=== PATIENT | female | born 1955 | race Caucasian/White ===

== ENCOUNTER → 2016-02-18 | Day surgery (SDC) | payer OTHER ==
[2016-02-11 08:29] VITALS: BMI 54.0
[~2016-02-18] VITALS: Ht 160 cm; Wt 140.0 kg
[~2016-02-18] MED LIST: AMIT10TA6 PO; BSP15 PO; CHOL100010 PO; CHOL1TAB53 PO; CLON1TAB PO; CLON1TAB3 PO; CPR/500 PO; CPR250 PO; DICY20TA35 PO; EFFSR150 PO; EFFSR75 PO; GABA1CAP4 PO; KLN1 PO; KLN5X PO; METF-384 PO; MIRT15TA3 PO; OMEGCAP2 PO; PRED20TA2 PO; PRT/20 PO; QUET1TAB34 PO; SENN-65 PO; SODIUM CHLORIDE 0.9% 500ML 500 ML IV ONE; VENL100T2 PO; VENL150C56 PO; ZTHM250 PO; [UNRECOGNIZED DRUG - CODE] PO
[2016-02-18 12:57] VITALS: Ht 160 cm; Wt 140.0 kg
--- NOTE | 2016-02-18 13:51 | Endo History and Physical ---
History & Physical Date of Service: Feb 18, 2016. Chief Complaint: family hx of colon cancer, mother Referring Physician: Dr. Banda History of Present Illness H/o CRC in family Past Medical History Anxiety, Depression Past Surgical History Hx Cardiac Surgery: No Hx Internal Defibrillator: No Hx Pacemaker: No Hx Abdominal Surgery: Yes (APPY, NIDIA, GRANT, TUBAL LIGATION) Hx of Implantable Prosthesis: No Hx Post-Op Nausea and Vomiting: No Hx Cancer Surgery: No Hx Thoracic Surgery: No Hx Orthopedic: No Hx Urinary Tract Surgery: No Family History Colon CA Social History Smoking Status: Former Smoker Hx Substance Use: No Hx Alcohol Use: No Allergies Coded Allergies: Cyclobenzaprine (Verified Allergy, Unknown, RASH, 02/18/16) INFO GMG Diphenhydramine (Verified Allergy, Unknown, nervousness, 02/18/16) "It makes me bounce of cohen." Naproxen (Verified Allergy, Unknown, WELTS/HIVE BUT CAN TAKE IBUPROFEN & ASPIRIN W/O PROBLEM, 02/18/16) Penicillins (Verified Allergy, Unknown, DOES NOT REMEMBER RXN WAS A CHILD , 02/18/16) Trazodone (Verified Adverse Reaction, Unknown, PALPITATIONS, 02/11/16) Current Medications Reported Home Medications Medications Dose Route/Sig Max Daily Dose Days Date Category Dose Instructions Seroquel (Quetiapine Fumarate) 100 Mg Tab 100 Mg PO HS 02/11/16 Reported Effexor (Venlafaxine Hcl) 100 Mg Tab 100 Mg PO TID 11/06/15 Reported Glucophage (Metformin Hcl) 1,000 Mg Tab 1,000 Mg PO BID 11/06/15 Reported Klonopin (Clonazepam) 1 Mg Tab 2 Mg PO HS 10/19/13 Reported Klonopin (Clonazepam) 1 Mg Tab 1 Mg PO BID 10/06/13 Reported 1 tab in AM and 1 tab with LUNCH Vitamin D (Cholecalciferol) 1,000 Inter.unit Tab 2,000 Inter.unit PO QAM 09/03/13 Reported Vital Signs Weight (Kilograms): 140.00 Height (Feet): 5 Height (Inches): 3 Date Time Temp Pulse Resp B/P Pulse Ox O2 Delivery O2 Flow Rate FiO2 02/18/16 13:12 36.8 82 20 144/91 96 Room Air Physical Exam General Appearance: no apparent distress Respiratory/Chest: Respiratory effort: no dyspnea Auscultation: breath sounds normal Cardiovascular: Heart Auscultation: RRR Assessment and Plan H/o CRC in mother - cscopy
--- NOTE | 2016-02-18 15:14 | Discharge Instructions ---
Endoscopy Patient Instructions Date / Procedure(s) Performed Feb 18, 2016. Colonoscopy Allergy Information Coded Allergies: Cyclobenzaprine (Verified Allergy, Unknown, RASH, 02/18/16) INFO GMG Diphenhydramine (Verified Allergy, Unknown, nervousness, 02/18/16) "It makes me bounce of cohen." Naproxen (Verified Allergy, Unknown, WELTS/HIVE BUT CAN TAKE IBUPROFEN & ASPIRIN W/O PROBLEM, 02/18/16) Penicillins (Verified Allergy, Unknown, DOES NOT REMEMBER RXN WAS A CHILD , 02/18/16) Trazodone (Verified Adverse Reaction, Unknown, PALPITATIONS, 02/11/16) Discharge Date / Findings Feb 18, 2016. Four polyps, diverticulosis, poor prep Provider Instructions Activity Restrictions - No exercising or heavy lifting for 24 hours. - Do not drink alcohol the day of the procedure. - Do not drive a car or operate machinery until the day after the procedure. - Do not make any important decisions or sign important papers in 24 hours after the procedure. Following Day: - Return to full activity which may include returning to work/school. Diet Start your diet with liquids and light foods (jello, soup, juice, toast). Then eat your usual diet if not nauseated. Treatment For Common After Affects For mild abdominal pain, bloating, or excessive gas: - Rest - Eat lightly - Lie on right side Follow-Up Information Follow-up with Dr. Banda as scheduled Anesthesia Information What You Should Know You have had a procedure that required some medicine to reduce anxiety and discomfort. This treatment is called moderate sedation. After receiving the treatment, you may be sleepy, but you will be able to breathe on your own. The effects of the treatment may last for several hours. Follow these instructions along with Activity/Diet recommendations noted above: * Do NOT do anything where dizziness or clumsiness would be dangerous. * Rest quietly at home today, then you can be up and about tomorrow. * Have a responsible person stay with you the rest of today. * You may have had an I.V. today. If so, you may take the dressing off later today. Recommendations Call your doctor if: * Trouble breathing * Continuous vomiting for more than 24 hours * Temperature above 101 degrees * Severe abdominal pain or bloating * Pain not relieved by pain medicine ordered * There is increased drainage or redness from any incision * A large amount of rectal bleeding greater than 2-3 tablespoons. (If you had a polyp/s removed or have hemorrhoids, a small amount of blood - from the rectum is to be expected.) * You have any unanswered questions or concerns. IN THE EVENT OF A SERIOUS EMERGENCY, GO TO THE NEAREST EMERGENCY ROOM Your discharge instructions were prepared by provider Berkeet Boothe. Patient Instructions Signature Page Patient (or Guardian) Signature/Date: I have read and understand the instructions given to me by my caregivers. Caregiver/RN/Doctor Signature/Date: The above-named patient and/or guardian has received patient instructions on this date. + Original Patient Signature Page (only) stays with chart. Please make copy for patient.
[2016-02-18 15:16] VITALS: BP 119/82; PULSE 65; O2SAT 95
--- NOTE | 2016-02-18 15:19 | GI REPORT ---
Procedure Date: 02/18/2016 1:51 PM Procedure: Colonoscopy Indications: Screening in patient at increased risk: Family history of 1st-degree relative with colorectal cancer; personal h/o polyps. Medicines: See the Anesthesia note for documentation of the administered medications Complications: No immediate complications. Estimated Blood Loss: Estimated blood loss: none. Procedure: Pre-Anesthesia Assessment: - ASA Grade Assessment: III - A patient with severe systemic disease. After I obtained informed consent, the scope was passed under direct vision. Throughout the procedure, the patient's blood pressure, pulse, and oxygen saturations were monitored continuously. The Scope was introduced through the anus and advanced to the terminal ileum. The patient tolerated the procedure well. The quality of the bowel preparation was fair. The colonoscopy was somewhat difficult due to significant looping. Findings: The perianal and digital rectal examinations were normal. Multiple small-mouthed diverticula were found in the sigmoid colon. Four sessile polyps were found in the transverse colon and in the ascending colon. The polyps were 2 to 4 mm in size. These polyps were removed with a cold biopsy forceps. Resection and retrieval were complete. The exam was otherwise without abnormality, but limited by prep wuality. Impression: - Preparation of the colon was fair. - Diverticulosis in the sigmoid colon. - Four 2 to 4 mm polyps in the transverse colon and in the ascending colon, removed with a cold biopsy forceps. Resected and retrieved. - The examination was otherwise normal. Recommendation: - Discharge patient to home. Repeat exam in 1 year with 2 day prep, due to prep quality, polyps, family history. Bereket Avila M.D. Bereket Avila MD 02/18/2016 3:18:05 PM This report has been signed electronically. Note Initiated On: 02/18/2016 1:51 PM
--- NOTE | 2016-02-18 15:21 | Anesthesiology Progress Note ---
Anesthesia Post Op Note Date & Time Feb 18, 2016 at 15:20 Vital Signs Pain Intensity: 0 Vital Signs Past 12 Hours Date Time Temp Pulse Resp B/P Pulse Ox O2 Delivery O2 Flow Rate FiO2 02/18/16 15:16 65 20 119/82 95 Room Air 02/18/16 15:01 72 20 114/77 97 Room Air 02/18/16 14:46 76 20 109/62 96 Room Air 02/18/16 13:12 36.8 82 20 144/91 96 Room Air Notes Mental Status: alert / awake / arousable, participated in evaluation Pt Amnestic to Procedure: Yes Nausea / Vomiting: adequately controlled Pain: adequately controlled Airway Patency, RR, SpO2: stable & adequate BP & HR: stable & adequate Hydration State: stable & adequate Anesthetic Complications: no major complications apparent
== END | disposition home or self-care (01) ==
LOC: C.GI 12:36
PROVIDERS: ATTEND Internal Medicine Gastroenterology
DX: Z12.11 Encounter for screening for malignant neoplasm of colon (principal); Z80.0 Family history of malignant neoplasm of digestive organs; D12.3 Benign neoplasm of transverse colon; K57.30 Diverticulosis of large intestine without perforation or abscess without bleeding; F41.9 Anxiety disorder, unspecified; F32.9 Major depressive disorder, single episode, unspecified; Z90.49 Acquired absence of other specified parts of digestive tract; Z98.890 Other specified postprocedural states; Z98.51 Tubal ligation status; Z87.891 Personal history of nicotine dependence; Z88.0 Allergy status to penicillin

== ENCOUNTER 2016-03-01 15:54 | Emergency (ER) | payer OTHER ==
[~2016-03-01] VITALS: Ht 160 cm; Wt 130.0 kg
[~2016-03-01 15:54] MED LIST changes: -AMIT10TA6 PO; -BSP15 PO; -CHOL1TAB53 PO; -CPR/500 PO; -CPR250 PO; -DICY20TA35 PO; -EFFSR150 PO; -EFFSR75 PO; -GABA1CAP4 PO; -KLN1 PO; -KLN5X PO; -MIRT15TA3 PO; -PRED20TA2 PO; -PRT/20 PO; -SENN-65 PO; -SODIUM CHLORIDE 0.9% 500ML 500 ML IV ONE; -VENL150C56 PO; -ZTHM250 PO; -[UNRECOGNIZED DRUG - CODE] PO
[2016-03-01] MEDS ORDERED: HYDROmorphone INJ 0.5 MG/0.5 ML SYR IV STA ×2 (16:09→21:21)
[2016-03-01] MEDS ORDERED: SODIUM CHLORIDE 0.9% 1000ML 1,000 ML IV STA (16:09)
[2016-03-01] MEDS ORDERED: ONDANSETRON INJ 2 MG/ML 2 ML VIAL IV STA (16:09)
[2016-03-01] MEDS ORDERED: OPTIRAY 320 IV PRN (16:15)
[2016-03-01] MEDS ORDERED: CLON1TAB3 PO (16:22)
[2016-03-01] MEDS ORDERED: CHOL1TAB53 PO (16:22)
[2016-03-01 16:41] VITALS: O2SAT 96; Ht 160 cm; Wt 130.0 kg
--- NOTE | 2016-03-01 16:46 | DIAGNOSTIC IMAGING REPORT ---
SINGLE VIEW CHEST CLINICAL HISTORY: Generalized weakness. FINDINGS: An AP, portable, upright chest radiograph is compared to study dated 12/03/2013. Correlation is made with chest CT dated 06/12/2009. The examination is degraded by portable technique and patient rotation. The heart is mildly enlarged and there is atherosclerotic calcification of the thoracic aorta. The pulmonary vasculature is noncongested. The lungs and pleural spaces are clear. No pneumothorax is seen. The skeletal structures appear osteopenic. The bony thorax is grossly intact. Degenerative change is noted throughout the thoracic spine. IMPRESSION: Cardiomegaly with no acute cardiopulmonary abnormality. Electronically signed by: Syd Bustillos M.D. 03/01/2016 4:44 PM Dictated Date/Time: 03/01/2016 4:43 PM
[2016-03-01 17:01] LABS: BASO % 0.4 %; BASO ABS # 0.03 K/uL (0-0.2); COMPLETE YES; EOS % 1.1 %; HEMATOCRIT 40.9 % (37-47); IG% 0.2 %; LYMPH ABS # 3.32 K/uL (1.2-3.4); MEAN CELL VOLUME 89.7 fL (80-100); MEAN CORPUSCULAR HEMOGLOBIN 31.6 pg (25-34); MEAN CORPUSCULAR HGB CONC 35.2 g/dl (32-36); MEAN PLATELET VOLUME 9.5 fL (7.4-10.4); MONO % 6.1 %; NEUT % 51.2 %; PLATELET COUNT 238 K/uL (130-400); RED BLOOD COUNT 4.56 M/uL (4.2-5.4); WHITE BLOOD COUNT 8.09 K/uL (4.8-10.8)
[2016-03-01 17:26] LABS: ALT/SGPT 46 U/L (12-78); BLOOD UREA NITROGEN 13 mg/dl (7-18); BUN/CREATININE RATIO 13.7 (10-20); CALCIUM 9.1 mg/dl (8.5-10.1); CARBON DIOXIDE 20 mmol/L (21-32); CHLORIDE 109 mmol/L (98-107); CREATININE 0.94 mg/dl (0.60-1.20); GLUCOSE 109 mg/dl (70-99); MAGNESIUM 2.3 mg/dl (1.8-2.4); POTASSIUM 3.9 mmol/L (3.5-5.1); SODIUM 142 mmol/L (136-145)
[2016-03-01] MEDS ORDERED: ALBUT/IPRATROP 3MG/0.5MG NEB 3 ML VIAL INH STA (17:34)
[2016-03-01 17:43] LABS: ALKALINE PHOSPHATASE 119 U/L (45-117); AST/SGOT 32 U/L (15-37)
--- NOTE | 2016-03-01 19:31 | DIAGNOSTIC IMAGING REPORT ---
ABDOMEN AND PELVIS CT WITH IV AND ORAL CONTRAST CT DOSE: 1912.06 mGy.cm HISTORY: Diffuse upper abdominal pain. TECHNIQUE: Multiaxial CT images of the abdomen and pelvis were performed following the use of intravenous and oral contrast. COMPARISON STUDY: Abdomen and pelvis CT 11/06/2015. FINDINGS: Stable nodularity within the left breast. The lung bases are clear. Large, bowel-containing ventral hernia remains unchanged. This contains multiple loops of small bowel. There is also a smaller ventral fat-containing hernia which is also unchanged. Cholecystectomy. Hepatic steatosis. Stable left adrenal gland nodule. The right adrenal gland, pancreas, and kidneys are unremarkable. No retroperitoneal lymphadenopathy. No hydronephrosis. The bladder is unremarkable. Hysterectomy. No bowel wall thickening or obstruction. Colonic diverticulosis. The large, bowel containing ventral hernia also contains a short segment of the transverse colon. The appendix appears surgically absent. IMPRESSION: 1. No significant change in the large bowel-containing ventral hernia and smaller fat-containing ventral hernia. 2. No bowel wall thickening or obstruction. 3. Hepatic steatosis. 4. Colonic diverticulosis. 5. Postoperative changes as described above. Electronically signed by: Markell Ramos M.D. 03/01/2016 7:29 PM Dictated Date/Time: 03/01/2016 7:20 PM
[2016-03-01] MEDS ORDERED: ALBUTEROL HFA 8 GM INHALER INH ONE (21:30)
[2016-03-01] MEDS ORDERED: BENTYL HOME PACK 10 MG VIAL PO ONE (21:30)
[2016-03-01 21:38] VITALS: BP 110/80; PULSE 66; O2SAT 96
[2016-03-01] MEDS ORDERED: DICY20TA35 PO (21:49)
--- NOTE | 2016-03-02 00:55 | EMERGENCY ROOM VISIT NOTE ---
History Report prepared by Lorne: Gene Puga Under the Supervision of: Dr. Abbe Preston M.D. First contact with patient: 16:01 Chief Complaint: RESPIRATORY DISTRESS Stated Complaint: TROUBLE BREATHING, ABDOMINAL PAIN Nursing Triage Summary: patient c/o "Trouble breathing and pain in my stomach. I've had the pain, the trouble breathing started Sunday" Pt denies n/v/d. Mid upper to lower bilateral abd pain. History of Present Illness The patient is a 60 year old female who presents to the Emergency Room with complaints of upper abdominal pain starting about a year ago and worsening a few weeks ago. She had a colonoscopy about 2 weeks ago with negative results. The patient was in the Emergency Room for upper abdominal pain in October 2015. She received a CT scan with negative results and normal blood work. The patient currently rates a pain intensity of 9/10. She has not eaten anything today. She reports her current pain feels different than her prior abdominal pain due to the breathing issues. The patient started having shortness of breath 3 days ago. She also reports some chest pain which has been constant as well. The patient does note a history of smoking but is no longer a smoker. She denies any history of similar symptoms or prior lung problems. She has a family history of cancer. She has a history of blood clot in the left leg but has not had any problems with her legs recently. She denies any calf pain or leg swelling. She denies any recent travels. Pt denies LOC, headache, fevers, chills, cold-like symptoms, diaphoresis, visual changes, neck pain, nausea, vomiting, back pain, melena, hematochezia, urinary symptoms, numbness, weakness , lymphadenopathy, rash, or other complaints. Source of History: patient Onset: about a year ago Position: abdomen (upper) Symptom Intensity: 9/10 Timing: worsening Associated Symptoms: + SOB, + chest pain Review of Systems See HPI for pertinent positives and negatives. A total of ten systems were reviewed and were otherwise negative. Past Medical & Surgical Medical Problems: (1) DEPRESSIVE DISORDER NEC (2) GENERALIZED ANXIETY DIS (3) HYPERLIPIDEMIA NEC/NOS (4) IRRITABLE BOWEL SYNDROME (5) OBSTRUCTIVE SLEEP APNEA (ADULT) (PEDIATRIC) Surgical Problems: (1) Appendectomy (2) Cholecystectomy (3) H/O: hysterectomy (4) Tubal ligation status Family History Cancer Diabetes mellitus Heart disease Hypertension Social History Smoking Status: Former Smoker Alcohol Use: none Drug Use: none Marital Status: Housing Status: lives with family Occupation Status: employed Current/Historical Medications Scheduled Cholecalciferol (D 1000), 2,000 UNITS PO DAILY Clonazepam (Klonopin), 1 MG PO BID Clonazepam (Klonopin), 2 MG PO HS Metformin Hcl (Glucophage), 1,000 MG PO BID Holland-3 Fatty Acids (Fish Oil), 2 CAP PO QAM Quetiapine Fumarate (Seroquel), 100 MG PO HS Venlafaxine Hcl (Effexor), 100 MG PO TID Scheduled PRN Dicyclomine Hcl (Bentyl), 20 MG PO Q6 PRN for Pain Allergies Coded Allergies: Cyclobenzaprine (Verified Allergy, Unknown, RASH, 03/01/16) INFO [facility]G Diphenhydramine (Verified Allergy, Unknown, nervousness, 03/01/16) "It makes me bounce of cohen." Naproxen (Verified Allergy, Unknown, WELTS/HIVE BUT CAN TAKE IBUPROFEN & ASPIRIN W/O PROBLEM, 03/01/16) Penicillins (Verified Allergy, Unknown, DOES NOT REMEMBER RXN WAS A CHILD , 03/01/16) Trazodone (Verified Adverse Reaction, Unknown, PALPITATIONS, 03/01/16) Physical Exam Vital Signs Date Time Temp Pulse Resp B/P Pulse Ox O2 Delivery O2 Flow Rate FiO2 03/01/16 21:38 66 20 110/80 96 Room Air 03/01/16 21:02 75 20 115/65 98 Room Air 03/01/16 20:35 67 03/01/16 19:10 78 22 119/62 95 Room Air 03/01/16 17:50 79 20 104/92 99 Room Air 03/01/16 17:14 68 20 98 Room Air 03/01/16 16:41 96 Room Air 03/01/16 16:35 67 03/01/16 15:56 76 22 195/141 98 03/01/16 15:56 94 Room Air Physical Exam GENERAL: Awake, alert, well-appearing, in no distress HENT: Normocephalic, atraumatic. Oropharynx unremarkable. EYES: Normal conjunctiva. Sclera non-icteric. NECK: Supple. No nuchal rigidity. FROM. No JVD. RESPIRATORY: Slightest wheeze on the right side. CARDIAC: Regular rate, normal rhythm. Extremities warm and well perfused. Pulses equal. ABDOMEN: Soft, non-distended. Mild upper abdominal tenderness. No rebound or guarding. No masses. RECTAL: Deferred. MUSCULOSKELETAL: Chest examination reveals no tenderness. The back is symmetrical on inspection without obvious abnormality. There is no CVA tenderness to palpation. No joint edema. LOWER EXTREMITIES: Calves are equal size bilaterally and non-tender. No edema. No discoloration. NEURO: Normal sensorium. No sensory or motor deficits noted. SKIN: No rash or jaundice noted. Medical Decision & Procedures ER Provider Diagnostic Interpretation: X ray results as stated below per my interpretation and radiologist interpretation. CT results as stated below per my review and radiologist interpretation SINGLE VIEW CHEST CLINICAL HISTORY: Generalized weakness. FINDINGS: An AP, portable, upright chest radiograph is compared to study dated 12/03/2013. Correlation is made with chest CT dated 06/12/2009. The examination is degraded by portable technique and patient rotation. The heart is mildly enlarged and there is atherosclerotic calcification of the thoracic aorta. The pulmonary vasculature is noncongested. The lungs and pleural spaces are clear. No pneumothorax is seen. The skeletal structures appear osteopenic. The bony thorax is grossly intact. Degenerative change is noted throughout the thoracic spine. IMPRESSION: Cardiomegaly with no acute cardiopulmonary abnormality. Electronically signed by: Syd Bustillos M.D. 03/01/2016 4:44 PM Dictated Date/Time: 03/01/2016 4:43 PM ABDOMEN AND PELVIS CT WITH IV AND ORAL CONTRAST CT DOSE: 1912.06 mGy.cm HISTORY: Diffuse upper abdominal pain. TECHNIQUE: Multiaxial CT images of the abdomen and pelvis were performed following the use of intravenous and oral contrast. COMPARISON STUDY: Abdomen and pelvis CT 11/06/2015. FINDINGS: Stable nodularity within the left breast. The lung bases are clear. Large, bowel-containing ventral hernia remains unchanged. This contains multiple loops of small bowel. There is also a smaller ventral fat-containing hernia which is also unchanged. Cholecystectomy. Hepatic steatosis. Stable left adrenal gland nodule. The right adrenal gland, pancreas, and kidneys are unremarkable. No retroperitoneal lymphadenopathy. No hydronephrosis. The bladder is unremarkable. Hysterectomy. No bowel wall thickening or obstruction. Colonic diverticulosis. The large, bowel containing ventral hernia also contains a short segment of the transverse colon. The appendix appears surgically absent. IMPRESSION: 1. No significant change in the large bowel-containing ventral hernia and smaller fat-containing ventral hernia. 2. No bowel wall thickening or obstruction. 3. Hepatic steatosis. 4. Colonic diverticulosis. 5. Postoperative changes as described above. Electronically signed by: Markell Ramos M.D. 03/01/2016 7:29 PM Dictated Date/Time: 03/01/2016 7:20 PM Laboratory Results 03/01/16 16:40 Red Blood Count 4.56, Mean Corpuscular Volume 89.7, Mean Corpuscular Hemoglobin 31.6, Mean Corpuscular Hemoglobin Concent 35.2, Mean Platelet Volume 9.5, Neutrophils (%) (Auto) 51.2, Lymphocytes (%) (Auto) 41.0, Monocytes (%) (Auto) 6.1, Eosinophils (%) (Auto) 1.1, Basophils (%) (Auto) 0.4, Neutrophils # (Auto) 4.14, Lymphocytes # (Auto) 3.32, Monocytes # (Auto) 0.49, Eosinophils # (Auto) 0.09, Basophils # (Auto) 0.03 03/01/16 16:40 Test 03/01/16 16:09 03/01/16 16:40 Creatine Kinase MB Ratio (0-3.0) White Blood Count 8.09 K/uL (4.8-10.8) Red Blood Count 4.56 M/uL (4.2-5.4) Hemoglobin 14.4 g/dL (12.0-16.0) Hematocrit 40.9 % (37-47) Mean Corpuscular Volume 89.7 fL (80-100) Mean Corpuscular Hemoglobin 31.6 pg (25-34) Mean Corpuscular Hemoglobin Concent 35.2 g/dl (32-36) Platelet Count 238 K/uL (130-400) Mean Platelet Volume 9.5 fL (7.4-10.4) Neutrophils (%) (Auto) 51.2 % Lymphocytes (%) (Auto) 41.0 % Monocytes (%) (Auto) 6.1 % Eosinophils (%) (Auto) 1.1 % Basophils (%) (Auto) 0.4 % Neutrophils # (Auto) 4.14 K/uL (1.4-6.5) Lymphocytes # (Auto) 3.32 K/uL (1.2-3.4) Monocytes # (Auto) 0.49 K/uL (0.11-0.59) Eosinophils # (Auto) 0.09 K/uL (0-0.5) Basophils # (Auto) 0.03 K/uL (0-0.2) RDW Standard Deviation 46.3 fL (36.4-46.3) RDW Coefficient of Variation 14.1 % (11.5-14.5) Immature Granulocyte % (Auto) 0.2 % Immature Granulocyte # (Auto) 0.02 K/uL (0.00-0.02) Anion Gap 13.0 mmol/L (3-11) Est Creatinine Clear Calc Drug Dose 83.8 ml/min Estimated GFR () 76.4 Estimated GFR (Non- 65.9 BUN/Creatinine Ratio 13.7 (10-20) Calcium Level 9.1 mg/dl (8.5-10.1) Magnesium Level 2.3 mg/dl (1.8-2.4) Total Bilirubin 0.3 mg/dl (0.2-1) Direct Bilirubin 0.1 mg/dl (0-0.2) Aspartate Amino Transf (AST/SGOT) 32 U/L (15-37) Alanine Aminotransferase (ALT/SGPT) 46 U/L (12-78) Alkaline Phosphatase 119 U/L (45-117) Total Creatine Kinase 103 U/L (26-192) Creatine Kinase MB < 0.5 ng/ml (0.5-3.6) Troponin I < 0.015 ng/ml (0-0.045) Pro-B-Type Natriuretic Peptide 39 pg/ml (0-900) Total Protein 7.3 gm/dl (6.4-8.2) Albumin 3.7 gm/dl (3.4-5.0) Lipase 126 U/L (73-393) Thyroid Stimulating Hormone (TSH) 1.370 uIu/ml (0.300-4.500) Chemistry Specimen Hemolysis Laboratory results reviewed by me Medications Administered Medications (Trade) Dose Ordered Sig/Gary Route Start Time Stop Time Status Last Admin Dose Admin Sodium Chloride (Nss 1000ml) 1,000 ml @ 125 mls/hr Q8H STAT IV 03/01/16 16:09 03/02/16 00:08 DC 03/01/16 16:59 125 MLS/HR Ondansetron HCl (Zofran Inj) 4 mg NOW STAT IV 03/01/16 16:09 03/01/16 16:11 DC 03/01/16 16:57 4 MG Hydromorphone HCl (Dilaudid Inj) 0.5 mg NOW STAT IV 03/01/16 16:09 03/01/16 16:11 DC 03/01/16 16:57 0.5 MG Albuterol/ Ipratropium (Duoneb) 3 ml NOW STAT INH 03/01/16 17:34 03/01/16 17:36 DC 03/01/16 17:48 3 ML Dicyclomine HCl (Dicyclomine HCl 10MG Home Pack) 1 ea UD ONCE PO 03/01/16 21:30 03/01/16 21:31 DC 03/01/16 21:35 1 EA Hydromorphone HCl (Dilaudid Inj) 0.5 mg NOW STAT IV 03/01/16 21:21 03/01/16 21:23 DC 03/01/16 21:35 0.5 MG Albuterol (Ventolin Hfa Inhaler) 2 puffs NOW ONCE INH 03/01/16 21:30 03/01/16 21:31 DC 03/01/16 21:36 2 PUFFS ECG Indication: abdominal pain Rate (beats per minute): 71 Rhythm: normal sinus Findings: nonspecific-ST abn, Q waves (Inferior) Comparison ECG Date: November 06, 2015 Change: Nonspecific ST abnormalities are new when compared to November 06, 2015. ED Course 1601: The patient was evaluated in room C11B. A complete history and physical exam was performed. 160: Dilaudid Inj 0.5 mg IV, Zofran Inj 4 mg IV, Sodium Chloride 1000 ml @ 125 mls/hr IV 173: DuoNeb 3 ml INH 173: The patient is doing well. She is waiting to go to CT scan. 2120: Dilaudid Inj 0.5 mg IV 2129: Albuterol 2 puffs INH, Dicyclomine HCl 1 ea PO. The patient states that she has some of her pain coming back but she is requesting to be discharged home. She wants something for pain at home but does not want any narcotics. Discussed results and discharge instructions: She verbalized understanding and agreement. The patient is ready for discharge. Medical Decision Triage Nursing notes reviewed. The patient's presentation and history were concerning for abdominal pain and breathing difficulties. Etiologies such as viral syndrome, reactive airway disease, pneumonia, cardiac sources, appendicitis, diverticulitis, obstruction, inflammatory bowel disease , renal colic, PUD, biliary pathology, pancreatitis, mesenteric ischemia, aortic pathology, infections, genitourinary, UTI, perforated viscus, as well as others were entertained. Patient was evaluated. She has a long-standing abdominal pain. She was hydrated. She was given Zofran and Dilaudid. She was feeling better with this. The patient was also given a DuoNeb. No active disease was found on chest x-ray. No acute ischemic change and ECG. The patient had an unremarkable CBC, chemistry panel, magnesium, lipase, chest x-ray, BNP and troponin. Patient underwent CT imaging of her abdomen and pelvis. She has a ventral hernia but no acute process. The patient was given a second dose of IV Dilaudid 0.5 mg for her pain. I discussed conservative management with her. She will need close outpatient follow-up. She was also given a Ventolin inhaler. Her chest x-ray shows no evidence of pneumonia. She wanted something for pain but not narcotic. She was given Bentyl. If she worsens in any way she will back to the Emergency Room for reevaluation. By the evaluation outlined above other emergent etiologies such as those listed in the differential, as well as others, were deemed relatively unlikely. The patient was informed about the findings as listed above. All questions were answered and she was pleased with the treatment. Return instructions were outlined and the patient was discharged in stable condition. The patient was referred to her PCP for follow-up this week for a recheck of the current condition. The chart was completed utilizing [employer] Speech voice recognition software. Grammatical errors, random word insertions, pronoun errors, and incomplete sentences are an occasional consequence of this system due to software limitations, ambient noise, and hardware issues. Any formal questions or concerns about the content, text, or information contained within the body of this dictation should be directly addressed to the physician for clarification. Impression Primary Impression: Upper abdominal pain Additional Impressions: Ventral hernia Wheezing Scribe Attestation The scribe's documentation has been prepared under my direction and personally reviewed by me in its entirety. I confirm that the note above accurately reflects all work, treatment, procedures, and medical decision making performed by me. Departure Information Dispostion Home / Self-Care Prescriptions Dicyclomine Hcl (BENTYL) 20 Mg Tab 20 MG PO Q6 Y for Pain, #20 TAB Prov: Abbe Preston MD 03/01/16 Referrals Abbe Banda III, M.D. (PCP) Forms HOME CARE DOCUMENTATION FORM, IMPORTANT VISIT INFORMATION Patient Instructions Asthma - [facility], COPD - [facility], Croup - [facility], My [facility] Additional Instructions DO NOT drive, drink alcohol, operate machinery, or perform dangerous activities today. You were given medications in the ER that can affect your ability to safely function or operate a vehicle. Bentyl(dicyclomine) 20 mg: Take one tablet 4 times daily as needed for abdominal pain. If 20 mg does not seem to be enough you may increase to 40 mg 4 times daily after one week. If you do not have any results with this medication do not continue past 2 weeks from the start date. Discontinue this medication if you develop any rash, itching, increased abdominal pain, heartburn , increased nausea, constipation, or as needed. Albuterol inhaler: Two puffs 4 times daily for seven days to improve breathing , then 2 puffs every 4-6 hours as needed. Acetaminophen(Tylenol) may be used for fever or pain. Use 1000mg every six hours as needed. Avoid using more than 4000mg in a 24 hour period. Rest and drink plenty of fluids as tolerated. Slow sips of water or sports drinks are recommended instead of large amounts all at once. Continue current medications. Once your stomach is settled start with a clear liquid diet (jello, soup broth, etc.) and then advance as tolerated. You should avoid full, heavy meals for about 24 hrs from the time your symptoms resolved. Return to the ER immediately for worsening or persistent abdominal pain, vomiting, fevers, chest pains, difficulty breathing, black or bloody stools, worsening of your condition, or as needed. Follow up with your primary physician in 2-3 days for a recheck of your current condition. Problem Qualifiers
[2016-03-21] MEDS ORDERED: SENN-65 PO (08:12)
[2016-03-21] MEDS ORDERED: PRT/20 PO (08:12)
[2016-05-30] MEDS ORDERED: CPR250 PO (09:11)
[2016-06-06] MEDS ORDERED: KLN5X PO (10:32)
[2016-06-06] MEDS ORDERED: EFFSR75 PO ×2 (10:32→10:33)
[2016-06-06] MEDS ORDERED: CPR/500 PO (10:32)
== END 2016-03-01 22:02 | disposition home or self-care (01) ==
LOC: C.EDB 15:55 → C.EDC 22:02
DX: R10.10 Upper abdominal pain, unspecified (principal); K43.9 Ventral hernia without obstruction or gangrene; R06.2 Wheezing; K58.9 Irritable bowel syndrome, unspecified; G47.33 Obstructive sleep apnea (adult) (pediatric); F32.9 Major depressive disorder, single episode, unspecified; E78.5 Hyperlipidemia, unspecified; Z87.891 Personal history of nicotine dependence

== ENCOUNTER 2016-03-08 17:41 | Emergency (ER) | payer OTHER ==
[~2016-03-08] VITALS: Ht 160 cm; Wt 130.0 kg
[~2016-03-08 17:41] MED LIST changes: -CHOL100010 PO; +CHOL1TAB53 PO; +DICY20TA35 PO
[2016-03-08 17:46] VITALS: TEMP 36.4; Ht 160 cm; Wt 130.0 kg
[2016-03-08] MEDS ORDERED: ONDANSETRON INJ 2 MG/ML 2 ML VIAL IV STA (18:57)
[2016-03-08] MEDS ORDERED: SODIUM CHLORIDE 0.9% 1000ML 500 ML IV STA (18:57)
[2016-03-08] MEDS ORDERED: HYDROmorphone INJ 2 MG/ML SYR/VIAL IV PRN (19:00)
--- NOTE | 2016-03-08 19:13 | EMERGENCY ROOM VISIT NOTE ---
History Report prepared by Lorne: Roc Lara Under the Supervision of: Dr. Syd Lyle M.D. First contact with patient: 18:50 Chief Complaint: ABDOMINAL PAIN Stated Complaint: SEVERE ABD PAIN,TROUBLE BREATHING History of Present Illness The patient is a 60 year old female who presents to the Emergency Room with complaints of worsening abdominal pain beginning one year prior to arrival. She currently rates her discomfort as a 10/10 in severity. The patient notes she was seen in the ED one week ago for similar symptoms. She states she had relief for two days after being seen in the ED, and then the discomfort returned. The patient denies anything making her pain better or worse. She states she has tried taking Zantac for a month without relief. The patient notes she has seen her PCP, who has not been able to identify the cause of her discomfort. The patient notes she had a colonoscopy three weeks ago but has never had an endoscopy. She states she does not use anything for pain because nothing works. The patient notes she does not have her gallbladder or appendix. She denies diarrhea, cough, and urinary symptoms. The patient denies a history of COPD, asthma, and smoking. It is noted the patient was here in the ED on March 01, and the laboratories were unrevealing. The CT of the abdomen and pelvis showed chronic findings but nothing acute. She was discharged on Bentyl and a Ventolin inhaler. 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 A total of 10 systems reviewed and were otherwise negative. Past Medical & Surgical Medical Problems: (1) DEPRESSIVE DISORDER NEC (2) GENERALIZED ANXIETY DIS (3) HYPERLIPIDEMIA NEC/NOS (4) IRRITABLE BOWEL SYNDROME (5) OBSTRUCTIVE SLEEP APNEA (ADULT) (PEDIATRIC) Surgical Problems: (1) Appendectomy (2) Cholecystectomy (3) H/O: hysterectomy (4) Tubal ligation status Family History Cancer Diabetes mellitus Heart disease Hypertension Social History Smoking Status: Former Smoker Alcohol Use: none Drug Use: none Marital Status: Housing Status: lives with family Occupation Status: employed Current/Historical Medications Scheduled Cholecalciferol (D 1000), 2,000 UNITS PO DAILY Clonazepam (Klonopin), 1 MG PO BID Clonazepam (Klonopin), 2 MG PO HS Metformin Hcl (Glucophage), 1,000 MG PO BID [place]-3 Fatty Acids (Fish Oil), 2 CAP PO QAM Pantoprazole (Protonix), 20 MG PO DAILY Quetiapine Fumarate (Seroquel), 100 MG PO HS Sennosides-Docusate Sodium (Senokot S), 1 TAB PO BID Venlafaxine Hcl (Effexor), 100 MG PO TID Scheduled PRN Dicyclomine Hcl (Bentyl), 20 MG PO Q6 PRN for Pain Allergies Coded Allergies: Cyclobenzaprine (Verified Allergy, Unknown, RASH, 03/01/16) INFO GMG Diphenhydramine (Verified Allergy, Unknown, nervousness, 03/01/16) "It makes me bounce of cohen." Naproxen (Verified Allergy, Unknown, WELTS/HIVE BUT CAN TAKE IBUPROFEN & ASPIRIN W/O PROBLEM, 03/01/16) Penicillins (Verified Allergy, Unknown, DOES NOT REMEMBER RXN WAS A CHILD , 03/01/16) Trazodone (Verified Adverse Reaction, Unknown, PALPITATIONS, 03/01/16) Physical Exam Vital Signs Date Time Temp Pulse Resp B/P Pulse Ox O2 Delivery O2 Flow Rate FiO2 03/08/16 21:56 86 17 122/70 96 03/08/16 20:29 73 18 125/62 97 Room Air 03/08/16 17:46 36.4 81 24 157/55 95 Room Air Physical Exam GENERAL: Patient is in no acute distress. HEENT: No acute trauma, normocephalic atraumatic, mucous membranes moist, no nasal congestion, no scleral icterus. NECK: No stridor, no adenopathy, no meningismus, trachea is midline. LUNGS: Bilateral wheezing. Breath sounds are equal. No rhonchi. Breath sounds are full. HEART: Without murmurs gallops or rubs, regular rate and rhythm. ABDOMEN: Tender in the epigastrium. Soft, bowel sounds positive, no hernias, no peritonitis. EXTREMITIES: No cyanosis or edema, full range of motion of all the joints without pain or difficulty, no signs for acute trauma. NEUROLOGIC: Oriented x 3, no acute motor or sensory deficits, no focal weakness. SKIN: No rash, no jaundice, no diaphoresis. Medical Decision & Procedures ER Provider Diagnostic Interpretation: X-ray results as stated below per interpretation by me and the radiologist: PA CHEST WITH ABDOMINAL SERIES CLINICAL HISTORY: Generalized abdominal pain. FINDINGS: A PA chest radiograph is compared to study dated 03/01/2016. The examination is degraded by apical positioning and large body habitus. The cardiomediastinal silhouette is unremarkable. Atherosclerotic calcification is noted in the thoracic aorta. The lungs and pleural spaces are clear. No pneumothorax is seen. The skeletal structures are osteopenic. The bony thorax is grossly intact. Supine and erect abdominal radiograph are correlated with abdominal CT dated 03/01/2016. The examination is degraded by large body habitus. There is a nonobstructed abdominal bowel gas pattern. No evidence of intraperitoneal free air is seen. There is moderate colonic fecal retention. Retained enteric contrast is noted within colonic diverticula. Cholecystectomy clips are noted. There are no abnormal abdominal calcifications. Phleboliths are seen in the pelvis. There is mild lumbar sacral spondylosis. The lumbar spine and bony pelvis appear intact. IMPRESSION: 1. No active disease in the chest. 2. Nonobstructed abdominal bowel gas pattern noting moderate colonic fecal retention. 3. No change from studies dated 03/01/2016. Electronically signed by: Syd Bustillos M.D. 03/08/2016 9:06 PM Laboratory Results 03/08/16 19:51 Red Blood Count 4.59, Mean Corpuscular Volume 90.0, Mean Corpuscular Hemoglobin 30.5, Mean Corpuscular Hemoglobin Concent 33.9, Mean Platelet Volume 10.0, Neutrophils (%) (Auto) 57.7, Lymphocytes (%) (Auto) 34.5, Monocytes (%) (Auto) 6.2, Eosinophils (%) (Auto) 1.0, Basophils (%) (Auto) 0.4, Neutrophils # (Auto) 5.19, Lymphocytes # (Auto) 3.11, Monocytes # (Auto) 0.56, Eosinophils # (Auto) 0.09, Basophils # (Auto) 0.04 03/08/16 19:25 Test 03/08/16 19:10 03/08/16 19:25 03/08/16 19:51 Urine Color DK YELLOW Urine Appearance CLOUDY (CLEAR) Urine pH 6.5 (4.5-7.5) Urine Specific [place] 1.029 (1.000-1.030) Urine Protein TRACE (NEG) Urine Glucose (UA) NEG (NEG) Urine Ketones 1+ (NEG) Urine Occult Blood NEG (NEG) Urine Nitrite NEG (NEG) Urine Bilirubin NEG (NEG) Urine Urobilinogen NEG (NEG) Urine Leukocyte Esterase MODERATE (NEG) Urine WBC (Auto) >30 /hpf (0-5) Urine RBC (Auto) 5-10 /hpf (0-4) Urine Hyaline Casts (Auto) /lpf (0-5) Urine Epithelial Cells (Auto) >30 /lpf (0-5) Urine Bacteria (Auto) 1+ (NEG) Urine Pathogenic Casts /lpf (0) Urine Mucus PRESENT (NONE PRSENT) Anion Gap 15.0 mmol/L (3-11) Est Creatinine Clear Calc Drug Dose 87.5 ml/min Estimated GFR () 80.5 Estimated GFR (Non- 69.5 BUN/Creatinine Ratio 13.0 (10-20) Calcium Level 8.8 mg/dl (8.5-10.1) Total Bilirubin 0.7 mg/dl (0.2-1) Aspartate Amino Transf (AST/SGOT) 19 U/L (15-37) Alanine Aminotransferase (ALT/SGPT) 28 U/L (12-78) Alkaline Phosphatase 116 U/L (45-117) Troponin I < 0.015 ng/ml (0-0.045) Total Protein 7.1 gm/dl (6.4-8.2) Albumin 3.6 gm/dl (3.4-5.0) Globulin 3.5 gm/dl (2.5-4.0) Albumin/Globulin Ratio 1.0 (0.9-2) Lipase 114 U/L (73-393) White Blood Count 9.01 K/uL (4.8-10.8) Red Blood Count 4.59 M/uL (4.2-5.4) Hemoglobin 14.0 g/dL (12.0-16.0) Hematocrit 41.3 % (37-47) Mean Corpuscular Volume 90.0 fL (80-100) Mean Corpuscular Hemoglobin 30.5 pg (25-34) Mean Corpuscular Hemoglobin Concent 33.9 g/dl (32-36) Platelet Count 240 K/uL (130-400) Mean Platelet Volume 10.0 fL (7.4-10.4) Neutrophils (%) (Auto) 57.7 % Lymphocytes (%) (Auto) 34.5 % Monocytes (%) (Auto) 6.2 % Eosinophils (%) (Auto) 1.0 % Basophils (%) (Auto) 0.4 % Neutrophils # (Auto) 5.19 K/uL (1.4-6.5) Lymphocytes # (Auto) 3.11 K/uL (1.2-3.4) Monocytes # (Auto) 0.56 K/uL (0.11-0.59) Eosinophils # (Auto) 0.09 K/uL (0-0.5) Basophils # (Auto) 0.04 K/uL (0-0.2) RDW Standard Deviation 45.5 fL (36.4-46.3) RDW Coefficient of Variation 13.9 % (11.5-14.5) Immature Granulocyte % (Auto) 0.2 % Immature Granulocyte # (Auto) 0.02 K/uL (0.00-0.02) Lactic Acid Level 1.3 mmol/L (0.4-2.0) Laboratory results reviewed by me. Medications Administered Medications (Trade) Dose Ordered Sig/[place] Route Start Time Stop Time Status Last Admin Dose Admin Sodium Chloride (Nss 1000ml) 500 ml @ 999 mls/hr Q31M STAT IV 03/08/16 18:57 03/08/16 19:27 DC 03/08/16 20:28 999 MLS/HR Ondansetron HCl (Zofran Inj) 4 mg NOW STAT IV 03/08/16 18:57 03/08/16 18:59 DC 03/08/16 20:28 4 MG Hydromorphone HCl (Dilaudid Inj) 0.5 mg STK-MED ONCE .ROUTE 03/08/16 20:23 03/08/16 20:25 DC 03/08/16 20:28 0.5 MG Pantoprazole Sodium (Protonix Tab) 40 mg NOW STAT PO 03/08/16 21:17 03/08/16 21:19 DC 03/08/16 21:55 40 MG Senna/Docusate Sodium (Senokot S Tab) 2 tab NOW ONCE PO 03/08/16 21:30 03/08/16 21:31 DC 03/08/16 21:55 2 TAB ECG Indication: abdominal pain Rate (beats per minute): 69 Rhythm: normal sinus Findings: nonspecific-ST abn (diffuse), no acute ischemic change, other ( possible old inferior infarct) ED Course 1851: The patient was evaluated in room C7. A complete history and physical exam was performed. 1856: Ordered Zofran Inj 4 mg IV, Sodium Chloride 500 ml @ 999 mls/hr IV. 1899: Ordered Dilaudid Inj 0.5 mg IV. 2113: Reevaluated the patient at this time, and he is feeling better. Discussed results and discharge instructions: He verbalized understanding and agreement. The patient is ready for discharge. 2116: Ordered Protonix Tab 40 mg PO. 2129: Ordered Senokot S Tab 2 tab PO, Oxycodone HCl 1 homepack PO. Medical Decision The differential diagnoses include but are not limited to: pancreatitis, constipation, diverticulitis, ulcer or gastritis, cardiac ischemia, musculoskeletal pain, hernia. There is no leukocytosis or worrisome anemia. No significant electrolyte abnormality, kidney failure or hepatitis. There is no pancreatitis. Lactic acid level is not elevated making bowel ischemia less likely. Obstruction series shows no pneumonia, free air or bowel obstruction. Urinalysis shows contamination, no obvious infection. EKG shows a sinus rhythm, no acute ischemia. Cardiac enzyme testing 1 is not consistent with acute cardiac injury. The patient received IV saline, IV Zofran and IV Dilaudid. She eventually received oral Protonix and oral senna. The cause for the pain is unclear. The pain has been ongoing for over a year. I'm going to start the patient on Senokot to help with potential constipation, she will be on Protonix to help with acid production. I advised that she speak with her doctor about seeing GI, she may require an endoscopy. I do think she is stable for discharge, if worsening, she can return. Impression Primary Impression: Epigastric abdominal pain Scribe Attestation The scribe's documentation has been prepared under my direction and personally reviewed by me in its entirety. I confirm that the note above accurately reflects all work, treatment, procedures, and medical decision making performed by me. Departure Information Dispostion Home / Self-Care Prescriptions Sennosides-Docusate Sodium (SENOKOT S) 1 Tab Tab 1 TAB PO BID for 30 Days, #60 TAB Prov: Syd Lyle M.D. 03/08/16 Pantoprazole (Protonix) 20 Mg Tab 20 MG PO DAILY, #30 TAB Prov: Syd Lyle M.D. 03/08/16 Referrals Abbe Banda III, M.D. (PCP) Forms Call Back Authorization, HOME CARE DOCUMENTATION FORM, IMPORTANT VISIT INFORMATION Patient Instructions My [facility] [place] [facility] Additional Instructions senokot S tab--1 tab 2x per day to help with bowel movements start protonix to see if this helps the symptoms--1 tab daily may use oxy ir 1 tab for severe pain talk with GI for an appt and possible endoscopy return for fever or vomiting or uncontrolled pain follow with the kaykay md this week lab testing and xray today were ok
[2016-03-08 19:30] LABS: URINE APPEARANCE CLOUDY (CLEAR); URINE COLOR DK YELLOW; URINE EPITHELIAL CELL AUTO >30 /lpf (0-5); URINE NITRITE NEG (NEG); URINE PH 6.5 (4.5-7.5); URINE SPECIFIC GRAVITY 1.029 (1.000-1.030); UROBILINOGEN NEG (NEG); ZZUR CULT IF INDIC CLEAN CATCH YES
[2016-03-08 19:49] LABS: MANUAL MICROSCOPIC REQUIRED? NO; REVIEW REQ? YES
[2016-03-08 19:50] LABS: URINE BILIRUBIN NEG (NEG)
[2016-03-08 19:52] LABS: URINE MUCUS PRESENT (NONE PRSENT)
[2016-03-08 20:02] LABS: BASO % 0.4 %; BASO ABS # 0.04 K/uL (0-0.2); COMPLETE YES; HEMATOCRIT 41.3 % (37-47); IG% 0.2 %; LYMPH % 34.5 %; LYMPH ABS # 3.11 K/uL (1.2-3.4); MEAN CORPUSCULAR HEMOGLOBIN 30.5 pg (25-34); MEAN CORPUSCULAR HGB CONC 33.9 g/dl (32-36); MONO % 6.2 %; NEUT % 57.7 %; PLATELET COUNT 240 K/uL (130-400); RED BLOOD COUNT 4.59 M/uL (4.2-5.4); WHITE BLOOD COUNT 9.01 K/uL (4.8-10.8)
[2016-03-08 20:04] LABS: ALT/SGPT 28 U/L (12-78); BLOOD UREA NITROGEN 12 mg/dl (7-18); CALCIUM 8.8 mg/dl (8.5-10.1); CARBON DIOXIDE 17 mmol/L (21-32); CHLORIDE 109 mmol/L (98-107); GLUCOSE 93 mg/dl (70-99); POTASSIUM 3.3 mmol/L (3.5-5.1); SODIUM 141 mmol/L (136-145)
[2016-03-08 20:08] LABS: ALKALINE PHOSPHATASE 116 U/L (45-117); AST/SGOT 19 U/L (15-37)
[2016-03-08] MEDS ORDERED: HYDROmorphone INJ 0.5 MG/0.5 ML SYR ONE (20:23)
--- NOTE | 2016-03-08 21:08 | DIAGNOSTIC IMAGING REPORT ---
PA CHEST WITH ABDOMINAL SERIES CLINICAL HISTORY: Generalized abdominal pain. FINDINGS: A PA chest radiograph is compared to study dated 03/01/2016. The examination is degraded by apical positioning and large body habitus. The cardiomediastinal silhouette is unremarkable. Atherosclerotic calcification is noted in the thoracic aorta. The lungs and pleural spaces are clear. No pneumothorax is seen. The skeletal structures are osteopenic. The bony thorax is grossly intact. Supine and erect abdominal radiograph are correlated with abdominal CT dated 03/01/2016. The examination is degraded by large body habitus. There is a nonobstructed abdominal bowel gas pattern. No evidence of intraperitoneal free air is seen. There is moderate colonic fecal retention. Retained enteric contrast is noted within colonic diverticula. Cholecystectomy clips are noted. There are no abnormal abdominal calcifications. Phleboliths are seen in the pelvis. There is mild lumbar sacral spondylosis. The lumbar spine and bony pelvis appear intact. IMPRESSION: 1. No active disease in the chest. 2. Nonobstructed abdominal bowel gas pattern noting moderate colonic fecal retention. 3. No change from studies dated 03/01/2016. Electronically signed by: Syd Bustillos M.D. 03/08/2016 9:06 PM Dictated Date/Time: 03/08/2016 9:04 PM
[2016-03-08] MEDS ORDERED: PANTOprazole SOD 40 MG TAB PO STA (21:17)
[2016-03-08] MEDS ORDERED: PRT/20 PO (21:21)
[2016-03-08] MEDS ORDERED: SENN-65 PO (21:21)
[2016-03-08] MEDS ORDERED: OXYCODONE IR HOME PACK PO ONE (21:30)
[2016-03-08] MEDS ORDERED: DOCUSATE SODIUM/SENNA 50/8.6MG TAB PO ONE (21:30)
[2016-03-08 21:56] VITALS: BP 122/70; PULSE 86; O2SAT 96
[2016-03-21] MEDS ORDERED: SENN-65 PO (08:12)
[2016-03-21] MEDS ORDERED: PRT/20 PO (08:12)
[2016-05-30] MEDS ORDERED: CPR250 PO (09:11)
[2016-06-06] MEDS ORDERED: CPR/500 PO (10:32)
[2016-06-06] MEDS ORDERED: KLN5X PO (10:32)
[2016-06-06] MEDS ORDERED: EFFSR75 PO ×2 (10:32→10:33)
== END 2016-03-08 22:11 | disposition home or self-care (01) ==
LOC: C.EDB 17:42 → C.EDC 22:11
DX: R10.13 Epigastric pain (principal); F32.9 Major depressive disorder, single episode, unspecified; F41.1 Generalized anxiety disorder; E78.5 Hyperlipidemia, unspecified; K58.9 Irritable bowel syndrome, unspecified; G47.33 Obstructive sleep apnea (adult) (pediatric); Z98.51 Tubal ligation status; Z87.891 Personal history of nicotine dependence

== ENCOUNTER → 2016-03-22 | Day surgery (SDC) | payer OTHER ==
[2016-03-21 08:14] VITALS: BMI 44.0
[~2016-03-22] VITALS: Ht 160 cm; Wt 113.2 kg
[~2016-03-22] MED LIST changes: +CPR/500 PO; +CPR250 PO; -DICY20TA35 PO; +EFFSR150 PO; +EFFSR75 PO; +KLN1 PO; +KLN5X PO; +LIDOCAINE HCL 2% 2 ML VIAL (20MG/ML) ONE; +MIRT15TA3 PO; +PROPOFOL IV EMULSION 10 MG/ML 20 ML VIAL IV ONE; +PRT/20 PO; +SENN-65 PO; +SODIUM CHLORIDE 0.9% 500ML 500 ML IV ONE; +VENL150C56 PO
[2016-03-22 13:54] VITALS: Ht 160 cm; Wt 113.2 kg
--- NOTE | 2016-03-22 14:15 | Endo History and Physical ---
History & Physical Date of Service: Mar 22, 2016. Chief Complaint: EPIGASTRIC PAIN Referring Physician: DR. RANDALL History of Present Illness abdominal pain Past Medical History Anxiety, Depression Past Surgical History Hx Cardiac Surgery: No Hx Internal Defibrillator: No Hx Pacemaker: No Hx Abdominal Surgery: Yes (APPY, NIDIA, GRANT, TUBAL LIGATION) Hx of Implantable Prosthesis: No Hx Post-Op Nausea and Vomiting: No Hx Cancer Surgery: No Hx Thoracic Surgery: No Hx Orthopedic: No Hx Urinary Tract Surgery: No Family History Colon CA Social History Smoking Status: Former Smoker Hx Substance Use: No Hx Alcohol Use: No Allergies Coded Allergies: Cyclobenzaprine (Verified Allergy, Unknown, RASH, 03/22/16) INFO GMG Diphenhydramine (Verified Allergy, Unknown, nervousness, 03/22/16) "It makes me bounce of cohen." Naproxen (Verified Allergy, Unknown, WELTS/HIVE BUT CAN TAKE IBUPROFEN & ASPIRIN W/O PROBLEM, 03/22/16) Penicillins (Verified Allergy, Unknown, DOES NOT REMEMBER RXN WAS A CHILD , 03/22/16) Trazodone (Verified Adverse Reaction, Unknown, PALPITATIONS, 03/21/16) Uncoded Allergies: TRAZADONE (Allergy, Unknown, RASH, 03/22/16) Current Medications Reported Home Medications Medications Dose Route/Sig Max Daily Dose Days Date Category Dose Instructions Senokot S (Sennosides-Docusate Sodium) 1 Tab Tab 1 Tab PO BID 03/21/16 Reported Protonix (Pantoprazole Sodium) 20 Mg Tab 20 Mg PO HS 03/21/16 Reported D 1000 (Cholecalciferol) 1,000 Unit Tab 2,000 Units PO DAILY 03/01/16 Reported Klonopin (Clonazepam) 1 Mg Tab 2 Mg PO HS 03/01/16 Reported Seroquel (Quetiapine Fumarate) 100 Mg Tab 100 Mg PO HS 02/11/16 Reported Effexor (Venlafaxine Hcl) 100 Mg Tab 100 Mg PO TID 11/06/15 Reported Glucophage (Metformin Hcl) 1,000 Mg Tab 1,000 Mg PO BID 11/06/15 Reported Fish Oil ([place]-3 Fatty Acids) 1 Cap Cap 2 Cap PO QAM 10/08/13 Reported Klonopin (Clonazepam) 1 Mg Tab 1 Mg PO BID 10/06/13 Reported 1 tab in AM and 1 tab with LUNCH Vital Signs Weight (Kilograms): 113.18 Height (Feet): 5 Height (Inches): 3 Date Time Temp Pulse Resp B/P Pulse Ox O2 Delivery O2 Flow Rate FiO2 03/22/16 14:06 36.3 72 24 142/82 99 Room Air Physical Exam General Appearance: + mild distress Respiratory/Chest: Respiratory effort: no dyspnea Cardiovascular: Apical Impulse: not displaced Abdomen: Inspection & Palpation: soft Assessment and Plan Abdominal pain - EGD
--- NOTE | 2016-03-22 14:52 | GI REPORT ---
Procedure Date: 03/22/2016 2:19 PM Procedure: Upper GI endoscopy Indications: Abdominal pain Medicines: See the Anesthesia note for documentation of the administered medications Complications: No immediate complications. Estimated Blood Loss: Estimated blood loss: none. Procedure: Pre-Anesthesia Assessment: - ASA Grade Assessment: III - A patient with severe systemic disease. After obtaining informed consent, the endoscope was passed under direct vision. Throughout the procedure, the patient's blood pressure, pulse, and oxygen saturations were monitored continuously. The Scope was introduced through the mouth, and advanced to the second part of duodenum. The upper GI endoscopy was accomplished without difficulty. The patient tolerated the procedure well. Findings: The examined esophagus was normal. The entire examined stomach was normal. Biopsies were taken with a cold forceps for histology. Shallow non-bleeding duodenal ulcer with pigmented material was found in the duodenal bulb. The remainder of the duodenum was normal. Biopsies taken from duodenum. Impression: Duodenal ulcer. I am not sure if ulcer is cause of pt's pain - her pain seems chronic, and out of proportion to endoscopic findings. Recommendation: - Discharge patient to home. NSAID avoidance. Begin BID PPI. Because pt has chronic abdominal pain, will repeat EGD in 2 mos to verify ulcer healing. Bereket Avila M.D. Bereket Avila MD 03/22/2016 2:53:04 PM This report has been signed electronically. Note Initiated On: 03/22/2016 2:19 PM I attest to the content of the Intraoperative Record and orders documented therein, exceptions below
--- NOTE | 2016-03-22 14:53 | Discharge Instructions ---
Endoscopy Patient Instructions Date / Procedure(s) Performed Mar 22, 2016. EGD Allergy Information Coded Allergies: Cyclobenzaprine (Verified Allergy, Unknown, RASH, 03/22/16) INFO GMG Diphenhydramine (Verified Allergy, Unknown, nervousness, 03/22/16) "It makes me bounce of cohen." Naproxen (Verified Allergy, Unknown, WELTS/HIVE BUT CAN TAKE IBUPROFEN & ASPIRIN W/O PROBLEM, 03/22/16) Penicillins (Verified Allergy, Unknown, DOES NOT REMEMBER RXN WAS A CHILD , 03/22/16) Trazodone (Verified Adverse Reaction, Unknown, PALPITATIONS, 03/21/16) Uncoded Allergies: TRAZADONE (Allergy, Unknown, RASH, 03/22/16) Discharge Date / Findings Mar 22, 2016. Duodenal ulcer with flat pigmented spot Medication Instructions Stopped Medication(s): INSTRUCTED TO STOP EVERYTHING PRIOR TO PROCEDURE DAY EXCEPT FOR KLONOPIN. Provider Instructions Activity Restrictions - No exercising or heavy lifting for 24 hours. - Do not drink alcohol the day of the procedure. - Do not drive a car or operate machinery until the day after the procedure. - Do not make any important decisions or sign important papers in 24 hours after the procedure. Following Day: - Return to full activity which may include returning to work/school. Diet Start your diet with liquids and light foods (jello, soup, juice, toast). Then eat your usual diet if not nauseated. Treatment For Common After Affects For mild abdominal pain, bloating, or excessive gas: - Rest - Eat lightly - Lie on right side Begin Prilosec twice daily. Follow-Up Information Follow-up with DR. RANDALL as scheduled Anesthesia Information What You Should Know You have had a procedure that required some medicine to reduce anxiety and discomfort. This treatment is called moderate sedation. After receiving the treatment, you may be sleepy, but you will be able to breathe on your own. The effects of the treatment may last for several hours. Follow these instructions along with Activity/Diet recommendations noted above: * Do NOT do anything where dizziness or clumsiness would be dangerous. * Rest quietly at home today, then you can be up and about tomorrow. * Have a responsible person stay with you the rest of today. * You may have had an I.V. today. If so, you may take the dressing off later today. Recommendations Call your doctor if: * Trouble breathing * Continuous vomiting for more than 24 hours * Temperature above 101 degrees * Severe abdominal pain or bloating * Pain not relieved by pain medicine ordered * There is increased drainage or redness from any incision * A large amount of rectal bleeding greater than 2-3 tablespoons. (If you had a polyp/s removed or have hemorrhoids, a small amount of blood - from the rectum is to be expected.) * You have any unanswered questions or concerns. IN THE EVENT OF A SERIOUS EMERGENCY, GO TO THE NEAREST EMERGENCY ROOM Your discharge instructions were prepared by provider Bereket Boothe. Patient Instructions Signature Page Patient (or Guardian) Signature/Date: I have read and understand the instructions given to me by my caregivers. Caregiver/RN/Doctor Signature/Date: The above-named patient and/or guardian has received patient instructions on this date. + Original Patient Signature Page (only) stays with chart. Please make copy for patient.
[2016-03-22 15:20] VITALS: BP 124/62; PULSE 71; O2SAT 98
--- NOTE | 2016-03-22 15:30 | Anesthesiology Progress Note ---
Anesthesia Post Op Note Date & Time Mar 22, 2016 at 15:29 Vital Signs Pain Intensity: 10 Vital Signs Past 12 Hours Date Time Temp Pulse Resp B/P Pulse Ox O2 Delivery O2 Flow Rate FiO2 03/22/16 15:20 71 18 124/62 98 Room Air 03/22/16 15:07 74 18 120/72 96 Room Air 03/22/16 14:46 81 18 114/74 94 Room Air 03/22/16 14:06 36.3 72 24 142/82 99 Room Air Notes Mental Status: alert / awake / arousable, participated in evaluation Pt Amnestic to Procedure: Yes Nausea / Vomiting: adequately controlled Pain: adequately controlled, improving with treatment Airway Patency, RR, SpO2: stable & adequate BP & HR: stable & adequate Hydration State: stable & adequate Anesthetic Complications: no major complications apparent Patient presented with significant abdominal pain that was poorly controlled. She continued to have this pain post-procedure. Pain is one reason why procedure was performed today and this pain can be categorized as chronic.
== END | disposition home or self-care (01) ==
LOC: C.GI 12:54
PROVIDERS: ATTEND Internal Medicine Gastroenterology
DX: R10.13 Epigastric pain (principal); K26.9 Duodenal ulcer, unspecified as acute or chronic, without hemorrhage or perforation; K29.50 Unspecified chronic gastritis without bleeding; F32.9 Major depressive disorder, single episode, unspecified; Z90.49 Acquired absence of other specified parts of digestive tract; Z90.710 Acquired absence of both cervix and uterus; Z87.891 Personal history of nicotine dependence; Z88.0 Allergy status to penicillin

== ENCOUNTER 2016-05-26 18:43 | Inpatient (IN) | payer OTHER ==
[~2016-05-26] VITALS: Ht 160 cm; Wt 115.6 kg
[~2016-05-26 18:43] MED LIST changes: -CPR/500 PO; -CPR250 PO; -EFFSR150 PO; -EFFSR75 PO; -KLN1 PO; -KLN5X PO; -LIDOCAINE HCL 2% 2 ML VIAL (20MG/ML) ONE; -MIRT15TA3 PO; -PROPOFOL IV EMULSION 10 MG/ML 20 ML VIAL IV ONE; -SODIUM CHLORIDE 0.9% 500ML 500 ML IV ONE; -VENL150C56 PO
--- NOTE | 2016-05-26 19:05 | EMERGENCY ROOM VISIT NOTE ---
History Report prepared by Lorne: Fatemeh Rachel Under the Supervision of: Dr. Milton Hernandes D.O. First contact with patient: 18:49 Chief Complaint: OTHER COMPLAINT Stated Complaint: SHORTNESS OF BREATH,SLURRING OF SPEECH History of Present Illness The patient is a 60 year old female who presents to the Emergency Room with complaints of worsening shortness of breath that started 2 days ago. Additional symptoms include hypotension, slurred speech, and chest pain. Per nursing staff , the patient may have taken too many of her psych medications. The patient denies swelling of the legs, rectal bleeding, melena, hematochezia, or abdominal pain. She also denies past medical history of diabetes, heart disease , or COPD. HPI limited d/t dyspnea Source of History: patient, nursing staff History Limited By: dyspnea Onset: 2 days ago Position: other (Respiratory System ) Timing: worsening Modifying Factors (Worsening): other (None) Associated Symptoms: + chest pain Note: Additional associated symptoms include hypotensions and slurred speech. Review of Systems See HPI for pertinent positives & negatives. A total of 10 systems reviewed and were otherwise negative. Past Medical & Surgical Medical Problems: (1) Anxiety (2) DVT (deep venous thrombosis) (3) Dyslipidemia (4) IBS (irritable bowel syndrome) (5) Umbilical hernia Surgical Problems: (1) History of appendectomy (2) History of hysterectomy Family History Cancer Diabetes mellitus Heart disease Hypertension Social History Smoking Status: Former Smoker Alcohol Use: none Drug Use: none Marital Status: Housing Status: lives with family Occupation Status: employed Current/Historical Medications Scheduled Clonazepam (Klonopin), 1 MG PO BID Clonazepam (Klonopin), 2 MG PO HS Quetiapine Fumarate (Seroquel), 100 MG PO HS Venlafaxine Hcl (Effexor), 100 MG PO TID Allergies Coded Allergies: Cyclobenzaprine (Verified Allergy, Unknown, RASH, 05/26/16) INFO GMG Diphenhydramine (Verified Allergy, Unknown, nervousness, 05/26/16) "It makes me bounce of cohen." Naproxen (Verified Allergy, Unknown, WELTS/HIVE BUT CAN TAKE IBUPROFEN & ASPIRIN W/O PROBLEM, 05/26/16) Penicillins (Verified Allergy, Unknown, DOES NOT REMEMBER RXN WAS A CHILD , 05/26/16) Trazodone (Verified Adverse Reaction, Unknown, PALPITATIONS, 05/26/16) Physical Exam Vital Signs Date Time Temp Pulse Resp B/P Pulse Ox O2 Delivery O2 Flow Rate FiO2 05/26/16 23:17 86 24 119/75 100 05/26/16 22:30 85 23 130/81 100 Nasal Cannula 2.0 05/26/16 22:16 91 20 114/91 100 Nasal Cannula 2.0 05/26/16 21:37 36.8 95 25 113/87 100 Nasal Cannula 2.0 05/26/16 21:04 85 26 118/68 100 Nasal Cannula 2.0 05/26/16 20:36 87 25 130/92 100 Nasal Cannula 2.0 05/26/16 20:01 87 28 138/83 100 Nasal Cannula 2.0 05/26/16 19:58 96 05/26/16 19:54 92 29 140/79 99 Nasal Cannula 2.0 05/26/16 19:25 102 26 105/87 99 Nasal Cannula 2.0 05/26/16 19:13 105 36 99 Nasal Cannula 2.0 05/26/16 19:00 100 Nasal Cannula 2.0 05/26/16 18:53 108 19 113/91 99 Room Air 05/26/16 18:53 99 Room Air 05/26/16 18:45 124 24 74/43 99 Room Air Physical Exam GENERAL: Patient is awake and alert but very anxious appearing. Appears to be having significant difficulty breathing. EYES: The conjunctivae are clear. The pupils are round and reactive. EARS, NOSE, MOUTH AND THROAT: The nose is without any evidence of any deformity. Mucous membranes are dry, tongue is midline NECK: The neck is nontender and supple. RESPIRATORY: Significant tachypnea and conversational dyspnea. Diminished breath sounds in all lung puri. CARDIOVASCULAR: Tachycardic and irregular, no definite murmurs noted to auscultation. GASTROINTESTINAL: The abdomen is soft. Bowel sounds are present in all quadrants. Abdomen is nontender MUSCULOSKELETAL/EXTREMITIES: There is no evidence of gross deformity full range of motion is noted in the hips and shoulders SKIN: Trace pedal edema bilaterally. Significant erythema and signs of yeast infection under both breasts. NEUROLOGIC: Patient is awake alert and oriented x3, moves all extremities symmetrically. Medical Decision & Procedures ER Provider Diagnostic Interpretation: Radiology results as stated below per my review and radiologist interpretation: SINGLE VIEW CHEST CLINICAL HISTORY: Sepsis. FINDINGS: An AP, portable, upright chest radiograph is compared to study dated 03/08/2016. Correlation is made with chest CT dated 06/12/2009. The examination is mildly degraded by portable technique and patient rotation. The heart is mildly enlarged and there is atherosclerotic calcification of the thoracic aorta. The pulmonary vasculature is noncongested. The lungs and pleural spaces are clear. No pneumothorax is seen. The skeletal structures appear osteopenic. The bony thorax is grossly intact. Degenerative change is noted throughout the thoracic spine. IMPRESSION: Mild cardiac enlargement with no acute cardiopulmonary abnormality. Electronically signed by: Syd Bustillos M.D. 05/26/2016 8:30 PM Dictated Date/Time: 05/26/2016 8:[address] ANGIOGRAM OF THE CHEST CLINICAL HISTORY: Dyspnea. COMPARISON STUDY: Chest x-ray dated 05/26/2016. Chest CT dated 06/12/2009. TECHNIQUE: Following the IV administration of 119 cc of Optiray 320, CT angiogram of the chest was performed from the upper abdomen to the thoracic inlet utilizing the pulmonary embolus protocol. Images are reviewed in the axial, sagittal, and coronal planes. 3-D MIPS images are created and assessed. IV contrast was administered without complication. The examination is degraded by large body habitus, and by streak artifact from the body wall abutting the CT gantry. The examination is also degraded by motion artifact. CT DOSE: 1988.40 mGy.cm FINDINGS: Thyroid: Imaged portions of the thyroid gland are normal in size and attenuation. Thoracic aorta: There is atherosclerotic calcification of the thoracic aorta, which is normal in caliber and demonstrates standard 3-vessel arch anatomy. No dissection is seen. Pulmonary vasculature: The pulmonary trunk is normal in caliber. There are no filling defects identified in main, lobar, or proximal segmental pulmonary branches to suggest pulmonary embolus. Evaluation of the peripheral vessels is degraded by motion artifact and suboptimal contrast opacification. Heart: The heart is top normal in size and without pericardial effusion. The coronary arteries are densely calcified. There is lipomatous hypertrophy of the interatrial septum. Lungs and pleural spaces: Evaluation of the lung parenchyma is moderately degraded by inspiratory motion artifact. No airspace consolidation or pleural effusion is seen. The trachea and central airways are clear. Mediastinum: There is no mediastinal lymphadenopathy. Cristal: Clear. Axillae: There is a mildly enlarged right axillary lymph node which measures 1.4 x 1.2 cm. Mildly enlarged left axillary lymph nodes measure up to 1.6 cm. Upper abdomen: A small hiatal hernia is identified. There is evidence of hepatic steatosis. Skeletal structures: The skeletal structures are osteopenic. Degenerative change is seen throughout the thoracic spine. No lytic or blastic bony lesions are seen. IMPRESSION: 1. Motion degraded examination. 2. There is no evidence of pulmonary embolus in the main, lobar, or proximal segmental pulmonary arteries. 3. The lungs are clear. 4. There are mildly enlarged bilateral axillary lymph nodes. These are of indeterminant significance. If not recently performed follow-up with mammography is recommended. Electronically signed by: Syd Bustillos M.D. 05/26/2016 9:11 PM Dictated Date/Time: 05/26/2016 9:[address] SCAN OF THE ABDOMEN AND PELVIS WITH IV CONTRAST CLINICAL HISTORY: Hypotension. COMPARISON STUDY: Prior abdominal CT scans, most recently dated 03/01/2016. TECHNIQUE: Following the IV administration of 119 cc of Optiray 320, CT scan of the abdomen and pelvis is performed from the lung bases to the proximal femora. Images are reviewed in the axial, sagittal, and coronal planes. IV contrast was administered without complication. Automated dose control exposure was utilized. The examination is degraded by large body habitus, and by streak artifact from the patient's body wall abutting the CT gantry. The examination is also degraded by motion artifact. FINDINGS: Lung bases: The heart is top normal in size and without pericardial effusion. There are coronary artery calcifications. The lung bases are clear. Liver: The contrast-enhanced liver is enlarged, measuring 25 cm in length. The liver demonstrates diffusely diminished attenuation consistent with severe hepatic steatosis. There is no intrahepatic biliary ductal dilatation. The hepatic veins and portal veins are patent. Gallbladder: Surgically absent noting clips in the gallbladder fossa. Spleen: Normal in size and attenuation. Pancreas: Unremarkable. Adrenal glands: A 1.6 cm left adrenal adenoma is unchanged dating back to 2013. The right adrenal gland is normal in appearance. Kidneys: The contrast enhanced kidneys demonstrate mild cortical atrophy and are without hydronephrosis. There is a 2.2 cm focus of hypoperfusion identified in the upper pole of the left kidney, best seen on axial image #144. This represents a change from recent prior studies. Abdominal vasculature: The abdominal aorta is normal in course and caliber noting moderate atherosclerotic calcification. A right femoral central venous catheter is in place. Bowel: There is no bowel obstruction. There is a large complex ventral hernia to the right of midline with diastases of the rectus abdominis musculature. This contains nonobstructed loops of small bowel as well as a portion of the transverse colon. There is moderate diverticulosis of the left colon without CT evidence of acute diverticulitis. The appendix is not identified. Peritoneum: There is no intraperitoneal free air or abdominal ascites. There is a fat-containing supraumbilical hernia seen on image #198. Lymphadenopathy: None. Pelvic viscera: The bladder is decompressed around a David catheter. Foci of intraluminal gas are likely related to instrumentation. The uterus is surgically absent. No adnexal lesion is seen. Skeletal structures: The skeletal structures are osteopenic. No lytic or blastic lesions are seen. There is moderate lumbosacral spondylosis. Arthritic changes are also seen in the hips. A large hemangioma is seen in T12. IMPRESSION: 1. There is a 2 cm focus of hypoperfusion seen in the upper pole of the left kidney, which represents a change from recent prior studies. This is nonspecific but could be seen in the setting of pyelonephritis. Correlation with clinical findings and urinalysis will be required. Mass is considered extremely unlikely as this was not seen 2.5 months previously. 2. There is a unchanged appearance of a large complex ventral hernia with diastases of the rectus abdominis musculature. This contains nonobstructed loops of small bowel and a portion of the transverse colon. 3. Hepatomegaly and severe hepatic steatosis. 4. The bladder is decompressed around a David catheter. Foci of internal gas are likely related to instrumentation. 5. Diverticulosis of the left colon without CT evidence of acute diverticulitis. 6. Additional findings as above. Electronically signed by: Syd Bustillos M.D. 05/26/2016 9:21 PM Dictated Date/Time: 05/26/2016 9:12 PM Laboratory Results 05/26/16 19:34 Red Blood Count 4.38, Mean Corpuscular Volume 84.9, Mean Corpuscular Hemoglobin 29.7, Mean Corpuscular Hemoglobin Concent 34.9, Mean Platelet Volume 9.1, Neutrophils (%) (Auto) 74.1, Lymphocytes (%) (Auto) 17.7, Monocytes (%) (Auto) 7.4, Eosinophils (%) (Auto) 0.2, Basophils (%) (Auto) 0.2, Neutrophils # (Auto) 8.18, Lymphocytes # (Auto) 1.95, Monocytes # (Auto) 0.81, Eosinophils # (Auto) 0.02, Basophils # (Auto) 0.02 05/26/16 19:34 05/26/16 23:00 Test 05/26/16 19:34 05/26/16 19:39 05/26/16 19:40 05/26/16 19:43 White Blood Count 11.02 K/uL (4.8-10.8) Red Blood Count 4.38 M/uL (4.2-5.4) Hemoglobin 13.0 g/dL (12.0-16.0) Hematocrit 37.2 % (37-47) Mean Corpuscular Volume 84.9 fL (80-100) Mean Corpuscular Hemoglobin 29.7 pg (25-34) Mean Corpuscular Hemoglobin Concent 34.9 g/dl (32-36) Platelet Count 298 K/uL (130-400) Mean Platelet Volume 9.1 fL (7.4-10.4) Neutrophils (%) (Auto) 74.1 % Lymphocytes (%) (Auto) 17.7 % Monocytes (%) (Auto) 7.4 % Eosinophils (%) (Auto) 0.2 % Basophils (%) (Auto) 0.2 % Neutrophils # (Auto) 8.18 K/uL (1.4-6.5) Lymphocytes # (Auto) 1.95 K/uL (1.2-3.4) Monocytes # (Auto) 0.81 K/uL (0.11-0.59) Eosinophils # (Auto) 0.02 K/uL (0-0.5) Basophils # (Auto) 0.02 K/uL (0-0.2) RDW Standard Deviation 41.2 fL (36.4-46.3) RDW Coefficient of Variation 13.2 % (11.5-14.5) Immature Granulocyte % (Auto) 0.4 % Immature Granulocyte # (Auto) 0.04 K/uL (0.00-0.02) Erythrocyte Sedimentation Rate 39 mm/hr (0-21) Prothrombin Time 16.1 SECONDS (9.0-12.0) Prothromb Time International Ratio 1.5 (0.9-1.1) Activated Partial Thromboplast Time 20.5 SECONDS (21.0-31.0) Partial Thromboplastin Ratio 0.8 Venous Blood pH 7.51 (7.36-7.41) Venous Blood Partial Pressure CO2 28 mmHg (38.0-50.0) Venous Blood Partial Pressure O2 44 mmHg Venous Blood HCO3 22 mmol/L Venous Blood Oxygen Saturation 82.0 % Venous Blood Base Excess 0.1 mmol/L Est Creatinine Clear Calc Drug Dose 65.5 ml/min Estimated GFR () 63.2 Estimated GFR (Non- 54.5 BUN/Creatinine Ratio 11.2 (10-20) Calcium Level 8.6 mg/dl (8.5-10.1) Phosphorus Level 1.8 mg/dl (2.5-4.9) Magnesium Level 2.1 mg/dl (1.8-2.4) Total Bilirubin 0.9 mg/dl (0.2-1) Aspartate Amino Transf (AST/SGOT) 19 U/L (15-37) Alanine Aminotransferase (ALT/SGPT) 25 U/L (12-78) Alkaline Phosphatase 107 U/L (45-117) Total Creatine Kinase 93 U/L (26-192) Creatine Kinase MB 1.7 ng/ml (0.5-3.6) Creatine Kinase MB Ratio 1.8 (0-3.0) Troponin I < 0.015 ng/ml (0-0.045) C-Reactive Protein 7.79 mg/dl (0-0.29) Pro-B-Type Natriuretic Peptide 423 pg/ml (0-900) Total Protein 7.1 gm/dl (6.4-8.2) Albumin 2.9 gm/dl (3.4-5.0) Globulin 4.2 gm/dl (2.5-4.0) Albumin/Globulin Ratio 0.7 (0.9-2) Lipase 604 U/L (73-393) Bedside Lactic Acid Venous 4.01 mmol/L (0.90-1.70) Urine Color DK YELLOW Urine Appearance CLOUDY (CLEAR) Urine pH 6.5 (4.5-7.5) Urine Specific [place] 1.023 (1.000-1.030) Urine Protein 2+ (NEG) Urine Glucose (UA) TRACE (NEG) Urine Ketones 2+ (NEG) Urine Occult Blood NEG (NEG) Urine Nitrite POS (NEG) Urine Bilirubin NEG (NEG) Urine Urobilinogen POS (NEG) Urine Leukocyte Esterase SMALL (NEG) Urine WBC (Auto) 5-10 /hpf (0-5) Urine RBC (Auto) 0-4 /hpf (0-4) Urine Hyaline Casts (Auto) >30 /lpf (0-5) Urine Epithelial Cells (Auto) >30 /lpf (0-5) Urine Bacteria (Auto) NEG (NEG) Urine Renal Epithelial Cells 0-5 /lpf (0-5) Urine Crystals SULFA (NONE PRSENT) Urine Pathogenic Casts 0-3 WBC CASTS /lpf (0) Urine Mucus PRESENT (NONE PRSENT) Urine Yeast (Auto) PRESENT (NONE PRSENT) Bedside Hemoglobin 12.2 g/dl (12.0-16.0) Bedside Hematocrit 36 % (37-47) Bedside Sodium 140 mEq/L (135-144) Bedside Potassium 2.1 mEq/L (3.3-5.0) Bedside Chloride 96 mEq/L (101-112) Bedside Total CO2 20 mEq/l (24-31) Anion Gap 27.0 mmol/L (16-25) Bedside Blood Urea Nitrogen 11 mg/dl (7-18) Bedside Creatinine 0.9 mg/dl (0.6-1.3) Bedside Glucose (other) 127 mg/dl (70-99) Bedside Ionized Calcium (Jacob) 1.02 mmol/l (1.12-1.32) Test 05/26/16 23:00 Lactic Acid Level 2.3 mmol/L (0.4-2.0) Laboratory results per my review. Medications Administered Medications (Trade) Dose Ordered Sig/Gary Route Start Time Stop Time Status Last Admin Dose Admin Sodium Chloride 1,000 ml @ 999 mls/hr Q1H1M STAT IV 05/26/16 19:44 05/26/16 20:44 DC 05/26/16 20:17 999 MLS/HR Potassium Chloride/Prmx (Kcl 20 Meq / Wtr/Premixed Water) 100 ml @ 50 mls/hr NOW STAT IV 05/26/16 20:25 05/26/16 22:24 DC 05/26/16 20:42 50 MLS/HR Levofloxacin (Levaquin / D5W) 750 mg NOW STAT IV 05/26/16 21:13 05/26/16 21:14 DC 05/26/16 21:30 750 MG Ondansetron HCl 4 mg 4 mg NOW STAT IV 05/26/16 21:23 05/26/16 21:24 DC 05/26/16 21:30 4 MG Sodium Chloride 1,000 ml @ 125 mls/hr Q8H IV 05/26/16 22:34 06/25/16 22:33 05/26/16 23:25 125 MLS/HR Potassium Phosphate/Sodium Chloride (Potassium Phosphate Inj/Nss 500ml) 508 ml @ 127 mls/hr ONE STAT IV 05/26/16 22:58 05/27/16 02:57 05/26/16 23:25 127 MLS/HR Procedure Central Venous Catheter Indication: Sepsis Catheter type: Triple Lumen Location: Right femoral vein Verbal consent was obtained after the risks and benefits were explained, including but not limited to pneumothorax, hemothorax, vessel injury, bleeding, scarring, infection, pain, and bone/joint/nerve damage. At this time, the risks of the procedure are less than the risks of NOT performing the procedure. A time out was taken and the correct patient and site identified. The patient was placed in the supine position and the skin was prepped in the standard fashion with chlorhexidine and full sterile drapes applied. The proper landmarks were identified, anesthetized with 1% lidocaine without epinephrine, and the needle was inserted through the skin in the standard fashion. The needle was carefully advanced into blood vessel lumen using landmarks. The guidewire was placed uneventfully. The vessel is dilated and the catheter was placed. It was sutured into position. There was good blood return from all ports. The patient tolerated the procedure well and there were no complications. ECG Indication: SOB/dyspnea Rate (beats per minute): 107 Rhythm: sinus tachycardia Findings: no ectopy, other (Diffuse ST and T wave abnormalities ) Comparison ECG Date: 03/08/2016 Change: Increased rate, otherwise no change. ED Course 1849: The patient was evaluated in room B1. A complete history and physical examination were performed. 1937: I placed a Central Venous Catheter. See above procedure note. 1943: Ordered Sodium Chloride 1,000 ml @ 999 mls/hr IV. 2024: Ordered Potassium Chloride 20 meq/Prmx 100 ml @ 50 mls/hr IV. 2112: Ordered Levofloxacin 750 mg IV. 2122: Ordered Zofran Injection 4 mg IV. 2127: I discussed the patient's case with Dr. Kenyon ([facility]). He will evaluate the patient for further management and care. 2143: I updated the patient of the treatment plan. She is agreeable. Medical Decision Differential diagnosis: Etiologies such as infections, reactive airway disease, pneumonia, pneumothorax , COPD, CHF, cardiac ischemia, pulmonary embolism, musculoskeletal, gastrointestinal, as well as others were entertained. Nursing notes reviewed. Additional history is obtained from the patient's family member. The patient is a 60-year-old female who presented to emergency department with hypotension and shortness of breath. The patient was found have signs of possible sepsis. The patient was treated with IV fluid and IV antibiotics in the emergency department. She was also given IV potassium replacement. I discussed the patient's laboratory and radiographic studies with her and her daughter. It does appear that her condition is consistent with sepsis. On CAT scan she was found have an abnormality in the kidney which could be consistent with pyelonephritis. I discussed her case with the on-call [facility] hospitalist group. They've agreed to evaluate the patient in the emergency department for further management and disposition. It was very difficult to get IV access on the patient. For this reason a central line was placed in her right femoral vein. She tolerated this procedure well. Consults Time Called: 2123 Consulting Physician: Dr. Kenyon ([facility]) Returned Call: 2127 I discussed the patient's case with Dr. Kenyon ([facility]). He will evaluate the patient for further management and care. Impression Primary Impression: Sepsis Additional Impressions: Pyelonephritis Hyperventilation Hypokalemia Acute kidney injury Critical Care I have personally spent greater than 60 minutes of critical care time in the direct management of this patient. This includes bedside care, interpretation of diagnostic studies, and testing, discussion with consultants, patient, and family members, and other required patient management activities. This 60 minutes is in excess of all separately billable procedures. Scribe Attestation The scribe's documentation has been prepared under my direction and personally reviewed by me in its entirety. I confirm that the note above accurately reflects all work, treatment, procedures, and medical decision making performed by me. Departure Information Dispostion Being Evaluated By Hospitalist Referrals Abbe Banda III, M.D. (PCP) Patient Instructions My [facility] Problem Qualifiers
[2016-05-26] MEDS ORDERED: SODIUM CHLORIDE 0.9% 1000ML 1,000 ML IV STA (19:44)
[2016-05-26 19:48] LABS: VEN BLOOD GAS BASE EXCESS 0.1 mmol/L
[2016-05-26 19:56] LABS: BASO % 0.2 %; BASO ABS # 0.02 K/uL (0-0.2); COMPLETE YES; EOS % 0.2 %; HEMATOCRIT 37.2 % (37-47); IG% 0.4 %; LYMPH % 17.7 %; LYMPH ABS # 1.95 K/uL (1.2-3.4); MEAN CELL VOLUME 84.9 fL (80-100); MEAN CORPUSCULAR HEMOGLOBIN 29.7 pg (25-34); MEAN CORPUSCULAR HGB CONC 34.9 g/dl (32-36); MEAN PLATELET VOLUME 9.1 fL (7.4-10.4); MONO % 7.4 %; NEUT % 74.1 %; PLATELET COUNT 298 K/uL (130-400); RED BLOOD COUNT 4.38 M/uL (4.2-5.4); WHITE BLOOD COUNT 11.02 K/uL (4.8-10.8)
[2016-05-26 19:56] LABS: ISTAT CREATININE 0.9 mg/dl (0.6-1.3); ISTAT HEMOGLOBIN 12.2 g/dl (12.0-16.0); ISTAT IONIZED CALCIUM 1.02 mmol/l (1.12-1.32)
[2016-05-26 20:03] LABS: URINE APPEARANCE CLOUDY (CLEAR); URINE COLOR DK YELLOW; URINE EPITHELIAL CELL AUTO >30 /lpf (0-5); URINE NITRITE POS (NEG); URINE PH 6.5 (4.5-7.5); URINE SPECIFIC GRAVITY 1.023 (1.000-1.030); UROBILINOGEN POS (NEG); ZZURINE CULT IF INDIC CATH YES
[2016-05-26 20:05] LABS: INR 1.5 (0.9-1.1); PARTIAL THROMBOPLASTIN RATIO 0.8; PROTHROMBIN TIME (PATIENT) 16.1 SECONDS (9.0-12.0)
[2016-05-26 20:12] LABS: MANUAL MICROSCOPIC REQUIRED? NO; REVIEW REQ? YES; URINE BILIRUBIN NEG (NEG)
[2016-05-26 20:22] LABS: ALB/GLOB RATIO 0.7 (0.9-2); ALKALINE PHOSPHATASE 107 U/L (45-117); ALT/SGPT 25 U/L (12-78); AST/SGOT 19 U/L (15-37); BLOOD UREA NITROGEN 12 mg/dl (7-18); BUN/CREATININE RATIO 11.2 (10-20); C-REACTIVE PROTEIN 7.79 mg/dl (0-0.29); CALCIUM 8.6 mg/dl (8.5-10.1); CARBON DIOXIDE 23 mmol/L (21-32); CHLORIDE 100 mmol/L (98-107); CKMB/CK RATIO 1.8 (0-3.0); GLUCOSE 123 mg/dl (70-99); MAGNESIUM 2.1 mg/dl (1.8-2.4); PHOSPHORUS 1.8 mg/dl (2.5-4.9); POTASSIUM 2.2 mmol/L (3.5-5.1); SODIUM 140 mmol/L (136-145)
[2016-05-26] MEDS ORDERED: POTASSIUM CHLR 20 MEQ / WTR 20 MEQ in PREMIXED WATER 100 ML IV STA (20:25)
--- NOTE | 2016-05-26 20:32 | DIAGNOSTIC IMAGING REPORT ---
SINGLE VIEW CHEST CLINICAL HISTORY: Sepsis. FINDINGS: An AP, portable, upright chest radiograph is compared to study dated 03/08/2016. Correlation is made with chest CT dated 06/12/2009. The examination is mildly degraded by portable technique and patient rotation. The heart is mildly enlarged and there is atherosclerotic calcification of the thoracic aorta. The pulmonary vasculature is noncongested. The lungs and pleural spaces are clear. No pneumothorax is seen. The skeletal structures appear osteopenic. The bony thorax is grossly intact. Degenerative change is noted throughout the thoracic spine. IMPRESSION: Mild cardiac enlargement with no acute cardiopulmonary abnormality. Electronically signed by: Syd Bustillos M.D. 05/26/2016 8:30 PM Dictated Date/Time: 05/26/2016 8:29 PM
[2016-05-26 20:34] LABS: URINE MUCUS PRESENT (NONE PRSENT); URINE PATH CASTS 0-3 WBC CASTS /lpf (0)
[2016-05-26] MEDS ORDERED: OPTIRAY 320 IV PRN (20:45)
[2016-05-26] MEDS ORDERED: LEVAQUIN 750MG / 150ML D5W IV STA (21:13)
--- NOTE | 2016-05-26 21:14 | DIAGNOSTIC IMAGING REPORT ---
CT ANGIOGRAM OF THE CHEST CLINICAL HISTORY: Dyspnea. COMPARISON STUDY: Chest x-ray dated 05/26/2016. Chest CT dated 06/12/2009. TECHNIQUE: Following the IV administration of 119 cc of Optiray 320, CT angiogram of the chest was performed from the upper abdomen to the thoracic inlet utilizing the pulmonary embolus protocol. Images are reviewed in the axial, sagittal, and coronal planes. 3-D MIPS images are created and assessed. IV contrast was administered without complication. The examination is degraded by large body habitus, and by streak artifact from the body wall abutting the CT gantry. The examination is also degraded by motion artifact. CT DOSE: 1988.40 mGy.cm FINDINGS: Thyroid: Imaged portions of the thyroid gland are normal in size and attenuation. Thoracic aorta: There is atherosclerotic calcification of the thoracic aorta, which is normal in caliber and demonstrates standard 3-vessel arch anatomy. No dissection is seen. Pulmonary vasculature: The pulmonary trunk is normal in caliber. There are no filling defects identified in main, lobar, or proximal segmental pulmonary branches to suggest pulmonary embolus. Evaluation of the peripheral vessels is degraded by motion artifact and suboptimal contrast opacification. Heart: The heart is top normal in size and without pericardial effusion. The coronary arteries are densely calcified. There is lipomatous hypertrophy of the interatrial septum. Lungs and pleural spaces: Evaluation of the lung parenchyma is moderately degraded by inspiratory motion artifact. No airspace consolidation or pleural effusion is seen. The trachea and central airways are clear. Mediastinum: There is no mediastinal lymphadenopathy. Cristal: Clear. Axillae: There is a mildly enlarged right axillary lymph node which measures 1.4 x 1.2 cm. Mildly enlarged left axillary lymph nodes measure up to 1.6 cm. Upper abdomen: A small hiatal hernia is identified. There is evidence of hepatic steatosis. Skeletal structures: The skeletal structures are osteopenic. Degenerative change is seen throughout the thoracic spine. No lytic or blastic bony lesions are seen. IMPRESSION: 1. Motion degraded examination. 2. There is no evidence of pulmonary embolus in the main, lobar, or proximal segmental pulmonary arteries. 3. The lungs are clear. 4. There are mildly enlarged bilateral axillary lymph nodes. These are of indeterminant significance. If not recently performed follow-up with mammography is recommended. Electronically signed by: Syd Bustillos M.D. 05/26/2016 9:11 PM Dictated Date/Time: 05/26/2016 9:04 PM
[2016-05-26] MEDS ORDERED: ONDANSETRON INJ 2 MG/ML 2 ML VIAL IV STA (21:23)
--- NOTE | 2016-05-26 21:23 | DIAGNOSTIC IMAGING REPORT ---
CT SCAN OF THE ABDOMEN AND PELVIS WITH IV CONTRAST CLINICAL HISTORY: Hypotension. COMPARISON STUDY: Prior abdominal CT scans, most recently dated 03/01/2016. TECHNIQUE: Following the IV administration of 119 cc of Optiray 320, CT scan of the abdomen and pelvis is performed from the lung bases to the proximal femora. Images are reviewed in the axial, sagittal, and coronal planes. IV contrast was administered without complication. Automated dose control exposure was utilized. The examination is degraded by large body habitus, and by streak artifact from the patient's body wall abutting the CT gantry. The examination is also degraded by motion artifact. FINDINGS: Lung bases: The heart is top normal in size and without pericardial effusion. There are coronary artery calcifications. The lung bases are clear. Liver: The contrast-enhanced liver is enlarged, measuring 25 cm in length. The liver demonstrates diffusely diminished attenuation consistent with severe hepatic steatosis. There is no intrahepatic biliary ductal dilatation. The hepatic veins and portal veins are patent. Gallbladder: Surgically absent noting clips in the gallbladder fossa. Spleen: Normal in size and attenuation. Pancreas: Unremarkable. Adrenal glands: A 1.6 cm left adrenal adenoma is unchanged dating back to 2013. The right adrenal gland is normal in appearance. Kidneys: The contrast enhanced kidneys demonstrate mild cortical atrophy and are without hydronephrosis. There is a 2.2 cm focus of hypoperfusion identified in the upper pole of the left kidney, best seen on axial image #144. This represents a change from recent prior studies. Abdominal vasculature: The abdominal aorta is normal in course and caliber noting moderate atherosclerotic calcification. A right femoral central venous catheter is in place. Bowel: There is no bowel obstruction. There is a large complex ventral hernia to the right of midline with diastases of the rectus abdominis musculature. This contains nonobstructed loops of small bowel as well as a portion of the transverse colon. There is moderate diverticulosis of the left colon without CT evidence of acute diverticulitis. The appendix is not identified. Peritoneum: There is no intraperitoneal free air or abdominal ascites. There is a fat-containing supraumbilical hernia seen on image #198. Lymphadenopathy: None. Pelvic viscera: The bladder is decompressed around a David catheter. Foci of intraluminal gas are likely related to instrumentation. The uterus is surgically absent. No adnexal lesion is seen. Skeletal structures: The skeletal structures are osteopenic. No lytic or blastic lesions are seen. There is moderate lumbosacral spondylosis. Arthritic changes are also seen in the hips. A large hemangioma is seen in T12. IMPRESSION: 1. There is a 2 cm focus of hypoperfusion seen in the upper pole of the left kidney, which represents a change from recent prior studies. This is nonspecific but could be seen in the setting of pyelonephritis. Correlation with clinical findings and urinalysis will be required. Mass is considered extremely unlikely as this was not seen 2.5 months previously. 2. There is a unchanged appearance of a large complex ventral hernia with diastases of the rectus abdominis musculature. This contains nonobstructed loops of small bowel and a portion of the transverse colon. 3. Hepatomegaly and severe hepatic steatosis. 4. The bladder is decompressed around a David catheter. Foci of internal gas are likely related to instrumentation. 5. Diverticulosis of the left colon without CT evidence of acute diverticulitis. 6. Additional findings as above. Electronically signed by: Syd Bustillos M.D. 05/26/2016 9:21 PM Dictated Date/Time: 05/26/2016 9:12 PM
[2016-05-26] MEDS ORDERED: POTASSIUM PHOS 3 MMOL/1 ML INFUSION IV STA (22:40)
[2016-05-26] MEDS ORDERED: CONSULT PHARMACY STA (22:40)
[2016-05-26] MEDS ORDERED: ONDANSETRON INJ 2 MG/ML 2 ML VIAL IV PRN (22:45)
[2016-05-26] MEDS ORDERED: POTASSIUM CHLORIDE 10 MEQ TABCR PO STA (22:57)
[2016-05-26] MEDS ORDERED: POTASSIUM PHOSPHATE INJ 24 MMOL in SODIUM CHLORIDE 0.9% 500ML 500 ML IV STA (22:58)
[2016-05-26] MEDS: SODIUM CHLORIDE 0.9% 1000ML 1,000 ML IV SCH (23:25)
[2016-05-27] VITALS (12 sets, daily range): BP systolic 105–127; BP diastolic 45–82; PULSE 65–85; TEMP 36.4–36.9; O2SAT 93–99; Ht 160 cm; Wt 115.6 kg
--- NOTE | 2016-05-27 00:01 | History and Physical ---
History & Physical Date & Time of Service: May 26, 2016 at 23:37 Chief Complaint: Shortness of Breath Primary Care Physician: Abbe Banda III, M.D. History of Present Illness 60 year old female who presents to the ER at the request of her daughter for evaluation of shortness of breath. Daughter is at the bedside who reports she has not seen her mom in about 2 months however whenever she saw her mother today she was visibly short of breath and disheveled. Patient denies all complaints. During exam, patient is noted to have tardive dyskinesia. Patient is unsure when it started. She reports she follows with psychiatrist at [facility] and has been taking all of her medicines as prescribed. She denies any new medications. Daughter reports that her mother has taken too much of her medicine before in the past. Patient denies chest pain and shortness of breath. No lightheadedness, dizziness, diaphoresis, or syncopal events. She reports mild nausea but denies abdominal pain, vomiting, and diarrhea. No urinary symptoms or flank pain. Upon arrival to the ER, patient was found to be hypotensive and tachycardic. Central femoral line was placed. U/A suggests UTI. CT abd/pelvis shows possible pyelonephritis. POC lactic acid is 4.0. She also has severe hypokalemia (2.2) and hypophosphatemia (1.8). Patient was given IVF, Levaquin, and potassium replacement. Past Medical/Surgical History Medical Problems: (1) Anxiety Status: Chronic (2) Bipolar disorder Status: Chronic (3) Depression Status: Chronic (4) DVT (deep venous thrombosis) Permanent Comment: declined anticoagulation Status: Chronic (5) Dyslipidemia Status: Chronic (6) IBS (irritable bowel syndrome) Status: Chronic (7) Personality disorder Status: Chronic (8) Suicidal ideation Status: Chronic (9) Umbilical hernia Status: Chronic Surgical Problems: (1) H/O umbilical hernia repair Status: Chronic (2) History of appendectomy Status: Chronic (3) History of hysterectomy Status: Chronic Family History Cardiac disorder FATHER Social History Smoking Status: Former Smoker Alcohol Use: none Marital Status: Immunizations History of Influenza Vaccine: Yes Influenza Vaccine Date: Feb 21, 2016 History of Tetanus Vaccine?: Yes (3 YRS AGO) Tetanus Immunization Date: Jun 08, 2009 Multi-Drug Resistant Organisms History of MDRO: No Allergies Coded Allergies: Cyclobenzaprine (Verified Allergy, Unknown, RASH, 05/26/16) INFO GMG Diphenhydramine (Verified Allergy, Unknown, nervousness, 05/26/16) "It makes me bounce of cohen." Naproxen (Verified Allergy, Unknown, WELTS/HIVE BUT CAN TAKE IBUPROFEN & ASPIRIN W/O PROBLEM, 05/26/16) Penicillins (Verified Allergy, Unknown, DOES NOT REMEMBER RXN WAS A CHILD , 05/26/16) Trazodone (Verified Adverse Reaction, Unknown, PALPITATIONS, 05/26/16) Home Medications Scheduled Clonazepam (Klonopin), 1 MG PO BID Clonazepam (Klonopin), 2 MG PO HS Quetiapine Fumarate (Seroquel), 100 MG PO HS Venlafaxine Hcl (Effexor), 100 MG PO TID Review of Systems 10 point review of systems was completed with the pertinent positives and negatives noted per the HPI Physical Exam Vital Signs Date Time Temp Pulse Resp B/P Pulse Ox O2 Delivery O2 Flow Rate FiO2 05/26/16 23:17 86 24 119/75 100 05/26/16 22:30 85 23 130/81 100 Nasal Cannula 2.0 05/26/16 22:16 91 20 114/91 100 Nasal Cannula 2.0 05/26/16 21:37 36.8 95 25 113/87 100 Nasal Cannula 2.0 05/26/16 21:04 85 26 118/68 100 Nasal Cannula 2.0 05/26/16 20:36 87 25 130/92 100 Nasal Cannula 2.0 05/26/16 20:01 87 28 138/83 100 Nasal Cannula 2.0 05/26/16 19:58 96 05/26/16 19:54 92 29 140/79 99 Nasal Cannula 2.0 05/26/16 19:25 102 26 105/87 99 Nasal Cannula 2.0 05/26/16 19:13 105 36 99 Nasal Cannula 2.0 05/26/16 19:00 100 Nasal Cannula 2.0 05/26/16 18:53 108 19 113/91 99 Room Air 05/26/16 18:53 99 Room Air 05/26/16 18:45 124 24 74/43 99 Room Air General Appearance: + pertinent finding (appears older than stated age, disheveled, uncontrolled movements of the mouth) Head: normocephalic Eyes: normal inspection ENT: hearing grossly normal Neck: supple, no JVD Respiratory/Chest: lungs clear, normal breath sounds, no respiratory distress Cardiovascular: regular rate, rhythm, normal peripheral pulses, + pertinent finding (trace edema BLLE) Abdomen/GI: normal bowel sounds, non tender, soft, + pertinent finding (large hernia) Genitourinary - Female: + pertinent finding (parekh in place draining dark urine ) Extremities/Musculoskelatal: normal inspection, no calf tenderness Neurologic/Psych: no motor/sensory deficits, alert, normal mood/affect, oriented x 3, + pertinent finding (tardive dyskinesia) Skin: normal color, warm/dry Diagnostics Laboratory Results Results Past 24 Hours Test 05/26/16 19:34 05/26/16 19:39 05/26/16 19:40 05/26/16 19:43 Range/Units White Blood Count 11.02 4.8-10.8 K/uL Red Blood Count 4.38 4.2-5.4 M/uL Hemoglobin 13.0 12.0-16.0 g/dL Hematocrit 37.2 37-47 % Mean Corpuscular Volume 84.9 80-100 fL Mean Corpuscular Hemoglobin 29.7 25-34 pg Mean Corpuscular Hemoglobin Concent 34.9 32-36 g/dl Platelet Count 298 130-400 K/uL Mean Platelet Volume 9.1 7.4-10.4 fL Neutrophils (%) (Auto) 74.1 % Lymphocytes (%) (Auto) 17.7 % Monocytes (%) (Auto) 7.4 % Eosinophils (%) (Auto) 0.2 % Basophils (%) (Auto) 0.2 % Neutrophils # (Auto) 8.18 1.4-6.5 K/uL Lymphocytes # (Auto) 1.95 1.2-3.4 K/uL Monocytes # (Auto) 0.81 0.11-0.59 K/uL Eosinophils # (Auto) 0.02 0-0.5 K/uL Basophils # (Auto) 0.02 0-0.2 K/uL RDW Standard Deviation 41.2 36.4-46.3 fL RDW Coefficient of Variation 13.2 11.5-14.5 % Immature Granulocyte % (Auto) 0.4 % Immature Granulocyte # (Auto) 0.04 0.00-0.02 K/uL Erythrocyte Sedimentation Rate 39 0-21 mm/hr Prothrombin Time 16.1 9.0-12.0 SECONDS Prothromb Time International Ratio 1.5 0.9-1.1 Activated Partial Thromboplast Time 20.5 21.0-31.0 SECONDS Partial Thromboplastin Ratio 0.8 Venous Blood pH 7.51 7.36-7.41 Venous Blood Partial Pressure CO2 28 38.0-50.0 mmHg Venous Blood Partial Pressure O2 44 mmHg Venous Blood HCO3 22 mmol/L Venous Blood Oxygen Saturation 82.0 % Venous Blood Base Excess 0.1 mmol/L Sodium Level 140 136-145 mmol/L Potassium Level 2.2 3.5-5.1 mmol/L Chloride Level 100 98-107 mmol/L Carbon Dioxide Level 23 21-32 mmol/L Anion Gap 17.0 27.0 16-25 mmol/L Blood Urea Nitrogen 12 7-18 mg/dl Creatinine 1.10 0.60-1.20 mg/dl Est Creatinine Clear Calc Drug Dose 65.5 ml/min Estimated GFR () 63.2 Estimated GFR (Non- 54.5 BUN/Creatinine Ratio 11.2 10-20 Random Glucose 123 70-99 mg/dl Calcium Level 8.6 8.5-10.1 mg/dl Phosphorus Level 1.8 2.5-4.9 mg/dl Magnesium Level 2.1 1.8-2.4 mg/dl Total Bilirubin 0.9 0.2-1 mg/dl Aspartate Amino Transf (AST/SGOT) 19 15-37 U/L Alanine Aminotransferase (ALT/SGPT) 25 12-78 U/L Alkaline Phosphatase 107 45-117 U/L Total Creatine Kinase 93 26-192 U/L Creatine Kinase MB 1.7 0.5-3.6 ng/ml Creatine Kinase MB Ratio 1.8 0-3.0 Troponin I < 0.015 0-0.045 ng/ml C-Reactive Protein 7.79 0-0.29 mg/dl Pro-B-Type Natriuretic Peptide 423 0-900 pg/ml Total Protein 7.1 6.4-8.2 gm/dl Albumin 2.9 3.4-5.0 gm/dl Globulin 4.2 2.5-4.0 gm/dl Albumin/Globulin Ratio 0.7 0.9-2 Lipase 604 73-393 U/L Bedside Lactic Acid Venous 4.01 0.90-1.70 mmol/L Urine Color DK YELLOW Urine Appearance CLOUDY CLEAR Urine pH 6.5 4.5-7.5 Urine Specific [place] 1.023 1.000-1.030 Urine Protein 2+ NEG Urine Glucose (UA) TRACE NEG Urine Ketones 2+ NEG Urine Occult Blood NEG NEG Urine Nitrite POS NEG Urine Bilirubin NEG NEG Urine Urobilinogen POS NEG Urine Leukocyte Esterase SMALL NEG Urine WBC (Auto) 5-10 0-5 /hpf Urine RBC (Auto) 0-4 0-4 /hpf Urine Hyaline Casts (Auto) >30 0-5 /lpf Urine Epithelial Cells (Auto) >30 0-5 /lpf Urine Bacteria (Auto) NEG NEG Urine Renal Epithelial Cells 0-5 0-5 /lpf Urine Crystals SULFA NONE PRSENT Urine Pathogenic Casts 0-3 WBC CASTS 0 /lpf Urine Mucus PRESENT NONE PRSENT Urine Yeast (Auto) PRESENT NONE PRSENT Bedside Hemoglobin 12.2 12.0-16.0 g/dl Bedside Hematocrit 36 37-47 % Bedside Sodium 140 135-144 mEq/L Bedside Potassium 2.1 3.3-5.0 mEq/L Bedside Chloride 96 101-112 mEq/L Bedside Total CO2 20 24-31 mEq/l Bedside Blood Urea Nitrogen 11 7-18 mg/dl Bedside Creatinine 0.9 0.6-1.3 mg/dl Bedside Glucose (other) 127 70-99 mg/dl Bedside Ionized Calcium (Jacob) 1.02 1.12-1.32 mmol/l Test 05/26/16 23:00 Range/Units Potassium Level 2.3 3.5-5.1 mmol/L Lactic Acid Level 2.3 0.4-2.0 mmol/L Microbiology Results 05/26/16 Blood Culture, Received Pending 05/26/16 Blood Culture, Received Pending 05/26/16 Urine Culture, Received Pending Diagnostic Radiology CXR IMPRESSION: Mild cardiac enlargement with no acute cardiopulmonary abnormality. CTA CHEST IMPRESSION: 1. Motion degraded examination. 2. There is no evidence of pulmonary embolus in the main, lobar, or proximal segmental pulmonary arteries. 3. The lungs are clear. 4. There are mildly enlarged bilateral axillary lymph nodes. These are of indeterminant significance. If not recently performed follow-up with mammography is recommended. CT ABD/PELVIS IMPRESSION: 1. There is a 2 cm focus of hypoperfusion seen in the upper pole of the left kidney, which represents a change from recent prior studies. This is nonspecific but could be seen in the setting of pyelonephritis. Correlation with clinical findings and urinalysis will be required. Mass is considered extremely unlikely as this was not seen 2.5 months previously. 2. There is a unchanged appearance of a large complex ventral hernia with diastases of the rectus abdominis musculature. This contains nonobstructed loops of small bowel and a portion of the transverse colon. 3. Hepatomegaly and severe hepatic steatosis. 4. The bladder is decompressed around a Parekh catheter. Foci of internal gas are likely related to instrumentation. 5. Diverticulosis of the left colon without CT evidence of acute diverticulitis. 6. Additional findings as above. Impression Assessment and Plan SEPSIS DUE TO UTI / PYELONEPHRITIS - admit to tele - patient poor historian; however daughter found her today to be visibly short of breath and disheveled; found to have abnormal U/A and CT/abd pelvis showing possible pyelonephritis; CTA chest demonstrates clear lungs, no hypoxia noted - on presentation had hypotension, tachycardia, and lactic acidosis - all improving with IVF - s/p Levaquin in the ED, will broaden coverage to Azactam due to PCN allergy; check MRSA swab and if positive, add Vanco - POC lactic acid 4.0 -> 2.3 on recheck, will continue IVF and recheck again later tonight - blood and urine cultures SEVERE HYPOKALEMIA, HYPOPHOSPHATEMIA - replace, follow labs - EKG shows prolonged QTC, likely due to hypokalemia - monitor EKG daily PSYCH DISORDERS, TARDIVE DYSKINESIA - patient with history of bipolar, anxiety, depression, and personality disorder - has had psych admissions in the past with documentation of Seroquel abuse - patient denies taking additional Seroquel however now has tardive dyskinesia - patient reports she does not know what it started - will hold Seroquel, continue clonazepam and Effexor - mental health consult ENLARGED AXILLARY LYMPH NODES - noted on CTA chest - will need outpatient mammogram - was ordered by PCP 03/2016, however patient did not complete yet DVT PROPHYLAXIS - SQ Lovenox CODE STATUS - Patient is a DNR as per my discussion with her and her daughter who is at the bedside. DISPO - In my clinical judgment this beneficiary meets acute admission criteria, established by [facility], that includes being hospitalized through two midnights. Pt was seen and examined. Agreed with Alisson SWANSON assessment and plan. 60 year old female with PMH of bipolar disorder, depression, anxiety presents to the ER for SOB. Daughter said that she has not seen her mom in about 2 months, but today when she sees her mother, she was having SOB. Pt denies any complaint. Daughter said that pt is on psych med and in the past her mother took too much of her medicine. Denies any chest pain, palpitation, dizziness, dysuria. General-disheveled, involuntary and repetitive movement involve the orofacial area Head- atraumatic Eyes- PERRL, EOMI ENT- oropharynx clear Neck- supple, no JVD Lungs- clear to auscultation, no wheezing Heart- regular rhythm; no murmur Abdomen- normal bowel sounds, soft Extremities- no calf tenderness A/p SEPSIS On admission was hypotension, tachycardia, mild leukocytosis and elevated lactic acid Mostly due to UTI/pyelonephritis UA positive for UTI CT abd/pelvis showed a 2 cm focus of hypoperfusion seen in the upper pole of the left kidney received Levaquin in the ER will start on Azactam and IVF Follow blood and urine cultures will monitor in telemetry INVOLUNTARY AND REPETITIVE MOVEMENT OF THE ORAL FACIAL AREA Mostly related to tardive dyskinesia that might be due to Seroquel will hold Seroquel for now until seeing psych in am continue clonazepam Psych consult HYPOKALEMIA K replaced monitor BMP Lab, EKG, and imaging reviewed Please refer to Alisson SWANSON documentation for other problems Janes Kenyon MD VTE Prophylaxis VTE Risk Assessment Done? Y/N: Yes Risk Level: Moderate
[2016-05-27] MEDS: AZTREONAM IV 2,000 MG in DEXTROSE 5% 100ML 100 ML IV SCH ×4 (00:59→23:30)
[2016-05-27] MEDS: CLONAZEPAM 1 MG TAB PO SCH ×4 (00:59→20:53)
[2016-05-27] MEDS: SODIUM CHLORIDE 0.9% 1000ML 1,000 ML IV SCH ×2 (04:53→14:08)
[2016-05-27 05:14] LABS: BUN/CREATININE RATIO 14.6 (10-20); CALCIUM 7.4 mg/dl (8.5-10.1); CREATININE 0.73 mg/dl (0.60-1.20); MAGNESIUM 2.1 mg/dl (1.8-2.4); PHOSPHORUS 4.2 mg/dl (2.5-4.9); POTASSIUM 2.8 mmol/L (3.5-5.1)
[2016-05-27] MEDS: POTASSIUM CHLR 10 MEQ / WTR 10 MEQ in PREMIXED WATER 100 ML IV SCH ×4 (06:09→09:17)
[2016-05-27 06:26] LABS: ESTIMATED AVERAGE GLUCOSE 108 mg/dl; HA1C FLAG Normal (Normal)
[2016-05-27] MEDS ORDERED: POTASSIUM CHLORIDE 20 MEQ TABCR PO ONE (07:00)
[2016-05-27 07:30] LABS: HEMATOCRIT 32.7 % (37-47); MEAN CELL VOLUME 84.7 fL (80-100); MEAN CORPUSCULAR HEMOGLOBIN 29.8 pg (25-34); MEAN CORPUSCULAR HGB CONC 35.2 g/dl (32-36); MEAN PLATELET VOLUME 8.4 fL (7.4-10.4); PLATELET COUNT 217 K/uL (130-400); RED BLOOD COUNT 3.86 M/uL (4.2-5.4); WHITE BLOOD COUNT 7.33 K/uL (4.8-10.8)
[2016-05-27] MEDS ORDERED: NURSING DECISION MEDICATION ORDER SCH (07:45)
[2016-05-27] MEDS ORDERED: PNEUMOCOCCAL ADMINISTRATION CHARGE ONE (08:00)
[2016-05-27] MEDS ORDERED: PNEUMOCOCCAL POLYSACCHARIDES 25 MCG/0.5 ML VIAL/SYR IM. ONE (08:00)
[2016-05-27] MEDS: VENLAFAXINE HCL 50 MG TAB PO SCH ×3 (08:12→20:53)
[2016-05-27] MEDS: ENOXAPARIN 40 MG/0.4 ML SYR SC SCH (08:13)
--- NOTE | 2016-05-27 12:00 | Hospitalist Progress Note ---
Hospitalist Progress Note Date of Service May 27, 2016. (Alisson Jane .KIKI) Subjective Patient seen and examined. Reports feeling a littler better today. No pain. Denies chest pain and shortness of breath. No abdominal pain or nausea. (Alisson Jane ., KIKI) Objective Vital Signs Date Time Temp Pulse Resp B/P Pulse Ox O2 Delivery O2 Flow Rate FiO2 05/27/16 11:43 36.4 76 20 105/45 98 05/27/16 07:50 97 Room Air 05/27/16 07:30 36.4 80 118/78 97 05/27/16 05:40 36.8 76 20 127/80 99 Room Air 05/27/16 04:00 Room Air 2.0 05/27/16 00:00 36.8 85 20 108/82 05/26/16 23:17 86 24 119/75 100 05/26/16 22:30 85 23 130/81 100 Nasal Cannula 2.0 05/26/16 22:16 91 20 114/91 100 Nasal Cannula 2.0 05/26/16 21:37 36.8 95 25 113/87 100 Nasal Cannula 2.0 05/26/16 21:04 85 26 118/68 100 Nasal Cannula 2.0 05/26/16 20:36 87 25 130/92 100 Nasal Cannula 2.0 05/26/16 20:01 87 28 138/83 100 Nasal Cannula 2.0 05/26/16 19:58 96 05/26/16 19:54 92 29 140/79 99 Nasal Cannula 2.0 05/26/16 19:25 102 26 105/87 99 Nasal Cannula 2.0 05/26/16 19:13 105 36 99 Nasal Cannula 2.0 05/26/16 19:00 100 Nasal Cannula 2.0 05/26/16 18:53 108 19 113/91 99 Room Air 05/26/16 18:53 99 Room Air 05/26/16 18:45 124 24 74/43 99 Room Air (Alisson Jane .KIKI) Physical Exam General Appearance: no apparent distress Eyes: normal inspection ENT: hearing grossly normal Neck: supple, no JVD Respiratory/Chest: lungs clear, normal breath sounds, no respiratory distress Cardiovascular: regular rate, rhythm, + pertinent finding (trace edema BLLE) Abdomen: normal bowel sounds, non tender, soft Neurologic/Psychiatric: no motor/sensory deficits, alert, oriented x 3, + pertinent finding (uncontrolled movements of the mouth - improved from yesterday ) Skin: normal color, warm/dry, + pertinent finding (excoriated breast and abdominal folds) (Alisson Jane ., KIKI) Laboratory Results Last 24 Hours Test 05/26/16 19:19 05/26/16 19:34 05/26/16 19:39 05/26/16 19:40 Bedside Glucose 132 mg/dl White Blood Count 11.02 K/uL Red Blood Count 4.38 M/uL Hemoglobin 13.0 g/dL Hematocrit 37.2 % Mean Corpuscular Volume 84.9 fL Mean Corpuscular Hemoglobin 29.7 pg Mean Corpuscular Hemoglobin Concent 34.9 g/dl Platelet Count 298 K/uL Mean Platelet Volume 9.1 fL Neutrophils (%) (Auto) 74.1 % Lymphocytes (%) (Auto) 17.7 % Monocytes (%) (Auto) 7.4 % Eosinophils (%) (Auto) 0.2 % Basophils (%) (Auto) 0.2 % Neutrophils # (Auto) 8.18 K/uL Lymphocytes # (Auto) 1.95 K/uL Monocytes # (Auto) 0.81 K/uL Eosinophils # (Auto) 0.02 K/uL Basophils # (Auto) 0.02 K/uL RDW Standard Deviation 41.2 fL RDW Coefficient of Variation 13.2 % Immature Granulocyte % (Auto) 0.4 % Immature Granulocyte # (Auto) 0.04 K/uL Erythrocyte Sedimentation Rate 39 mm/hr Prothrombin Time 16.1 SECONDS Prothromb Time International Ratio 1.5 Activated Partial Thromboplast Time 20.5 SECONDS Partial Thromboplastin Ratio 0.8 Venous Blood pH 7.51 Venous Blood Partial Pressure CO2 28 mmHg Venous Blood Partial Pressure O2 44 mmHg Venous Blood HCO3 22 mmol/L Venous Blood Oxygen Saturation 82.0 % Venous Blood Base Excess 0.1 mmol/L Sodium Level 140 mmol/L Potassium Level 2.2 mmol/L Chloride Level 100 mmol/L Carbon Dioxide Level 23 mmol/L Anion Gap 17.0 mmol/L Blood Urea Nitrogen 12 mg/dl Creatinine 1.10 mg/dl Est Creatinine Clear Calc Drug Dose 65.5 ml/min Estimated GFR () 63.2 Estimated GFR (Non- 54.5 BUN/Creatinine Ratio 11.2 Random Glucose 123 mg/dl Estimated Average Glucose 108 mg/dl Hemoglobin A1c 5.4 % Calcium Level 8.6 mg/dl Phosphorus Level 1.8 mg/dl Magnesium Level 2.1 mg/dl Total Bilirubin 0.9 mg/dl Aspartate Amino Transf (AST/SGOT) 19 U/L Alanine Aminotransferase (ALT/SGPT) 25 U/L Alkaline Phosphatase 107 U/L Total Creatine Kinase 93 U/L Creatine Kinase MB 1.7 ng/ml Creatine Kinase MB Ratio 1.8 Troponin I < 0.015 ng/ml C-Reactive Protein 7.79 mg/dl Pro-B-Type Natriuretic Peptide 423 pg/ml Total Protein 7.1 gm/dl Albumin 2.9 gm/dl Globulin 4.2 gm/dl Albumin/Globulin Ratio 0.7 Lipase 604 U/L Bedside Lactic Acid Venous 4.01 mmol/L Urine Color DK YELLOW Urine Appearance CLOUDY Urine pH 6.5 Urine Specific Crawford 1.023 Urine Protein 2+ Urine Glucose (UA) TRACE Urine Ketones 2+ Urine Occult Blood NEG Urine Nitrite POS Urine Bilirubin NEG Urine Urobilinogen POS Urine Leukocyte Esterase SMALL Urine WBC (Auto) 5-10 /hpf Urine RBC (Auto) 0-4 /hpf Urine Hyaline Casts (Auto) >30 /lpf Urine Epithelial Cells (Auto) >30 /lpf Urine Bacteria (Auto) NEG Urine Renal Epithelial Cells 0-5 /lpf Urine Crystals SULFA Urine Pathogenic Casts 0-3 WBC CASTS /lpf Urine Mucus PRESENT Urine Yeast (Auto) PRESENT Test 05/26/16 19:43 05/26/16 23:00 05/27/16 04:42 05/27/16 07:23 Bedside Hemoglobin 12.2 g/dl Bedside Hematocrit 36 % Bedside Sodium 140 mEq/L Bedside Potassium 2.1 mEq/L Bedside Chloride 96 mEq/L Bedside Total CO2 20 mEq/l Anion Gap 27.0 mmol/L 13.0 mmol/L Bedside Blood Urea Nitrogen 11 mg/dl Bedside Creatinine 0.9 mg/dl Bedside Glucose (other) 127 mg/dl Bedside Ionized Calcium (Jacob) 1.02 mmol/l Potassium Level 2.3 mmol/L 2.8 mmol/L Lactic Acid Level 2.3 mmol/L 1.4 mmol/L Sodium Level 142 mmol/L Chloride Level 104 mmol/L Carbon Dioxide Level 25 mmol/L Blood Urea Nitrogen 11 mg/dl Creatinine 0.73 mg/dl Est Creatinine Clear Calc Drug Dose 98.7 ml/min Estimated GFR () 103.8 Estimated GFR (Non- 89.5 BUN/Creatinine Ratio 14.6 Random Glucose 107 mg/dl Calcium Level 7.4 mg/dl Phosphorus Level 4.2 mg/dl Magnesium Level 2.1 mg/dl White Blood Count 7.33 K/uL Red Blood Count 3.86 M/uL Hemoglobin 11.5 g/dL Hematocrit 32.7 % Mean Corpuscular Volume 84.7 fL Mean Corpuscular Hemoglobin 29.8 pg Mean Corpuscular Hemoglobin Concent 35.2 g/dl RDW Standard Deviation 41.5 fL RDW Coefficient of Variation 13.5 % Platelet Count 217 K/uL Mean Platelet Volume 8.4 fL Test 05/27/16 07:32 05/27/16 11:17 05/27/16 11:31 05/27/16 11:43 Bedside Glucose 114 mg/dl 106 mg/dl (Alisson Jane ., CLINICAL SCIENCE LIAISON) Assessment and Plan SEPSIS DUE TO UTI / PYELONEPHRITIS, resolved - admitted to tele - patient poor historian; however daughter found her to be visibly short of breath and disheveled; found to have abnormal U/A and CT/abd pelvis showing possible pyelonephritis; CTA chest demonstrates clear lungs, no hypoxia noted - on presentation had hypotension, tachycardia, and lactic acidosis - all resolved - s/p Levaquin in the ED, coverage broadened to Azactam (day 2) due to PCN allergy; MRSA swab negative, no need to add Vanco - will deescalate antibiotics once cultures result - POC lactic acid 4.0 -> serum 2.3 -> 1.4 - blood and urine cultures pending SEVERE HYPOKALEMIA, HYPOPHOSPHATEMIA - improving - presented with K+ 2.2; up to 2.8 today, s/p replacement this AM, will recheck - phos normalized PROLONGED QTC - likely due to hypokalemia and / or Seroquel - replacing K+, Seroquel on hold - monitor EKG daily PSYCH DISORDERS, TARDIVE DYSKINESIA - patient with history of bipolar, anxiety, depression, and personality disorder - has had psych admissions in the past with documentation of Seroquel abuse - patient denies taking additional Seroquel however now has tardive dyskinesia - patient reports she does not know what it started - will hold Seroquel, continue clonazepam and Effexor - mental health consult ENLARGED AXILLARY LYMPH NODES - noted on CTA chest - will need outpatient mammogram - was ordered by PCP 03/2016, however patient did not complete yet DVT PROPHYLAXIS - SQ Lovenox CODE STATUS - Patient is a DNR as per my discussion with her and her daughter on admission. DISPO - pending - on presentation, patient very unkempt and disheveled - PT/OT, case management (Alisson Jane ., KIKI) ATTENDING NOTE : pt seen and examined , care co ordinated with Alisson Jane see her documentation and physical exam for detail 60 yo F hx of bipolar mood disorder, depression , brought to ED by Daughter for confusion , involuntary movement of tongue and face ( Terdive dyskinesia ) found to be in sepsis due to UTI : SEPSIS DUE TO UTI resolved - admitted to tele - pt will be continued with Azactam till blood and urine culture available - Leukocytosis has resolved -given IV fluids - POC lactic acid 4.0 -> serum 2.3 -> 1.4 SEVERE HYPOKALEMIA, HYPOPHOSPHATEMIA - corrected follow lytes - PROLONGED QTC - likely due to hypokalemia and / or Seroquel - replacing K+, Seroquel on hold - monitor EKG daily PSYCH DISORDERS, TARDIVE DYSKINESIA - patient with history of bipolar, anxiety, depression, and personality disorder - has had psych admissions in the past with documentation of Seroquel abuse - patient denies taking additional Seroquel however now has tardive dyskinesia - patient reports she does not know what it started - will hold Seroquel, continue clonazepam and Effexor - psychiatry consulted ENLARGED AXILLARY LYMPH NODES - noted on CTA chest - will need outpatient mammogram - was ordered by PCP 03/2016, however patient did not complete yet DVT PROPHYLAXIS - SQ Lovenox CODE STATUS - DNR DISPOSITION : - lives at home presented with confusion , disheveled appearance with sepsis /dehydration PT/OT eval requested may need SNF social service consulted for discharge planning (Yashira Cage M.D.)
[2016-05-27 12:39] LABS: INR 1.4 (0.9-1.1); PROTHROMBIN TIME (PATIENT) 15.7 SECONDS (9.0-12.0)
[2016-05-27] MEDS: POTASSIUM CHLORIDE 20 MEQ TABCR PO SCH ×2 (13:57→20:53)
--- NOTE | 2016-05-27 18:11 | PSYCHIATRIC CONSULTATION ---
DATE OF CONSULTATION: 05/27/2016 IDENTIFYING INFORMATION: This is a 60-year-old female well known to the psychiatry service, who is an outpatient of Dr. Ki Maddox locally. She has a history of recurrent severe depression, generalized anxiety, personality disorder with cluster B traits, history of bipolar disorder and prescription drug abuse. She was admitted through the [facility] ER with complaints of shortness of breath, brought in by daughter who had not seen patient in about 2 months but was concerned about patient's status, when she visited on day of presentation. The patient denied all complaints on presentation, has been found to have sepsis secondary to pyelonephritis with cultures pending, severe hypokalemia, long QTC interval, and enlarged axillary lymph nodes on CTA chest. She has also been noted to be demonstrating tardive dyskinesia movements of the mouth. The patient does have a significant psychiatric history. She was last psychiatrically admitted to this hospital in 2013, which was a multi week stay. She has been refractory to pharmacologic intervention in the past and has abused her Seroquel in the past. Attempts have also been made in the past to reduce the amount of clonazepam that she takes; however, she has not tolerated this and it has been re-escalated in the outpatient setting. On interview this morning, patient is adamant that she has not been overusing her prescribed psychotropics. To confirm this, the local [facility] where she has her Seroquel filled, was queried and they report last 3 Seroquel fills for 30 tablets 100 mg were 12/16/2015, 02/21/2016, and 03/17/2016. The prescription drug monitoring program was also queried and she last filled clonazepam 360 tablets on 02/11/2016 and had appropriately previously felt that on 10/28/2015. The patient interestingly appears rather euthymic and minimizes complaints today. She denies that she has been feeling more depressed or anxious. She does report that she has been feeling sort of physically unwell, weak, and very low appetite. She has lost which she believes is 100 pounds over several months. I reviewed her last outpatient psychiatric clinic note from my colleague, Dr. Maddox, dated 03/22/2016, at which time she reported that her mood was "okay." Tardive movements were noted at that time and it was noted that these were felt to be abrupt in onset. He recalled that her exposure to typical antipsychotics had been brief in the past. She had requested to increase Seroquel at that visit which he declined. It was observed that she had lost 32 pounds since previous visit at that time. She was started on vitamin E supplementation for tardive dyskinesia. Medications in the EMR at that time noted to be Seroquel 100, Cogentin 1 mg b.i.d., Effexor 100 t.i.d., Klonopin 1 mg b.i.d. and 2 mg at bedtime, doxepin 25 mg at bedtime, metformin. She reports she has not been taking the doxepin. The patient denies overt confusion; however, she does report that she has been feeling a little foggy. She is fully oriented this morning. She denies hallucinations. She denies psychosis or unusual thinking. She denies intent or plan to harm herself or anyone else. She seems to appreciate her medical circumstance and is amenable to treatment. PAST PSYCHIATRIC HISTORY: Current outpatient of Dr. Ki Maddox. Previous diagnoses of severe recurrent depression without psychosis; generalized anxiety disorder; borderline traits versus personality disorder; history of bipolar disorder, not otherwise specified. She has a history of numerous psychiatric hospitalizations in the past at [facility], [facility] in [place]. She does have a history of overdose attempts in the past and 1 suicide attempt by carbon monoxide poisoning. Previous medications include but not limited to Abilify; Seroquel, which she abused; Zoloft; Xanax; Paxil; Effexor; Cymbalta; Elavil; Sinequan; lithium; gabapentin; Lamictal; trazodone, which caused rash; Luvox; Lyrica; Risperdal; Celexa; imipramine; Tegretol; Depakote, which caused hyperammonemia; Lexapro; Prozac; BuSpar. She has previously reported that many antidepressants have worsened her anxiety and has previously indicated that the only medicines that she felt helpful for her were Percocet, Klonopin and Seroquel. PAST MEDICAL HISTORY: DVT, dyslipidemia, IBS, umbilical herniation, appendectomy, hysterectomy, obstructive sleep apnea. ALLERGIES: DIPHENHYDRAMINE, NAPROXEN, PENICILLIN, TRAZODONE, CYCLOBENZAPRINE. HOME MEDICATIONS: Klonopin 1 mg b.i.d. and 2 mg at bedtime, Seroquel 100 mg at bedtime, Effexor 100 mg t.i.d. Unclear if she was taking the Cogentin 1 mg b.i.d. She was not taking the doxepin. SUBSTANCE ABUSE HISTORY: The patient denies alcohol or illicit drug use in the last year or historical problems with such. She does have a history of prescription drug abuse, primarily Seroquel. SOCIAL HISTORY: As previously reported she grew up in [place], [place], raised by both parents, now . Graduated high school associate's degree from [employer]. 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 to current for 40 years, 2 adult daughters, and multiple grandchildren. Previously has denied history of physical, emotional or sexual abuse. REVIEW OF SYSTEMS: The patient describes malaise, muscle weakness, cognitive fogginess, low appetite and weight loss. She denies suicidal or homicidal ideation, hallucinations, delusions, keisha confusion, worsening depression, or exacerbated anxiety. VITAL SIGNS: Temperature 36.4, pulse 76, respirations 20, blood pressure 105/45. LABORATORIES AND STUDIES: WBC this morning 7.33 down from 11.02 yesterday. Hemoglobin and hematocrit 11.5 and 32.7 respectively, platelets 217. Chem panel this morning showed a sodium of 142, potassium 2.8, which is up trending with supplementation, chloride 104, bicarbonate 25, BUN 11, creatinine 0.73, EGFR 89.5, glucose 107, calcium low at 7.4, phosphorus 4.2, magnesium 2.1. Coags showed PT 15.7, INR 1.4. Urinalysis positive nitrite, small leukocyte esterase, 5-10 WBCs. Urine culture showed no growth initially. Blood culture pending. QTC was 509 on EKG this morning. MENTAL STATUS EXAMINATION: The patient is an obese female in no acute distress, makes good eye contact, and easily engaged in interview. She describes her mood as "not too bad" and her affect is actually relatively euthymic and demonstrates minimal evidence of distress. Speech clear, normal rate, volume, and tone. Use of language within normal limits. Motor activity is negative for tremor. She does have a significant oral motor dyskinesia of the face and mouth which she seems to be rather unaware of. Thought process logical in response to questions. Thought content negative for suicidal or homicidal ideation or obvious delusions. She is fully oriented. Memory is grossly intact conversationally. Insight, judgment and impulse control presently appear at baseline. ASSESSMENT: This is a 60-year-old woman with a long psychiatric history, who appears to be medically decompensated with significant weight loss being treated for possible urosepsis and significant hypokalemia. Her appetite has been very poor in recent months and she denies overuse or misuse of her prescribed medications. History obtained from outside sources would support that she has not been over taking the clonazepam or Seroquel. She has been demonstrating orofacial dyskinesia for several months now, which does not seem to be correlated to a new medication exposure or withdrawal dyskinesia. She is denying acute psychiatric symptomatology and no indication for psychiatric hospitalization presently apparent. DIAGNOSES: Major depressive disorder, recurrent, in partial remission; generalized anxiety disorder, borderline personality disorder; history of sensitive hypnotic/prescription medication abuse. PLAN: 1. Mood disorder: No acute safety concerns appreciated. She does not appear to be attempting to harm herself or expressed desire to do so. She does not appear to be psychotic. No psychiatric hospitalization presently indicated. I would continue her on her home dose of Effexor to avoid increased risk for mood decompensation. 2. Anxiety: Again, longstanding. Has previously failed multiple attempts to wean her from the benzodiazepine. We would continue her on home dose clonazepam for now, particularly in the setting of holding the Seroquel. 3. Tardive dyskinesia: Possibly associated with Seroquel, however, this is typically low risk in that regard. She has a long history of neuroleptic exposure and perhaps this is cumulative over time. We did review compelling reasons to hold the Seroquel in an effort to reduce risk for tardive dyskinesia becoming permanent and she was agreeable to that. I fully agree with holding the Seroquel at that time for a time and we will continue to monitor. She was prescribed vitamin E by her outpatient psychiatrist, but reports she was not taking that for supplementation at home. It appears she may have not been taking the Cogentin either and as this can sometimes actually worsen tardive dyskinesia, we will not restart her on that presently. 4. We will continue to follow. Thank you for allowing us to participate in this patient's care.
[2016-05-27] MEDS: MICONAZOLE NITRATE POWDER 43 GM EXT PRN (22:43)
[2016-05-28] VITALS (11 sets, daily range): BP systolic 106–129; BP diastolic 69–89; PULSE 59–74; TEMP 36.4–36.9; O2SAT 91–99
[2016-05-28] MEDS: SODIUM CHLORIDE 0.9% 1000ML 1,000 ML IV SCH ×2 (01:49→14:14)
[2016-05-28 06:24] LABS: HEMATOCRIT 30.9 % (37-47); MEAN CELL VOLUME 86.1 fL (80-100); MEAN CORPUSCULAR HEMOGLOBIN 29.2 pg (25-34); MEAN PLATELET VOLUME 8.6 fL (7.4-10.4); PLATELET COUNT 193 K/uL (130-400); RED BLOOD COUNT 3.59 M/uL (4.2-5.4)
[2016-05-28 06:51] LABS: BUN/CREATININE RATIO 12.7 (10-20); CALCIUM 7.4 mg/dl (8.5-10.1); CREATININE 0.57 mg/dl (0.60-1.20); POTASSIUM 2.8 mmol/L (3.5-5.1)
[2016-05-28 07:01] LABS: PHOSPHORUS 2.9 mg/dl (2.5-4.9)
[2016-05-28] MEDS: AZTREONAM IV 2,000 MG in DEXTROSE 5% 100ML 100 ML IV SCH ×2 (07:32→16:11)
[2016-05-28] MEDS: VENLAFAXINE HCL 50 MG TAB PO SCH ×3 (08:11→20:55)
[2016-05-28] MEDS: CLONAZEPAM 1 MG TAB PO SCH ×3 (08:11→20:54)
[2016-05-28] MEDS: ENOXAPARIN 40 MG/0.4 ML SYR SC SCH (08:13)
[2016-05-28] MEDS ORDERED: POTASSIUM CHLORIDE 10 MEQ TABCR PO STA (08:13)
[2016-05-29] MEDS: AZTREONAM IV 2,000 MG in DEXTROSE 5% 100ML 100 ML IV SCH ×4 (00:01→23:32)
[2016-05-29] MEDS: SODIUM CHLORIDE 0.9% 1000ML 1,000 ML IV SCH ×3 (00:01→19:51)
[2016-05-29] MEDS ORDERED: MoRPHine SULFATE 2 MG/ML CARP IV PRN (02:30)
[2016-05-29 04:25] VITALS: BP 132/86; PULSE 62; TEMP 36.4; O2SAT 97
[2016-05-29 07:24] VITALS: BP 147/87; PULSE 62; TEMP 36.3; O2SAT 96
[2016-05-29] MEDS: ENOXAPARIN 40 MG/0.4 ML SYR SC SCH (08:04)
[2016-05-29] MEDS: CLONAZEPAM 1 MG TAB PO SCH ×3 (08:04→21:00)
[2016-05-29] MEDS: VENLAFAXINE HCL 50 MG TAB PO SCH ×4 (08:04→21:00)
[2016-05-29 10:50] VITALS: BP 150/69; PULSE 65; TEMP 36.3; O2SAT 98
--- NOTE | 2016-05-29 11:16 | Progress Note ---
Internal Med Progress Note Date of Service: May 28, 2016. Provider Documentation: pt was seen on 05/28/16 at approx 4 pm SUBJECTIVE: awake and alert , involuntary movements in mouth and tongue , minimum speech is clear no evidence of confusion pleasant , offers no complain tolerating diet well OBJECTIVE: Vital Signs-as noted below Exam: General-pt appears to be older than her stated age , no sign of distress, conversing Eyes-sclera non icteric Lungs-CTA , no wheeze or rales Heart-regular S1/S2 Abdomen-soft, non tender Extremities-no lower ext edema Neuro-no focal neurological deficit , Lab data as noted below. ASSESSMENT & PLAN: 60 yo F hx of bipolar mood disorder, depression , brought to ED by Daughter for confusion , involuntary movement of tongue and face ( Terdive dyskinesia ) found to be in sepsis due to UTI : SEPSIS DUE TO UTI resolved - pt will be continued with Azactam till blood and urine culture available - Leukocytosis has resolved -lactic acid level normalized with IV fluids remains stable hemodynamically SEVERE HYPOKALEMIA, HYPOPHOSPHATEMIA - corrected follow lytes - PROLONGED QTC - likely due to hypokalemia and / or Seroquel - replacing K+, Seroquel on hold - monitor EKG daily PSYCH DISORDERS, TARDIVE DYSKINESIA - patient with history of bipolar, anxiety, depression, and personality disorder - has had psych admissions in the past with documentation of Seroquel abuse - patient denies taking additional Seroquel however now has tardive dyskinesia - patient reports she does not know what it started - will hold Seroquel, continue clonazepam and Effexor - psychiatry consulted ENLARGED AXILLARY LYMPH NODES - noted on CTA chest - will need outpatient mammogram - was ordered by PCP 03/2016, however patient did not complete yet DVT PROPHYLAXIS - SQ Lovenox CODE STATUS - DNR DISPOSITION : - lives at home presented with confusion , disheveled appearance with sepsis /dehydration PT/OT eval requested may need SNF social service consulted for discharge planning Vital Signs: Date Time Temp Pulse Resp B/P Pulse Ox O2 Delivery O2 Flow Rate FiO2 05/30/16 12:07 Room Air 05/30/16 12:07 36.5 72 18 121/81 98 Room Air 05/30/16 08:00 Room Air 05/30/16 07:44 36.5 75 18 114/74 97 Room Air 05/30/16 04:00 36.6 71 20 127/84 93 Room Air 05/30/16 04:00 Room Air 05/30/16 00:00 Room Air 05/30/16 00:00 36.5 68 18 136/82 98 Room Air 05/29/16 20:00 Room Air 05/29/16 19:35 36.4 72 16 127/85 99 Room Air 05/29/16 16:00 Room Air 05/29/16 14:57 36.4 74 18 133/75 99 Room Air 05/29/16 12:25 Room Air Lab Results: Results Past 24 Hours Test 05/29/16 15:37 05/29/16 20:18 05/30/16 07:30 05/30/16 09:05 Range/Units Bedside Glucose 101 112 94 70-90 mg/dl Sodium Level 145 136-145 mmol/L Potassium Level 2.7 3.5-5.1 mmol/L Chloride Level 112 98-107 mmol/L Carbon Dioxide Level 25 21-32 mmol/L Anion Gap 8.0 3-11 mmol/L Blood Urea Nitrogen 6 7-18 mg/dl Creatinine 0.62 0.60-1.20 mg/dl Est Creatinine Clear Calc Drug Dose 118.3 ml/min Estimated GFR () 113.6 Estimated GFR (Non- 98.0 BUN/Creatinine Ratio 10.1 10-20 Random Glucose 113 70-99 mg/dl Calcium Level 7.7 8.5-10.1 mg/dl Magnesium Level 1.9 1.8-2.4 mg/dl Test 05/30/16 11:26 Range/Units Bedside Glucose 110 70-90 mg/dl
--- NOTE | 2016-05-29 11:42 | Psychiatric Progress Notes ---
Psychiatric Progress Note Date of Service May 29, 2016. Notes ID: Patient reviewed with liaison nurse. Initial evaluation by Dr. Richardson dated 05/27/16 reviewed. Patient admit with urosepsis and MDD, Seroquel and Cogentin being held. CC: TD and ?confusion this am--was picking at the air HPI: Patient is without complaints currently. Oriented. She states the mouth movements don't bother her but upsets her daughter. She denies wearing dentures. She denies tremor or leg movements, movements decrease intention. She denies muscle stiffness or issues with her swallow. ROS: neuro as above, psychiatric "I'm not here because of any suicidal stuff", states slept OK MSE: alert, cooperative, chewing movements of mouth and tongue consistent with dyskinesia, mood "fine", affect calm, thoughts organized, oriented X3 Imp: MDD, outpatient of Dr. Maddox with treatment emergent dyskinesia Plan: patient is on 4 mg of Klonopin total a day which is likely interacting with morphine and cause some transient delirium this am, will decrease hs dose of Klonopin to begin taper will need to be completed outpatient as well as dose of Effexor reassessed as > 225 mg but short acting form agree no indication for inpatient psych admit EUNICE to confirm outpatient appt/update Dr. Maddox.
[2016-05-29 14:57] VITALS: BP 133/75; PULSE 74; TEMP 36.4; O2SAT 99
--- NOTE | 2016-05-29 18:39 | Progress Note ---
Internal Med Progress Note Date of Service: May 29, 2016. Provider Documentation: OBJECTIVE: no evidence of Tardive Dyskinesia , no involuntary facial or tongue movement noted conversing appropriately no confusion noted no fever or chills remains stable hemodynamically Vital Signs-as noted below Exam: General-pt appears to be older than her stated age , no sign of distress, conversing Eyes-sclera non icteric Lungs-CTA , no wheeze or rales Heart-regular S1/S2 Abdomen-soft, non tender Extremities-no lower ext edema Neuro-no focal neurological deficit , Lab data as noted below. ASSESSMENT & PLAN: 60 yo F hx of bipolar mood disorder, depression , brought to ED by Daughter for confusion , involuntary movement of tongue and face ( Terdive dyskinesia ) found to be in sepsis due to UTI : SEPSIS DUE TO UTI admitted with Hypotension /tachycardia , elevated lactic acid , confusion UA suggestive of UTI CT abdomen /Pelvis -focus of hyperperfusion on upper pole of L kidney , non specific finding , seen in setting of pyelonephritis pt recovered form sepsis with broad spectrum Abx and IV fluid resuscitation Leukocytosis has resolved Lactic acid level normalized no fever or chills, remains stable hemodynamically Blood and urine culture -negative growth - Azactam D/howie -will transition to PO Antibiotic due to presentation with sepsis -pt will need 7-10 days of PO Antibiotic tx SEVERE HYPOKALEMIA, HYPOPHOSPHATEMIA - due to above , along with poor PO intake , dehydration failure to thrive -corrected follow Lytes - PROLONGED QTC presented with Qtc > 500 required tele monitoring -Seroquel D/ce electrolyte derangements -hypokalemia -corrected cont daily EKG monitoring PSYCH DISORDERS, TARDIVE DYSKINESIA -no evidence of mood disorder /Psychosis at present -no suicidal ideation - history of bipolar, anxiety, depression, and personality disorder - Seroquel on hold since admission for Tardive Dyskinesia /prolong Qtc - psychiatry consulted-appreciate input -Seroquel D/howie ( was on 100 mg Po HS ) Klonopin dose reduced to 4 mg PO Daily ( 1 mg PO BID /2 mg PO HS ) to 3 mg daily ( 1 mg PO BID /1 mg HS ) recommend gradual taper/wean need to be followed closely by her out pt Psychiatrist Dr Ki Maddox ENLARGED AXILLARY LYMPH NODES - noted on CTA chest - will need outpatient mammogram - was ordered by PCP 03/2016, however patient did not complete yet DVT PROPHYLAXIS - SQ Lovenox CODE STATUS - DNR DISPOSITION : - lives at home presented with confusion , disheveled appearance with sepsis /dehydration PT/OT eval requested will need SNF -referral made to [facility] consulted for discharge planning possible discharge to [facility] tomorrow if accepted Vital Signs: Date Time Temp Pulse Resp B/P Pulse Ox O2 Delivery O2 Flow Rate FiO2 05/30/16 12:07 Room Air 05/30/16 12:07 36.5 72 18 121/81 98 Room Air 05/30/16 08:00 Room Air 05/30/16 07:44 36.5 75 18 114/74 97 Room Air 05/30/16 04:00 36.6 71 20 127/84 93 Room Air 05/30/16 04:00 Room Air 05/30/16 00:00 Room Air 05/30/16 00:00 36.5 68 18 136/82 98 Room Air 05/29/16 20:00 Room Air 05/29/16 19:35 36.4 72 16 127/85 99 Room Air 05/29/16 16:00 Room Air 05/29/16 14:57 36.4 74 18 133/75 99 Room Air Lab Results: Results Past 24 Hours Test 05/29/16 15:37 05/29/16 20:18 05/30/16 07:30 05/30/16 09:05 Range/Units Bedside Glucose 101 112 94 70-90 mg/dl Sodium Level 145 136-145 mmol/L Potassium Level 2.7 3.5-5.1 mmol/L Chloride Level 112 98-107 mmol/L Carbon Dioxide Level 25 21-32 mmol/L Anion Gap 8.0 3-11 mmol/L Blood Urea Nitrogen 6 7-18 mg/dl Creatinine 0.62 0.60-1.20 mg/dl Est Creatinine Clear Calc Drug Dose 118.3 ml/min Estimated GFR () 113.6 Estimated GFR (Non- 98.0 BUN/Creatinine Ratio 10.1 10-20 Random Glucose 113 70-99 mg/dl Calcium Level 7.7 8.5-10.1 mg/dl Magnesium Level 1.9 1.8-2.4 mg/dl Test 05/30/16 11:26 Range/Units Bedside Glucose 110 70-90 mg/dl
[2016-05-29 19:35] VITALS: BP 127/85; PULSE 72; TEMP 36.4; O2SAT 99
[2016-05-30] VITALS: BP 136/82; PULSE 68; TEMP 36.5; O2SAT 98
[2016-05-30 04:00] VITALS: BP 127/84; PULSE 71; TEMP 36.6; O2SAT 93
[2016-05-30] MEDS: SODIUM CHLORIDE 0.9% 1000ML 1,000 ML IV SCH (05:38)
[2016-05-30 07:44] VITALS: BP 114/74; PULSE 75; TEMP 36.5; O2SAT 97
[2016-05-30] MEDS ORDERED: CLON1TAB3 PO (08:06)
[2016-05-30] MEDS ORDERED: CLON1TAB PO (08:06)
--- NOTE | 2016-05-30 08:08 | Discharge Instructions ---
Discharge Instructions Date of Service May 30, 2016. Admission Reason for Admission: Pyelonephritis Discharge Discharge Diagnosis / Problem: SEPSIS /UTI/METABOLIC ENCEPHALOPATHY Discharge Goals Goal(s): Improve function, Increase independence, Improve disease control, Improve nutritional status, Diagnostic testing Activity Recommendations Activity Level: Assistance Required Therapies: Physical Therapy, Occupational Therapy . Additional Information Patient informed of condition: Yes Advance Directives: Yes DNR: Yes Level of Care: Acute Rehab Communicable Disease: No Prognosis: Stable David Catheter: No Instructions / Follow-Up Instructions / Follow-Up FOLLOW UP WITH FAMILY PHYSICIAN AFTER DISCHARGE FORM REHAB MEDICATION CHANGES: SEROQUEL DISCONTINUED KLONOPIN DOSE REDUCED TO 1 MG AT NIGHT ( WAS ON 2 MG AT NIGHT ) EFFEXOR DOSE CHANGED -EFFEXOR XR 225 MG DAILY ( WAS ON EFFEXOR 100 MG THREE TIMES DAILY ) CHECK EKG ON Sunday06/02/16 TO ASSESS QTc ( QTc today 486 ) LAB WORK : BASIC METABOLIC PANEL , MG , PHOS LEVEL IN A WEEK NEEDS PERIODIC EKG TO ASSESS PROLONG QTc PSYCHIATRY FOLLOW UP WITH DR ADMIAN ON June PLEASE CONTACT OFFICE TO CONFIRM APPOINTMENT KLONOPIN DOSE NEEDS TO BE TAPERED DOWN SLOWLY UNDER DIRECTION OF PSYCHIATRY DR DAMIAN ENLARGED AXILLARY LYMPH NODES - noted on CT OF CHEST WITH CONTRAST - will need outpatient mammogram - Current Hospital Diet Patient's current hospital diet: Regular Diet Discharge Diet Recommended Diet: Regular Diet Pending Studies Studies pending at discharge: yes List of pending studies: EKG ON Sunday06/02/17 TO ASSESS QTc LAB WORK : BASIC METABOLIC PANEL , MG , PHOS LEVEL IN A WEEK OUT PATIENT MAMMOGRAM -ENLARGED AXILLARY LYMPH NODE ON RIGHT Laboratory Results Hemoglobin A1c Test 05/26/16 19:34 Range/Units Estimated Average Glucose 108 mg/dl Hemoglobin A1c 5.4 4.5-5.6 % Medical Emergencies . Who to Call and When: Medical Emergencies: If at any time you feel your situation is an emergency, please call 911 immediately. . Non-Emergent Contact Non-Emergency issues call your: Primary Care Provider . . "Provider Documentation" section prepared by Yashira Cage. Core Measure Problem Core Measures: None [place] Drug Monitoring Program Search Results: no issues identified
[2016-05-30] MEDS: CIPROFLOXACIN 250 MG TAB PO SCH ×2 (08:33→20:48)
[2016-05-30] MEDS ORDERED: KLN1 PO (08:33)
[2016-05-30] MEDS: CLONAZEPAM 1 MG TAB PO SCH ×3 (08:33→20:47)
[2016-05-30] MEDS: VENLAFAXINE HCL 50 MG TAB PO SCH (08:33)
[2016-05-30] MEDS: ENOXAPARIN 40 MG/0.4 ML SYR SC SCH (08:34)
[2016-05-30] MEDS ORDERED: SOD PHOSPHATE/SOD BIPHOSPHATE ENEMA 132 ML BTL PR PRN (08:45)
[2016-05-30] MEDS ORDERED: BISACODYL 5 MG TABEC PO ONE (09:00)
--- NOTE | 2016-05-30 09:08 | Psych Management Progress Note ---
Psychiatry Miscellaneous Date of Service: May 30, 2016. case reviewed with Dr. Cage, QTc is improving as is dyskinesia. Will continue to hold Seroquel. She will decrease Effexor to 225 mg total daily dose and keep Klonopin at 1 mg TID as just tapered yesterday and should be tapered slowly under direction of psychiatrist. Reviewed has f/u with Dr. Maddox in June, Dr. Cage anticipates patient will only be at [facility] for a brief stay so appt will stand.
[2016-05-30] MEDS ORDERED: CIPR250T5 PO (09:11)
[2016-05-30] MEDS ORDERED: EFFSR75 PO (09:11)
[2016-05-30 09:50] LABS: BUN/CREATININE RATIO 10.1 (10-20); CALCIUM 7.7 mg/dl (8.5-10.1); CREATININE 0.62 mg/dl (0.60-1.20); POTASSIUM 2.7 mmol/L (3.5-5.1)
[2016-05-30] MEDS: POLYETHYLENE (MIRALAX) 17 GM PACK PO SCH (11:07)
[2016-05-30] MEDS ORDERED: POTASSIUM CHLORIDE 20 MEQ TABCR PO STA (11:11)
[2016-05-30 12:07] VITALS: BP 121/81; PULSE 72; TEMP 36.5; O2SAT 98
[2016-05-30] MEDS: VENLAFAXINE HCL XR 75 MG CAPXR PO SCH (12:27)
[2016-05-30 15:27] VITALS: BP 109/48; PULSE 72; TEMP 37; O2SAT 96
--- NOTE | 2016-05-30 17:33 | Progress Note ---
Internal Med Progress Note Date of Service: May 30, 2016. Provider Documentation: OBJECTIVE: feels much better still has some involuntary movement of face but much improved since admission no confusion no fever or chills remains stable hemodynamically Vital Signs-as noted below Exam: General-pt appears to be older than her stated age , no sign of distress, conversing Eyes-sclera non icteric Lungs-CTA , no wheeze or rales Heart-regular S1/S2 Abdomen-soft, non tender Extremities-no lower ext edema Neuro-no focal neurological deficit , Lab data as noted below. ASSESSMENT & PLAN: 60 yo F hx of bipolar mood disorder, depression , brought to ED by Daughter for confusion , involuntary movement of tongue and face ( Terdive dyskinesia ) found to be in sepsis due to UTI : SEPSIS DUE TO UTI admitted with Hypotension /tachycardia , elevated lactic acid , confusion UA suggestive of UTI CT abdomen /Pelvis -focus of hyperperfusion on upper pole of L kidney , non specific finding , seen in setting of pyelonephritis pt recovered form sepsis with broad spectrum Abx and IV fluid resuscitation Leukocytosis has resolved Lactic acid level normalized no fever or chills, remains stable hemodynamically Blood and urine culture -negative growth - Azactam D/howie -started on Po Ciprofloxacin due to presentation with sepsis -pt will need 7-10 days of PO Antibiotic tx SEVERE HYPOKALEMIA, HYPOPHOSPHATEMIA - due to above , along with poor PO intake , dehydration failure to thrive -corrected follow Lytes - PROLONGED QTC presented with Qtc > 500 required tele monitoring -Seroquel D/ce electrolyte derangements -hypokalemia -corrected EKG today normal Qtc D/C tele will need weekly EKG as out pt PSYCH DISORDERS, TARDIVE DYSKINESIA -no evidence of mood disorder /Psychosis at present -no suicidal ideation - history of bipolar, anxiety, depression, and personality disorder - Seroquel on hold since admission for Tardive Dyskinesia /prolong Qtc - psychiatry consulted-appreciate input -Seroquel D/howie ( was on 100 mg Po HS ) Klonopin dose reduced to 4 mg PO Daily ( 1 mg PO BID /2 mg PO HS ) to 3 mg daily ( 1 mg PO BID /1 mg HS ) recommend gradual taper/wean need to be followed closely by her out pt Psychiatrist Dr Ki Madodx ENLARGED AXILLARY LYMPH NODES - noted on CTA chest - will need outpatient mammogram - was ordered by PCP 03/2016, however patient did not complete yet DVT PROPHYLAXIS - SQ Lovenox CODE STATUS - DNR DISPOSITION : - lives at home presented with confusion , disheveled appearance with sepsis /dehydration PT/OT elinaal requested pt is denied SNF at [facility] by her insurance Called [facility]anda -left message /Cell no for Peer to Peer review D/w Daughter Ebony /work [phone] Does not feel safe for pt to return home with home health if SNF or rehab is denied pt's will be out of town next week Daughter will be out of state as well it will be un safe for the pt to return home by herself -high fall risk will ask CM to make referral for SNF if acute rehab is denied by insurance Daughter and pt willing for referral at [facility] Vital Signs: Date Time Temp Pulse Resp B/P Pulse Ox O2 Delivery O2 Flow Rate FiO2 05/30/16 16:19 Room Air 05/30/16 15:27 37.0 72 18 109/48 96 Room Air 05/30/16 12:07 Room Air 05/30/16 12:07 36.5 72 18 121/81 98 Room Air 05/30/16 08:00 Room Air 05/30/16 07:44 36.5 75 18 114/74 97 Room Air 05/30/16 04:00 36.6 71 20 127/84 93 Room Air 05/30/16 04:00 Room Air 05/30/16 00:00 Room Air 05/30/16 00:00 36.5 68 18 136/82 98 Room Air 05/29/16 20:00 Room Air 05/29/16 19:35 36.4 72 16 127/85 99 Room Air Lab Results: Results Past 24 Hours Test 05/29/16 20:18 05/30/16 07:30 05/30/16 09:05 05/30/16 11:26 Range/Units Bedside Glucose 112 94 110 70-90 mg/dl Sodium Level 145 136-145 mmol/L Potassium Level 2.7 3.5-5.1 mmol/L Chloride Level 112 98-107 mmol/L Carbon Dioxide Level 25 21-32 mmol/L Anion Gap 8.0 3-11 mmol/L Blood Urea Nitrogen 6 7-18 mg/dl Creatinine 0.62 0.60-1.20 mg/dl Est Creatinine Clear Calc Drug Dose 118.3 ml/min Estimated GFR () 113.6 Estimated GFR (Non- 98.0 BUN/Creatinine Ratio 10.1 10-20 Random Glucose 113 70-99 mg/dl Calcium Level 7.7 8.5-10.1 mg/dl Magnesium Level 1.9 1.8-2.4 mg/dl Test 05/30/16 16:25 Range/Units Bedside Glucose 102 70-90 mg/dl
[2016-05-30] MEDS ORDERED: NURSING VERBAL MED ORDER ONE (19:15)
[2016-05-30] MEDS: DOCUSATE SODIUM 100 MG/10 ML UDC PO SCH (20:47)
[2016-05-30] MEDS ORDERED: DOCUSATE SODIUM 100 MG CAP PO SCH (21:00)
[2016-05-30 23:14] VITALS: BP 127/74; PULSE 66; TEMP 36.8; O2SAT 94
[2016-05-30] MEDS: ACETAMINOPHEN 325 MG TAB PO PRN (23:56)
[2016-05-31 07:25] VITALS: BP 134/81; PULSE 64; TEMP 36.4; O2SAT 98
[2016-05-31 07:42] LABS: BUN/CREATININE RATIO 15.6 (10-20); CALCIUM 7.8 mg/dl (8.5-10.1); CREATININE 0.58 mg/dl (0.60-1.20); MAGNESIUM 1.7 mg/dl (1.8-2.4)
[2016-05-31] MEDS: VENLAFAXINE HCL XR 75 MG CAPXR PO SCH (08:26)
[2016-05-31] MEDS: POLYETHYLENE (MIRALAX) 17 GM PACK PO SCH (08:26)
[2016-05-31] MEDS: CIPROFLOXACIN 250 MG TAB PO SCH ×2 (08:26→21:14)
[2016-05-31] MEDS: CLONAZEPAM 1 MG TAB PO SCH ×3 (08:26→21:15)
[2016-05-31] MEDS: ENOXAPARIN 40 MG/0.4 ML SYR SC SCH (08:26)
[2016-05-31] MEDS: DOCUSATE SODIUM 100 MG/10 ML UDC PO SCH ×2 (08:26→21:13)
[2016-05-31 14:17] VITALS: PULSE 82; O2SAT 97
[2016-05-31 15:25] VITALS: BP 111/72; PULSE 72; TEMP 36.5; O2SAT 97
[2016-05-31] MEDS ORDERED: NURSING VERBAL MED ORDER ONE (15:45)
[2016-05-31] MEDS ORDERED: MoRPHine SULFATE 2 MG/ML CARP IV STA (15:58)
[2016-05-31] MEDS ORDERED: POTASSIUM CHLORIDE 10 MEQ TABCR PO ONE (18:00)
--- NOTE | 2016-05-31 19:16 | Progress Note ---
Internal Med Progress Note Date of Service: May 31, 2016. Provider Documentation: OBJECTIVE: offers no complain no fever or chills ambulated 200 ft with PT today still having balance issue continued PT recommended Vital Signs-as noted below Exam: General-pt appears to be older than her stated age , no sign of distress, conversing Eyes-sclera non icteric Lungs-CTA , no wheeze or rales Heart-regular S1/S2 Abdomen-soft, non tender Extremities-no lower ext edema Neuro-no focal neurological deficit , Lab data as noted below. ASSESSMENT & PLAN: 60 yo F hx of bipolar mood disorder, depression , brought to ED by Daughter for confusion , involuntary movement of tongue and face ( Terdive dyskinesia ) found to be in sepsis due to UTI : SEPSIS DUE TO UTI admitted with Hypotension /tachycardia , elevated lactic acid , confusion UA suggestive of UTI urine culture -no growth ( was started on ABx already ) CT abdomen /Pelvis -focus of hyperperfusion on upper pole of L kidney , non specific finding , seen in setting of pyelonephritis pt recovered form sepsis with broad spectrum Abx and IV fluid resuscitation Leukocytosis has resolved Lactic acid level normalized no fever or chills, remains stable hemodynamically Blood and urine culture -negative growth - Azactam D/howie -started on Po Ciprofloxacin due to presentation with sepsis -pt will need 7-10 days of PO Antibiotic tx SEVERE HYPOKALEMIA, HYPOPHOSPHATEMIA - due to above , along with poor PO intake , dehydration failure to thrive -corrected follow Lytes - PROLONGED QTC presented with Qtc > 500 required tele monitoring -Seroquel D/howie electrolyte derangements -hypokalemia -corrected EKG 05/30/16 normal Qtc will need weekly EKG as out pt PSYCH DISORDERS, TARDIVE DYSKINESIA -no evidence of mood disorder /Psychosis at present -no suicidal ideation - history of bipolar, anxiety, depression, and personality disorder - Seroquel on hold since admission for Tardive Dyskinesia /prolong Qtc - psychiatry consulted-appreciate input -Seroquel D/howie ( was on 100 mg Po HS ) Klonopin dose reduced to 4 mg PO Daily ( 1 mg PO BID /2 mg PO HS ) to 3 mg daily ( 1 mg PO BID /1 mg HS ) recommend gradual taper/wean need to be followed closely by her out pt Psychiatrist Dr Ki Maddox appointment scheduled for 07/05/16 @ 11: 20 am ENLARGED AXILLARY LYMPH NODES - noted on CTA chest - will need outpatient mammogram - was ordered by PCP 03/2016, however patient did not complete yet DVT PROPHYLAXIS - SQ Lovenox CODE STATUS - DNR DISPOSITION : to be determined - lives at home presented with confusion , disheveled appearance with sepsis /dehydration PT/OT eval requested will need SNF , daughter willing for referral at [facility] plan of discharge D/w Daughter Ebony /work [phone] Vital Signs: Date Time Temp Pulse Resp B/P Pulse Ox O2 Delivery O2 Flow Rate FiO2 05/31/16 16:00 Room Air 05/31/16 15:25 36.5 72 20 111/72 97 Room Air 05/31/16 14:17 82 97 05/31/16 08:00 Room Air 05/31/16 07:25 36.4 64 20 134/81 98 Room Air 05/31/16 00:00 Room Air 05/30/16 23:14 36.8 66 18 127/74 94 Room Air 05/30/16 20:00 Room Air Lab Results: Results Past 24 Hours Test 05/30/16 21:08 05/31/16 06:46 05/31/16 07:31 05/31/16 11:23 Range/Units Bedside Glucose 103 109 118 70-90 mg/dl Sodium Level 145 136-145 mmol/L Potassium Level 3.0 3.5-5.1 mmol/L Chloride Level 111 98-107 mmol/L Carbon Dioxide Level 25 21-32 mmol/L Anion Gap 9.0 3-11 mmol/L Blood Urea Nitrogen 9 7-18 mg/dl Creatinine 0.58 0.60-1.20 mg/dl Est Creatinine Clear Calc Drug Dose 126.5 ml/min Estimated GFR () 116.1 Estimated GFR (Non- 100.2 BUN/Creatinine Ratio 15.6 10-20 Random Glucose 102 70-99 mg/dl Calcium Level 7.8 8.5-10.1 mg/dl Magnesium Level 1.7 1.8-2.4 mg/dl Test 05/31/16 16:14 Range/Units Bedside Glucose 112 70-90 mg/dl
[2016-05-31] MEDS: KETOROLAC TROMETHAMINE 15 MG/ML VIAL IV PRN (21:11)
[2016-05-31 23:03] VITALS: BP 155/73; PULSE 68; TEMP 36.8; O2SAT 96
[2016-06-01 03:05] VITALS: BP 130/72; PULSE 79; TEMP 36.5; O2SAT 97
[2016-06-01 06:55] LABS: BUN/CREATININE RATIO 16.3 (10-20); CALCIUM 8.1 mg/dl (8.5-10.1); CREATININE 0.54 mg/dl (0.60-1.20); MAGNESIUM 1.8 mg/dl (1.8-2.4)
[2016-06-01 07:14] VITALS: BP 155/86; PULSE 76; TEMP 36.5; O2SAT 98
[2016-06-01 08:00] VITALS: O2SAT 98
[2016-06-01] MEDS ORDERED: POTASSIUM CHLORIDE 10 MEQ TABCR PO ONE (08:00)
[2016-06-01] MEDS: DOCUSATE SODIUM 100 MG/10 ML UDC PO SCH ×2 (08:31→20:44)
[2016-06-01] MEDS: POLYETHYLENE (MIRALAX) 17 GM PACK PO SCH (08:31)
[2016-06-01] MEDS: VENLAFAXINE HCL XR 75 MG CAPXR PO SCH (08:31)
[2016-06-01] MEDS: CIPROFLOXACIN 250 MG TAB PO SCH ×2 (08:31→20:43)
[2016-06-01] MEDS: ENOXAPARIN 40 MG/0.4 ML SYR SC SCH (08:32)
[2016-06-01] MEDS: CLONAZEPAM 1 MG TAB PO SCH ×3 (08:37→20:44)
[2016-06-01] MEDS: ACETAMINOPHEN 325 MG TAB PO PRN (08:37)
[2016-06-01] MEDS: MICONAZOLE NITRATE POWDER 43 GM EXT PRN (11:08)
[2016-06-01 11:24] VITALS: BP 99/76; PULSE 67; TEMP 36.7; O2SAT 96
[2016-06-01] MEDS: KETOROLAC TROMETHAMINE 15 MG/ML VIAL IV PRN ×2 (15:11→21:40)
[2016-06-01 15:19] VITALS: BP 103/73; PULSE 72; TEMP 36.7; O2SAT 99
--- NOTE | 2016-06-01 17:31 | Progress Note ---
Internal Med Progress Note Date of Service: Jun 01, 2016. Provider Documentation: OBJECTIVE: offers no complain , feels fine tolerating diet well complained of having intermittent abdominal pain -chronic gets relief with Toradol no diarrhea no nausea no fever or chills Vital Signs-as noted below Exam: General-pt appears to be older than her stated age , no sign of distress, conversing Eyes-sclera non icteric Lungs-CTA , no wheeze or rales Heart-regular S1/S2 Abdomen-soft, non tender Extremities-no lower ext edema Neuro-no focal neurological deficit , Lab data as noted below. ASSESSMENT & PLAN: 60 yo F hx of bipolar mood disorder, depression , brought to ED by Daughter for confusion , involuntary movement of tongue and face ( Terdive dyskinesia ) found to be in sepsis due to UTI : SEPSIS DUE TO UTI admitted with Hypotension /tachycardia , elevated lactic acid , confusion UA suggestive of UTI urine culture -no growth ( was started on ABx already ) CT abdomen /Pelvis -focus of hyperperfusion on upper pole of L kidney , non specific finding , seen in setting of pyelonephritis pt recovered form sepsis with broad spectrum Abx and IV fluid resuscitation Leukocytosis has resolved Lactic acid level normalized no fever or chills, remains stable hemodynamically Blood and urine culture -negative growth - Azactam D/howie -started on Po Ciprofloxacin due to presentation with sepsis -pt will need 7-10 days of PO Antibiotic tx SEVERE HYPOKALEMIA, HYPOPHOSPHATEMIA - due to above , along with poor PO intake , dehydration failure to thrive -corrected follow Lytes -ordered 30 meq of PO K this AM for K being ~3 normal mg repeat PPP in am ordered for scheduled PO K 20 meq daily - PROLONGED QTC resolved presented with Qtc > 500 required tele monitoring -Seroquel D/howie electrolyte derangements -hypokalemia -corrected EKG 05/30/16 normal Qtc d/c tele will need weekly EKG as out pt PSYCH DISORDERS, TARDIVE DYSKINESIA -no evidence of mood disorder /Psychosis at present -no suicidal ideation - history of bipolar, anxiety, depression, and personality disorder - Seroquel on hold since admission for Tardive Dyskinesia /prolong Qtc - psychiatry consulted-appreciate input -Seroquel D/howie ( was on 100 mg Po HS ) Klonopin dose reduced to 4 mg PO Daily ( 1 mg PO BID /2 mg PO HS ) to 3 mg daily ( 1 mg PO BID /1 mg HS ) recommend gradual taper/wean need to be followed closely by her out pt Psychiatrist Dr Ki Maddox appointment scheduled for 07/05/16 @ 11: 20 am ENLARGED AXILLARY LYMPH NODES - noted on CTA chest - will need outpatient mammogram - was ordered by PCP 03/2016, however patient did not complete yet DVT PROPHYLAXIS - SQ Lovenox CODE STATUS - DNR DISPOSITION : to be determined - lives at home presented with confusion , disheveled appearance with sepsis /dehydration PT/OT eval requested will need SNF , daughter willing for referral at [facility] plan of discharge D/w Daughter Ebony /work [phone] Vital Signs: Date Time Temp Pulse Resp B/P Pulse Ox O2 Delivery O2 Flow Rate FiO2 06/01/16 16:00 Room Air 06/01/16 15:19 36.7 72 20 103/73 99 Room Air 06/01/16 11:24 36.7 67 20 99/76 96 Room Air 06/01/16 08:00 98 Room Air 06/01/16 07:14 36.5 76 20 155/86 98 Room Air 06/01/16 03:05 36.5 79 18 130/72 97 Room Air 06/01/16 00:00 Room Air 05/31/16 23:03 36.8 68 16 155/73 96 Room Air Lab Results: Results Past 24 Hours Test 05/31/16 20:06 06/01/16 05:51 06/01/16 07:21 06/01/16 11:38 Range/Units Bedside Glucose 119 104 114 70-90 mg/dl Sodium Level 144 136-145 mmol/L Potassium Level 3.0 3.5-5.1 mmol/L Chloride Level 109 98-107 mmol/L Carbon Dioxide Level 26 21-32 mmol/L Anion Gap 9.0 3-11 mmol/L Blood Urea Nitrogen 9 7-18 mg/dl Creatinine 0.54 0.60-1.20 mg/dl Est Creatinine Clear Calc Drug Dose 135.8 ml/min Estimated GFR () 118.9 Estimated GFR (Non- 102.6 BUN/Creatinine Ratio 16.3 10-20 Random Glucose 107 70-99 mg/dl Calcium Level 8.1 8.5-10.1 mg/dl Magnesium Level 1.8 1.8-2.4 mg/dl Test 06/01/16 16:23 Range/Units Bedside Glucose 107 70-90 mg/dl
[2016-06-02 00:24] VITALS: BP 114/76; PULSE 78; TEMP 36.7; O2SAT 97
[2016-06-02 07:27] LABS: CALCIUM 8.1 mg/dl (8.5-10.1); CREATININE 0.67 mg/dl (0.60-1.20); MAGNESIUM 2.1 mg/dl (1.8-2.4); POTASSIUM 3.2 mmol/L (3.5-5.1)
[2016-06-02 07:52] VITALS: BP 134/88; PULSE 74; TEMP 37; O2SAT 98
[2016-06-02 08:00] VITALS: O2SAT 98
[2016-06-02] MEDS: CLONAZEPAM 1 MG TAB PO SCH ×3 (08:16→20:58)
[2016-06-02] MEDS: CIPROFLOXACIN 250 MG TAB PO SCH ×2 (08:16→20:57)
[2016-06-02] MEDS: ACETAMINOPHEN 325 MG TAB PO PRN (08:16)
[2016-06-02] MEDS: VENLAFAXINE HCL XR 75 MG CAPXR PO SCH (08:16)
[2016-06-02] MEDS: POTASSIUM CHLORIDE 20 MEQ TABCR PO SCH (08:17)
[2016-06-02] MEDS: DOCUSATE SODIUM 100 MG/10 ML UDC PO SCH ×2 (08:17→20:57)
[2016-06-02] MEDS: POLYETHYLENE (MIRALAX) 17 GM PACK PO SCH (08:17)
[2016-06-02] MEDS: ENOXAPARIN 40 MG/0.4 ML SYR SC SCH (08:18)
--- NOTE | 2016-06-02 12:30 | Psychiatric Progress Notes ---
Psychiatric Progress Note Date of Service Jun 02, 2016. Notes ID: Patient reviewed with liaison nurse. Initial evaluation by Dr. Richardson dated 05/27/16. Patient admit with urosepsis and MDD, Seroquel and Cogentin being held due to dyskinesia and confusion. CC: "I never had problems before my family denied" referring to parents/ brother. Daughter at bedside and pleased with med reductions and reduction in mouth movements. HPI: Patient is without complaints currently. Some rocking of head/neck, jaw shift/chewing movements--agree appears improved. ROS: denies physical complaints across 10 body systems MSE: alert, cooperative, chewing movements of mouth and tongue consistent with dyskinesia, mood "fine", affect calm, thoughts organized, oriented X3 Imp: MDD, outpatient of Dr. Maddox with treatment emergent dyskinesia Plan: patient tolerated taper of Klonopin without increase in anxiety, MSE clearer, continue Klonopin taper to BID (represents 50% reduction) continue Effexor XR current dose.
[2016-06-02 14:39] VITALS: BP 123/87; PULSE 81; O2SAT 100
[2016-06-02] MEDS: KETOROLAC TROMETHAMINE 15 MG/ML VIAL IV PRN ×2 (15:19→22:28)
[2016-06-02 15:25] VITALS: BP 99/60; PULSE 76; TEMP 36.6; O2SAT 98
[2016-06-02] MEDS: POTASSIUM CHLR 10 MEQ / WTR 10 MEQ in PREMIXED WATER 100 ML IV SCH ×2 (18:20→19:25)
--- NOTE | 2016-06-02 18:32 | Progress Note ---
Subjective Date of Service: Jun 02, 2016. Subjective Pt evaluation today including: conversation w/ patient, physical exam, lab review, review of studies, review of inpatient medication list Saw/examined the patient in room 275 Currently seated in a chair eating dinner No problems/issues to note, states she feels good Problem List Medical Problems: (1) Epigastric abdominal pain Status: Acute (2) Upper abdominal pain Status: Acute Review of Systems Constitutional: No chills, No fever Respiratory: No shortness of breath Cardiac: No chest pain Abdomen: No diarrhea, No nausea, No pain, No vomiting Female : No dysuria, No hematuria, No urinary frequency Psychiatric: No anxiety, No depression symptoms, No insomnia Heme: No abnormal bleeding/bruising Medications Current Inpatient Medications Medications (Trade) Dose Ordered Sig/Gary Route Start Time Stop Time Status Last Admin Dose Admin Enoxaparin Sodium (Lovenox Inj) 40 mg Q24H SC 05/27/16 09:00 06/26/16 08:59 06/02/16 08:18 40 MG Acetaminophen (Tylenol Tab) 650 mg Q4H PRN PO 05/26/16 22:45 06/25/16 22:44 06/02/16 08:16 650 MG Miconazole Nitrate (Desenex Powder) 1 appln BID PRN EXT 05/27/16 08:15 06/26/16 08:14 06/01/16 11:08 1 APPLN Heparin Sodium (Porcine) (Heparin 10 Unit/ ml 5 ml Flush) 5 ml PRN PRN FLUSH 05/27/16 12:30 06/26/16 12:29 05/28/16 05:36 10 ML Ciprofloxacin (Ciprofloxacin Tab) 500 mg Q12 PO 05/30/16 09:00 06/09/16 08:59 06/02/16 08:16 500 MG Polyethylene (Miralax Powder Packet) 17 gm DAILY PO 05/30/16 09:00 06/29/16 08:59 06/02/16 08:17 17 GM Sodium Biphosphate/ Sodium Phosphate (Fleet Enema) 132 ml DAILY PRN [place] 05/30/16 08:45 06/29/16 08:44 Venlafaxine HCl (effeXOR EXTENDED REL CAP) 225 mg QAM PO 05/30/16 14:00 06/29/16 13:59 06/02/16 08:16 225 MG Docusate Sodium (coLACE SYRUP) 100 mg BID PO 05/30/16 21:00 06/29/16 20:59 06/01/16 20:44 100 MG Ketorolac Tromethamine (Toradol Inj) 15 mg Q6H PRN IV 05/31/16 17:15 06/05/16 17:14 06/02/16 15:19 15 MG Potassium Chloride (Klor-Con Tab) 20 meq QAM PO 06/02/16 09:00 07/02/16 08:59 06/02/16 08:17 20 MEQ Clonazepam 1 mg 1 mg BID PO 06/02/16 21:00 07/02/16 20:59 Potassium Chloride/Prmx (Kcl 20 Meq / Wtr/Premixed Water) 100 ml @ 50 mls/hr NOW STAT IV 06/02/16 18:02 06/02/16 20:01 UNV Objective Vital Signs Date Time Temp Pulse Resp B/P Pulse Ox O2 Delivery O2 Flow Rate FiO2 06/02/16 16:00 Room Air 06/02/16 15:25 36.6 76 16 99/60 98 06/02/16 14:39 81 100 06/02/16 08:00 98 Room Air 06/02/16 07:52 37.0 74 18 134/88 98 06/02/16 00:24 36.7 78 18 114/76 97 Room Air 06/02/16 00:00 Room Air Physical Exam General Appearance: no apparent distress, + obese ENT: hearing grossly normal Respiratory/Chest: no respiratory distress, no accessory muscle use Cardiovascular: regular rate, rhythm Abdomen: normal bowel sounds, non tender, soft Extremities: normal inspection, no pedal edema Neurologic/Psychiatric: no motor/sensory deficits, alert, normal mood/affect, oriented x 3, + pertinent finding (mild facial grimacing) Skin: normal color Laboratory Results Last 24 Hours Test 06/01/16 20:43 06/02/16 06:06 06/02/16 07:32 06/02/16 11:19 Bedside Glucose 111 mg/dl 115 mg/dl 110 mg/dl Sodium Level 144 mmol/L Potassium Level 3.2 mmol/L Chloride Level 110 mmol/L Carbon Dioxide Level 27 mmol/L Anion Gap 7.0 mmol/L Blood Urea Nitrogen 12 mg/dl Creatinine 0.67 mg/dl Est Creatinine Clear Calc Drug Dose 109.5 ml/min Estimated GFR () 110.7 Estimated GFR (Non- 95.5 BUN/Creatinine Ratio 18.0 Random Glucose 114 mg/dl Calcium Level 8.1 mg/dl Magnesium Level 2.1 mg/dl Test 06/02/16 16:25 Bedside Glucose 119 mg/dl Assessment and Plan This is a 60 year old female with PMH of bipolar disorder, depression presents to the ER due to involuntary movement of her tongue and facial muscles - found to have sepsis and urinary tract infection Sepsis secondary to UTI patient presented with mild confusion, lactic acid > 2, mild tachycardia UA suggestive of Urinary Tract Infection urine culture shows no growth at this time patient had a CT of the abdomen/pelvis - possible pyelonephritis of the L kidney ? initially started on Azactam and IVFs lactic acid and WBC normalized Now on Cipro, and IVFs have been stopped Cipro for a total of 10 days Hypokalemia, Hypophosphatemia likely secondary to UTI as well as poor intake improving her PO intake today continue Cipro replace potassium today on 06/02 recheck in AM scheduled potassium/phosphate Bipolar Disorder with Tardive Dyskinesia appreciate psychiatry input at this point, holding Seroquel + Cogentin being held due to dyskinesia Klonopin is being tapered continue Effexor outpatient follow-up with Dr. Maddox, psychiatry on July 05 @ 11:20AM Prolonged QTc - resolved presented with Qtc > 500 required tele monitoring Seroquel d/c'd electrolytes being corrected QTc improved Enlarged Axillary Lymph Nodes outpatient mammogram due DVT ppx Lovenox DNR plan for d/c to [facility] plan of discharge D/w Daughter Ebony /work [phone]
[2016-06-03 00:22] VITALS: BP 120/71; PULSE 71; TEMP 36.3; O2SAT 99
[2016-06-03 07:00] LABS: BUN/CREATININE RATIO 19.2 (10-20); CALCIUM 8.4 mg/dl (8.5-10.1); CREATININE 0.7 mg/dl (0.60-1.20); MAGNESIUM 2.1 mg/dl (1.8-2.4); POTASSIUM 3.8 mmol/L (3.5-5.1)
[2016-06-03 07:17] VITALS: BP 138/81; PULSE 78; TEMP 36.5; O2SAT 98
[2016-06-03] MEDS: CLONAZEPAM 1 MG TAB PO SCH ×2 (07:59→20:36)
[2016-06-03] MEDS: POLYETHYLENE (MIRALAX) 17 GM PACK PO SCH (07:59)
[2016-06-03] MEDS: POTASSIUM CHLORIDE 20 MEQ TABCR PO SCH (07:59)
[2016-06-03] MEDS: CIPROFLOXACIN 250 MG TAB PO SCH ×2 (07:59→20:37)
[2016-06-03] MEDS: VENLAFAXINE HCL XR 75 MG CAPXR PO SCH (07:59)
[2016-06-03] MEDS: DOCUSATE SODIUM 100 MG/10 ML UDC PO SCH ×2 (08:00→20:37)
[2016-06-03] MEDS: ENOXAPARIN 40 MG/0.4 ML SYR SC SCH (08:00)
--- NOTE | 2016-06-03 10:39 | Progress Note ---
Subjective Date of Service: Jun 03, 2016. Subjective Pt evaluation today including: conversation w/ patient, physical exam, lab review, review of studies, review of inpatient medication list Saw/examined the patient in room 275; she's doing well today had a bath and states that she feels good No problems/issues to note today Problem List Medical Problems: (1) Epigastric abdominal pain Status: Acute (2) Upper abdominal pain Status: Acute Review of Systems Constitutional: No weakness Respiratory: No shortness of breath Cardiac: No chest pain Abdomen: No constipation, No nausea, No pain, No vomiting Female : No dysuria, No hematuria, No urinary frequency Medications Current Inpatient Medications Medications (Trade) Dose Ordered Sig/Gary Route Start Time Stop Time Status Last Admin Dose Admin Enoxaparin Sodium (Lovenox Inj) 40 mg Q24H SC 05/27/16 09:00 06/26/16 08:59 06/03/16 08:00 40 MG Acetaminophen (Tylenol Tab) 650 mg Q4H PRN PO 05/26/16 22:45 06/25/16 22:44 06/02/16 08:16 650 MG Miconazole Nitrate (Desenex Powder) 1 appln BID PRN EXT 05/27/16 08:15 06/26/16 08:14 06/01/16 11:08 1 APPLN Heparin Sodium (Porcine) (Heparin 10 Unit/ ml 5 ml Flush) 5 ml PRN PRN FLUSH 05/27/16 12:30 06/26/16 12:29 05/28/16 05:36 10 ML Ciprofloxacin (Ciprofloxacin Tab) 500 mg Q12 PO 05/30/16 09:00 06/09/16 08:59 06/03/16 07:59 500 MG Polyethylene (Miralax Powder Packet) 17 gm DAILY PO 05/30/16 09:00 06/29/16 08:59 06/03/16 07:59 17 GM Sodium Biphosphate/ Sodium Phosphate (Fleet Enema) 132 ml DAILY PRN [place] 05/30/16 08:45 06/29/16 08:44 Venlafaxine HCl (effeXOR EXTENDED REL CAP) 225 mg QAM PO 05/30/16 14:00 06/29/16 13:59 06/03/16 07:59 225 MG Docusate Sodium (coLACE SYRUP) 100 mg BID PO 05/30/16 21:00 06/29/16 20:59 06/01/16 20:44 100 MG Ketorolac Tromethamine (Toradol Inj) 15 mg Q6H PRN IV 05/31/16 17:15 06/05/16 17:14 06/02/16 22:28 15 MG Potassium Chloride (Klor-Con Tab) 20 meq QAM PO 06/02/16 09:00 07/02/16 08:59 06/03/16 07:59 20 MEQ Clonazepam (Klonopin Tab) 1 mg BID PO 06/02/16 21:00 07/02/16 20:59 06/03/16 07:59 1 MG Objective Vital Signs Date Time Temp Pulse Resp B/P Pulse Ox O2 Delivery O2 Flow Rate FiO2 06/03/16 08:00 Room Air 06/03/16 07:17 36.5 78 18 138/81 98 06/03/16 00:22 36.3 71 20 120/71 99 Room Air 06/03/16 00:00 Room Air 06/02/16 16:00 Room Air 06/02/16 15:25 36.6 76 16 99/60 98 06/02/16 14:39 81 100 Physical Exam General Appearance: no apparent distress Respiratory/Chest: lungs clear, normal breath sounds, no respiratory distress, no accessory muscle use Cardiovascular: regular rate, rhythm, no edema, no murmur Abdomen: non tender, soft, + hernia (nontender) Extremities: normal inspection, no pedal edema Laboratory Results Last 24 Hours Test 06/02/16 11:19 06/02/16 16:25 06/02/16 20:02 06/03/16 05:58 Bedside Glucose 110 mg/dl 119 mg/dl 105 mg/dl Sodium Level 143 mmol/L Potassium Level 3.8 mmol/L Chloride Level 110 mmol/L Carbon Dioxide Level 25 mmol/L Anion Gap 8.0 mmol/L Blood Urea Nitrogen 13 mg/dl Creatinine 0.70 mg/dl Est Creatinine Clear Calc Drug Dose 104.8 ml/min Estimated GFR () 109.1 Estimated GFR (Non- 94.2 BUN/Creatinine Ratio 19.2 Random Glucose 108 mg/dl Calcium Level 8.4 mg/dl Magnesium Level 2.1 mg/dl Assessment and Plan This is a 60 year old female with PMH of bipolar disorder, depression presents to the ER due to involuntary movement of her tongue and facial muscles - found to have sepsis and urinary tract infection Sepsis secondary to UTI 06/03 currently on Cipro doing well, no problems/complaints at this time 06/02 patient presented with mild confusion, lactic acid > 2, mild tachycardia UA suggestive of Urinary Tract Infection urine culture shows no growth at this time patient had a CT of the abdomen/pelvis - possible pyelonephritis of the L kidney ? initially started on Azactam and IVFs lactic acid and WBC normalized Now on Cipro, and IVFs have been stopped Cipro for a total of 10 days Hypokalemia, Hypophosphatemia likely secondary to UTI as well as poor intake improving her PO intake today continue Cipro replace potassium today on 06/02 recheck in AM scheduled potassium/phosphate Bipolar Disorder with Tardive Dyskinesia appreciate psychiatry input at this point, holding Seroquel + Cogentin being held due to dyskinesia Klonopin is being tapered continue Effexor outpatient follow-up with Dr. Maddox, psychiatry on July 05 @ 11:20AM Prolonged QTc - resolved presented with Qtc > 500 required tele monitoring Seroquel d/c'd electrolytes being corrected QTc improved Enlarged Axillary Lymph Nodes outpatient mammogram due DVT ppx Lovenox DNR plan for d/c to [facility] plan of discharge D/w Daughter Ebony /work [phone]
[2016-06-03 15:49] VITALS: BP 157/81; PULSE 66; TEMP 36.3; O2SAT 99
[2016-06-03 23:56] VITALS: BP 131/85; PULSE 85; TEMP 36.6; O2SAT 95
[2016-06-04 07:00] LABS: HEMATOCRIT 31.7 % (37-47); MEAN CELL VOLUME 90.8 fL (80-100); MEAN CORPUSCULAR HEMOGLOBIN 29.5 pg (25-34); MEAN CORPUSCULAR HGB CONC 32.5 g/dl (32-36); MEAN PLATELET VOLUME 8.9 fL (7.4-10.4); PLATELET COUNT 212 K/uL (130-400); RED BLOOD COUNT 3.49 M/uL (4.2-5.4); WHITE BLOOD COUNT 5.25 K/uL (4.8-10.8)
[2016-06-04 07:11] VITALS: BP 143/88; PULSE 77; TEMP 37; O2SAT 97
[2016-06-04 07:18] LABS: BUN/CREATININE RATIO 17.8 (10-20); CREATININE 0.63 mg/dl (0.60-1.20); POTASSIUM 4.2 mmol/L (3.5-5.1)
[2016-06-04] MEDS: DOCUSATE SODIUM 100 MG/10 ML UDC PO SCH ×3 (07:41→20:27)
[2016-06-04] MEDS: CLONAZEPAM 1 MG TAB PO SCH ×2 (07:42→20:25)
[2016-06-04] MEDS: POTASSIUM CHLORIDE 20 MEQ TABCR PO SCH (07:42)
[2016-06-04] MEDS: CIPROFLOXACIN 250 MG TAB PO SCH ×2 (07:42→20:25)
[2016-06-04] MEDS: ENOXAPARIN 40 MG/0.4 ML SYR SC SCH (07:43)
[2016-06-04] MEDS: POLYETHYLENE (MIRALAX) 17 GM PACK PO SCH (07:43)
[2016-06-04] MEDS: VENLAFAXINE HCL XR 75 MG CAPXR PO SCH (07:43)
--- NOTE | 2016-06-04 08:50 | Progress Note ---
Subjective Date of Service: Jun 04, 2016. Subjective Pt evaluation today including: conversation w/ patient, physical exam, lab review, review of studies, review of inpatient medication list Saw/examined the patient in room 275 No problems/issues to note good PO intake No dysuria or urinary symptoms Problem List Medical Problems: (1) Epigastric abdominal pain Status: Acute (2) Upper abdominal pain Status: Acute Review of Systems Constitutional: No weakness Respiratory: No shortness of breath Cardiac: No chest pain Abdomen: No diarrhea, No nausea, No pain, No vomiting Female : No dysuria, No hematuria, No urinary frequency Heme: No abnormal bleeding/bruising Medications Current Inpatient Medications Medications (Trade) Dose Ordered Sig/Gary Route Start Time Stop Time Status Last Admin Dose Admin Enoxaparin Sodium (Lovenox Inj) 40 mg Q24H SC 05/27/16 09:00 06/26/16 08:59 06/04/16 07:43 40 MG Acetaminophen (Tylenol Tab) 650 mg Q4H PRN PO 05/26/16 22:45 06/25/16 22:44 06/02/16 08:16 650 MG Miconazole Nitrate (Desenex Powder) 1 appln BID PRN EXT 05/27/16 08:15 06/26/16 08:14 06/01/16 11:08 1 APPLN Heparin Sodium (Porcine) (Heparin 10 Unit/ ml 5 ml Flush) 5 ml PRN PRN FLUSH 05/27/16 12:30 06/26/16 12:29 05/28/16 05:36 10 ML Ciprofloxacin (Ciprofloxacin Tab) 500 mg Q12 PO 05/30/16 09:00 06/09/16 08:59 06/04/16 07:42 500 MG Polyethylene (Miralax Powder Packet) 17 gm DAILY PO 05/30/16 09:00 06/29/16 08:59 06/04/16 07:43 17 GM Sodium Biphosphate/ Sodium Phosphate (Fleet Enema) 132 ml DAILY PRN [place] 05/30/16 08:45 06/29/16 08:44 Venlafaxine HCl (effeXOR EXTENDED REL CAP) 225 mg QAM PO 05/30/16 14:00 06/29/16 13:59 06/04/16 07:43 225 MG Docusate Sodium (coLACE SYRUP) 100 mg BID PO 05/30/16 21:00 06/29/16 20:59 06/01/16 20:44 100 MG Ketorolac Tromethamine (Toradol Inj) 15 mg Q6H PRN IV 05/31/16 17:15 06/05/16 17:14 06/02/16 22:28 15 MG Potassium Chloride (Klor-Con Tab) 20 meq QAM PO 06/02/16 09:00 07/02/16 08:59 06/04/16 07:42 20 MEQ Clonazepam (Klonopin Tab) 1 mg BID PO 06/02/16 21:00 07/02/16 20:59 06/04/16 07:42 1 MG Objective Vital Signs Date Time Temp Pulse Resp B/P Pulse Ox O2 Delivery O2 Flow Rate FiO2 06/04/16 07:11 37.0 77 16 143/88 97 Room Air 06/04/16 00:00 Room Air 06/03/16 23:56 36.6 85 18 131/85 95 Room Air 06/03/16 20:00 Room Air 06/03/16 16:00 Room Air 06/03/16 15:49 36.3 66 16 157/81 99 Physical Exam General Appearance: no apparent distress Respiratory/Chest: lungs clear, normal breath sounds, no respiratory distress, no accessory muscle use Cardiovascular: regular rate, rhythm, no edema, no murmur Abdomen: non tender, soft, + hernia Extremities: normal inspection, no pedal edema Neurologic/Psychiatric: alert Laboratory Results Last 24 Hours Test 06/04/16 06:35 06/04/16 06:40 White Blood Count 5.25 K/uL Red Blood Count 3.49 M/uL Hemoglobin 10.3 g/dL Hematocrit 31.7 % Mean Corpuscular Volume 90.8 fL Mean Corpuscular Hemoglobin 29.5 pg Mean Corpuscular Hemoglobin Concent 32.5 g/dl RDW Standard Deviation 48.4 fL RDW Coefficient of Variation 15.1 % Platelet Count 212 K/uL Mean Platelet Volume 8.9 fL Sodium Level 145 mmol/L Potassium Level 4.2 mmol/L Chloride Level 114 mmol/L Carbon Dioxide Level 22 mmol/L Anion Gap 9.0 mmol/L Blood Urea Nitrogen 11 mg/dl Creatinine 0.63 mg/dl Est Creatinine Clear Calc Drug Dose 116.4 ml/min Estimated GFR () 113.0 Estimated GFR (Non- 97.5 BUN/Creatinine Ratio 17.8 Random Glucose 118 mg/dl Calcium Level 8.0 mg/dl Assessment and Plan This is a 60 year old female with PMH of bipolar disorder, depression presents to the ER due to involuntary movement of her tongue and facial muscles - found to have sepsis and urinary tract infection Sepsis secondary to UTI 06/04 treating urinary tract infection with Cipro complete 10 day course 06/03 currently on Cipro doing well, no problems/complaints at this time 06/02 patient presented with mild confusion, lactic acid > 2, mild tachycardia UA suggestive of Urinary Tract Infection urine culture shows no growth at this time patient had a CT of the abdomen/pelvis - possible pyelonephritis of the L kidney ? initially started on Azactam and IVFs lactic acid and WBC normalized Now on Cipro, and IVFs have been stopped Cipro for a total of 10 days Hypokalemia, Hypophosphatemia - resolved likely secondary to UTI as well as poor intake improving her PO intake today continue Cipro replace potassium today on 06/02 recheck in AM scheduled potassium/phosphate Bipolar Disorder with Tardive Dyskinesia appreciate psychiatry input at this point, holding Seroquel + Cogentin being held due to dyskinesia Klonopin is being tapered continue Effexor outpatient follow-up with Dr. Maddox, psychiatry on July 05 @ 11:20AM Prolonged QTc - resolved presented with Qtc > 500 required tele monitoring Seroquel d/c'd electrolytes being corrected QTc improved Enlarged Axillary Lymph Nodes outpatient mammogram due DVT ppx Lovenox DNR plan for d/c to [facility] plan of discharge D/w Daughter Ebony /work [phone]
[2016-06-04 15:18] VITALS: BP 128/66; PULSE 67; TEMP 36.8; O2SAT 100
[2016-06-04 23:58] VITALS: BP 115/75; PULSE 75; TEMP 36.6; O2SAT 98
[2016-06-05 06:31] LABS: HEMATOCRIT 33.3 % (37-47); MEAN CELL VOLUME 91.5 fL (80-100); MEAN CORPUSCULAR HEMOGLOBIN 30.2 pg (25-34); PLATELET COUNT 238 K/uL (130-400); RED BLOOD COUNT 3.64 M/uL (4.2-5.4); WHITE BLOOD COUNT 5.41 K/uL (4.8-10.8)
[2016-06-05 07:11] LABS: BUN/CREATININE RATIO 14.5 (10-20); CALCIUM 8.4 mg/dl (8.5-10.1); CREATININE 0.69 mg/dl (0.60-1.20); POTASSIUM 4.3 mmol/L (3.5-5.1)
[2016-06-05] MEDS: ENOXAPARIN 40 MG/0.4 ML SYR SC SCH (07:29)
[2016-06-05] MEDS: CLONAZEPAM 1 MG TAB PO SCH (07:29)
[2016-06-05] MEDS: VENLAFAXINE HCL XR 75 MG CAPXR PO SCH (07:29)
[2016-06-05] MEDS: CIPROFLOXACIN 250 MG TAB PO SCH ×2 (07:30→21:07)
[2016-06-05] MEDS: POTASSIUM CHLORIDE 20 MEQ TABCR PO SCH (07:30)
[2016-06-05] MEDS: DOCUSATE SODIUM 100 MG/10 ML UDC PO SCH ×3 (07:30→21:07)
[2016-06-05] MEDS: POLYETHYLENE (MIRALAX) 17 GM PACK PO SCH (07:30)
[2016-06-05 07:31] VITALS: BP 127/80; PULSE 77; TEMP 36.3; O2SAT 98
--- NOTE | 2016-06-05 10:09 | Psychiatric Progress Notes ---
Psychiatric Progress Note Date of Service Jun 05, 2016. Notes ID: Patient reviewed with liaison nurse. Initial evaluation by Dr. Richardson dated 05/27/16. Patient admit with urosepsis and MDD, Seroquel and Cogentin being held due to dyskinesia and confusion. CC: "I don't think Klonopin works anyway" HPI: Patient is without complaints currently. Remains unaware of mouth movement but continued improvement on exam. Willing to continue medication taper as no worsening of anxiety. ROS: denies physical complaints across 10 body systems MSE: alert, cooperative, chewing movements of mouth and tongue consistent with dyskinesia, mood "fine", affect calm, thoughts organized, oriented X3 Imp: MDD, outpatient of Dr. Maddox with treatment emergent dyskinesia Plan: remains psychiatrically stable for physical rehab will decreased Klonopin to 0.5 mg BID starting tonight. After tomorrow nights dose wrote taper to 0.5 mg for 2 nights with plan to discontinue decrease Effexor XR as less jittery on lower dose and could contribute to some abdominal muscle twitches, 187.5 for 3 days then decrease to 150 mg above represents final med changes prior to discharge to rehab
[2016-06-05] MEDS ORDERED: CLONAZEPAM 0.5 MG TAB PO SCH (14:00)
[2016-06-05 15:17] VITALS: BP 95/61; PULSE 69; TEMP 35.7; O2SAT 100
--- NOTE | 2016-06-05 16:23 | Progress Note ---
Subjective Date of Service: Jun 05, 2016. Subjective Pt evaluation today including: conversation w/ patient, physical exam, lab review, review of studies, review of inpatient medication list Saw/examined the patient in room 275 She's doing well today; feels fine, no problems/issues to note today Problem List Medical Problems: (1) Epigastric abdominal pain Status: Acute (2) Upper abdominal pain Status: Acute Review of Systems Constitutional: No chills, No fever Cardiac: No chest pain Abdomen: No diarrhea, No nausea, No pain, No vomiting Psychiatric: No anxiety, No depression symptoms (controlled with medications), No insomnia Heme: No abnormal bleeding/bruising Medications Current Inpatient Medications Medications (Trade) Dose Ordered Sig/Gary Route Start Time Stop Time Status Last Admin Dose Admin Enoxaparin Sodium (Lovenox Inj) 40 mg Q24H SC 05/27/16 09:00 06/26/16 08:59 06/05/16 07:29 40 MG Acetaminophen (Tylenol Tab) 650 mg Q4H PRN PO 05/26/16 22:45 06/25/16 22:44 06/02/16 08:16 650 MG Miconazole Nitrate (Desenex Powder) 1 appln BID PRN EXT 05/27/16 08:15 06/26/16 08:14 06/01/16 11:08 1 APPLN Heparin Sodium (Porcine) (Heparin 10 Unit/ ml 5 ml Flush) 5 ml PRN PRN FLUSH 05/27/16 12:30 06/26/16 12:29 05/28/16 05:36 10 ML Ciprofloxacin (Ciprofloxacin Tab) 500 mg Q12 PO 05/30/16 09:00 06/09/16 08:59 06/05/16 07:30 500 MG Polyethylene (Miralax Powder Packet) 17 gm DAILY PO 05/30/16 09:00 06/29/16 08:59 06/05/16 07:30 17 GM Sodium Biphosphate/ Sodium Phosphate (Fleet Enema) 132 ml DAILY PRN [place] 05/30/16 08:45 06/29/16 08:44 Docusate Sodium (coLACE SYRUP) 100 mg BID PO 05/30/16 21:00 06/29/16 20:59 06/01/16 20:44 100 MG Ketorolac Tromethamine (Toradol Inj) 15 mg Q6H PRN IV 05/31/16 17:15 06/05/16 17:14 06/02/16 22:28 15 MG Potassium Chloride (Klor-Con Tab) 20 meq QAM PO 06/02/16 09:00 07/02/16 08:59 06/05/16 07:30 20 MEQ Clonazepam (Klonopin Tab) 0.5 mg HS PO 06/07/16 21:00 06/09/16 20:59 Venlafaxine HCl (effeXOR EXTENDED REL CAP) 150 mg QAM PO 06/09/16 09:00 07/09/16 08:59 Clonazepam (Klonopin Tab) 0.5 mg BID PO 06/05/16 21:00 06/06/16 23:00 Venlafaxine HCl/ Venlafaxine HCl (effeXOR EXTENDED REL CAP/ effeXOR EXTENDED REL CAP) 187.5 mg QAM PO 06/06/16 09:00 06/09/16 08:59 Objective Vital Signs Date Time Temp Pulse Resp B/P Pulse Ox O2 Delivery O2 Flow Rate FiO2 06/05/16 15:17 35.7 69 18 95/61 100 06/05/16 08:00 Room Air 06/05/16 07:31 36.3 77 16 127/80 98 Room Air 06/05/16 00:01 Room Air 06/04/16 23:58 36.6 75 16 115/75 98 Room Air 06/04/16 19:20 Room Air Physical Exam General Appearance: no apparent distress, + pertinent finding (dyskinetic movements of the tongue) Respiratory/Chest: chest non-tender, lungs clear, normal breath sounds, no respiratory distress, no accessory muscle use Cardiovascular: regular rate, rhythm, no edema, no murmur Abdomen: non tender, soft, + hernia Extremities: + pertinent finding (trace pitting edema) Neurologic/Psychiatric: alert, normal mood/affect Laboratory Results Last 24 Hours Test 06/05/16 05:52 White Blood Count 5.41 K/uL Red Blood Count 3.64 M/uL Hemoglobin 11.0 g/dL Hematocrit 33.3 % Mean Corpuscular Volume 91.5 fL Mean Corpuscular Hemoglobin 30.2 pg Mean Corpuscular Hemoglobin Concent 33.0 g/dl RDW Standard Deviation 48.6 fL RDW Coefficient of Variation 15.2 % Platelet Count 238 K/uL Mean Platelet Volume 9.0 fL Sodium Level 142 mmol/L Potassium Level 4.3 mmol/L Chloride Level 111 mmol/L Carbon Dioxide Level 23 mmol/L Anion Gap 8.0 mmol/L Blood Urea Nitrogen 10 mg/dl Creatinine 0.69 mg/dl Est Creatinine Clear Calc Drug Dose 106.3 ml/min Estimated GFR () 109.7 Estimated GFR (Non- 94.6 BUN/Creatinine Ratio 14.5 Random Glucose 102 mg/dl Calcium Level 8.4 mg/dl Assessment and Plan This is a 60 year old female with PMH of bipolar disorder, depression presents to the ER due to involuntary movement of her tongue and facial muscles - found to have sepsis and urinary tract infection Sepsis secondary to UTI 06/05 complete 10 day course of Cipro stop date: 06/09 06/04 treating urinary tract infection with Cipro complete 10 day course 06/03 currently on Cipro doing well, no problems/complaints at this time 06/02 patient presented with mild confusion, lactic acid > 2, mild tachycardia UA suggestive of Urinary Tract Infection urine culture shows no growth at this time patient had a CT of the abdomen/pelvis - possible pyelonephritis of the L kidney ? initially started on Azactam and IVFs lactic acid and WBC normalized Now on Cipro, and IVFs have been stopped Cipro for a total of 10 days Hypokalemia, Hypophosphatemia - resolved likely secondary to UTI as well as poor intake improving her PO intake today continue Cipro replace potassium today on 06/02 recheck in AM scheduled potassium/phosphate Bipolar Disorder with Tardive Dyskinesia 06/05 appreciate psychiatry input on this patient Klonopin is being tapered, currently 0.5mg BID, and then 0.5mg HS x 2 nights, and then discontinue Effexor XR is also being decreased to 187.5mg x 3 days and then decrease to 150mg daily 06/02 appreciate psychiatry input at this point, holding Seroquel + Cogentin being held due to dyskinesia Klonopin is being tapered continue Effexor outpatient follow-up with Dr. Maddox, psychiatry on July 05 @ 11:20AM Prolonged QTc - resolved presented with Qtc > 500 required tele monitoring Seroquel d/c'd electrolytes being corrected QTc improved Enlarged Axillary Lymph Nodes outpatient mammogram due DVT ppx Lovenox DNR plan for d/c to [facility] plan of discharge D/w Daughter Ebony /work [phone]
[2016-06-05] MEDS: CLONAZEPAM 0.5 MG TAB PO SCH (21:08)
[2016-06-06] VITALS: O2SAT 100
[2016-06-06 00:32] VITALS: BP 114/66; PULSE 75; TEMP 36.8; O2SAT 96
[2016-06-06 05:54] LABS: HEMATOCRIT 33.7 % (37-47); MEAN CELL VOLUME 91.8 fL (80-100); MEAN CORPUSCULAR HEMOGLOBIN 28.9 pg (25-34); MEAN CORPUSCULAR HGB CONC 31.5 g/dl (32-36); MEAN PLATELET VOLUME 9.1 fL (7.4-10.4); PLATELET COUNT 255 K/uL (130-400); RED BLOOD COUNT 3.67 M/uL (4.2-5.4); WHITE BLOOD COUNT 5.74 K/uL (4.8-10.8)
[2016-06-06 06:36] LABS: BUN/CREATININE RATIO 16.9 (10-20); CALCIUM 8.6 mg/dl (8.5-10.1); CREATININE 0.68 mg/dl (0.60-1.20); MAGNESIUM 2.6 mg/dl (1.8-2.4); PHOSPHORUS 4.6 mg/dl (2.5-4.9); POTASSIUM 4.4 mmol/L (3.5-5.1)
[2016-06-06 07:41] VITALS: BP 100/64; PULSE 87; TEMP 36.7; O2SAT 94
[2016-06-06] MEDS: POLYETHYLENE (MIRALAX) 17 GM PACK PO SCH (07:55)
[2016-06-06] MEDS: POTASSIUM CHLORIDE 20 MEQ TABCR PO SCH (07:57)
[2016-06-06] MEDS: CIPROFLOXACIN 250 MG TAB PO SCH (07:57)
[2016-06-06] MEDS: MICONAZOLE NITRATE POWDER 43 GM EXT PRN (07:58)
[2016-06-06] MEDS: ENOXAPARIN 40 MG/0.4 ML SYR SC SCH (07:58)
[2016-06-06] MEDS: CLONAZEPAM 0.5 MG TAB PO SCH (08:11)
[2016-06-06] MEDS: DOCUSATE SODIUM 100 MG/10 ML UDC PO SCH (08:12)
[2016-06-06] MEDS ORDERED: REL PO SCH ×2 (09:00)
[2016-06-06] MEDS ORDERED: VENLAFAXINE PO SCH ×2 (09:00)
[2016-06-06] MEDS ORDERED: VENLAFAXINE HCL XR 75 MG CAPXR PO SCH (09:00)
--- NOTE | 2016-06-06 10:24 | Progress Note ---
Subjective Date of Service: Jun 06, 2016. Subjective Pt evaluation today including: conversation w/ patient, physical exam, lab review, review of studies, review of inpatient medication list Saw/examined the patient in room 288-1 She is doing well today; no complaints or issues to note Problem List Medical Problems: (1) Epigastric abdominal pain Status: Acute (2) Upper abdominal pain Status: Acute Review of Systems Constitutional: + weakness Respiratory: No cough, No shortness of breath, No sputum Cardiac: No chest pain, No palpitations Abdomen: No diarrhea, No nausea, No pain, No vomiting Medications Current Inpatient Medications Medications (Trade) Dose Ordered Sig/Gary Route Start Time Stop Time Status Last Admin Dose Admin Enoxaparin Sodium (Lovenox Inj) 40 mg Q24H SC 05/27/16 09:00 06/26/16 08:59 06/06/16 07:58 40 MG Acetaminophen (Tylenol Tab) 650 mg Q4H PRN PO 05/26/16 22:45 06/25/16 22:44 06/02/16 08:16 650 MG Miconazole Nitrate (Desenex Powder) 1 appln BID PRN EXT 05/27/16 08:15 06/26/16 08:14 06/06/16 07:58 1 APPLN Heparin Sodium (Porcine) (Heparin 10 Unit/ ml 5 ml Flush) 5 ml PRN PRN FLUSH 05/27/16 12:30 06/26/16 12:29 05/28/16 05:36 10 ML Ciprofloxacin (Ciprofloxacin Tab) 500 mg Q12 PO 05/30/16 09:00 06/09/16 08:59 06/06/16 07:57 500 MG Polyethylene (Miralax Powder Packet) 17 gm DAILY PO 05/30/16 09:00 06/29/16 08:59 06/06/16 07:55 17 GM Sodium Biphosphate/ Sodium Phosphate (Fleet Enema) 132 ml DAILY PRN OK 05/30/16 08:45 06/29/16 08:44 Docusate Sodium (coLACE SYRUP) 100 mg BID PO 05/30/16 21:00 06/29/16 20:59 06/01/16 20:44 100 MG Potassium Chloride (Klor-Con Tab) 20 meq QAM PO 06/02/16 09:00 07/02/16 08:59 06/06/16 07:57 20 MEQ Clonazepam (Klonopin Tab) 0.5 mg HS PO 06/07/16 21:00 06/09/16 20:59 Venlafaxine HCl (effeXOR EXTENDED REL CAP) 150 mg QAM PO 06/09/16 09:00 07/09/16 08:59 Clonazepam (Klonopin Tab) 0.5 mg BID PO 06/05/16 21:00 06/06/16 23:00 06/06/16 08:11 0.5 MG Venlafaxine HCl/ Venlafaxine HCl (effeXOR EXTENDED REL CAP/ effeXOR EXTENDED REL CAP) 187.5 mg QAM PO 06/06/16 09:00 06/09/16 08:59 06/06/16 07:56 187.5 MG Objective Vital Signs Date Time Temp Pulse Resp B/P Pulse Ox O2 Delivery O2 Flow Rate FiO2 06/06/16 08:00 Room Air 06/06/16 07:41 36.7 87 16 100/64 94 Room Air 06/06/16 00:32 36.8 75 16 114/66 96 Room Air 06/06/16 00:00 Room Air 06/05/16 20:00 Room Air 06/05/16 16:27 Room Air 06/05/16 15:17 35.7 69 18 95/61 100 Physical Exam General Appearance: no apparent distress, + pertinent finding (dyskinetic mouth /tongue movements; slowing) Respiratory/Chest: lungs clear, normal breath sounds, no respiratory distress, no accessory muscle use Cardiovascular: regular rate, rhythm, no edema, no murmur Abdomen: non tender, soft, + hernia Neurologic/Psychiatric: no motor/sensory deficits, alert, normal mood/affect Laboratory Results Last 24 Hours Test 06/06/16 05:24 White Blood Count 5.74 K/uL Red Blood Count 3.67 M/uL Hemoglobin 10.6 g/dL Hematocrit 33.7 % Mean Corpuscular Volume 91.8 fL Mean Corpuscular Hemoglobin 28.9 pg Mean Corpuscular Hemoglobin Concent 31.5 g/dl RDW Standard Deviation 50.2 fL RDW Coefficient of Variation 15.6 % Platelet Count 255 K/uL Mean Platelet Volume 9.1 fL Sodium Level 142 mmol/L Potassium Level 4.4 mmol/L Chloride Level 111 mmol/L Carbon Dioxide Level 23 mmol/L Anion Gap 8.0 mmol/L Blood Urea Nitrogen 12 mg/dl Creatinine 0.68 mg/dl Est Creatinine Clear Calc Drug Dose 107.9 ml/min Estimated GFR () 110.2 Estimated GFR (Non- 95.1 BUN/Creatinine Ratio 16.9 Random Glucose 114 mg/dl Calcium Level 8.6 mg/dl Phosphorus Level 4.6 mg/dl Magnesium Level 2.6 mg/dl Chemistry Specimen Hemolysis Assessment and Plan This is a 60 year old female with PMH of bipolar disorder, depression presents to the ER due to involuntary movement of her tongue and facial muscles - found to have sepsis and urinary tract infection Plan: to d/c patient to [facility] today (06/06) with Cipro x 3 days, Klonopin 0.5mg qhs x 3 days, then stop, and tapering dose of Effexor XR Sepsis secondary to UTI 06/05 complete 10 day course of Cipro stop date: 06/09 06/04 treating urinary tract infection with Cipro complete 10 day course 06/03 currently on Cipro doing well, no problems/complaints at this time 06/02 patient presented with mild confusion, lactic acid > 2, mild tachycardia UA suggestive of Urinary Tract Infection urine culture shows no growth at this time patient had a CT of the abdomen/pelvis - possible pyelonephritis of the L kidney ? initially started on Azactam and IVFs lactic acid and WBC normalized Now on Cipro, and IVFs have been stopped Cipro for a total of 10 days Hypokalemia, Hypophosphatemia - resolved likely secondary to UTI as well as poor intake improving her PO intake today continue Cipro replace potassium today on 06/02 recheck in AM scheduled potassium/phosphate Bipolar Disorder with Tardive Dyskinesia 06/05 appreciate psychiatry input on this patient Klonopin is being tapered, currently 0.5mg BID, and then 0.5mg HS x 2 nights, and then discontinue Effexor XR is also being decreased to 187.5mg x 3 days and then decrease to 150mg daily 06/02 appreciate psychiatry input at this point, holding Seroquel + Cogentin being held due to dyskinesia Klonopin is being tapered continue Effexor outpatient follow-up with Dr. Maddox, psychiatry on July 05 @ 11:20AM Prolonged QTc - resolved presented with Qtc > 500 required tele monitoring Seroquel d/c'd electrolytes being corrected QTc improved Enlarged Axillary Lymph Nodes outpatient mammogram due DVT ppx Lovenox DNR plan for d/c to [facility] plan of discharge D/w Daughter Ebony /work [phone]
[2016-06-06] MEDS ORDERED: EFFSR75 PO ×2 (10:32→10:33)
[2016-06-06] MEDS ORDERED: CPR/500 PO (10:32)
[2016-06-06] MEDS ORDERED: KLN5X PO (10:32)
--- NOTE | 2016-06-06 10:40 | Discharge Instructions ---
Discharge Instructions Date of Service Jun 06, 2016. Admission Reason for Admission: Pyelonephritis Discharge Discharge Diagnosis / Problem: Pyelonephritis, sepsis secondary to UTI; tardive dyskinesia Discharge Goals Goal(s): Decrease discomfort, Improve function, Diagnostic testing, Therapeutic intervention Activity Recommendations Activity Limitations: resume your previous activity . Instructions / Follow-Up Instructions / Follow-Up Please follow-up with your primary care doctor after you're discharged from rehab You will be on Cipro (antibiotic) for 3 more days You will be on Klonopin 0.5mg at night for 3 days and then this medication will be discontinued You will now be on Effexor XR - take 187.5mg for two more days, and then change to 150mg daily Repeat EKG in 3 days to assure no QTc prolongation Outpatient follow-up with Dr. Maddox, psychiatry in June 2016 You are recommended to get an outpatient mammogram to evaluate some enlarged lymph nodes Current Hospital Diet Patient's current hospital diet: Regular Diet Discharge Diet Recommended Diet: Regular Diet Pending Studies Studies pending at discharge: no Laboratory Results Hemoglobin A1c Test 05/26/16 19:34 Range/Units Estimated Average Glucose 108 mg/dl Hemoglobin A1c 5.4 4.5-5.6 % Medical Emergencies . Who to Call and When: Medical Emergencies: If at any time you feel your situation is an emergency, please call 911 immediately. . Non-Emergent Contact Non-Emergency issues call your: Primary Care Provider . . "Provider Documentation" section prepared by Sue Munoz. . VTE Core Measure Inpt VTE Proph given/why not?: Enoxaparin (Lovenox)SQ
[2016-06-06 10:45] VITALS: BP 100/64; PULSE 87; TEMP 36.7; O2SAT 94
--- NOTE | 2016-06-06 10:49 | Discharge Summary ---
Discharge Summary Date of Service Jun 06, 2016. Discharge Summary Admission Date: May 26, 2016 at 22:36 Discharge Date: May 30, 2016 Discharge Disposition: care home facility Principal Diagnosis: Pyelonephritis Sepsis secondary to UTI Tardive Dyskinesia Medication Reconciliation New Medications: Venlafaxine Hcl (Effexor Extended Rel) 75 Mg Capcr 187.5 MG PO DAILY for 2 Days, #5 CAP Venlafaxine Hcl (Effexor Extended Rel) 75 Mg Capcr 150 MG PO DAILY for 15 Days, #30 CAP Ciprofloxacin (Ciprofloxacin HCl) 500 Mg Tab 500 MG PO Q12 for 3 Days, #6 TABS Changed Medications: Clonazepam (Clonazepam) 0.5 Mg Tab 0.5 MG PO HS for 3 Days, #3 TABS (Changed from: Clonazepam (Klonopin) 1 Mg Tab 1 Mg PO BID #30 ) Discontinued Medications: Clonazepam (Klonopin) 1 Mg Tab 2 MG PO HS, #30 TAB Quetiapine Fumarate (Seroquel) 100 Mg Tab 100 MG PO HS, TAB Venlafaxine Hcl (Effexor) 100 Mg Tab 100 MG PO TID, TAB Admission Information HPI (per Admitting provider): 60 year old female who presents to the ER at the request of her daughter for evaluation of shortness of breath. Daughter is at the bedside who reports she has not seen her mom in about 2 months however whenever she saw her mother today she was visibly short of breath and disheveled. Patient denies all complaints. During exam, patient is noted to have tardive dyskinesia. Patient is unsure when it started. She reports she follows with psychiatrist at [facility] and has been taking all of her medicines as prescribed. She denies any new medications. Daughter reports that her mother has taken too much of her medicine before in the past. Patient denies chest pain and shortness of breath. No lightheadedness, dizziness, diaphoresis, or syncopal events. She reports mild nausea but denies abdominal pain, vomiting, and diarrhea. No urinary symptoms or flank pain. Upon arrival to the ER, patient was found to be hypotensive and tachycardic. Central femoral line was placed. U/A suggests UTI. CT abd/pelvis shows possible pyelonephritis. POC lactic acid is 4.0. She also has severe hypokalemia (2.2) and hypophosphatemia (1.8). Patient was given IVF, Levaquin, and potassium replacement. Physical Exam (per Admitting): General Appearance: + pertinent finding (appears older than stated age, disheveled, uncontrolled movements of the mouth) Head: normocephalic Eyes: normal inspection ENT: hearing grossly normal Neck: supple, no JVD Respiratory/Chest: lungs clear, normal breath sounds, no respiratory distress Cardiovascular: regular rate, rhythm, normal peripheral pulses, + pertinent finding (trace edema BLLE) Abdomen/GI: normal bowel sounds, non tender, soft, + pertinent finding ( large hernia) Genitourinary - Female: + pertinent finding (parekh in place draining dark urine) Extremities/Musculoskelatal: normal inspection, no calf tenderness Neurologic/Psych: no motor/sensory deficits, alert, normal mood/affect, oriented x 3, + pertinent finding (tardive dyskinesia) Skin: normal color, warm/dry Hospital Course This is a 60 year old female with PMH of bipolar disorder, depression presents to the ER due to involuntary movement of her tongue and facial muscles - found to have sepsis and urinary tract infection Plan: to d/c patient to [place] today (06/06) with Cipro x 3 days, Klonopin 0.5mg qhs x 3 days, then stop, and tapering dose of Effexor XR Sepsis secondary to UTI 06/05 complete 10 day course of Cipro stop date: 06/09 06/04 treating urinary tract infection with Cipro complete 10 day course 06/03 currently on Cipro doing well, no problems/complaints at this time 06/02 patient presented with mild confusion, lactic acid > 2, mild tachycardia UA suggestive of Urinary Tract Infection urine culture shows no growth at this time patient had a CT of the abdomen/pelvis - possible pyelonephritis of the L kidney ? initially started on Azactam and IVFs lactic acid and WBC normalized Now on Cipro, and IVFs have been stopped Cipro for a total of 10 days Hypokalemia, Hypophosphatemia - resolved likely secondary to UTI as well as poor intake improving her PO intake today continue Cipro replace potassium today on 06/02 recheck in AM scheduled potassium/phosphate Bipolar Disorder with Tardive Dyskinesia 06/05 appreciate psychiatry input on this patient Klonopin is being tapered, currently 0.5mg BID, and then 0.5mg HS x 2 nights, and then discontinue Effexor XR is also being decreased to 187.5mg x 3 days and then decrease to 150mg daily 06/02 appreciate psychiatry input at this point, holding Seroquel + Cogentin being held due to dyskinesia Klonopin is being tapered continue Effexor outpatient follow-up with Dr. Maddox, psychiatry on July 05 @ 11:20AM Prolonged QTc - resolved presented with Qtc > 500 required tele monitoring Seroquel d/c'd electrolytes being corrected QTc improved Enlarged Axillary Lymph Nodes outpatient mammogram due DVT ppx Lovenox DNR plan for d/c to [facility] plan of discharge D/w Daughter Ebony /work [phone] Total time spent on discharge = 45 minutes This includes examination of the patient, discharge planning, medication reconciliation, and communication with other providers. Discharge Instructions Please follow-up with your primary care doctor after you're discharged from rehab You will be on Cipro (antibiotic) for 3 more days You will be on Klonopin 0.5mg at night for 3 days and then this medication will be discontinued You will now be on Effexor XR - take 187.5mg for two more days, and then change to 150mg daily Repeat EKG in 3 days to assure no QTc prolongation Outpatient follow-up with Dr. Maddox, psychiatry in June 2016 You are recommended to get an outpatient mammogram to evaluate some enlarged lymph nodes
[2016-06-07] MEDS ORDERED: CLONAZEPAM 0.5 MG TAB PO SCH (21:00)
[2016-06-09] MEDS ORDERED: VENLAFAXINE HCL XR 150 MG CAPXR PO SCH (09:00)
[2016-11-17] MEDS ORDERED: AZIT-57 PO (18:14)
== END 2016-06-06 14:45 | DRG 872 ==
LOC: ENRESERVTM → ENRESERVDT → C.EDB 18:44 → C.MED 22:36
PROVIDERS: ADMIT Internal Medicine; ATTEND Family Medicine
DX: A41.9 Sepsis, unspecified organism (principal); N12 Tubulo-interstitial nephritis, not specified as acute or chronic; N39.0 Urinary tract infection, site not specified; E87.2 Acidosis; G24.01 Drug induced subacute dyskinesia; E87.6 Hypokalemia; F31.9 Bipolar disorder, unspecified; F60.3 Borderline personality disorder; E78.5 Hyperlipidemia, unspecified; Z86.718 Personal history of other venous thrombosis and embolism; E86.0 Dehydration; Z66 Do not resuscitate; Z87.891 Personal history of nicotine dependence; E83.39 Other disorders of phosphorus metabolism; G47.33 Obstructive sleep apnea (adult) (pediatric)

== ENCOUNTER 2016-06-20 14:56 | Emergency (ER) | payer OTHER ==
[~2016-06-20] VITALS: Ht 160 cm; Wt 108.6 kg
[~2016-06-20 14:56] MED LIST changes: -CHOL1TAB53 PO; -CLON1TAB PO; -CLON1TAB3 PO; +CPR/500 PO; +EFFSR75 PO; +KLN5X PO; -METF-384 PO; -OMEGCAP2 PO; -PRT/20 PO; -QUET1TAB34 PO; -SENN-65 PO; -VENL100T2 PO
[2016-06-20 15:07] VITALS: TEMP 36.4; Ht 160 cm; Wt 108.6 kg
[2016-06-20 15:19] VITALS: O2SAT 99
[2016-06-20] MEDS ORDERED: EFFSR150 PO (15:50)
--- NOTE | 2016-06-20 16:07 | DIAGNOSTIC IMAGING REPORT ---
LEFT SHOULDER MIN 2 VIEWS ROUTINE CLINICAL HISTORY: Left shoulder pain status post trauma COMPARISON: None. DISCUSSION: No acute fractures or dislocations are visualized. There are minor degenerative changes present. IMPRESSION: No fractures or dislocations identified. Electronically signed by: Michele Kraus M.D. 06/20/2016 4:06 PM Dictated Date/Time: 06/20/2016 4:05 PM
--- NOTE | 2016-06-20 16:07 | DIAGNOSTIC IMAGING REPORT ---
CHEST 2 VIEWS ROUTINE CLINICAL HISTORY: WEAKNESS TRAUMA COMPARISON STUDY: 05/26/2016 FINDINGS: The cardiac and mediastinal contours are normal. There is no evidence of focal pulmonary consolidation. There is no evidence of failure. No pleural effusions are visualized.[ No pneumothorax is visualized. IMPRESSION: No active disease in the chest. Electronically signed by: Michele Kraus M.D. 06/20/2016 4:05 PM Dictated Date/Time: 06/20/2016 4:05 PM
[2016-06-20 16:26] LABS: BASO % 0.3 %; BASO ABS # 0.03 K/uL (0-0.2); COMPLETE YES; EOS % 0.4 %; IG% 0.3 %; LYMPH % 29.9 %; MEAN CELL VOLUME 94.2 fL (80-100); MEAN CORPUSCULAR HEMOGLOBIN 31.4 pg (25-34); MEAN CORPUSCULAR HGB CONC 33.3 g/dl (32-36); MEAN PLATELET VOLUME 9.5 fL (7.4-10.4); MONO % 8.5 %; NEUT % 60.6 %; PLATELET COUNT 285 K/uL (130-400); RED BLOOD COUNT 4.46 M/uL (4.2-5.4); WHITE BLOOD COUNT 11.36 K/uL (4.8-10.8)
[2016-06-20 16:34] LABS: INR 1.1 (0.9-1.1); PROTHROMBIN TIME (PATIENT) 11.4 SECONDS (9.0-12.0)
[2016-06-20 16:45] LABS: ALT/SGPT 32 U/L (12-78); AST/SGOT 15 U/L (15-37); BLOOD UREA NITROGEN 12 mg/dl (7-18); BUN/CREATININE RATIO 14.6 (10-20); CARBON DIOXIDE 21 mmol/L (21-32); CHLORIDE 110 mmol/L (98-107); CREATININE 0.82 mg/dl (0.60-1.20); GLUCOSE 129 mg/dl (70-99); MAGNESIUM 2.5 mg/dl (1.8-2.4); POTASSIUM 3.2 mmol/L (3.5-5.1); SODIUM 141 mmol/L (136-145)
--- NOTE | 2016-06-20 16:51 | DIAGNOSTIC IMAGING REPORT ---
CT HEAD WITHOUT CONTRAST (CT) CLINICAL HISTORY: Altered mental status. Weakness. COMPARISON STUDY: 11/18/2013 TECHNIQUE: Axial CT of the brain is performed from the vertex to the skull base. IV contrast was not administered for this examination. CT DOSE: 2040.42 mGy.cm FINDINGS: No intra or extra-axial mass lesions are visualized. There is no CT evidence of acute cortical infarction. There is no evidence of midline shift. There is no acute hemorrhage. No calvarial fractures are visualized. There are patchy white matter hypodensities likely on a small vessel basis. There is no evidence of pathologic ventricular dilatation. There is no evidence of acute sinusitis IMPRESSION: No acute intracranial findings Electronically signed by: Michele Kraus M.D. 06/20/2016 4:49 PM Dictated Date/Time: 06/20/2016 4:48 PM
[2016-06-20 16:53] LABS: ALKALINE PHOSPHATASE 113 U/L (45-117); PHOSPHORUS 2.4 mg/dl (2.5-4.9); THYROID STIMULATING HORMONE 0.833 uIu/ml (0.300-4.500)
[2016-06-20] MEDS ORDERED: POTASSIUM CHLORIDE 10 MEQ TABCR PO STA (17:05)
[2016-06-20 17:56] LABS: URINE APPEARANCE CLEAR (CLEAR); URINE BILIRUBIN NEG (NEG); URINE COLOR DK YELLOW; URINE EPITHELIAL CELL AUTO >30 /lpf (0-5); URINE NITRITE NEG (NEG); URINE SPECIFIC GRAVITY 1.019 (1.000-1.030); UROBILINOGEN NEG (NEG)
[2016-06-20 17:58] LABS: MANUAL MICROSCOPIC REQUIRED? NO; REVIEW REQ? YES
--- NOTE | 2016-06-20 18:30 | EMERGENCY ROOM VISIT NOTE ---
History Report prepared by Lorne: Felicity Singleton Under the Supervision of: Dr. Milton Hernandes D.O. First contact with patient: 15:00 Stated Complaint: WEAKNESS History of Present Illness The patient is a 60 year old female who presents to the Emergency Room with complaints of worsening weakness starting 1 week ago. She called EMS because she was worried she would fall and be unable to get up. She was in the hospital for 11 days last months with pyelonephritis. She was discharged 2 weeks ago. She was feeling well for the first week, but has started feeling weak last week. She feels weak throughout the day. She reports she has no control of her head or arms. Her head feels heavy and she has trouble keeping her head up. Her hands feel numb. She falls over when she tries to stand up. She fell in the bathroom last night. She reports left shoulder pain, nausea and headache. She denies any chest pain, SOB, leg swelling, vomiting, neck pain, hip pain, or back pain. She has been eating and drinking well. She is on Effexor ER. Source of History: patient Onset: 1 week ago Position: other (global) Quality: other (weakness) Timing: worsening Associated Symptoms: + headache, + nausea, No SOB, No back pain, No chest pain, No neck pain, No vomiting Note: Pt reports head feeling heavy, arm weakness, falls, left shoulder pain. Pt denies leg swelling, hip pain. Review of Systems See HPI for pertinent positives & negatives. A total of 10 systems reviewed and were otherwise negative. Past Medical & Surgical Medical Problems: (1) Anxiety (2) Bipolar disorder (3) Depression (4) DVT (deep venous thrombosis) (5) Dyslipidemia (6) IBS (irritable bowel syndrome) (7) Personality disorder (8) Suicidal ideation (9) Umbilical hernia Surgical Problems: (1) H/O umbilical hernia repair (2) History of appendectomy (3) History of hysterectomy Family History Cardiac disorder FATHER Social History Smoking Status: Former Smoker Alcohol Use: none Marital Status: Housing Status: lives with family Current/Historical Medications Scheduled Venlafaxine Hcl (Effexor Extended Rel), 150 MG PO DAILY Allergies Coded Allergies: Cyclobenzaprine (Verified Allergy, Unknown, RASH, 05/26/16) INFO GMG Diphenhydramine (Verified Allergy, Unknown, nervousness, 05/26/16) "It makes me bounce of cohen." Naproxen (Verified Allergy, Unknown, WELTS/HIVE BUT CAN TAKE IBUPROFEN & ASPIRIN W/O PROBLEM, 05/26/16) Penicillins (Verified Allergy, Unknown, DOES NOT REMEMBER RXN WAS A CHILD , 05/26/16) Trazodone (Verified Adverse Reaction, Unknown, PALPITATIONS, 05/26/16) Physical Exam Vital Signs Date Time Temp Pulse Resp B/P Pulse Ox O2 Delivery O2 Flow Rate FiO2 06/20/16 18:59 93 18 141/99 97 Room Air 06/20/16 18:32 106 20 130/106 98 Room Air 06/20/16 16:56 86 16 148/92 98 Room Air 103 127/114 117 124/81 06/20/16 15:19 99 Room Air 06/20/16 15:19 99 Room Air 06/20/16 15:15 105 06/20/16 15:07 36.4 100 18 145/101 99 Room Air Physical Exam GENERAL: Patient is awake, alert, and in no acute distress. Patient is resting comfortably and showing no signs of anxiety EYES: The conjunctivae are clear. The pupils are round and reactive. EARS, NOSE, MOUTH AND THROAT: The nose is without any evidence of any deformity. Mucous membranes are moist tongue is midline NECK: The neck is nontender and supple. RESPIRATORY: Normal respiratory effort is noted there is no evidence of wheezing rhonchi or rales CARDIOVASCULAR: Tachycardic rate, but regular rhythm noted there are no definite murmurs noted to auscultation. GASTROINTESTINAL: The abdomen is soft. Bowel sounds are present in all quadrants. Abdomen is nontender MUSCULOSKELETAL/EXTREMITIES: Tenderness with ROM of the left shoulder, but no deformity or crepitus appreciated. SKIN: There is no obvious evidence of any rash. There are no petechiae, pallor or cyanosis noted. NEUROLOGIC: Patient is awake alert and oriented x3, strength is symmetric, but diminished, patellar tendon reflexes 1+ bilaterally. Medical Decision & Procedures ER Provider Diagnostic Interpretation: X-ray results as stated below per interpretation by me and the radiologist. Radiology results as stated below per my review and radiologist interpretation: CHEST 2 VIEWS ROUTINE CLINICAL HISTORY: WEAKNESS TRAUMA COMPARISON STUDY: 05/26/2016 FINDINGS: The cardiac and mediastinal contours are normal. There is no evidence of focal pulmonary consolidation. There is no evidence of failure. No pleural effusions are visualized.[ No pneumothorax is visualized. IMPRESSION: No active disease in the chest. Electronically signed by: Michele Kraus M.D. 06/20/2016 4:05 PM Dictated Date/Time: 06/20/2016 4:05 PM LEFT SHOULDER MIN 2 VIEWS ROUTINE CLINICAL HISTORY: Left shoulder pain status post trauma COMPARISON: None. DISCUSSION: No acute fractures or dislocations are visualized. There are minor degenerative changes present. IMPRESSION: No fractures or dislocations identified. Electronically signed by: Michele Kraus M.D. 06/20/2016 4:06 PM Dictated Date/Time: 06/20/2016 4:[address] HEAD WITHOUT CONTRAST (CT) CLINICAL HISTORY: Altered mental status. Weakness. COMPARISON STUDY: 11/18/2013 TECHNIQUE: Axial CT of the brain is performed from the vertex to the skull base. IV contrast was not administered for this examination. CT DOSE: 2040.42 mGy.cm FINDINGS: No intra or extra-axial mass lesions are visualized. There is no CT evidence of acute cortical infarction. There is no evidence of midline shift. There is no acute hemorrhage. No calvarial fractures are visualized. There are patchy white matter hypodensities likely on a small vessel basis. There is no evidence of pathologic ventricular dilatation. There is no evidence of acute sinusitis IMPRESSION: No acute intracranial findings Electronically signed by: Michele Kraus M.D. 06/20/2016 4:49 PM Dictated Date/Time: 06/20/2016 4:48 PM Laboratory Results 06/20/16 16:19 Red Blood Count 4.46, Mean Corpuscular Volume 94.2, Mean Corpuscular Hemoglobin 31.4, Mean Corpuscular Hemoglobin Concent 33.3, Mean Platelet Volume 9.5, Neutrophils (%) (Auto) 60.6, Lymphocytes (%) (Auto) 29.9, Monocytes (%) (Auto) 8.5, Eosinophils (%) (Auto) 0.4, Basophils (%) (Auto) 0.3, Neutrophils # (Auto) 6.89, Lymphocytes # (Auto) 3.40, Monocytes # (Auto) 0.97, Eosinophils # (Auto) 0.04, Basophils # (Auto) 0.03 06/20/16 16:19 Test 06/20/16 16:19 5/9/17 17:31 White Blood Count 11.36 K/uL (4.8-10.8) Red Blood Count 4.46 M/uL (4.2-5.4) Hemoglobin 14.0 g/dL (12.0-16.0) Hematocrit 42.0 % (37-47) Mean Corpuscular Volume 94.2 fL (80-100) Mean Corpuscular Hemoglobin 31.4 pg (25-34) Mean Corpuscular Hemoglobin Concent 33.3 g/dl (32-36) Platelet Count 285 K/uL (130-400) Mean Platelet Volume 9.5 fL (7.4-10.4) Neutrophils (%) (Auto) 60.6 % Lymphocytes (%) (Auto) 29.9 % Monocytes (%) (Auto) 8.5 % Eosinophils (%) (Auto) 0.4 % Basophils (%) (Auto) 0.3 % Neutrophils # (Auto) 6.89 K/uL (1.4-6.5) Lymphocytes # (Auto) 3.40 K/uL (1.2-3.4) Monocytes # (Auto) 0.97 K/uL (0.11-0.59) Eosinophils # (Auto) 0.04 K/uL (0-0.5) Basophils # (Auto) 0.03 K/uL (0-0.2) RDW Standard Deviation 57.8 fL (36.4-46.3) RDW Coefficient of Variation 17.0 % (11.5-14.5) Immature Granulocyte % (Auto) 0.3 % Immature Granulocyte # (Auto) 0.03 K/uL (0.00-0.02) Prothrombin Time 11.4 SECONDS (9.0-12.0) Prothromb Time International Ratio 1.1 (0.9-1.1) Activated Partial Thromboplast Time 25.7 SECONDS (21.0-31.0) Partial Thromboplastin Ratio 1.0 Anion Gap 10.0 mmol/L (3-11) Est Creatinine Clear Calc Drug Dose 86.2 ml/min Estimated GFR () 90.1 Estimated GFR (Non- 77.8 BUN/Creatinine Ratio 14.6 (10-20) Calcium Level 9.0 mg/dl (8.5-10.1) Phosphorus Level 2.4 mg/dl (2.5-4.9) Magnesium Level 2.5 mg/dl (1.8-2.4) Total Bilirubin 0.7 mg/dl (0.2-1) Direct Bilirubin 0.2 mg/dl (0-0.2) Aspartate Amino Transf (AST/SGOT) 15 U/L (15-37) Alanine Aminotransferase (ALT/SGPT) 32 U/L (12-78) Alkaline Phosphatase 113 U/L (45-117) Total Creatine Kinase 45 U/L (26-192) Creatine Kinase MB < 0.5 ng/ml (0.5-3.6) Creatine Kinase MB Ratio (0-3.0) Troponin I < 0.015 ng/ml (0-0.045) Total Protein 7.3 gm/dl (6.4-8.2) Albumin 3.7 gm/dl (3.4-5.0) Thyroid Stimulating Hormone (TSH) 0.833 uIu/ml (0.300-4.500) Urine Color DK YELLOW Urine Appearance CLEAR (CLEAR) Urine pH 6.0 (4.5-7.5) Urine Specific Sandy 1.019 (1.000-1.030) Urine Protein NEG (NEG) Urine Glucose (UA) NEG (NEG) Urine Ketones TRACE (NEG) Urine Occult Blood NEG (NEG) Urine Nitrite NEG (NEG) Urine Bilirubin NEG (NEG) Urine Urobilinogen NEG (NEG) Urine Leukocyte Esterase SMALL (NEG) Urine WBC (Auto) 5-10 /hpf (0-5) Urine RBC (Auto) 0-4 /hpf (0-4) Urine Hyaline Casts (Auto) 1-5 /lpf (0-5) Urine Epithelial Cells (Auto) >30 /lpf (0-5) Urine Bacteria (Auto) NEG (NEG) Urine Pathogenic Casts /lpf (0) Laboratory results per my review. Medications Administered Medications (Trade) Dose Ordered Sig/Gary Route Start Time Stop Time Status Last Admin Dose Admin Potassium Chloride (Klor-Con M10) 10 meq NOW STAT PO 06/20/16 17:05 06/20/16 17:06 DC 06/20/16 17:16 10 MEQ ECG Indication: weakness Rate (beats per minute): 89 Rhythm: normal sinus Findings: Q waves (Inferior), no ectopy Comparison ECG Date: 31-May-2016 Change: no significant change ED Course 1502: The patient was evaluated in room C12B. A complete history and physical examination were performed. 1705: Potassium Chloride 10 meq PO. 1834: Upon reevaluation, the patient is resting comfortably. I discussed the results and treatment plan with her. She verbalized agreement of the treatment plan. She was discharged home. Medical Decision Prior records/ancillary studies reviewed and summarized above. Nursing notes reviewed. The patient's history was concerning for weakness. Differential diagnosis: Etiologies such as metabolic, infection, hypo/hyperglycemia, electrolyte abnormalities, cardiac sources, intracerebral event, toxicologic, neurologic, as well as others were entertained. The patient is a 60-year-old female who lives at home and presented to the emergency department by ambulance for generalized weakness. The patient did not have any focal neurologic deficits. She states that she was recently in our facility for similar complaints. I did review the patient's previous electronic medical records. I discussed the patient's laboratory and radiographic studies with her. She was treated with potassium replacement in the emergency department. She was reevaluated multiple times. I discussed her case with the emergency Department telehealth case manager. They did review her findings. At this time she does not meet admission criteria. She was encouraged to rest and avoid any strenuous activity. She was also encouraged to call her primary care physician and schedule follow-up appointment for tomorrow. She was also encouraged to return to the emergency department immediately if symptoms change worsen or the need arises. Impression Primary Impression: Weakness Additional Impression: Hypokalemia Scribe Attestation The scribe's documentation has been prepared under my direction and personally reviewed by me in its entirety. I confirm that the note above accurately reflects all work, treatment, procedures, and medical decision making performed by me. Departure Information Dispostion Home / Self-Care Referrals Abbe Banda III, M.D. (PCP) Forms HOME CARE DOCUMENTATION FORM, IMPORTANT VISIT INFORMATION, WORK / SCHOOL INSTRUCTIONS Patient Instructions ED Weakness Hailey THORNE [facility] Additional Instructions Call your family doctor in the morning to schedule a follow-up appointment. Rest and avoid any strenuous activity. Continue all medications as prescribed. Problem Qualifiers
[2016-06-20 18:59] VITALS: BP 141/99; PULSE 93; O2SAT 97
[2016-11-17] MEDS ORDERED: AZIT-57 PO (18:14)
== END 2016-06-20 19:22 | disposition home or self-care (01) ==
LOC: EDBD 14:56 → C.EDC 14:57
DX: R53.1 Weakness (principal); E87.6 Hypokalemia; M25.512 Pain in left shoulder; R11.0 Nausea; R51 Headache; F41.9 Anxiety disorder, unspecified; F31.9 Bipolar disorder, unspecified; F32.9 Major depressive disorder, single episode, unspecified; E78.5 Hyperlipidemia, unspecified; F60.9 Personality disorder, unspecified; Z86.718 Personal history of other venous thrombosis and embolism; Z87.891 Personal history of nicotine dependence; Z90.710 Acquired absence of both cervix and uterus

== ENCOUNTER 2016-06-22 02:06 | Emergency (ER) | payer OTHER ==
[~2016-06-22] VITALS: Ht 160 cm; Wt 112.3 kg
[~2016-06-22 02:06] MED LIST changes: -CPR/500 PO; +EFFSR150 PO; -EFFSR75 PO; -KLN5X PO
[2016-06-22 02:13] VITALS: TEMP 36.5; Ht 160 cm; Wt 112.3 kg
[2016-06-22] MEDS ORDERED: SODIUM CHLORIDE 0.9% 1000ML 1,000 ML IV STA (02:19)
[2016-06-22] MEDS ORDERED: SODIUM CHLORIDE 0.9% 250ML 250 ML IV STA (02:19)
[2016-06-22] MEDS ORDERED: ONDANSETRON INJ 2 MG/ML 2 ML VIAL IV STA (02:19)
[2016-06-22] MEDS ORDERED: ALBUT/IPRATROP 3MG/0.5MG NEB 3 ML VIAL INH STA (02:19)
[2016-06-22] MEDS ORDERED: OPTIRAY 320 IV PRN (02:30)
--- NOTE | 2016-06-22 02:33 | EMERGENCY ROOM VISIT NOTE ---
History Report prepared by Lorne: Raleigh Malone Under the Supervision of: Dr. Jeannette Norris M.D. First contact with patient: 02:18 Chief Complaint: ANXIETY Stated Complaint: ANXIETY History of Present Illness The patient is a 60 year old female who presents to the Emergency Room with complaints of constant anxiety starting prior to arrival. The patient states that she feels nervous, nauseous, short of breath, and numb on both sides. The patient states that she was on the couch prior to arrival. She states that she fell two nights ago while in the bathroom. She denies any vomiting. Source of History: patient Onset: prior to arrival Position: other (global) Quality: other (anxiety) Timing: constant Associated Symptoms: + SOB, + nausea, + numbness, No vomiting Review of Systems See HPI for pertinent positives & negatives. A total of 10 systems reviewed and were otherwise negative. Past Medical & Surgical Medical Problems: (1) Anxiety (2) Bipolar disorder (3) Depression (4) DVT (deep venous thrombosis) (5) Dyslipidemia (6) IBS (irritable bowel syndrome) (7) Personality disorder (8) Suicidal ideation (9) Umbilical hernia Surgical Problems: (1) H/O umbilical hernia repair (2) History of appendectomy (3) History of hysterectomy Family History Cardiac disorder FATHER Social History Smoking Status: Never Smoker Alcohol Use: none Marital Status: Housing Status: lives with family Current/Historical Medications Scheduled Venlafaxine Hcl (Effexor Extended Rel), 150 MG PO DAILY Allergies Coded Allergies: Cyclobenzaprine (Verified Allergy, Unknown, RASH, 06/22/16) INFO GMG Diphenhydramine (Verified Allergy, Unknown, nervousness, 06/22/16) "It makes me bounce of cohen." Naproxen (Verified Allergy, Unknown, WELTS/HIVE BUT CAN TAKE IBUPROFEN & ASPIRIN W/O PROBLEM, 06/22/16) Penicillins (Verified Allergy, Unknown, DOES NOT REMEMBER RXN WAS A CHILD , 06/22/16) Trazodone (Verified Adverse Reaction, Unknown, PALPITATIONS, 05/26/16) Physical Exam Vital Signs Date Time Temp Pulse Resp B/P Pulse Ox O2 Delivery O2 Flow Rate FiO2 06/22/16 06:20 98 18 138/98 98 06/22/16 06:05 93 06/22/16 04:42 93 18 169/107 97 Room Air 06/22/16 02:33 84 06/22/16 02:13 36.5 81 18 176/96 99 Room Air Physical Exam Vital signs reviewed. General: Obese, chronically ill-appearing. Anxious. No distress. HEENT: No scleral icterus, PERRLA, neck supple. Atraumatic. Cardiovascular: Regular rate and rhythm, no extra sounds. Pulmonary: Clear to auscultation bilaterally, normal work of breathing. Abdomen: Soft, nontender, nondistended, positive bowel sounds. Musculoskeletal: Atraumatic, no peripheral edema. Neurologic: Patient awake alert and oriented x 3, full strength in all 4 extremities. Cranial nerves 2 through 12 grossly intact. Skin: Warm, dry, no rash Medical Decision & Procedures ER Provider Diagnostic Interpretation: X-ray results as stated below per interpretation by me: No focal lung consolidation. No failure. No pneumothorax. Radiology results as stated below per my review and radiologist interpretation: CT ABDOMEN & PELVIS: Comparison: May 26, 2016. Cholecystectomy clips. No pancreatitis. Hepatomegaly. Previously noted hypodensity in the medial left kidney has resolved on the current exam. No CT evidence of pyelonephritis. No hydronephrosis. Stable nodular appearance of the left adrenal gland, indeterminate. Appendectomy clips. Diverticulosis without evidence of acute diverticulitis. No free air or fluid collections. Again noted is large complex ventral hernia with diastases of the rectus abdominis musculature containing small bowel loops and fat without evidence of associated bowel obstruction. Absent uterus. Degenerative changes in lumbar spine. T12 vertebral body hemangioma. Laboratory Results 06/22/16 02:55 Red Blood Count 4.24, Mean Corpuscular Volume 93.2, Mean Corpuscular Hemoglobin 31.4, Mean Corpuscular Hemoglobin Concent 33.7, Mean Platelet Volume 9.3, Neutrophils (%) (Auto) 59.1, Lymphocytes (%) (Auto) 31.5, Monocytes (%) (Auto) 8.2, Eosinophils (%) (Auto) 0.6, Basophils (%) (Auto) 0.5, Neutrophils # (Auto) 5.77, Lymphocytes # (Auto) 3.07, Monocytes # (Auto) 0.80, Eosinophils # (Auto) 0.06, Basophils # (Auto) 0.05 06/22/16 02:55 Test 06/22/16 02:30 06/22/16 02:55 06/22/16 03:07 Urine Color YELLOW Urine Appearance CLEAR (CLEAR) Urine pH 6.0 (4.5-7.5) Urine Specific Nelson 1.010 (1.000-1.030) Urine Protein NEG (NEG) Urine Glucose (UA) NEG (NEG) Urine Ketones NEG (NEG) Urine Occult Blood NEG (NEG) Urine Nitrite NEG (NEG) Urine Bilirubin NEG (NEG) Urine Urobilinogen NEG (NEG) Urine Leukocyte Esterase LARGE (NEG) Urine WBC (Auto) >30 /hpf (0-5) Urine RBC (Auto) 0-4 /hpf (0-4) Urine Hyaline Casts (Auto) 1-5 /lpf (0-5) Urine Epithelial Cells (Auto) >30 /lpf (0-5) Urine Bacteria (Auto) NEG (NEG) White Blood Count 9.76 K/uL (4.8-10.8) Red Blood Count 4.24 M/uL (4.2-5.4) Hemoglobin 13.3 g/dL (12.0-16.0) Hematocrit 39.5 % (37-47) Mean Corpuscular Volume 93.2 fL (80-100) Mean Corpuscular Hemoglobin 31.4 pg (25-34) Mean Corpuscular Hemoglobin Concent 33.7 g/dl (32-36) Platelet Count 257 K/uL (130-400) Mean Platelet Volume 9.3 fL (7.4-10.4) Neutrophils (%) (Auto) 59.1 % Lymphocytes (%) (Auto) 31.5 % Monocytes (%) (Auto) 8.2 % Eosinophils (%) (Auto) 0.6 % Basophils (%) (Auto) 0.5 % Neutrophils # (Auto) 5.77 K/uL (1.4-6.5) Lymphocytes # (Auto) 3.07 K/uL (1.2-3.4) Monocytes # (Auto) 0.80 K/uL (0.11-0.59) Eosinophils # (Auto) 0.06 K/uL (0-0.5) Basophils # (Auto) 0.05 K/uL (0-0.2) RDW Standard Deviation 57.1 fL (36.4-46.3) RDW Coefficient of Variation 16.7 % (11.5-14.5) Immature Granulocyte % (Auto) 0.1 % Immature Granulocyte # (Auto) 0.01 K/uL (0.00-0.02) Prothrombin Time 10.5 SECONDS (9.0-12.0) Prothromb Time International Ratio 1.0 (0.9-1.1) Activated Partial Thromboplast Time 24.1 SECONDS (21.0-31.0) Partial Thromboplastin Ratio 0.9 Anion Gap 11.0 mmol/L (3-11) Est Creatinine Clear Calc Drug Dose 87.9 ml/min Estimated GFR () 90.1 Estimated GFR (Non- 77.8 BUN/Creatinine Ratio 20.9 (10-20) Calcium Level 9.0 mg/dl (8.5-10.1) Magnesium Level 2.2 mg/dl (1.8-2.4) Total Bilirubin 0.5 mg/dl (0.2-1) Direct Bilirubin 0.1 mg/dl (0-0.2) Aspartate Amino Transf (AST/SGOT) 16 U/L (15-37) Alanine Aminotransferase (ALT/SGPT) 28 U/L (12-78) Alkaline Phosphatase 117 U/L (45-117) Total Creatine Kinase 40 U/L (26-192) Creatine Kinase MB < 0.5 ng/ml (0.5-3.6) Creatine Kinase MB Ratio (0-3.0) Total Protein 7.0 gm/dl (6.4-8.2) Albumin 3.5 gm/dl (3.4-5.0) Bedside Troponin I 0.000 ng/ml (0-0.045) Laboratory results per my review. Medications Administered Medications (Trade) Dose Ordered Sig/Gary Route Start Time Stop Time Status Last Admin Dose Admin Albuterol/ Ipratropium (Duoneb) 3 ml NOW STAT INH 06/22/16 02:19 06/22/16 02:23 DC 06/22/16 03:16 3 ML Ondansetron HCl 4 mg 4 mg NOW STAT IV 06/22/16 02:19 06/22/16 02:23 DC 06/22/16 03:16 4 MG Sodium Chloride 250 ml @ 999 mls/hr Q16M STAT IV 06/22/16 02:19 06/22/16 02:34 DC 06/22/16 03:19 999 MLS/HR Sodium Chloride (Nss 1000ml) 1,000 ml @ 125 mls/hr Q8H STAT IV 06/22/16 02:19 06/22/16 10:18 06/22/16 03:19 125 MLS/HR ECG Indication: other (anxiety) Rate (beats per minute): 80 Rhythm: normal sinus Findings: T-wave inversion (Inferior), no ectopy, other (Diffuse T-wave flattening) ED Course 0218: Past medical records reviewed. The patient was evaluated in room B11. A complete history and physical examination was performed. 0219: Sodium Chloride 1000 ml @ 125 mls/hr IV, Sodium Chloride 250 ml @ 999 mls/ hr IV, Zofran Inj 4mg IV, DuoNeb 3ml INH 0612: Upon reevaluation, the patient appeared to have improvement of her symptoms. I discussed findings with her. She verbalized agreement of the treatment plan. She was discharged home. Medical Decision Differential diagnosis: Etiologies such as metabolic, infection, hypo/hyperglycemia, electrolyte abnormalities, cardiac sources, intracerebral event, toxicologic, neurologic, as well as others were entertained. This patient was evaluated and appeared to be in no significant distress. IV access was obtained and laboratory work was drawn. Patient's physical examination is fairly unrevealing. Laboratory work was obtained and reveals no specific etiology for the patient's complaints. Urinalysis is equivocal for infection however is more likely to be contaminated. This will be sent for culture. The patient believes this may be all related to anxiety. She was recently taken off of her Klonopin and Seroquel. She believes that her Effexor has made her symptoms worse. The patient was referred to her primary care physician. She states she has been having difficulty with transportation and arranging an appointment. Case management has gotten involved. The patient will be discharged and contacted later today with arrangements for follow-up. She will return to the ER for worsening of symptoms or any medical concerns. Impression Primary Impression: Anxiety Additional Impression: Paresthesia Scribe Attestation The scribe's documentation has been prepared under my direction and personally reviewed by me in its entirety. I confirm that the note above accurately reflects all work, treatment, procedures, and medical decision making performed by me. Departure Information Dispostion Home / Self-Care Referrals Abbe Banda III, M.D. (PCP) Forms HOME CARE DOCUMENTATION FORM, IMPORTANT VISIT INFORMATION Patient Instructions My [facility] Additional Instructions Diagnosis: Anxiety, abdominal paresthesias Continue your medications as prescribed. He will be contacted by case management later today to help arrange follow-up with your PCP and transportation. Return to the emergency department for worsening of symptoms or any medical concerns. Problem Qualifiers
[2016-06-22 02:45] LABS: URINE APPEARANCE CLEAR (CLEAR); URINE BILIRUBIN NEG (NEG); URINE COLOR YELLOW; URINE EPITHELIAL CELL AUTO >30 /lpf (0-5); URINE NITRITE NEG (NEG); UROBILINOGEN NEG (NEG); ZZUR CULT IF INDIC CLEAN CATCH YES
[2016-06-22 02:53] LABS: MANUAL MICROSCOPIC REQUIRED? NO; REVIEW REQ? NO
[2016-06-22 03:06] LABS: BASO % 0.5 %; BASO ABS # 0.05 K/uL (0-0.2); COMPLETE YES; EOS % 0.6 %; HEMATOCRIT 39.5 % (37-47); IG% 0.1 %; LYMPH % 31.5 %; LYMPH ABS # 3.07 K/uL (1.2-3.4); MEAN CELL VOLUME 93.2 fL (80-100); MEAN CORPUSCULAR HEMOGLOBIN 31.4 pg (25-34); MEAN CORPUSCULAR HGB CONC 33.7 g/dl (32-36); MEAN PLATELET VOLUME 9.3 fL (7.4-10.4); MONO % 8.2 %; NEUT % 59.1 %; PLATELET COUNT 257 K/uL (130-400); RED BLOOD COUNT 4.24 M/uL (4.2-5.4); WHITE BLOOD COUNT 9.76 K/uL (4.8-10.8)
[2016-06-22 03:16] LABS: PARTIAL THROMBOPLASTIN RATIO 0.9; PROTHROMBIN TIME (PATIENT) 10.5 SECONDS (9.0-12.0)
[2016-06-22 03:45] LABS: ALKALINE PHOSPHATASE 117 U/L (45-117); ALT/SGPT 28 U/L (12-78); AST/SGOT 16 U/L (15-37); BLOOD UREA NITROGEN 17 mg/dl (7-18); BUN/CREATININE RATIO 20.9 (10-20); CARBON DIOXIDE 19 mmol/L (21-32); CHLORIDE 112 mmol/L (98-107); CREATININE 0.82 mg/dl (0.60-1.20); GLUCOSE 118 mg/dl (70-99); MAGNESIUM 2.2 mg/dl (1.8-2.4); POTASSIUM 3.4 mmol/L (3.5-5.1); SODIUM 142 mmol/L (136-145)
[2016-06-22 06:20] VITALS: BP 138/98; PULSE 98; O2SAT 98
--- NOTE | 2016-06-22 06:50 | DIAGNOSTIC IMAGING REPORT ---
CT ABD/PELVIS IV CONTRAST ONLY CLINICAL HISTORY: Left-sided abdominal pain COMPARISON STUDY: 05/26/2016 TECHNIQUE: Following the IV administration of 93 mL of Optiray-320, CT scan of the abdomen and pelvis was performed from the lung bases to the proximal femurs. Images are reviewed in the axial, sagittal, and coronal planes. IV contrast was administered without complication. CT DOSE: 1559.44 mGy.cm FINDINGS: Lower chest: The heart is normal in size and configuration, without pericardial effusion. The lung bases and pleural spaces are clear. Liver: There is minor hepatic steatosis. There is mild hepatomegaly. No focal masses are visualized. Gallbladder: Surgically absent Spleen: Normal in size and attenuation. Pancreas: Unremarkable. Adrenal glands: There is a 19 mm left adrenal adenoma. Kidneys: There is symmetric renal cortical enhancement. The kidneys are normal in size without hydronephrosis. The previously identified focus of diminished attenuation within the left kidney is no longer evident. Bowel: There are no transition zones indicate bowel obstruction. By history the appendix is surgically absent. There is diverticulosis. There are no acute peridiverticular inflammatory changes. Again evident is a complex midline hernia containing multiple loops of small bowel. There is no current evidence of obstruction. Peritoneum: There is no intraperitoneal free air or abdominal ascites. Vasculature: The abdominal aorta is normal in course and caliber. Adenopathy: None. Pelvic viscera: The uterus appears surgically absent Skeletal structures: There is a T12 vertebral body hemangioma. IMPRESSION: 1. No acute intra-abdominal or pelvic findings 2. No evidence of bowel obstruction. No evidence of free air 3. Diverticulosis. No evidence of acute diverticulitis 4. Large complex bowel and fat containing ventral hernia. No current evidence of obstruction 5. Stable left adrenal adenoma Electronically signed by: Michele Kraus M.D. 06/22/2016 6:49 AM Dictated Date/Time: 06/22/2016 6:44 AM
--- NOTE | 2016-06-22 07:29 | DIAGNOSTIC IMAGING REPORT ---
CHEST ONE VIEW PORTABLE HISTORY: Atypical chest pain, anxiety COMPARISON: Chest 06/20/2016. FINDINGS: The lungs are clear. Cardiac silhouette is normal in size. No pleural effusions. No pneumothorax. IMPRESSION: No acute process. Electronically signed by: Markell Ramos M.D. 06/22/2016 7:28 AM Dictated Date/Time: 06/22/2016 7:27 AM
[2016-06-23] MEDS ORDERED: MIRT15TA3 PO (03:09)
[2016-06-23] MEDS ORDERED: VENL150C56 PO (03:09)
[2016-11-17] MEDS ORDERED: AZIT-57 PO (18:14)
== END 2016-06-22 06:21 | disposition home or self-care (01) ==
LOC: EDBD 02:06 → C.EDB 02:07
DX: F41.9 Anxiety disorder, unspecified (principal); R20.2 Paresthesia of skin; F31.9 Bipolar disorder, unspecified; F32.9 Major depressive disorder, single episode, unspecified; Z86.718 Personal history of other venous thrombosis and embolism; E78.5 Hyperlipidemia, unspecified; K58.9 Irritable bowel syndrome, unspecified; Z91.5 Personal history of self-harm; Z82.49 Family history of ischemic heart disease and other diseases of the circulatory system; Z79.899 Other long term (current) drug therapy

== ENCOUNTER 2016-06-22 22:55 | Emergency (ER) | payer OTHER ==
[~2016-06-22] VITALS: Ht 160 cm; Wt 115.1 kg
[2016-06-22 23:00] VITALS: TEMP 36.4; Ht 160 cm; Wt 115.1 kg
[2016-06-22] MEDS: hydrOXYzine HCL 25 MG TAB PO STA ×2 (23:26→23:36)
[2016-06-22] MEDS ORDERED: ONDANSETRON 4MG OD TAB PO STA (23:28)
[2016-06-22 23:44] LABS: URINE APPEARANCE CLEAR (CLEAR); URINE BILIRUBIN NEG (NEG); URINE COLOR YELLOW; URINE EPITHELIAL CELL AUTO >30 /lpf (0-5); URINE NITRITE NEG (NEG); URINE PH 6.5 (4.5-7.5); URINE SPECIFIC GRAVITY 1.013 (1.000-1.030); UROBILINOGEN NEG (NEG); ZZUR CULT IF INDIC CLEAN CATCH NO
--- NOTE | 2016-06-22 23:45 | EMERGENCY ROOM VISIT NOTE ---
History Report prepared by Lorne: Melissa Acosta Under the Supervision of: Dr. Jeannette Norris M.D. First contact with patient: 23:09 Chief Complaint: ANXIETY Stated Complaint: ANXIETY, AB PAIN History of Present Illness The patient is a 60 year old female who presents to the Emergency Room with complaints of worsening anxiety for the past few days. She reports weakness upon standing as well as feeling numb and shaky. She also notes diffuse abdominal pain and nausea. Her last normal bowel movement was yesterday. She has not slept in 4 days. She states, "I think this is all related to my anxiety. " The patient recently stopped taking Effexor and Seroquel. She was evaluated in the ED for similar symptoms last night and the night before. She was discharged with instructions to follow-up with her PCP. She has an appointment with her PCP in two days. She rates her pain as a 6/10 in severity. The patient denies SI, HI, and vomiting. Source of History: patient Onset: a few days ago Position: other (global) Symptom Intensity: 6/10 Quality: other (anxiety) Timing: worsening Modifying Factors (Worsening): other (recent medication changes) Associated Symptoms: + abdominal pain, + nausea, + numbness, + weakness, No vomiting Note: Pt denies SI and HI. Review of Systems See HPI for pertinent positives & negatives. A total of 10 systems reviewed and were otherwise negative. Past Medical & Surgical Medical Problems: (1) Anxiety (2) Bipolar disorder (3) Depression (4) DVT (deep venous thrombosis) (5) Dyslipidemia (6) IBS (irritable bowel syndrome) (7) Personality disorder (8) Suicidal ideation (9) Umbilical hernia Surgical Problems: (1) H/O umbilical hernia repair (2) History of appendectomy (3) History of hysterectomy Family History Cardiac disorder FATHER Social History Smoking Status: Never Smoker Alcohol Use: none Marital Status: Housing Status: lives with family Current/Historical Medications Scheduled Mirtazapine (Remeron), 1 TAB PO HS Venlafaxine Hcl (Effexor Extended Rel), 150 MG PO DAILY Venlafaxine Hcl (Effexor Extended Rel), 150 MG PO DAILY Allergies Coded Allergies: Hydroxyzine (Verified Allergy, Mild, increased anxiety, 06/22/16) Cyclobenzaprine (Verified Allergy, Unknown, RASH, 06/22/16) INFO GMG Diphenhydramine (Verified Allergy, Unknown, nervousness, 06/22/16) "It makes me bounce of cohen." Naproxen (Verified Allergy, Unknown, WELTS/HIVE BUT CAN TAKE IBUPROFEN & ASPIRIN W/O PROBLEM, 06/22/16) Penicillins (Verified Allergy, Unknown, DOES NOT REMEMBER RXN WAS A CHILD , 06/22/16) Trazodone (Verified Adverse Reaction, Unknown, PALPITATIONS, 05/26/16) Physical Exam Vital Signs Date Time Temp Pulse Resp B/P Pulse Ox O2 Delivery O2 Flow Rate FiO2 06/23/16 05:15 103 22 170/106 94 Room Air 06/23/16 04:19 101 22 175/101 95 Room Air 06/23/16 02:29 85 28 146/102 98 Room Air 06/23/16 00:35 88 22 149/89 99 Room Air 06/22/16 23:43 93 06/22/16 23:00 36.4 84 22 168/106 96 Room Air Physical Exam Vital signs reviewed. General: Well-appearing 60 year old obese female, in no significant distress. HEENT: No scleral icterus, PERRLA, neck supple. Atraumatic. Some jaw thrusting and repetitive tongue movements. Cardiovascular: Regular rate and rhythm, no extra sounds. Pulmonary: Clear to auscultation bilaterally, normal work of breathing. Abdomen: Soft, nontender, nondistended, positive bowel sounds. Musculoskeletal: Atraumatic, no peripheral edema. Neurologic: Patient awake alert and oriented x 3, full strength in all 4 extremities. Cranial nerves 2 through 12 grossly intact. Skin: Warm, dry, no rash Psych: No SI or HI. Medical Decision & Procedures Laboratory Results 06/22/16 23:45 Red Blood Count 4.04, Mean Corpuscular Volume 94.1, Mean Corpuscular Hemoglobin 31.2, Mean Corpuscular Hemoglobin Concent 33.2, Mean Platelet Volume 9.6, Neutrophils (%) (Auto) 61.7, Lymphocytes (%) (Auto) 27.6, Monocytes (%) (Auto) 9.5, Eosinophils (%) (Auto) 0.7, Basophils (%) (Auto) 0.4, Neutrophils # (Auto) 5.52, Lymphocytes # (Auto) 2.47, Monocytes # (Auto) 0.85, Eosinophils # (Auto) 0.06, Basophils # (Auto) 0.04 06/22/16 23:45 Test 06/22/16 23:00 06/22/16 23:45 Urine Color YELLOW Urine Appearance CLEAR (CLEAR) Urine pH 6.5 (4.5-7.5) Urine Specific [place] 1.013 (1.000-1.030) Urine Protein NEG (NEG) Urine Glucose (UA) NEG (NEG) Urine Ketones NEG (NEG) Urine Occult Blood NEG (NEG) Urine Nitrite NEG (NEG) Urine Bilirubin NEG (NEG) Urine Urobilinogen NEG (NEG) Urine Leukocyte Esterase MODERATE (NEG) Urine WBC (Auto) 5-10 /hpf (0-5) Urine RBC (Auto) 0-4 /hpf (0-4) Urine Hyaline Casts (Auto) 1-5 /lpf (0-5) Urine Epithelial Cells (Auto) >30 /lpf (0-5) Urine Bacteria (Auto) NEG (NEG) Urine Opiates Screen NEG (NEG) Urine Methadone, Qualitative NEG (NEG) Urine Barbiturates NEG (NEG) Urine Phencyclidine (PCP) Level NEG (NEG) Ur Amphetamine/Methamphetamine NEG (NEG) MDMA (Ecstasy) Screen NEG (NEG) Urine Benzodiazepines Screen NEG (NEG) Urine Cocaine Metabolite NEG (NEG) Urine Marijuana (THC) NEG (NEG) White Blood Count 8.95 K/uL (4.8-10.8) Red Blood Count 4.04 M/uL (4.2-5.4) Hemoglobin 12.6 g/dL (12.0-16.0) Hematocrit 38.0 % (37-47) Mean Corpuscular Volume 94.1 fL (80-100) Mean Corpuscular Hemoglobin 31.2 pg (25-34) Mean Corpuscular Hemoglobin Concent 33.2 g/dl (32-36) Platelet Count 247 K/uL (130-400) Mean Platelet Volume 9.6 fL (7.4-10.4) Neutrophils (%) (Auto) 61.7 % Lymphocytes (%) (Auto) 27.6 % Monocytes (%) (Auto) 9.5 % Eosinophils (%) (Auto) 0.7 % Basophils (%) (Auto) 0.4 % Neutrophils # (Auto) 5.52 K/uL (1.4-6.5) Lymphocytes # (Auto) 2.47 K/uL (1.2-3.4) Monocytes # (Auto) 0.85 K/uL (0.11-0.59) Eosinophils # (Auto) 0.06 K/uL (0-0.5) Basophils # (Auto) 0.04 K/uL (0-0.2) RDW Standard Deviation 57.1 fL (36.4-46.3) RDW Coefficient of Variation 16.4 % (11.5-14.5) Immature Granulocyte % (Auto) 0.1 % Immature Granulocyte # (Auto) 0.01 K/uL (0.00-0.02) Anion Gap 12.0 mmol/L (3-11) Est Creatinine Clear Calc Drug Dose 89.2 ml/min Estimated GFR () 90.1 Estimated GFR (Non- 77.8 BUN/Creatinine Ratio 15.6 (10-20) Calcium Level 9.1 mg/dl (8.5-10.1) Total Bilirubin 0.5 mg/dl (0.2-1) Direct Bilirubin 0.1 mg/dl (0-0.2) Aspartate Amino Transf (AST/SGOT) 22 U/L (15-37) Alanine Aminotransferase (ALT/SGPT) 30 U/L (12-78) Alkaline Phosphatase 105 U/L (45-117) Total Protein 6.5 gm/dl (6.4-8.2) Albumin 3.3 gm/dl (3.4-5.0) Salicylates Level < 1.7 mg/dl (2.8-20) Acetaminophen Level < 2 ug/ml (10-30) Ethyl Alcohol mg/dL < 3.0 mg/dl (0-3) Laboratory results per my review. Medications Administered Medications (Trade) Dose Ordered Sig/[place] Route Start Time Stop Time Status Last Admin Dose Admin Ondansetron HCl (Zofran Odt) 4 mg NOW STAT PO 06/22/16 23:28 06/22/16 23:29 DC 06/22/16 23:36 4 MG Mirtazapine (Remeron Tab) 15 mg NOW STAT PO 06/23/16 02:58 06/23/16 03:00 DC 06/23/16 03:10 15 MG Venlafaxine HCl (effeXOR EXTENDED REL CAP) 150 mg NOW STAT PO 06/23/16 03:03 06/23/16 03:04 DC 06/23/16 03:09 150 MG ECG Indication: weakness Rate (beats per minute): 87 Rhythm: normal sinus Findings: no ectopy, other (previous inferior infarct; diffuse T-wave flattening) Comparison ECG Date: 06/21/16 Change: no significant change ED Course 2315: Past medical records reviewed. The patient was evaluated in room A12B. A complete history and physical examination was performed. 2326: Vistaril tab 50 mg PO - pt refused 2328: Zofran 4 mg PO 0226: The psychiatrist on-call was consulted and he does not feel that the patient needs to be inpatient at this time. He recommended that she restart her Effexor and follow-up with her psychiatrist. 0257: I reassessed the patient at this time. She is feeling better and resting comfortably. I discussed the results and treatment plan with the patient. I answered all pertaining questions that she had. She expressed understanding and verbalized agreement. The patient will be discharged home when her transportation arrives. 0258: Remeron tab 15 mg PO 0303: Venlafaxine HCl 150 mg PO Medical Decision Differential diagnosis: Etiologies such as mood disorder, infection, hypoglycemia, electrolyte abnormalities, cardiac sources, intracerebral event, toxicologic, neurologic, as well as others were entertained. This patient was evaluated and appeared to be in no distress. Laboratory work was obtained. The patient was medically cleared. She had a CT scan of the abdomen and pelvis was performed yesterday. Patient was evaluated by mental health. Will not meet criteria for inpatient admission. She had stopped her Effexor suddenly several days ago. The case was reviewed with Dr. Richardson who has recommended 15 mg of Remeron at night and also recommended that the patient restart her Effexor 150 mg XL. The patient was not happy with this plan , states she wants to be admitted. The patient does not meet inpatient criteria for psychiatry or medicine. Case management and psychiatry have formulated a plan. They will help arrange follow-up in the short-term with her psychiatrist, Dr. Maddox. Prescriptions for Effexor 150 mg XL are and Remeron 15 mg have been provided for 7 days. Patient's daughter was contacted who has agreed to pick the patient up and 7 AM. The patient was held overnight and slept well. She was asked to return to the ER for worsening of symptoms or any medical concerns. Impression Primary Impression: Anxiety Scribe Attestation The scribe's documentation has been prepared under my direction and personally reviewed by me in its entirety. I confirm that the note above accurately reflects all work, treatment, procedures, and medical decision making performed by me. Departure Information Dispostion Home / Self-Care Prescriptions Venlafaxine Hcl (EFFEXOR EXTENDED REL) 150 Mg Cap 150 MG PO DAILY, #7 CAP Prov: Jeannette Norris M.D. 06/23/16 Mirtazapine (REMERON) 15 Mg Tab 1 TAB PO HS for 7 Days, #7 TAB 0 Refills Prov: Jeannette Norris M.D. 06/23/16 Referrals Abbe Banda III, M.D. (PCP) Forms HOME CARE DOCUMENTATION FORM, IMPORTANT VISIT INFORMATION Patient Instructions My [facility] Additional Instructions Diagnosis: Anxiety Effexor 150 mg daily. Remeron 15 mg each night before bed. Case management/psychiatry will contact you regarding follow-up with Dr. Maddox this week. Return to the emergency department for worsening of symptoms or any medical concerns.
[2016-06-22 23:50] LABS: MANUAL MICROSCOPIC REQUIRED? NO; REVIEW REQ? NO
[2016-06-23] LABS: BASO % 0.4 %; BASO ABS # 0.04 K/uL (0-0.2); COMPLETE YES; EOS % 0.7 %; IG% 0.1 %; LYMPH % 27.6 %; LYMPH ABS # 2.47 K/uL (1.2-3.4); MEAN CELL VOLUME 94.1 fL (80-100); MEAN CORPUSCULAR HEMOGLOBIN 31.2 pg (25-34); MEAN CORPUSCULAR HGB CONC 33.2 g/dl (32-36); MEAN PLATELET VOLUME 9.6 fL (7.4-10.4); MONO % 9.5 %; NEUT % 61.7 %; PLATELET COUNT 247 K/uL (130-400); RED BLOOD COUNT 4.04 M/uL (4.2-5.4); WHITE BLOOD COUNT 8.95 K/uL (4.8-10.8)
[2016-06-23 00:01] LABS: BENZODIAZEPINE, URINE NEG (NEG); COCAINE,URINE NEG (NEG); PHENCYCLIDINE, URINE NEG (NEG)
[2016-06-23 00:20] LABS: BUN/CREATININE RATIO 15.6 (10-20); CALCIUM 9.1 mg/dl (8.5-10.1); CREATININE 0.82 mg/dl (0.60-1.20); POTASSIUM 3.4 mmol/L (3.5-5.1)
[2016-06-23 00:30] LABS: ACETAMINOPHEN < 2 ug/ml (10-30)
[2016-06-23] MEDS ORDERED: VENLAFAXINE HCL 50 MG TAB PO STA (02:58)
[2016-06-23] MEDS ORDERED: MIRTAZAPINE TAB 15 MG TAB PO STA (02:58)
[2016-06-23] MEDS ORDERED: VENLAFAXINE HCL XR 150 MG CAPXR PO STA (03:03)
[2016-06-23] MEDS ORDERED: MIRT15TA3 PO (03:09)
[2016-06-23] MEDS ORDERED: VENL150C56 PO (03:09)
[2016-06-23 07:07] VITALS: BP 166/99; PULSE 100; O2SAT 97
[2016-11-17] MEDS ORDERED: AZIT-57 PO (18:14)
== END 2016-06-23 07:10 | disposition home or self-care (01) ==
LOC: EDBD 22:55 → C.EDA 22:58
DX: F41.9 Anxiety disorder, unspecified (principal); F31.9 Bipolar disorder, unspecified; F32.9 Major depressive disorder, single episode, unspecified; Z86.718 Personal history of other venous thrombosis and embolism; E78.5 Hyperlipidemia, unspecified; K58.9 Irritable bowel syndrome, unspecified; Z91.5 Personal history of self-harm; Z82.49 Family history of ischemic heart disease and other diseases of the circulatory system; Z79.899 Other long term (current) drug therapy

== ENCOUNTER 2016-11-17 09:56 | Emergency (ER) | payer OTHER ==
[~2016-11-17] VITALS: Ht 160 cm; Wt 141.9 kg
[~2016-11-17 09:56] MED LIST changes: +MIRT15TA3 PO
[2016-11-17 10:06] VITALS: TEMP 36.6; Ht 160 cm; Wt 141.9 kg
--- NOTE | 2016-11-17 10:14 | EMERGENCY ROOM VISIT NOTE ---
History Report prepared by Lorne: Eben Arthur Under the Supervision of: Dr. Oli Navas M.D. First contact with patient: 10:13 Chief Complaint: SHORTNESS OF BREATH Stated Complaint: SOB, DIZZY, NUMBNESS, TINGLING HANDS AND FEET Nursing Triage Summary: "I am short of breath, ongoing for two days, today it is worse. I feel dizzy and like I can't breath." Denies respiratory or cardiac history. Denies CP. Legs and fingers numb, ongoing for a couple months, has not seen PCP. History of Present Illness The patient is a 61 year old female who presents to the Emergency Room with complaints of worsening shortness of breath that began 2 days ago. When she woke up today, she noticed that her shortness of breath was significantly worse than it was yesterday. She notes that she has been short of breath for a long time, but it has worsened recently. She is also experiencing tingling in her hands that has been going on for 1 month. Along with this, she is having chills , hot flashes, dizziness, and nausea. She denies any fevers, cough, congestion, chest pain, vomiting, diarrhea, or abnormal urinary symptoms.She denies any history of COPD or asthma. She used to be on Coumadin for her history of DVT, but stopped taking it on her own. Source of History: patient Onset: 2 days ago Position: other (Respiratory System) Symptom Intensity: moderate Quality: other (SOB) Timing: worsening Associated Symptoms: + chills, + nausea, No fevers, No cough, No chest pain , No vomiting, No diarrhea, No urinary symptoms Note: She is lightheaded as well. Review of Systems See HPI for pertinent positives and negatives. A total of ten systems were reviewed and were otherwise negative. Past Medical & Surgical Medical Problems: (1) Anxiety (2) Bipolar disorder (3) Depression (4) DVT (deep venous thrombosis) (5) Dyslipidemia (6) IBS (irritable bowel syndrome) (7) Personality disorder (8) Suicidal ideation (9) Umbilical hernia Surgical Problems: (1) H/O umbilical hernia repair (2) History of appendectomy (3) History of hysterectomy Family History Cardiac disorder FATHER Social History Smoking Status: Former Smoker Alcohol Use: none Marital Status: Housing Status: lives with family Current/Historical Medications Scheduled Azithromycin (Azithromycin), 1 TAB PO DAILY Gabapentin (Gabapentin), 1 CAP PO TID Prednisone (Prednisone Tab), 3 TAB PO DAILY Allergies Coded Allergies: Hydroxyzine (Verified Allergy, Mild, increased anxiety, 11/17/16) Cyclobenzaprine (Verified Allergy, Unknown, RASH, 11/17/16) INFO [facility] Diphenhydramine (Verified Allergy, Unknown, nervousness, 11/17/16) "It makes me bounce of cohen." Naproxen (Verified Allergy, Unknown, WELTS/HIVE BUT CAN TAKE IBUPROFEN & ASPIRIN W/O PROBLEM, 11/17/16) Penicillins (Verified Allergy, Unknown, DOES NOT REMEMBER RXN WAS A CHILD , 11/17/16) Amitriptyline (Unverified Adverse Reaction, Severe, "MADE PT MORE ANXIOUS ", 11/17/16) [place] [facility]CF (Unverified Adverse Reaction, Severe, "COULD NOT SLEEP ", 11/17/16) Buspirone (Unverified Adverse Reaction, Severe, MADE PT MORE ANXIOUS, 11/17) Doxepin (Unverified Adverse Reaction, Severe, "COULD NOT SLEEP", 11/17/16) Trazodone (Verified Adverse Reaction, Unknown, PALPITATIONS, 11/17/16) Physical Exam Vital Signs Date Time Temp Pulse Resp B/P (MAP) Pulse Ox O2 Delivery O2 Flow Rate FiO2 11/17/16 19:30 89 18 163/97 96 11/17/16 17:24 95 18 158/88 97 Room Air 11/17/16 16:34 95 11/17/16 16:05 96 18 143/80 96 Room Air 11/17/16 13:26 97 16 141/81 98 11/17/16 11:50 105 16 131/93 97 Room Air 11/17/16 10:26 110 11/17/16 10:06 98 Room Air 11/17/16 10:06 36.6 111 24 173/104 98 Room Air Physical Exam GENERAL: Awake, alert, anxious but in no distress HENT: Normocephalic, atraumatic. Dry mucous membranes. EYES: Normal conjunctiva. Sclera non-icteric. NECK: Supple. No nuchal rigidity. FROM. No JVD. RESPIRATORY: Diminished bibasilar breath sounds. Scant scattered wheezes. CARDIAC: ST. Extremities warm and well perfused. Pulses equal. ABDOMEN: Soft, obese. No tenderness to palpation. No rebound or guarding. No masses. RECTAL: Deferred. MUSCULOSKELETAL: Chest examination reveals no tenderness. The back is symmetrical on inspection without obvious abnormality. There is no CVA tenderness to palpation. No joint edema. LOWER EXTREMITIES: Calves are equal size bilaterally with a 1+ edema but non- tender. No discoloration. NEURO: Normal sensorium. No sensory or motor deficits noted. SKIN: No rash or jaundice noted. Medical Decision & Procedures ER Provider Diagnostic Interpretation: Radiology results as stated below per my review and radiologist interpretation: (CHEST FOR PE) ANGIO WITH CT DOSE: 723.96 mGy.cm HISTORY: 61 years-old Female presents with acute shortness of breath. Initial exam. TECHNIQUE: Multiple CTA images of the chest were obtained after the intravenous administration of 92 ml Optiray 320. Coronal and sagittal MIPS were obtained from the axial data set and were submitted for review. A dose lowering technique was utilized adhering to the principles of ALARA. COMPARISON: CTA 05/26/2016. FINDINGS: CTA: Coronary arterial calcifications are seen. Heart is normal in size without pericardial effusion. Mild to moderate plaquing of the thoracic aorta the imaged great vessels patent. No aortic dissection or aneurysm identified. The imaged pulmonary arterial tree is well-opacified to the level of the distal segmental branches and demonstrates no focal filling defect to suggest an embolus. Dilation of the subsegmental branches is mildly limited secondary to contrast bolus timing and respiratory motion. CT CHEST: Thyroid is homogeneous. There is no pathologic adenopathy of the chest is identified. No pneumothorax or pleural effusion. Patchy groundglass opacities are present within the bilateral lung bases. There is mild bronchial wall thickening with areas of mosaic attenuation. No focal suspicious appearing pulmonary nodules or masses identified. No lobar airspace consolidation. Liver appears enlarged with probable fatty infiltration. No acute amount of the upper abdomen. Prior cholecystectomy. Bones are mildly demineralized. Multilevel anterior bridging osteophytosis IMPRESSION: 1. No acute aortic pathology or evidence of pulmonary thromboembolic disease. 2. Bilateral bronchial wall thickening with bibasilar predominant groundglass opacities and mild mosaic attenuation suggests bronchitis with some air trapping. No lobar airspace consolidation to suggest pneumonia. 3. Hepatomegaly with hepatic steatosis. 4. Prior cholecystectomy. The above report was generated using voice recognition software. It may contain grammatical, syntax or spelling errors. Electronically signed by: Bernardo Quach M.D. 11/17/2016 3:15 PM Dictated Date/Time: 11/17/2016 3:06 PM CHEST ONE VIEW PORTABLE CLINICAL HISTORY: Chest pain. COMPARISON STUDY: Chest radiograph June 22, 2016. FINDINGS: Lung volumes are normal. No pneumothorax or pleural effusion is present. No consolidation is identified. Cardiomediastinal silhouette is stable. There is no evidence of pulmonary edema. IMPRESSION: No acute cardiopulmonary findings. Electronically signed by: Philipp Vasques M.D. 11/17/2016 11:19 AM Dictated Date/Time: 11/17/2016 11:18 AM Laboratory Results 11/17/16 10:42 Red Blood Count 4.40, Mean Corpuscular Volume 87.7, Mean Corpuscular Hemoglobin 29.5, Mean Corpuscular Hemoglobin Concent 33.7, Mean Platelet Volume 9.4, Neutrophils (%) (Auto) 66.4, Lymphocytes (%) (Auto) 25.6, Monocytes (%) (Auto) 6.7, Eosinophils (%) (Auto) 0.7, Basophils (%) (Auto) 0.3, Neutrophils # (Auto) 6.33, Lymphocytes # (Auto) 2.44, Monocytes # (Auto) 0.64, Eosinophils # (Auto) 0.07, Basophils # (Auto) 0.03 11/17/16 10:42 Test 11/17/16 10:42 White Blood Count 9.54 K/uL (4.8-10.8) Red Blood Count 4.40 M/uL (4.2-5.4) Hemoglobin 13.0 g/dL (12.0-16.0) Hematocrit 38.6 % (37-47) Mean Corpuscular Volume 87.7 fL (80-100) Mean Corpuscular Hemoglobin 29.5 pg (25-34) Mean Corpuscular Hemoglobin Concent 33.7 g/dl (32-36) Platelet Count 236 K/uL (130-400) Mean Platelet Volume 9.4 fL (7.4-10.4) Neutrophils (%) (Auto) 66.4 % Lymphocytes (%) (Auto) 25.6 % Monocytes (%) (Auto) 6.7 % Eosinophils (%) (Auto) 0.7 % Basophils (%) (Auto) 0.3 % Neutrophils # (Auto) 6.33 K/uL (1.4-6.5) Lymphocytes # (Auto) 2.44 K/uL (1.2-3.4) Monocytes # (Auto) 0.64 K/uL (0.11-0.59) Eosinophils # (Auto) 0.07 K/uL (0-0.5) Basophils # (Auto) 0.03 K/uL (0-0.2) RDW Standard Deviation 45.5 fL (36.4-46.3) RDW Coefficient of Variation 14.2 % (11.5-14.5) Immature Granulocyte % (Auto) 0.3 % Immature Granulocyte # (Auto) 0.03 K/uL (0.00-0.02) Anion Gap 10.0 mmol/L (3-11) Est Creatinine Clear Calc Drug Dose 112.7 ml/min Estimated GFR () 103.0 Estimated GFR (Non- 88.9 BUN/Creatinine Ratio 16.6 (10-20) Calcium Level 9.4 mg/dl (8.5-10.1) Total Bilirubin 0.2 mg/dl (0.2-1) Direct Bilirubin < 0.1 mg/dl (0-0.2) Aspartate Amino Transf (AST/SGOT) 19 U/L (15-37) Alanine Aminotransferase (ALT/SGPT) 28 U/L (12-78) Alkaline Phosphatase 147 U/L (45-117) Troponin I < 0.015 ng/ml (0-0.045) Pro-B-Type Natriuretic Peptide 56 pg/ml (0-900) Total Protein 7.4 gm/dl (6.4-8.2) Albumin 3.5 gm/dl (3.4-5.0) Lipase 158 U/L (73-393) Laboratory results reviewed by me Medications Administered Medications (Trade) Dose Ordered Sig/[place] Route Start Time Stop Time Status Last Admin Dose Admin Albuterol/ Ipratropium (Duoneb) 3 ml NOW STAT INH 11/17/16 10:22 11/17/16 10:29 DC 11/17/16 10:46 3 ML Sodium Chloride 500 ml @ 999 mls/hr Q31M STAT IV 11/17/16 10:22 10/6/17 10:52 DC 11/17/16 10:48 999 MLS/HR Sodium Chloride 1,000 ml @ 999 mls/hr Q1H1M STAT IV 11/17/16 11:49 11/17/16 12:49 DC 11/17/16 11:58 999 MLS/HR Sodium Chloride 1,000 ml @ 999 mls/hr Q1H1M STAT IV 11/17/16 15:34 11/17/16 16:34 DC 11/17/16 15:58 999 MLS/HR Prednisone (PredniSONE TAB) 60 mg NOW STAT PO 11/17/16 15:34 11/17/16 15:37 DC 11/17/16 15:58 60 MG Albuterol (Ventolin Hfa Inhaler) 2 puffs NOW ONCE INH 11/17/16 15:45 11/17/16 15:46 DC 11/17/16 15:59 2 PUFFS Azithromycin (Zithromax Tab) 500 mg NOW ONCE PO 11/17/16 15:45 11/17/16 15:46 DC 11/17/16 15:58 500 MG Lorazepam (Ativan Tab) 0.5 mg NOW STAT SL 11/17/16 18:07 11/17/16 18:13 DC 11/17/16 18:26 0.5 MG ECG Indication: SOB/dyspnea Rate (beats per minute): 112 Rhythm: sinus tachycardia Findings: no acute ischemic change, other (Normal axis) ED Course 1013: The patient was evaluated in room C2. A complete history and physical exam was performed. 1022: Ordered Sodium Chloride 500 ml @ 999 mls/hr IV, DuoNeb 3 ml INH 1149: Ordered Sodium Chloride 1000 ml @ 999 mls/hr IV 1534: Ordered Prednisone 60 mg PO, Sodium Chloride 1000 ml @ 999 mls/hr IV 1545: Ordered Zithromax Tab 500 mg PO, Albuterol 2 puffs INH 1640: After the patient's CT scan, it looks like she has bronchitis per CT. I will reassess her after the Prednisone, Zithromax, and Albuterol. 1745: She is feeling better at this time. She requested anxiety medication. I agreed to give her a homepack, but she needs to follow up with her PCP for further medications. Medical Decision I reviewed the patient's past medical history, medications, and the nursing notes as described above. The patient has a history of IBS and DVT, but declined anticoagulation. She also has a history of bipolar personality disorder. Differential diagnoses include pneumonia, bronchitis, ACS, CHF, PE, gastritis, and anxiety. The patient is a 61-year-old woman with a past medical history of DVT several years ago previously on Coumadin however per the patient she simply stopped Coumadin on her own without any physician guidance, she reports that this DVT was not in the setting of any known provoking factors, now presents emergency Department with worsening shortness of breath and dyspnea on exertion from her baseline per history of present illness. Arrival the patient appears anxious and dyspneic but in no acute distress, afebrile, tachycardia to the 110s and otherwise hemodynamically stable. The patients tachycardia and dyspnea in the setting of a history of a presumed unprovoked DVT not on anticoagulation will rule out for PE. EKG with ST but otherwise, unremarkable. Labs otherwise unremarkable including wbc wnl. CXR negative. CT-PE negative for PE or PNA but with bronchial wall thickening with bibasilar predominant groundglass opacities and mild mosaic attenuation c/w bronchitis. Patient given steroids, ROSSANA lyn with additional improvement. HR improved with IVF hydration. Findings and plan for follow-up d/w patient. Patient agreeable and d/c'd per discharge instructions. Medication Reconcilliation Current Medication List: was personally reviewed by me Blood Pressure Screening Patient's blood pressure: Elevated blood pressure Blood pressure disposition: Elevated BP felt to be situational Impression Primary Impression: Acute bronchitis Scribe Attestation The scribe's documentation has been prepared under my direction and personally reviewed by me in its entirety. I confirm that the note above accurately reflects all work, treatment, procedures, and medical decision making performed by me. Departure Information Dispostion Home / Self-Care Prescriptions Prednisone (Prednisone Tab) 20 Mg Tab 3 TAB PO DAILY for 4 Days, #12 TAB FOR 4 DAYS Prov: Oli Navas M.D. 11/17/16 Azithromycin (Azithromycin) 250 Mg Tab 1 TAB PO DAILY for 4 Days, #4 TABS Prov: Oli Navas M.D. 11/17/16 Referrals Loan Rudd PA-C (PCP) Patient Instructions Bronchitis Acute Dc, My [facility] Additional Instructions Please follow up with your primary care physician in the next 1-3 days for re- evaluation. You have a bronchitis Otherwise, your exam, EKG, CT scan, and lab results did not show signs of an emergent condition at this time. Azithromycin and Prednisone as directed. Use your Albuterol inhaler every 4 hours from the next 48 hours and then as needed every 4 hours thereafter. You were given a single tablet of Ativan for your anxiety to take at home however further medication for your anxiety should be managed through your doctor. Return to the emergency department for worsening symptoms as described in the accompanying instructions.
[2016-11-17] MEDS ORDERED: SODIUM CHLORIDE 0.9% 500ML 500 ML IV STA (10:22)
[2016-11-17] MEDS ORDERED: ALBUT/IPRATROP 3MG/0.5MG NEB 3 ML VIAL INH STA (10:22)
[2016-11-17] MEDS ORDERED: OPTIRAY 320 IV PRN (10:45)
[2016-11-17 10:59] LABS: BASO % 0.3 %; BASO ABS # 0.03 K/uL (0-0.2); COMPLETE YES; EOS % 0.7 %; HEMATOCRIT 38.6 % (37-47); IG% 0.3 %; LYMPH % 25.6 %; LYMPH ABS # 2.44 K/uL (1.2-3.4); MEAN CELL VOLUME 87.7 fL (80-100); MEAN CORPUSCULAR HEMOGLOBIN 29.5 pg (25-34); MEAN CORPUSCULAR HGB CONC 33.7 g/dl (32-36); MEAN PLATELET VOLUME 9.4 fL (7.4-10.4); MONO % 6.7 %; NEUT % 66.4 %; PLATELET COUNT 236 K/uL (130-400); WHITE BLOOD COUNT 9.54 K/uL (4.8-10.8)
[2016-11-17] MEDS ORDERED: AMIT10TA6 PO (11:12)
[2016-11-17] MEDS ORDERED: BSP15 PO (11:12)
[2016-11-17] MEDS ORDERED: GABA1CAP4 PO (11:12)
[2016-11-17] MEDS ORDERED: [UNRECOGNIZED DRUG - CODE] PO (11:12)
[2016-11-17 11:18] LABS: ALT/SGPT 28 U/L (12-78); AST/SGOT 19 U/L (15-37); BLOOD UREA NITROGEN 12 mg/dl (7-18); BUN/CREATININE RATIO 16.6 (10-20); CALCIUM 9.4 mg/dl (8.5-10.1); CARBON DIOXIDE 23 mmol/L (21-32); CHLORIDE 108 mmol/L (98-107); CREATININE 0.73 mg/dl (0.60-1.20); GLUCOSE 111 mg/dl (70-99); SODIUM 141 mmol/L (136-145)
--- NOTE | 2016-11-17 11:20 | DIAGNOSTIC IMAGING REPORT ---
CHEST ONE VIEW PORTABLE CLINICAL HISTORY: Chest pain. COMPARISON STUDY: Chest radiograph June 22, 2016. FINDINGS: Lung volumes are normal. No pneumothorax or pleural effusion is present. No consolidation is identified. Cardiomediastinal silhouette is stable. There is no evidence of pulmonary edema. IMPRESSION: No acute cardiopulmonary findings. Electronically signed by: Philipp Vasques M.D. 11/17/2016 11:19 AM Dictated Date/Time: 11/17/2016 11:18 AM
[2016-11-17 11:23] LABS: ALKALINE PHOSPHATASE 147 U/L (45-117)
[2016-11-17] MEDS ORDERED: SODIUM CHLORIDE 0.9% 1000ML 1,000 ML IV STA ×2 (11:49→15:34)
--- NOTE | 2016-11-17 15:16 | DIAGNOSTIC IMAGING REPORT ---
(CHEST FOR PE) ANGIO WITH CT DOSE: 723.96 mGy.cm HISTORY: 61 years-old Female presents with acute shortness of breath. Initial exam. TECHNIQUE: Multiple CTA images of the chest were obtained after the intravenous administration of 92 ml Optiray 320. Coronal and sagittal MIPS were obtained from the axial data set and were submitted for review. A dose lowering technique was utilized adhering to the principles of ALARA. COMPARISON: CTA 05/26/2016. FINDINGS: CTA: Coronary arterial calcifications are seen. Heart is normal in size without pericardial effusion. Mild to moderate plaquing of the thoracic aorta the imaged great vessels patent. No aortic dissection or aneurysm identified. The imaged pulmonary arterial tree is well-opacified to the level of the distal segmental branches and demonstrates no focal filling defect to suggest an embolus. Dilation of the subsegmental branches is mildly limited secondary to contrast bolus timing and respiratory motion. CT CHEST: Thyroid is homogeneous. There is no pathologic adenopathy of the chest is identified. No pneumothorax or pleural effusion. Patchy groundglass opacities are present within the bilateral lung bases. There is mild bronchial wall thickening with areas of mosaic attenuation. No focal suspicious appearing pulmonary nodules or masses identified. No lobar airspace consolidation. Liver appears enlarged with probable fatty infiltration. No acute amount of the upper abdomen. Prior cholecystectomy. Bones are mildly demineralized. Multilevel anterior bridging osteophytosis IMPRESSION: 1. No acute aortic pathology or evidence of pulmonary thromboembolic disease. 2. Bilateral bronchial wall thickening with bibasilar predominant groundglass opacities and mild mosaic attenuation suggests bronchitis with some air trapping. No lobar airspace consolidation to suggest pneumonia. 3. Hepatomegaly with hepatic steatosis. 4. Prior cholecystectomy. The above report was generated using voice recognition software. It may contain grammatical, syntax or spelling errors. Electronically signed by: Bernardo Quach M.D. 11/17/2016 3:15 PM Dictated Date/Time: 11/17/2016 3:06 PM
[2016-11-17] MEDS ORDERED: AZITHROMYCIN 250 MG TAB PO ONE (15:45)
[2016-11-17] MEDS ORDERED: ALBUTEROL HFA 8 GM INHALER INH ONE (15:45)
[2016-11-17] MEDS ORDERED: LORAZEPAM 0.5 MG TAB SL STA (18:07)
[2016-11-17] MEDS ORDERED: PRED20TA2 PO (18:14)
[2016-11-17] MEDS ORDERED: ZTHM250 PO (18:14)
[2016-11-17 19:30] VITALS: BP 163/97; PULSE 89; O2SAT 96
== END 2016-11-17 19:32 | disposition home or self-care (01) ==
LOC: C.EDB 09:57 → C.EDC 19:32
DX: J20.9 Acute bronchitis, unspecified (principal); F41.9 Anxiety disorder, unspecified; F31.9 Bipolar disorder, unspecified; F32.9 Major depressive disorder, single episode, unspecified; E78.5 Hyperlipidemia, unspecified; K58.9 Irritable bowel syndrome, unspecified; Z87.891 Personal history of nicotine dependence

== ENCOUNTER 2016-11-24 18:24 | Inpatient (IN) | payer OTHER ==
[~2016-11-24] VITALS: Ht 160 cm; Wt 136.8 kg
[~2016-11-24 18:24] MED LIST changes: -EFFSR150 PO; +GABA1CAP4 PO; -MIRT15TA3 PO; +ZTHM250 PO
[2016-11-24] MEDS ORDERED: DPKSR/500 PO (18:53)
[2016-11-24] MEDS ORDERED: MIRT15TA3 PO (18:53)
[2016-11-24 19:33] LABS: BASO % 0.3 %; BASO ABS # 0.03 K/uL (0-0.2); COMPLETE YES; EOS % 0.7 %; HEMATOCRIT 41.4 % (37-47); IG% 0.3 %; LYMPH % 25.8 %; LYMPH ABS # 2.97 K/uL (1.2-3.4); MEAN CELL VOLUME 86.3 fL (80-100); MEAN CORPUSCULAR HEMOGLOBIN 28.8 pg (25-34); MEAN CORPUSCULAR HGB CONC 33.3 g/dl (32-36); MEAN PLATELET VOLUME 9.1 fL (7.4-10.4); MONO % 7.5 %; NEUT % 65.4 %; PLATELET COUNT 269 K/uL (130-400); WHITE BLOOD COUNT 11.52 K/uL (4.8-10.8)
[2016-11-24 19:41] LABS: BENZODIAZEPINE, URINE NEG (NEG); COCAINE,URINE NEG (NEG); PHENCYCLIDINE, URINE NEG (NEG)
--- NOTE | 2016-11-24 19:49 | DIAGNOSTIC IMAGING REPORT ---
SINGLE VIEW CHEST CLINICAL HISTORY: Atypical chest pain. FINDINGS: An AP, portable, upright chest radiograph is compared to chest x-ray and chest CT dated 11/17/2016. The examination is mildly degraded by portable technique and patient rotation. The heart is mildly enlarged and there is atherosclerotic calcification of the thoracic aorta. The pulmonary vasculature is noncongested. The lungs and pleural spaces are clear. No pneumothorax is seen. The skeletal structures appear osteopenic. The bony thorax is grossly intact. Degenerative change is noted throughout the thoracic spine. IMPRESSION: Mild cardiac enlargement with no acute cardiopulmonary abnormality. Electronically signed by: Syd Bustillos M.D. 11/24/2016 7:47 PM Dictated Date/Time: 11/24/2016 7:47 PM
[2016-11-24 19:53] LABS: BUN/CREATININE RATIO 14.5 (10-20); CALCIUM 9.3 mg/dl (8.5-10.1); CREATININE 0.89 mg/dl (0.60-1.20); POTASSIUM 3.7 mmol/L (3.5-5.1)
[2016-11-24 20:05] LABS: ACETAMINOPHEN < 2 ug/ml (10-30)
[2016-11-24] MEDS ORDERED: NURSING VERBAL MED ORDER ONE ×2 (21:15→21:45)
[2016-11-24 21:18] VITALS: O2SAT 97
[2016-11-24] MEDS ORDERED: BISMUTH SUBSALICYLATE PER ML OMNICELL CHARGE PO PRN (21:45)
[2016-11-24] MEDS ORDERED: ACETAMINOPHEN 325 MG TAB PO PRN (21:45)
[2016-11-24] MEDS ORDERED: hydrOXYzine HCL 25 MG TAB PO PRN ×2 (21:45)
[2016-11-24] MEDS ORDERED: MAGNESIUM HYDROXIDE SUSP 30 ML UDC PO PRN (21:45)
[2016-11-24] MEDS ORDERED: ALUMINUM/MAGNESIUM SUSP 30 ML UDC PO PRN (21:45)
[2016-11-24] MEDS ORDERED: SODIUM CHLORIDE 0.65% NA SOLN 45 ML (OCEAN) PRN (21:45)
[2016-11-24] MEDS ORDERED: DIVALPROEX 500 MG EXTENDED RELEASE TAB PO ONE (22:00)
[2016-11-24 22:25] VITALS: BP 135/85; PULSE 96; TEMP 36.7; BMI 53.4
--- NOTE | 2016-11-24 23:12 | EMERGENCY ROOM VISIT NOTE ---
History Report prepared by Lorne: Ivory Easton Under the Supervision of: Dr. Ari Cherry M.D. First contact with patient: 18:40 Chief Complaint: MENTAL HEALTH EVALUATION Stated Complaint: SELF HARM History of Present Illness The patient is a 61 year old female who presents to the Emergency Room with complaints of constant anxiety beginning 2 days ago. The patient states that she has a history of anxiety and for the past 2 days it has significantly worsened. She reports that she has no reason to be anxious and cannot deal with feeling this way. She notes that she has been having thoughts of hurting herself and notes that she has had multiple suicide attempts in the past but nothing recently. The patient states that she saw her doctor yesterday and was prescribed Depakote that she did not start because she did not want any added symptoms of unsteadiness and blurred vision. She reports that she has had nausea , vomiting, and shortness of breath that is normal for being worked up. The patient denies any fever, chest pain, cough. She states that she was seen here 1 week ago and got a CT for PE that was negative and was started on antibiotics for bronchitis. Source of History: patient Onset: 2 days ago Position: other (mental health) Quality: other (anxiety) Timing: constant Associated Symptoms: + SOB, + nausea, + vomiting, No fevers, No cough, No chest pain Review of Systems See HPI for pertinent positives & negatives. A total of 10 systems reviewed and were otherwise negative. Past Medical & Surgical Medical Problems: (1) Anxiety (2) Bipolar disorder (3) Depression (4) DVT (deep venous thrombosis) (5) Dyslipidemia (6) IBS (irritable bowel syndrome) (7) Personality disorder (8) Suicidal ideation (9) Umbilical hernia Surgical Problems: (1) H/O umbilical hernia repair (2) History of appendectomy (3) History of hysterectomy Old medical records were reviewed. Nurse's notes were reviewed and I agree with. Family History Cardiac disorder FATHER Social History Smoking Status: Never Smoker Alcohol Use: none Marital Status: Housing Status: lives with family Current/Historical Medications Scheduled Divalproex Sodium (Depakote Etended-Release), 500 MG PO HS Allergies Coded Allergies: Hydroxyzine (Verified Allergy, Mild, increased anxiety, 11/24/16) Cyclobenzaprine (Verified Allergy, Unknown, RASH, 11/24/16) INFO [facility] Diphenhydramine (Verified Allergy, Unknown, nervousness, 11/24/16) "It makes me bounce of cohen." Naproxen (Verified Allergy, Unknown, WELTS/HIVE BUT CAN TAKE IBUPROFEN & ASPIRIN W/O PROBLEM, 11/24/16) Penicillins (Verified Allergy, Unknown, DOES NOT REMEMBER RXN WAS A CHILD , 11/24/16) Amitriptyline (Unverified Adverse Reaction, Severe, "MADE PT MORE ANXIOUS ", 11/24/16) [place] Blue [facility]CF (Unverified Adverse Reaction, Severe, "COULD NOT SLEEP ", 11/24/16) Buspirone (Unverified Adverse Reaction, Severe, MADE PT MORE ANXIOUS, ) Doxepin (Unverified Adverse Reaction, Severe, "COULD NOT SLEEP", 11/24/16) Trazodone (Verified Adverse Reaction, Unknown, PALPITATIONS, 11/24/16) Physical Exam Vital Signs Date Time Temp Pulse Resp B/P (MAP) Pulse Ox O2 Delivery O2 Flow Rate FiO2 11/24/16 18:34 37.1 104 18 164/93 94 Room Air Physical Exam General: Non-ill appearing mildly anxious middle aged female in no acute distress. HEENT: Normal cephalic atraumatic. Pupils are equal round and reactive to light. Extraocular movements are intact. Oropharynx is pink with moist mucous membranes. No swelling of the mouth lips or tongue. Neck: Supple with a midline trachea. No meningeal signs or stiffness, no JVD or bruits. No Stridor. Chest: Clear to auscultation bilaterally. No wheezes or rhonchi. No increased work of breathing. Heart: regular rate and rhythm. Abdomen: Soft nontender, nondistended without rebound guarding or rigidity. Extremities: No cyanosis clubbing or edema. No calf tenderness or assymetry Spine/Back. Non tender to palpation. No CVA tenderness Skin: Good turgor without rashes. Neurologic exam: Cranial nerves two through 12 are intact. Motor and sensation are intact and symmetrical throughout. No tremor. Psych: Complaints of suicidal ideation but no plan. Medical Decision & Procedures ER Provider Diagnostic Interpretation: X-ray results as stated below per interpretation by me and the radiologist: SINGLE VIEW CHEST FINDINGS: An AP, portable, upright chest radiograph is compared to chest x-ray and chest CT dated 11/17/2016. The examination is mildly degraded by portable technique and patient rotation. The heart is mildly enlarged and there is atherosclerotic calcification of the thoracic aorta. The pulmonary vasculature is noncongested. The lungs and pleural spaces are clear. No pneumothorax is seen. The skeletal structures appear osteopenic. The bony thorax is grossly intact. Degenerative change is noted throughout the thoracic spine. IMPRESSION: Mild cardiac enlargement with no acute cardiopulmonary abnormality. Electronically signed by: Syd Bustillos M.D. 11/24/2016 7:47 PM Dictated Date/Time: 11/24/2016 7:47 PM Laboratory Results 11/24/16 19:14 Red Blood Count 4.80, Mean Corpuscular Volume 86.3, Mean Corpuscular Hemoglobin 28.8, Mean Corpuscular Hemoglobin Concent 33.3, Mean Platelet Volume 9.1, Neutrophils (%) (Auto) 65.4, Lymphocytes (%) (Auto) 25.8, Monocytes (%) (Auto) 7.5, Eosinophils (%) (Auto) 0.7, Basophils (%) (Auto) 0.3, Neutrophils # (Auto) 7.55, Lymphocytes # (Auto) 2.97, Monocytes # (Auto) 0.86, Eosinophils # (Auto) 0.08, Basophils # (Auto) 0.03 11/24/16 19:14 Test 11/24/16 00:00 11/24/16 19:14 11/24/16 19:25 Urine Opiates Screen NEG (NEG) Urine Methadone, Qualitative NEG (NEG) Urine Barbiturates NEG (NEG) Urine Phencyclidine (PCP) Level NEG (NEG) Ur Amphetamine/Methamphetamine NEG (NEG) MDMA (Ecstasy) Screen NEG (NEG) Urine Benzodiazepines Screen NEG (NEG) Urine Cocaine Metabolite NEG (NEG) Urine Marijuana (THC) NEG (NEG) White Blood Count 11.52 K/uL (4.8-10.8) Red Blood Count 4.80 M/uL (4.2-5.4) Hemoglobin 13.8 g/dL (12.0-16.0) Hematocrit 41.4 % (37-47) Mean Corpuscular Volume 86.3 fL (80-100) Mean Corpuscular Hemoglobin 28.8 pg (25-34) Mean Corpuscular Hemoglobin Concent 33.3 g/dl (32-36) Platelet Count 269 K/uL (130-400) Mean Platelet Volume 9.1 fL (7.4-10.4) Neutrophils (%) (Auto) 65.4 % Lymphocytes (%) (Auto) 25.8 % Monocytes (%) (Auto) 7.5 % Eosinophils (%) (Auto) 0.7 % Basophils (%) (Auto) 0.3 % Neutrophils # (Auto) 7.55 K/uL (1.4-6.5) Lymphocytes # (Auto) 2.97 K/uL (1.2-3.4) Monocytes # (Auto) 0.86 K/uL (0.11-0.59) Eosinophils # (Auto) 0.08 K/uL (0-0.5) Basophils # (Auto) 0.03 K/uL (0-0.2) RDW Standard Deviation 44.6 fL (36.4-46.3) RDW Coefficient of Variation 14.4 % (11.5-14.5) Immature Granulocyte % (Auto) 0.3 % Immature Granulocyte # (Auto) 0.03 K/uL (0.00-0.02) Anion Gap 8.0 mmol/L (3-11) Est Creatinine Clear Calc Drug Dose 90.3 ml/min Estimated GFR () 81.1 Estimated GFR (Non- 70.0 BUN/Creatinine Ratio 14.5 (10-20) Calcium Level 9.3 mg/dl (8.5-10.1) Total Bilirubin 0.4 mg/dl (0.2-1) Direct Bilirubin 0.1 mg/dl (0-0.2) Aspartate Amino Transf (AST/SGOT) 20 U/L (15-37) Alanine Aminotransferase (ALT/SGPT) 29 U/L (12-78) Alkaline Phosphatase 142 U/L (45-117) Total Protein 7.7 gm/dl (6.4-8.2) Albumin 3.8 gm/dl (3.4-5.0) Lipase 117 U/L (73-393) Salicylates Level < 1.7 mg/dl (2.8-20) Acetaminophen Level < 2 ug/ml (10-30) Ethyl Alcohol mg/dL < 3.0 mg/dl (0-3) Bedside Troponin I < 0.030 ng/ml (0-0.045) Laboratory studies as stated above per my review. ECG Indication: other (anxiety) Rate (beats per minute): 94 Rhythm: normal sinus Findings: no acute ischemic change, other (no isch ) Comparison ECG Date: 11/17/16 Change: no significant change ED Course 1839: Past medical records reviewed. The patient was evaluated in room A8, and a complete history and physical examination were performed. 2118: The patient will be further evaluated at [address] [place] [address]. 2131: Upon reevaluation, the patient is doing well. I discussed the results and treatment plan with the patient. She verbalized agreement of the treatment plan. The patient will be evaluated for further management. Medical Decision Differentials include, but are not limited to; depression, anxiety, suicidal ideation, toxicological process, electrolyte or metabolic abnormality. This patient comes in as described above. She's had increasing impression depression and anxiety. She feels like she is think about hurting herself . She has a history of suicidal attempts in the past. She denies that she actually tried to hurt herself now. She feels anxious and short of breath. She had a CAT scan for PE 1 week ago and I do not think that's likely what is going on here. EKG does not suggest acute coronary syndrome or arrhythmia. Cardiac enzymes are not elevated. She has nothing to suggest acute toxicologic , electrode or metabolic abnormality or infection. She was evaluated by our case management team as well as [facility]. she'll be admitted voluntarily to [facility]. for further inpatient treatment and evaluation. Medication Reconcilliation Current Medication List: was personally reviewed by me Blood Pressure Screening Patient's blood pressure: Elevated blood pressure Blood pressure disposition: Elevated BP felt to be situational Impression Primary Impression: Depression Additional Impressions: Anxiety Suicidal ideation Scribe Attestation The scribe's documentation has been prepared under my direction and personally reviewed by me in its entirety. I confirm that the note above accurately reflects all work, treatment, procedures, and medical decision making performed by me. Departure Information Dispostion Mental Health Acute Care Referrals No Doctor, Assigned (PCP) Patient Instructions [facility] Problem Qualifiers
[2016-11-25 06:15] VITALS: BP 148/96; PULSE 98
--- NOTE | 2016-11-25 14:07 | Psychiatric History & Physical ---
History Date of Service Nov 25, 2016. Identifying Data Ramona Escobar is a 61-year-old female who currently lives with her in a private home. Ramona Escobar was admitted on a 201 voluntary commitment. Patient is admitted from home. Information provided by the patient is considered to be fairly reliable, however she demonstrates inconsistencies in her perspective and recollection. Information also obtained from direct phone consultation with her outpatient provider, Dr. Krystle Castellano, review of her outpatient clinic record including psychiatric transfer note from 10/03/2016 and most recent psychiatric follow-up note dated 11/23/2016. This patient is also known to me from a prior psychiatric consultation while she was admitted medically on 05/27/2016. Chief Complaint "I woke up on Sunday at 2:34 in the morning with intense anxiety and it's been there ever since". History of Present Illness This patient has a very long history of anxiety and depression and is followed with multiple psychiatric providers over the years, most recently seeing Dr. Castellano at [facility]. She has a history of overutilizing her medications, namely Seroquel. She has been treated on a multitude of psychotropic medications over the years and does have a history of multiple suicide attempts in the past. Previous diagnoses include recurrent depression, generalized anxiety disorder, possible history of bipolar disorder, cluster B traits, more recent diagnosis of tardive dyskinesia. She has a history of numerous psychiatric hospitalizations. According to her most recent outpatient follow- up note dated 11/23/2016 the patient was complaining of increased anxiety. She had visited multiple providers and received prescriptions for Vistaril, gabapentin, Silenor. Dr. Castellano indicated her intention to be the sole provider of the patient's psychotropics to reduce access, particular given history of overdose attempts and prescription medication abuse. She recently failed a Neurontin trial complaining of nausea. She complained of getting no more than 1 -3 hours of sleep per night and was feeling desperate but denied intention for self-harm at that time and decline consideration for hospitalization. She is recommended to start a retrial of Depakote as she had previously experienced a period of relative symptom stability between 2009 and 2012 on the medication which was later discontinued while medically hospitalized with mental status changes and found to have ammonia elevation. That was given in combination with Seroquel and Klonopin. She was offered ondansetron for nausea and was recommended to restart the Remeron which she declined. She was also encouraged to follow-up with psych rehabilitation referral. She presented to the ER at [facility] on 11/24/2016 complaining of constant anxiety 2 days significantly elevated above baseline. She stated that she had no reason to be anxious but cannot deal with feeling that way. She was having thoughts of hurting herself and noted that she had multiple suicide attempts in the past but nothing recent. She stated that she did not want to take the Depakote because she did not want additional side effects and specified unsteadiness and blurry vision. She continued to complain of nausea vomiting and shortness of breath. Her recent medical workup for shortness of breath was noted and had been seen one week ago with CT negative for pulmonary embolism. In the ER chest x-ray showed mild cardiac enlargement without cardiopulmonary abnormality labs were checked which showed a white count of 11.5 to, CMP unremarkable apart from glucose of 120, urine toxicology screen was negative, EKG showed normal sinus rhythm without acute changes, cardiac enzymes not elevated and she is medically clear for behavioral health admission. On interview this morning she reports similar symptoms with long-standing anxiety recently exacerbated without clear trigger. She describes difficulty sitting still to the point that she feels that she has to get up and move will go crazy if she does not. She believes that this has been experienced in the past one more acutely anxious however in the past few days she believes is more intense than usual. She complains of continued GI hypermotility and some variable nausea. She complains of frequent waking throughout the night and will get up and walk around to feel more comfortable. Sleep is been very poor over the past week. She reports she took an antibiotic (unknown agent) but did not take prednisone that was prescribed for recent bronchitis. Regarding suicidal ideation reported in the ER she states "I just can't deal with this." She continues to acknowledge thoughts of being better off but denies a specific plan for self-harm presently and comments "I've tried that before and it didn't go too well. I just know I don't feel good about this at all." She remains concerned about the potential for side effects on the Depakote. She repeatedly asks me what we are going to do to treat her for her insomnia. She identifies the combination of Seroquel and Depakote and Klonopin by name as recollected helpful combination the past. She expresses awareness that her doctors have voiced concern about making her tardive dyskinesia worse on antipsychotics. "Personally I think it would be worth it." She denies symptoms of psychosis, hypomania, milan. Past Psychiatric History Current OP Treatment: psychiatrist (Nona) Prior Psych Hospitalizations: [facility], other ( [facility] ) Access to a Gun: Yes (Pt states they are locked up and "I would never touch them.") Suicide Attempts: Yes (multiple) Past Medication Trials Previous medication trials include Viibryd which caused increased anxiety, Depakote possibly initially helpful but associated with ammonia elevation, Celexa more jittery, Valium, Mellaril, Cymbalta tremor and increased anxiety, Anafranil, Klonopin, lithium, thioridazine, Wellbutrin, Tegretol caused cognitive problems, Paxil, Thorazine, Ativan, Effexor tolerated for some time, when asked to, Ambien caused confusion overnight, Deplin cause stomach upset, Bentyl, Luvox, Abilify caused akathisia, melatonin, trazodone associated with palpitations, Lamictal, clomipramine cause confusion, Remeron discontinued secondary to not working, phentermine, Zoloft increased anxiety and nausea, Lyrica didn't work, Risperdal didn't work, Elavil, imipramine, Lexapro stomach upset, Prozac increased anxiety, BuSpar didn't work, Latuda caused rash. Additional Notes Patient has a history of abusing Seroquel in the past. Greater than a total psychiatric hospitalizations. Most recent psychiatric hospitalization in 2014 multiple suicide attempts via toxic ingestion. Past Medical/Surgical History History of Concussion/Seizure: No Obstructive sleep apnea, hypercholesterolemia, obesity, history of cholecystectomy, appendectomy, hysterectomy, tardive dyskinesia. No known history of head injury, seizure, stroke. Allergies Allergies: Coded Allergies: Hydroxyzine (Verified Allergy, Mild, increased anxiety, 11/24/16) Cyclobenzaprine (Verified Allergy, Unknown, RASH, 11/24/16) INFO [facility] Diphenhydramine (Verified Allergy, Unknown, nervousness, 11/24/16) "It makes me bounce of cohen." Naproxen (Verified Allergy, Unknown, WELTS/HIVE BUT CAN TAKE IBUPROFEN & ASPIRIN W/O PROBLEM, 11/24/16) Penicillins (Verified Allergy, Unknown, DOES NOT REMEMBER RXN WAS A CHILD , 11/24/16) Amitriptyline (Unverified Adverse Reaction, Severe, "MADE PT MORE ANXIOUS ", 11/24/16) Sherborn Blue [facility] (Unverified Adverse Reaction, Severe, "COULD NOT SLEEP ", 11/24/16) Buspirone (Unverified Adverse Reaction, Severe, MADE PT MORE ANXIOUS, ) Doxepin (Unverified Adverse Reaction, Severe, "COULD NOT SLEEP", 11/24/16) Trazodone (Verified Adverse Reaction, Unknown, PALPITATIONS, 11/24/16) Home Medications Scheduled Divalproex Sodium (Depakote Etended-Release), 500 MG PO HS Family History Anxiety disorder MOTHER Asthma Cardiac disorder FATHER FH: obesity MOTHER Stroke FATHER Alcohol Use Alcohol Use In Past 12 Months: No AUDIT Total Score: 0 Smoking Use Smoking Status: Never Smoker Substance History Denies alcohol use denies progression of drug use consumes 2 cups of coffee on average daily Personal History Psychological Trauma History: Denies Hx Traumatic Event Additional Comments: Recalls a happy childhood and denies a history of abuse. in 1973. 2 daughters. Multiple grandchildren. He previously worked for children and [employer] services and then worked at [employer] on abortive probe patient on parole but resigned secondary to poor functioning and is on long- term disability subsequent. She's not orthodox. No known legal problems. Review of Systems Constitutional: other (insomnia) Eyes: denies: no symptoms, as stated in HPI, eye pain, tearing, itching, redness, discharge, double vision, visual changes, blurred vision, photophobia, other ENT: denies: no symptoms reported, see HPI, ear pain, ear discharge, loss of hearing, tinnitus, nasal pain, nasal congestion, rhinorrhea, epistaxis, sore throat, stidor, throat swelling, mouth pain, mouth swelling, dental pain, gum swelling, other Cardiovascular: denies: no symptoms reported, see HPI, chest pain, chest tightness, chest pressure, diaphoresis, palpitations, syncope, other Respiratory: reports: short of breath Gastrointestinal: denies diarrhea, nausea, denies vomiting, other ( hypermotility) Musculoskeletal: no symptoms reported Integumentary: other (healing infiltrated IV site on right hand) Neurologic: reports: general weakness, dizziness, other (restlessness) Examination Physical Examination A physical exam was performed in the ER prior to admission to the unit by Dr Cherry. I accept that physical as correct/medical clearance for the inpatient physical exam. Vital Signs Vital Signs Past 12 Hours Date Time Temp Pulse Resp B/P (MAP) Pulse Ox O2 Delivery O2 Flow Rate FiO2 11/25/16 06:15 98 18 148/96 Laboratory Results Last 24 Hours Test 11/24/16 19:14 11/24/16 19:25 White Blood Count 11.52 K/uL Red Blood Count 4.80 M/uL Hemoglobin 13.8 g/dL Hematocrit 41.4 % Mean Corpuscular Volume 86.3 fL Mean Corpuscular Hemoglobin 28.8 pg Mean Corpuscular Hemoglobin Concent 33.3 g/dl Platelet Count 269 K/uL Mean Platelet Volume 9.1 fL Neutrophils (%) (Auto) 65.4 % Lymphocytes (%) (Auto) 25.8 % Monocytes (%) (Auto) 7.5 % Eosinophils (%) (Auto) 0.7 % Basophils (%) (Auto) 0.3 % Neutrophils # (Auto) 7.55 K/uL Lymphocytes # (Auto) 2.97 K/uL Monocytes # (Auto) 0.86 K/uL Eosinophils # (Auto) 0.08 K/uL Basophils # (Auto) 0.03 K/uL RDW Standard Deviation 44.6 fL RDW Coefficient of Variation 14.4 % Immature Granulocyte % (Auto) 0.3 % Immature Granulocyte # (Auto) 0.03 K/uL Sodium Level 139 mmol/L Potassium Level 3.7 mmol/L Chloride Level 107 mmol/L Carbon Dioxide Level 23 mmol/L Anion Gap 8.0 mmol/L Blood Urea Nitrogen 13 mg/dl Creatinine 0.89 mg/dl Est Creatinine Clear Calc Drug Dose 90.3 ml/min Estimated GFR () 81.1 Estimated GFR (Non- 70.0 BUN/Creatinine Ratio 14.5 Random Glucose 120 mg/dl Calcium Level 9.3 mg/dl Total Bilirubin 0.4 mg/dl Direct Bilirubin 0.1 mg/dl Aspartate Amino Transf (AST/SGOT) 20 U/L Alanine Aminotransferase (ALT/SGPT) 29 U/L Alkaline Phosphatase 142 U/L Total Protein 7.7 gm/dl Albumin 3.8 gm/dl Lipase 117 U/L Salicylates Level < 1.7 mg/dl Acetaminophen Level < 2 ug/ml Ethyl Alcohol mg/dL < 3.0 mg/dl Bedside Troponin I < 0.030 ng/ml Mental Examination During interview pt is: alert and oriented, cooperative Appearance: disheveled Eye contact is: good Motor behavior is: akathisia (frequently repositions in bed) Speech: normal in rate, rhythm & volume Affect: anxious, constricted Mood is: anxious Thought process: perseveration, other Thought content: preoccupation (somatic), hopelessness Suicidal thought are: present, Plan: denied, Intent: denied Homicidal thoughts are: denied Hallucinations: denies auditory, denies visual Cognition: memory grossly intact, language grossly intact Intelligence estimated to be: average Insight: limited Judgement: limited Impression / Recommendations Impression This is a 61-year-old woman with a very long history of depression and long- standing refractory anxiety symptoms with failed multiple medication trials over the years who also has a history of abusing sedating psychotropics in the past. She seems to be somatically preoccupied. As example, she acknowledges that she used to take extra doses of Seroquel in the past after feeling jittery following smoking a cigarette. More recently she has been having trouble with tardive dyskinesia involving oral motor movements. Her outpatient provider would like to try her on a retrial of Depakote secondary to a period of relative symptom stability on that in the past however we will need to watch for recurrence of hyperammonemia. She is complaining of abrupt exacerbation of anxiety symptoms and decline in sleep and past few days. 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 Diagnosis: Generalized anxiety disorder; MDD, recurrent, severe, without psychosis; suspect borderline personality disorder; history of sedative hypnotic abuse; tardive dyskinesia Inventory Assets Strengths: Patient is help seeking and able to communicate Needs: Consistency with her medications, provision for safety, medication adjustment Risk Factors Assessment : Yes /single/: No Access to guns: Yes (Pt states they are locked up and "I would never touch them.") Mental Health Diagnoses: Yes Substance use disorders: Yes Previous attempt: Yes Previous psychiatric stay: Yes Hopelessness: Yes Protective Factors Assessment Congregation beliefs: No : Yes Responsible for young children: No Employed: No Stable relationships: Yes Supportive family: Yes Good rapport with provider: Yes Recommendations (1) Anxiety 11/25 - Patient is describing what sounds possibly like tardive akathisia in addition to her long-standing chronic anxiety. GI complains also are long- standing. - Will pursue plan of Depakote retrial at 250mg bid and titrating as indicated and tolerated. We'll need to watch ammonia secondary to history of ammonemia and also K+ which declined on med in the past - Will provide Zofran when necessary for nausea - Will trial clonidine 0.1 mg by mouth now x1 and then qhs for anxiety and suspected akathisia. Common risks and benefits were discussed and patient verbalized understanding - Could also consider a beta jake trial or anticholinergic medication to target the suspected akathisia - Psychoeducation provided regarding amplification of anxiety as an effect of hyper awareness and paucity of helpful distractions. Will encourage her to engage more actively in cognitive behavioral strategies for self de-escalation. - It should be noted that the patient seems to also some illogical beliefs about her medications (such as perceiving that Seroquel XR has a "complete opposite effect" of the regular release Seroquel), has a tendency to abandon medications quickly, and also has a history of abusing perception medications, namely Seroquel - We'll attempt to secure her medications at home before discharge from hospital secondary to history of overdose (2) Depression 11/25 - Patient will be admitted on a voluntary status to the behavioral health unit. She will be encouraged to participate in unit programming as appropriate. She will be maintained on every 15 minute safety checks on the locked unit for her safety. - Coordination of care with current outpatient providers - Patient has responded poorly to antidepressant pharmacotherapy in the past. We'll attempt to elevate mood by mitigating anxiety acutely (3) Tardive dyskinesia 11/25 - educated again re risks associated with neuroleptic (and to lesser degree antidepressant) exposure and risk for TD worsening and permanency. will attempt to avoid further exposure to antipsychotic medications here as able. This document was created using voice recognition software. Please direct any questions to the undersigned. CPT Code Initial Hospital Care: 16919
[2016-11-25] MEDS ORDERED: ONDANSETRON 4 MG TAB PO PRN (14:15)
[2016-11-25] MEDS ORDERED: DIVALPROEX 250 MG EXTENDED REL TAB PO ONE (14:45)
[2016-11-25] MEDS ORDERED: CLONIDINE HCL 0.1 MG TAB PO ONE (14:45)
[2016-11-25 15:10] VITALS: BP 140/86; PULSE 91
[2016-11-25] MEDS ORDERED: DIVALPROEX 500 MG EXTENDED RELEASE TAB PO ONE (21:00)
[2016-11-25 21:26] VITALS: BP 110/77; PULSE 84
[2016-11-25 21:38] VITALS: BP 110/77; PULSE 84
[2016-11-25] MEDS ORDERED: CLONIDINE HCL 0.1 MG TAB PO SCH (22:00)
[2016-11-25] MEDS: DIVALPROEX 250 MG EXTENDED REL TAB PO SCH (22:58)
[2016-11-26 07:03] VITALS: BP_SYST 111; BP_SYST 120; BP_DIAS 71; BP_DIAS 75; PULSE 8; PULSE 86; TEMP 36.5
[2016-11-26] MEDS: DIVALPROEX 250 MG EXTENDED REL TAB PO SCH (08:59)
--- NOTE | 2016-11-26 11:35 | Psychiatric Progress Notes ---
Progress Note Date of Service Nov 26, 2016. Chief Complaint "If you aren't going to be able to help me I'd rather go home". Subjective Patient was seen & assessed interval progress reviewed with Treatment Team. Per staff, patient slept approximately 1 hour overnight. Did participate in some groups in the evening which seemed to brighten her affect. On interview she describes no improvement in restlessness or anxiety following to test doses of clonidine. The medication was well tolerated. So far she reports little effect from the Depakote but seems to be tolerating well. She complains of unchanged anxiety, insomnia, and generally feeling miserable. She states that, if we are not going to be able to help her, she would rather be discharged home. She is agreeable (after discussion which included risks associated with going home in absence of clinical improvement) to staying a while longer in the hospital while we make some further medication adjustments. Review of Systems Constitutional: + fatigue Psychiatric: + depression symptoms, + anxiety, + insomnia Sleep Information Total Hours of Sleep: 1.25 Meal Information Percent of Breakfast Consumed: 0 Percent of Lunch Consumed: 50 Percent of Dinner Consumed: 100 Mental Status Exam During interview pt is: alert and oriented, cooperative Appearance: disheveled Eye contact is: good Motor behavior is: akathisia (frequently repositions in bed) Speech: normal in rate, rhythm & volume Affect: irritable, anxious, constricted Mood is: other (unchanged) Thought process: perseveration Thought content: preoccupation (somatic), hopelessness Suicidal thought are: present, Plan: denied, Intent: denied Homicidal thoughts are: denied Hallucinations: denies auditory, denies visual Cognition: memory grossly intact, language grossly intact Intelligence estimated to be: average Insight: limited Judgement: limited Impression This is a 61-year-old woman with a very long history of depression and long- standing refractory anxiety symptoms with failed multiple medication trials over the years who also has a history of abusing sedating psychotropics in the past. She seems to be somatically preoccupied. As example, she acknowledges that she used to take extra doses of Seroquel in the past after feeling jittery following smoking a cigarette. More recently she has been having trouble with tardive dyskinesia involving oral motor movements. Her outpatient provider would like to try her on a retrial of Depakote secondary to a period of relative symptom stability on that in the past however we will need to watch for recurrence of hyperammonemia. She is complaining of abrupt exacerbation of anxiety symptoms and decline in sleep and past few days. 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 Diagnosis: Generalized anxiety disorder; MDD, recurrent, severe, without psychosis; suspect borderline personality disorder; history of sedative hypnotic abuse; tardive dyskinesia Plan (1) Anxiety 11/25 - Patient is describing what sounds possibly like tardive akathisia in addition to her long-standing chronic anxiety. GI complains also are long- standing. - Will pursue plan of Depakote retrial at 250mg bid and titrating as indicated and tolerated. We'll need to watch ammonia secondary to history of ammonemia and also K+ which declined on med in the past - Will provide Zofran when necessary for nausea - Will trial clonidine 0.1 mg by mouth now x1 and then qhs for anxiety and suspected akathisia. Common risks and benefits were discussed and patient verbalized understanding - Could also consider a beta jake trial or anticholinergic medication to target the suspected akathisia - Psychoeducation provided regarding amplification of anxiety as an effect of hyper awareness and paucity of helpful distractions. Will encourage her to engage more actively in cognitive behavioral strategies for self de-escalation. - It should be noted that the patient seems to also some illogical beliefs about her medications (such as perceiving that Seroquel XR has a "complete opposite effect" of the regular release Seroquel), has a tendency to abandon medications quickly, and also has a history of abusing perception medications, namely Seroquel - We'll attempt to secure her medications at home before discharge from hospital secondary to history of overdose 11/26 - Unfortunately no benefit perceived on clonidine after 2 doses. We'll discontinue in favor of propranolol trial at 10 mg by mouth 3 times a day to start. Again reviewed common risks and benefits and she will watch for positional dizziness in particular. - As the clonidine showed no benefit, will attempt to consolidate the Depakote to bedtime and we'll give her a 750 mg dose tonight. - Unfortunately there is a paucity of favorable sleep aids for this patient. I suggested we try the new agent, Belsomra, favored for its novel mechanism. Unfortunately this is nonformulary and I did fill out a request for nonformulary medication for the pharmacy to pursue a 10 mg daily at bedtime dose but this will not likely be available to her until Sunday as she has no family member that can pick it up from the outside pharmacy. As such, will write for a single dose of lunesta to 2 mg tonight as a trial while awaiting the other agent.. (2) Depression 11/25 - Patient will be admitted on a voluntary status to the behavioral health unit. She will be encouraged to participate in unit programming as appropriate. She will be maintained on every 15 minute safety checks on the locked unit for her safety. - Coordination of care with current outpatient providers - Patient has responded poorly to antidepressant pharmacotherapy in the past. We'll attempt to elevate mood by mitigating anxiety acutely 11/26 - Patient was strongly encouraged to remain active out of room, attend all groups, and to shower today (3) Tardive dyskinesia 11/25 - educated again re risks associated with neuroleptic (and to lesser degree antidepressant) exposure and risk for TD worsening and permanency. will attempt to avoid further exposure to antipsychotic medications here as able. This document was created using voice recognition software. Please direct any questions to the undersigned. Discharge / Aftercare Planning Overhead Irrigator: Name: None Visit Code E&M Code: 49743 Inventory Assets Strengths: Patient is help seeking and able to communicate Needs: Consistency with her medications, provision for safety, medication adjustment Risk Factors Assessment : Yes /single/: No Mental Health Diagnoses: Yes Substance use disorders: Yes Previous attempt: Yes Previous psychiatric stay: Yes Hopelessness: Yes Protective Factors Assessment Rastafari beliefs: No : Yes Responsible for young children: No Employed: No Stable relationships: Yes Supportive family: Yes Good rapport with provider: Yes Data Vital Signs Last 24 Hrs: Date Time Temp Pulse Resp B/P (MAP) Pulse Ox O2 Delivery O2 Flow Rate FiO2 11/26/16 07:03 36.5 86 18 120/75 8 111/71 11/25/16 21:38 84 14 110/77 11/25/16 21:26 84 14 110/77 11/25/16 15:10 91 140/86 Meds Administered Last 24 Hrs: Meds Administered (Past 24Hrs) Medications (Trade) Dose Ordered Sig/Gary Route Start Time Stop Time Status Last Admin Dose Admin Divalproex Sodium (Depakote Extended Rel Tab) 250 mg BID PO 11/25/16 22:00 11/26/16 11:17 DC 11/26/16 08:59 250 MG Divalproex Sodium (Depakote Extended Rel Tab) 250 mg 1445 ONCE PO 11/25/16 14:45 11/25/16 14:46 DC 11/25/16 15:14 250 MG Clonidine HCl (Catapres Tab) 0.1 mg NOW ONCE PO 11/25/16 14:45 11/26/16 11:15 DC 11/25/16 15:14 0.1 MG Clonidine HCl (Catapres Tab) 0.1 mg HS PO 11/25/16 22:00 11/26/16 11:15 DC 11/25/16 22:58 0.1 MG
[2016-11-26] MEDS: PROPRANOLOL HCL 10 MG TAB PO SCH ×2 (13:39→22:01)
[2016-11-26] MEDS ORDERED: DIVALPROEX 250 MG EXTENDED REL TAB PO SCH (22:00)
[2016-11-26] MEDS ORDERED: ESZOPICLONE 1 MG TAB PO ONE (22:00)
[2016-11-26 22:02] VITALS: BP 143/82; PULSE 79
[2016-11-27 06:25] VITALS: BP_SYST 111; BP_SYST 122; BP_DIAS 72; BP_DIAS 75; PULSE 71; PULSE 85; TEMP 36.5
[2016-11-27] MEDS: PROPRANOLOL HCL 10 MG TAB PO SCH ×3 (08:16→22:25)
--- NOTE | 2016-11-27 11:06 | Psychiatric Progress Notes ---
Progress Note Date of Service Nov 27, 2016. 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 She seems to be somatically preoccupied. As example, she acknowledges that she used to take extra doses of Seroquel in the past after feeling jittery following smoking a cigarette. More recently she has been having trouble with tardive dyskinesia involving oral motor movements. Her outpatient provider would like to try her on a retrial of Depakote secondary to a period of relative symptom stability on that in the past however we will need to watch for recurrence of hyperammonemia. She is complaining of abrupt exacerbation of anxiety symptoms and decline in sleep and past few days. 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 Chief Complaint "Not as bad.". Subjective Patient was seen & assessed interval progress reviewed with Treatment Team. The patient says that she got over 4 hours of sleep last night, and although this is better than the last 4 nights, she says that she feels more tired today than she did when she wasn't sleeping. Her mood remains low, rated 3/10, and says that suicidal thoughts are fewer. 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 Her anxiety today is "a little better", but says that since her anxiety has been so high, she feels hot all the time. She talked about her mouth movements and wondered about starting some low dose risperdal. Review of Systems Constitutional: + fatigue ENT: + problem reported (involuntary mouth movements) Respiratory: No cough, No sputum, No wheezing, No shortness of breath, No dyspnea on exertion, No dyspnea at rest, No hemoptysis, No problem reported Cardiovascular: No chest pain, No orthopnea, No PND, No edema, No claudication , No palpitations, No problem reported Abdomen: No pain, No nausea, No vomiting, No diarrhea, No constipation, No GI bleeding, No problem reported Musculoskeletal: No joint pain, No muscle pain, No swelling, No calf pain, No problem reported Neurologic: + problem reported (involuntary mouth movements) Psychiatric: + depression symptoms, + anxiety, + insomnia Integumentary: No rash, No itch, No new/changing skin lesions, No color change , No bleeding, No problem reported Sleep Information Total Hours of Sleep: 4.25 Meal Information Percent of Breakfast Consumed: 100 Percent of Lunch Consumed: 100 Percent of Dinner Consumed: 50 Mental Status Exam During interview pt is: alert and oriented, cooperative Appearance: disheveled (and malodorous) Eye contact is: good Motor behavior is: psychomotor retardation Speech: normal in rate, rhythm & volume Affect: blunted, anxious Mood is: depressed, anxious Thought process: goal directed Thought content: preoccupation (somatic) Suicidal thought are: present, Plan: denied, Intent: denied Homicidal thoughts are: denied Hallucinations: denies auditory, denies visual Cognition: memory grossly intact, language grossly intact Intelligence estimated to be: average Insight: limited Judgement: limited Impression Slept better last night. We are exploring affordability of Belsomra and if so will proceed with a trial. If not will explore the cost of continuing Lunesta. Will increase Depakote to 100 mg. HS with level in 5 days. Plan (1) Anxiety 11/25 - Patient is describing what sounds possibly like tardive akathisia in addition to her long-standing chronic anxiety. GI complains also are long- standing. - Will pursue plan of Depakote retrial at 250mg bid and titrating as indicated and tolerated. We'll need to watch ammonia secondary to history of ammonemia and also K+ which declined on med in the past - Will provide Zofran when necessary for nausea - Will trial clonidine 0.1 mg by mouth now x1 and then qhs for anxiety and suspected akathisia. Common risks and benefits were discussed and patient verbalized understanding - Could also consider a beta jake trial or anticholinergic medication to target the suspected akathisia - Psychoeducation provided regarding amplification of anxiety as an effect of hyper awareness and paucity of helpful distractions. Will encourage her to engage more actively in cognitive behavioral strategies for self de-escalation. - It should be noted that the patient seems to also some illogical beliefs about her medications (such as perceiving that Seroquel XR has a "complete opposite effect" of the regular release Seroquel), has a tendency to abandon medications quickly, and also has a history of abusing perception medications, namely Seroquel - We'll attempt to secure her medications at home before discharge from hospital secondary to history of overdose 11/26 - Unfortunately no benefit perceived on clonidine after 2 doses. We'll discontinue in favor of propranolol trial at 10 mg by mouth 3 times a day to start. Again reviewed common risks and benefits and she will watch for positional dizziness in particular. - As the clonidine showed no benefit, will attempt to consolidate the Depakote to bedtime and we'll give her a 750 mg dose tonight. - Unfortunately there is a paucity of favorable sleep aids for this patient. I suggested we try the new agent, Belsomra, favored for its novel mechanism. Unfortunately this is nonformulary and I did fill out a request for nonformulary medication for the pharmacy to pursue a 10 mg daily at bedtime dose but this will not likely be available to her until Sunday as she has no family member that can pick it up from the outside pharmacy. As such, will write for a single dose of lunesta to 2 mg tonight as a trial while awaiting the other agent.. 11/27 - Increase Depakote ER to 100 mg HS - Level in 5 days with ammonia - Exploring affordability of Belsomra and Lunesta (2) Depression 11/25 - Patient will be admitted on a voluntary status to the behavioral health unit. She will be encouraged to participate in unit programming as appropriate. She will be maintained on every 15 minute safety checks on the locked unit for her safety. - Coordination of care with current outpatient providers - Patient has responded poorly to antidepressant pharmacotherapy in the past. We'll attempt to elevate mood by mitigating anxiety acutely 11/26 - Patient was strongly encouraged to remain active out of room, attend all groups, and to shower today (3) Tardive dyskinesia 11/25 - educated again re risks associated with neuroleptic (and to lesser degree antidepressant) exposure and risk for TD worsening and permanency. will attempt to avoid further exposure to antipsychotic medications here as able. This document was created using voice recognition software. Please direct any questions to the undersigned. Discharge / Aftercare Planning Elementary Educator: Name: None Visit Code E&M Code: 65278 Inventory Assets Strengths: Patient is help seeking and able to communicate Needs: Consistency with her medications, provision for safety, medication adjustment Risk Factors Assessment : Yes /single/: No Mental Health Diagnoses: Yes Substance use disorders: Yes Previous attempt: Yes Previous psychiatric stay: Yes Hopelessness: Yes Protective Factors Assessment Sabianism beliefs: No : Yes Responsible for young children: No Employed: No Stable relationships: Yes Supportive family: Yes Good rapport with provider: Yes Data Vital Signs Last 24 Hrs: Date Time Temp Pulse Resp B/P (MAP) Pulse Ox O2 Delivery O2 Flow Rate FiO2 11/27/16 06:25 36.5 71 19 111/72 85 122/75 11/26/16 22:02 79 143/82 Meds Administered Last 24 Hrs: Meds Administered (Past 24Hrs) Medications (Trade) Dose Ordered Sig/Gary Route Start Time Stop Time Status Last Admin Dose Admin Divalproex Sodium (Depakote Extended Rel Tab) 250 mg BID PO 11/25/16 22:00 11/26/16 11:17 DC 11/26/16 08:59 250 MG Divalproex Sodium (Depakote Extended Rel Tab) 250 mg 1445 ONCE PO 11/25/16 14:45 11/25/16 14:46 DC 11/25/16 15:14 250 MG Clonidine HCl (Catapres Tab) 0.1 mg NOW ONCE PO 11/25/16 14:45 11/26/16 11:15 DC 11/25/16 15:14 0.1 MG Clonidine HCl (Catapres Tab) 0.1 mg HS PO 11/25/16 22:00 11/26/16 11:15 DC 11/25/16 22:58 0.1 MG Divalproex Sodium (Depakote Extended Rel Tab) 750 mg HS PO 11/26/16 22:00 12/26/16 21:59 11/26/16 22:01 750 MG Propranolol HCl (Inderal Tab) 10 mg TID PO 11/26/16 14:00 12/26/16 13:59 11/27/16 08:16 10 MG Eszopiclone (Lunesta Tab) 2 mg HSZ ONCE PO 11/26/16 22:00 11/26/16 22:01 DC 11/26/16 23:38 2 MG Lab Results Last 24 Hrs: 11/24/16 19:14 Red Blood Count 4.80, Mean Corpuscular Volume 86.3, Mean Corpuscular Hemoglobin 28.8, Mean Corpuscular Hemoglobin Concent 33.3, Mean Platelet Volume 9.1, Neutrophils (%) (Auto) 65.4, Lymphocytes (%) (Auto) 25.8, Monocytes (%) (Auto) 7.5, Eosinophils (%) (Auto) 0.7, Basophils (%) (Auto) 0.3, Neutrophils # (Auto) 7.55, Lymphocytes # (Auto) 2.97, Monocytes # (Auto) 0.86, Eosinophils # (Auto) 0.08, Basophils # (Auto) 0.03 11/24/16 19:14 Test 11/24/16 00:00 11/24/16 19:14 11/24/16 19:25 Urine Opiates Screen NEG (NEG) Urine Methadone, Qualitative NEG (NEG) Urine Barbiturates NEG (NEG) Urine Phencyclidine (PCP) Level NEG (NEG) Ur Amphetamine/Methamphetamine NEG (NEG) MDMA (Ecstasy) Screen NEG (NEG) Urine Benzodiazepines Screen NEG (NEG) Urine Cocaine Metabolite NEG (NEG) Urine Marijuana (THC) NEG (NEG) White Blood Count 11.52 K/uL (4.8-10.8) Red Blood Count 4.80 M/uL (4.2-5.4) Hemoglobin 13.8 g/dL (12.0-16.0) Hematocrit 41.4 % (37-47) Mean Corpuscular Volume 86.3 fL (80-100) Mean Corpuscular Hemoglobin 28.8 pg (25-34) Mean Corpuscular Hemoglobin Concent 33.3 g/dl (32-36) Platelet Count 269 K/uL (130-400) Mean Platelet Volume 9.1 fL (7.4-10.4) Neutrophils (%) (Auto) 65.4 % Lymphocytes (%) (Auto) 25.8 % Monocytes (%) (Auto) 7.5 % Eosinophils (%) (Auto) 0.7 % Basophils (%) (Auto) 0.3 % Neutrophils # (Auto) 7.55 K/uL (1.4-6.5) Lymphocytes # (Auto) 2.97 K/uL (1.2-3.4) Monocytes # (Auto) 0.86 K/uL (0.11-0.59) Eosinophils # (Auto) 0.08 K/uL (0-0.5) Basophils # (Auto) 0.03 K/uL (0-0.2) RDW Standard Deviation 44.6 fL (36.4-46.3) RDW Coefficient of Variation 14.4 % (11.5-14.5) Immature Granulocyte % (Auto) 0.3 % Immature Granulocyte # (Auto) 0.03 K/uL (0.00-0.02) Anion Gap 8.0 mmol/L (3-11) Est Creatinine Clear Calc Drug Dose 90.3 ml/min Estimated GFR () 81.1 Estimated GFR (Non- 70.0 BUN/Creatinine Ratio 14.5 (10-20) Calcium Level 9.3 mg/dl (8.5-10.1) Total Bilirubin 0.4 mg/dl (0.2-1) Direct Bilirubin 0.1 mg/dl (0-0.2) Aspartate Amino Transf (AST/SGOT) 20 U/L (15-37) Alanine Aminotransferase (ALT/SGPT) 29 U/L (12-78) Alkaline Phosphatase 142 U/L (45-117) Total Protein 7.7 gm/dl (6.4-8.2) Albumin 3.8 gm/dl (3.4-5.0) Lipase 117 U/L (73-393) Salicylates Level < 1.7 mg/dl (2.8-20) Acetaminophen Level < 2 ug/ml (10-30) Ethyl Alcohol mg/dL < 3.0 mg/dl (0-3) Bedside Troponin I < 0.030 ng/ml (0-0.045)
[2016-11-27 15:01] VITALS: BP 113/74; PULSE 74
[2016-11-27] MEDS ORDERED: ESZOPICLONE 1 MG TAB PO SCH (22:00)
[2016-11-27 22:24] VITALS: BP 122/78; PULSE 69
[2016-11-27] MEDS: DIVALPROEX 500 MG EXTENDED RELEASE TAB PO SCH (22:25)
[2016-11-28 06:25] VITALS: BP 122/68; PULSE 69; TEMP 36.5
[2016-11-28 06:30] VITALS: Ht 160 cm; Wt 136.8 kg
[2016-11-28] MEDS: PROPRANOLOL HCL 10 MG TAB PO SCH ×3 (08:30→22:29)
--- NOTE | 2016-11-28 13:51 | Medical Student: BHU Only ---
Psychiatric Progress Note Date of Service: Nov 28, 2016. SUBJECTIVE: Ramona Escobar is a 61 yo female with a long history of progressive anxiety and insomnia admitted to the [facility] 4 days ago following >48 hours without sleep and severe anxiety. She reports feeling less anxious since being in the [facility] but still having persistent symptoms that seem to center in her abdomen. This feeling of something "crawling in her stomach and intestines" is the primary cause of her not being able to sleep, because she becomes fixated on it as she tries to go to bed. She has been going to bed between 10 and 11 consistently up until this hospitalization, but for the past two months was waking around 2 am following 1-3 hours of sleep. Her insomnia first started 10 years ago but is the worst now it has ever been. She also notes that things pop into her head that she needs to do, which triggers anxiety, furthering her insomnia. She does get anxiety about the sensation in her stomach. Per nursing and the patient, she only slept for 1.5 hours last night, but did sleep almost 4 hours the night before. She remains fatigued and is more calm today, but frustrated that for how fatigued she is, she cannot sleep. In discussing a normal day for Ramona, since she has retired from [employer] she has no routine in her life. She has been waking up earlier and earlier without trying, and mostly sits around and watches TV. She gets no exercise and sees her children and grandchildren about 1x weekly. She feels she has little responsibility except for cooking and cleaning around the house. I did discuss an injury relating to in infiltrated IV on the dorsal aspect of her R hand. This occurred two weeks ago, and the skin blistered one week ago, prior to this admission. She has been intermittently using aloe lotion and is not concerned about infection or pain. ROS: Positive for fatigue, anxiety, insomnia, tingling in her fingers, stiff neck, crawling sensation in abdomen. Negative for headache, chest pain, shortness of breath, diarrhea, constipation, leg pain or cramping, depression, suicidal ideations, homicidal ideations. Objective: MSE: Appearance is that of a well groomed and dressed female who appears older than her stated age. The patient is friendly and cooperative with the interview. Eye contact is good. Motor behavior is normal. Speech: normal. Mood: down but not depressed. Affect: Normal Thought process: Goal directed Thought content: Fixated on fatigue and somatic symptoms that provoke anxiety. Perception: reality based, no hallucinations Cognition: Intelligence appears to be normal, Insight and judgement are estimated to be good. ASSESSMENT and PLAN: Ramona Escobar is a 61 yo female with progressive anxiety and insomnia on [facility] day 4. She continues to have trouble sleeping and persistent anxiety, although both have improved slightly since admission. Individual assessment and plan are as follows: 1. Anxiety: Continues to be severe, related to somatic symptoms. Anxiety seems to be cause of insomnia. Will continue to avoid antipsychotics due to concern for tardive dyskinesia. Will continue to treat with Depakote 1000mg qhs and consider other antianxiety medications. 2. Insomnia: Continues to be severe. Will trial belsomra tonight, exploring affordability of belsomra and lunesta. Encouraged daily physical activity and set daily schedule. Discussed diurnal cues and circadian rhythm. 3: Tardive diskinesa: Not currently noticeable, but will continue to avoid antipsychotics. 4. HTN: Will continue on propranolol 10mg tid 5. Disposition: Continued admission due to inability to sleep and control anxiety. D/C will be to home with f/u with PCP and psychiatry.
[2016-11-28 14:32] VITALS: BP 139/86; PULSE 75
--- NOTE | 2016-11-28 14:54 | Psychiatric Progress Notes ---
Progress Note Date of Service Nov 28, 2016. 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 She seems to be somatically preoccupied. As example, she acknowledges that she used to take extra doses of Seroquel in the past after feeling jittery following smoking a cigarette. More recently she has been having trouble with tardive dyskinesia involving oral motor movements. Her outpatient provider would like to try her on a retrial of Depakote secondary to a period of relative symptom stability on that in the past however we will need to watch for recurrence of hyperammonemia. She is complaining of abrupt exacerbation of anxiety symptoms and decline in sleep and past few days. 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 Chief Complaint "Anxiety is over the top.". Subjective Patient was seen & assessed interval progress reviewed with Treatment Team. The patient says that her anxiety is high still and her sleep poor last night. She reviews that her sleep has been poor for years, feeling that the only med that helped was Seroquel. [employer] she says that she woke up on the Wed and was "a total basket case". her sleep last night was "horrible" getting by her estimations, only and hour and fifty minutes. Today her concentration is poor and energy is low. She hesitates when asked about SI, and then responds with "I 'll be alright". Nursing reports that she has been attending groups. She signed an EUNICE for but would not allow staff to call to arrange for a meeting, wanting to do it herself. She complains of being temperature dysregulated, yesterday hot and today cold. Long discussion today about thought stopping activites to use when anxious and about the use of exercise rather than sitting on the couch ruminating. Review of Systems Constitutional: + fatigue ENT: No hearing loss, No unusual epistaxis, No nasal symptoms, No sore throat, No tinnitus, No dental problems, No trouble swallowing, No problem reported Respiratory: No cough, No sputum, No wheezing, No shortness of breath, No dyspnea on exertion, No dyspnea at rest, No hemoptysis, No problem reported Cardiovascular: No chest pain, No orthopnea, No PND, No edema, No claudication , No palpitations, No problem reported Abdomen: No pain, No nausea, No vomiting, No diarrhea, No constipation, No GI bleeding, No problem reported Musculoskeletal: No joint pain, No muscle pain, No swelling, No calf pain, No problem reported Neurologic: No memory loss, No paralysis, No weakness, No numbness/tingling, No vertigo, No balance problems, No problem reported Psychiatric: + anxiety, + insomnia Integumentary: No rash, No itch, No new/changing skin lesions, No color change , No bleeding, No problem reported Sleep Information Total Hours of Sleep: 2.50 Meal Information Percent of Breakfast Consumed: 100 Percent of Lunch Consumed: 100 Percent of Dinner Consumed: 100 Mental Status Exam During interview pt is: alert and oriented, cooperative Appearance: appropriately dressed, appropriately groomed Eye contact is: good Motor behavior is: psychomotor retardation Speech: normal in rate, rhythm & volume Affect: blunted, anxious Mood is: depressed, anxious Thought process: goal directed Thought content: preoccupation (somatic) Suicidal thought are: present, Plan: denied, Intent: denied Homicidal thoughts are: denied Hallucinations: denies auditory, denies visual Cognition: memory grossly intact, language grossly intact Intelligence estimated to be: average Insight: limited Judgement: limited Impression Sleep not as good last night. Staff has explored cost of Belsomra which will be about $20/month and so preauth sent. Pharmacy has acquired a bottle and if it works, will ask that the bottle be sent to her pharmacy for their use. Will start 10 mg. HS. We still need to schedule a family meeting and the patient seems to be dragging her feet arranging it. The patient is resistant to the idea that she must actively work against her anxiety rather than relying on meds. Will encourage daily walking or using the stationary bike. Plan (1) Anxiety 11/25 - Patient is describing what sounds possibly like tardive akathisia in addition to her long-standing chronic anxiety. GI complains also are long- standing. - Will pursue plan of Depakote retrial at 250mg bid and titrating as indicated and tolerated. We'll need to watch ammonia secondary to history of ammonemia and also K+ which declined on med in the past - Will provide Zofran when necessary for nausea - Will trial clonidine 0.1 mg by mouth now x1 and then qhs for anxiety and suspected akathisia. Common risks and benefits were discussed and patient verbalized understanding - Could also consider a beta jake trial or anticholinergic medication to target the suspected akathisia - Psychoeducation provided regarding amplification of anxiety as an effect of hyper awareness and paucity of helpful distractions. Will encourage her to engage more actively in cognitive behavioral strategies for self de-escalation. - It should be noted that the patient seems to also some illogical beliefs about her medications (such as perceiving that Seroquel XR has a "complete opposite effect" of the regular release Seroquel), has a tendency to abandon medications quickly, and also has a history of abusing perception medications, namely Seroquel - We'll attempt to secure her medications at home before discharge from hospital secondary to history of overdose 11/26 - Unfortunately no benefit perceived on clonidine after 2 doses. We'll discontinue in favor of propranolol trial at 10 mg by mouth 3 times a day to start. Again reviewed common risks and benefits and she will watch for positional dizziness in particular. - As the clonidine showed no benefit, will attempt to consolidate the Depakote to bedtime and we'll give her a 750 mg dose tonight. - Unfortunately there is a paucity of favorable sleep aids for this patient. I suggested we try the new agent, Belsomra, favored for its novel mechanism. Unfortunately this is nonformulary and I did fill out a request for nonformulary medication for the pharmacy to pursue a 10 mg daily at bedtime dose but this will not likely be available to her until Sunday as she has no family member that can pick it up from the outside pharmacy. As such, will write for a single dose of lunesta to 2 mg tonight as a trial while awaiting the other agent.. 11/27 - Increase Depakote ER to 100 mg HS - Level in 5 days with ammonia - Exploring affordability of Belsomra and Lunesta (2) Depression 11/25 - Patient will be admitted on a voluntary status to the behavioral health unit. She will be encouraged to participate in unit programming as appropriate. She will be maintained on every 15 minute safety checks on the locked unit for her safety. - Coordination of care with current outpatient providers - Patient has responded poorly to antidepressant pharmacotherapy in the past. We'll attempt to elevate mood by mitigating anxiety acutely 11/26 - Patient was strongly encouraged to remain active out of room, attend all groups, and to shower today 11/28 - Will trial Belsomra 10 mg. HS tonight (3) Tardive dyskinesia 11/25 - educated again re risks associated with neuroleptic (and to lesser degree antidepressant) exposure and risk for TD worsening and permanency. will attempt to avoid further exposure to antipsychotic medications here as able. This document was created using voice recognition software. Please direct any questions to the undersigned. Discharge / Aftercare Planning Cro: Name: None Visit Code E&M Code: 72716 Inventory Assets Strengths: Patient is help seeking and able to communicate Needs: Consistency with her medications, provision for safety, medication adjustment Risk Factors Assessment : Yes /single/: No Mental Health Diagnoses: Yes Substance use disorders: Yes Previous attempt: Yes Previous psychiatric stay: Yes Hopelessness: Yes Protective Factors Assessment Advent beliefs: No : Yes Responsible for young children: No Employed: No Stable relationships: Yes Supportive family: Yes Good rapport with provider: Yes Data Vital Signs Last 24 Hrs: Date Time Temp Pulse Resp B/P (MAP) Pulse Ox O2 Delivery O2 Flow Rate FiO2 11/28/16 06:25 36.5 69 18 122/68 11/27/16 22:24 69 122/78 11/27/16 15:01 74 113/74 Meds Administered Last 24 Hrs: Meds Administered (Past 24Hrs) Medications (Trade) Dose Ordered Sig/Gary Route Start Time Stop Time Status Last Admin Dose Admin Divalproex Sodium (Depakote Extended Rel Tab) 750 mg HS PO 11/26/16 22:00 11/27/16 11:09 DC 11/26/16 22:01 750 MG Eszopiclone (Lunesta Tab) 2 mg HSZ ONCE PO 11/26/16 22:00 11/26/16 22:01 DC 11/26/16 23:38 2 MG Divalproex Sodium (Depakote Extended Rel Tab) 1,000 mg HS PO 11/27/16 22:00 12/27/16 21:59 11/27/16 22:25 1,000 MG Eszopiclone (Lunesta Tab) 2 mg HS PO 11/27/16 22:00 11/27/16 22:01 DC 11/27/16 23:36 2 MG Lab Results Last 24 Hrs: 11/24/16 19:14 Red Blood Count 4.80, Mean Corpuscular Volume 86.3, Mean Corpuscular Hemoglobin 28.8, Mean Corpuscular Hemoglobin Concent 33.3, Mean Platelet Volume 9.1, Neutrophils (%) (Auto) 65.4, Lymphocytes (%) (Auto) 25.8, Monocytes (%) (Auto) 7.5, Eosinophils (%) (Auto) 0.7, Basophils (%) (Auto) 0.3, Neutrophils # (Auto) 7.55, Lymphocytes # (Auto) 2.97, Monocytes # (Auto) 0.86, Eosinophils # (Auto) 0.08, Basophils # (Auto) 0.03 11/24/16 19:14 Test 11/24/16 00:00 11/24/16 19:14 11/24/16 19:25 Urine Opiates Screen NEG (NEG) Urine Methadone, Qualitative NEG (NEG) Urine Barbiturates NEG (NEG) Urine Phencyclidine (PCP) Level NEG (NEG) Ur Amphetamine/Methamphetamine NEG (NEG) MDMA (Ecstasy) Screen NEG (NEG) Urine Benzodiazepines Screen NEG (NEG) Urine Cocaine Metabolite NEG (NEG) Urine Marijuana (THC) NEG (NEG) White Blood Count 11.52 K/uL (4.8-10.8) Red Blood Count 4.80 M/uL (4.2-5.4) Hemoglobin 13.8 g/dL (12.0-16.0) Hematocrit 41.4 % (37-47) Mean Corpuscular Volume 86.3 fL (80-100) Mean Corpuscular Hemoglobin 28.8 pg (25-34) Mean Corpuscular Hemoglobin Concent 33.3 g/dl (32-36) Platelet Count 269 K/uL (130-400) Mean Platelet Volume 9.1 fL (7.4-10.4) Neutrophils (%) (Auto) 65.4 % Lymphocytes (%) (Auto) 25.8 % Monocytes (%) (Auto) 7.5 % Eosinophils (%) (Auto) 0.7 % Basophils (%) (Auto) 0.3 % Neutrophils # (Auto) 7.55 K/uL (1.4-6.5) Lymphocytes # (Auto) 2.97 K/uL (1.2-3.4) Monocytes # (Auto) 0.86 K/uL (0.11-0.59) Eosinophils # (Auto) 0.08 K/uL (0-0.5) Basophils # (Auto) 0.03 K/uL (0-0.2) RDW Standard Deviation 44.6 fL (36.4-46.3) RDW Coefficient of Variation 14.4 % (11.5-14.5) Immature Granulocyte % (Auto) 0.3 % Immature Granulocyte # (Auto) 0.03 K/uL (0.00-0.02) Anion Gap 8.0 mmol/L (3-11) Est Creatinine Clear Calc Drug Dose 90.3 ml/min Estimated GFR () 81.1 Estimated GFR (Non- 70.0 BUN/Creatinine Ratio 14.5 (10-20) Calcium Level 9.3 mg/dl (8.5-10.1) Total Bilirubin 0.4 mg/dl (0.2-1) Direct Bilirubin 0.1 mg/dl (0-0.2) Aspartate Amino Transf (AST/SGOT) 20 U/L (15-37) Alanine Aminotransferase (ALT/SGPT) 29 U/L (12-78) Alkaline Phosphatase 142 U/L (45-117) Total Protein 7.7 gm/dl (6.4-8.2) Albumin 3.8 gm/dl (3.4-5.0) Lipase 117 U/L (73-393) Salicylates Level < 1.7 mg/dl (2.8-20) Acetaminophen Level < 2 ug/ml (10-30) Ethyl Alcohol mg/dL < 3.0 mg/dl (0-3) Bedside Troponin I < 0.030 ng/ml (0-0.045)
[2016-11-28] MEDS ORDERED: SUVOREXANT 10 MG PO SCH ×2 (22:00)
[2016-11-28] MEDS: DIVALPROEX 500 MG EXTENDED RELEASE TAB PO SCH (22:22)
[2016-11-28 22:32] VITALS: BP 142/86; PULSE 77
[2016-11-29 07:02] VITALS: BP 109/74; PULSE 73; TEMP 36.6
[2016-11-29] MEDS: PROPRANOLOL HCL 10 MG TAB PO SCH ×3 (07:49→21:11)
--- NOTE | 2016-11-29 08:50 | Psychiatric Progress Notes ---
Progress Note Date of Service Nov 29, 2016. 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 She seems to be somatically preoccupied. As example, she acknowledges that she used to take extra doses of Seroquel in the past after feeling jittery following smoking a cigarette. More recently she has been having trouble with tardive dyskinesia involving oral motor movements. Her outpatient provider would like to try her on a retrial of Depakote secondary to a period of relative symptom stability on that in the past however we will need to watch for recurrence of hyperammonemia. She is complaining of abrupt exacerbation of anxiety symptoms and decline in sleep and past few days. 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 Chief Complaint "[]". Subjective Patient was seen & assessed interval progress reviewed with Treatment Team. Staff report she started Belsomra last night, and slept better, 4/25 hours. She is going to groups. She has a meeting with her today. Sleep Information Total Hours of Sleep: 4.25 Meal Information Percent of Breakfast Consumed: 100 Percent of Lunch Consumed: 100 Percent of Dinner Consumed: 100 Mental Status Exam During interview pt is: alert and oriented, cooperative Appearance: appropriately dressed, appropriately groomed Eye contact is: good Motor behavior is: psychomotor retardation Speech: normal in rate, rhythm & volume Affect: blunted, anxious Mood is: depressed, anxious Thought process: goal directed Thought content: preoccupation (somatic) Suicidal thought are: present, Plan: denied, Intent: denied Homicidal thoughts are: denied Hallucinations: denies auditory, denies visual Cognition: memory grossly intact, language grossly intact Intelligence estimated to be: average Insight: limited Judgement: limited Impression Sleep not as good last night. Staff has explored cost of Belsomra which will be about $20/month and so preauth sent. Pharmacy has acquired a bottle and if it works, will ask that the bottle be sent to her pharmacy for their use. Will start 10 mg. HS. We still need to schedule a family meeting and the patient seems to be dragging her feet arranging it. The patient is resistant to the idea that she must actively work against her anxiety rather than relying on meds. Will encourage daily walking or using the stationary bike. Plan (1) Anxiety 11/25 - Patient is describing what sounds possibly like tardive akathisia in addition to her long-standing chronic anxiety. GI complains also are long- standing. - Will pursue plan of Depakote retrial at 250mg bid and titrating as indicated and tolerated. We'll need to watch ammonia secondary to history of ammonemia and also K+ which declined on med in the past - Will provide Zofran when necessary for nausea - Will trial clonidine 0.1 mg by mouth now x1 and then qhs for anxiety and suspected akathisia. Common risks and benefits were discussed and patient verbalized understanding - Could also consider a beta jake trial or anticholinergic medication to target the suspected akathisia - Psychoeducation provided regarding amplification of anxiety as an effect of hyper awareness and paucity of helpful distractions. Will encourage her to engage more actively in cognitive behavioral strategies for self de-escalation. - It should be noted that the patient seems to also some illogical beliefs about her medications (such as perceiving that Seroquel XR has a "complete opposite effect" of the regular release Seroquel), has a tendency to abandon medications quickly, and also has a history of abusing perception medications, namely Seroquel - We'll attempt to secure her medications at home before discharge from hospital secondary to history of overdose 11/26 - Unfortunately no benefit perceived on clonidine after 2 doses. We'll discontinue in favor of propranolol trial at 10 mg by mouth 3 times a day to start. Again reviewed common risks and benefits and she will watch for positional dizziness in particular. - As the clonidine showed no benefit, will attempt to consolidate the Depakote to bedtime and we'll give her a 750 mg dose tonight. - Unfortunately there is a paucity of favorable sleep aids for this patient. I suggested we try the new agent, Belsomra, favored for its novel mechanism. Unfortunately this is nonformulary and I did fill out a request for nonformulary medication for the pharmacy to pursue a 10 mg daily at bedtime dose but this will not likely be available to her until Sunday as she has no family member that can pick it up from the outside pharmacy. As such, will write for a single dose of lunesta to 2 mg tonight as a trial while awaiting the other agent.. 11/27 - Increase Depakote ER to 100 mg HS - Level in 5 days with ammonia - Exploring affordability of Belsomra and Lunesta (2) Depression 11/25 - Patient will be admitted on a voluntary status to the behavioral health unit. She will be encouraged to participate in unit programming as appropriate. She will be maintained on every 15 minute safety checks on the locked unit for her safety. - Coordination of care with current outpatient providers - Patient has responded poorly to antidepressant pharmacotherapy in the past. We'll attempt to elevate mood by mitigating anxiety acutely 11/26 - Patient was strongly encouraged to remain active out of room, attend all groups, and to shower today 11/28 - Will trial Belsomra 10 mg. HS tonight (3) Tardive dyskinesia 11/25 - educated again re risks associated with neuroleptic (and to lesser degree antidepressant) exposure and risk for TD worsening and permanency. will attempt to avoid further exposure to antipsychotic medications here as able. This document was created using voice recognition software. Please direct any questions to the undersigned. Discharge / Aftercare Planning Primary Care Physician: Name: Loan Rudd PA-C Psychiatrist: Name: Michael Castellano Workforce Specialist: Name: Amada Inventory Assets Strengths: Patient is help seeking and able to communicate Needs: Consistency with her medications, provision for safety, medication adjustment Risk Factors Assessment : Yes /single/: No Mental Health Diagnoses: Yes Substance use disorders: Yes Previous attempt: Yes Previous psychiatric stay: Yes Hopelessness: Yes Protective Factors Assessment Druze beliefs: No : Yes Responsible for young children: No Employed: No Stable relationships: Yes Supportive family: Yes Good rapport with provider: Yes Data Vital Signs Last 24 Hrs: Date Time Temp Pulse Resp B/P (MAP) Pulse Ox O2 Delivery O2 Flow Rate FiO2 11/29/16 07:02 36.6 73 16 109/74 11/28/16 22:32 77 18 142/86 11/28/16 14:32 75 18 139/86 Meds Administered Last 24 Hrs: Meds Administered (Past 24Hrs) Medications (Trade) Dose Ordered Sig/Gary Route Start Time Stop Time Status Last Admin Dose Admin Divalproex Sodium (Depakote Extended Rel Tab) 1,000 mg HS PO 11/27/16 22:00 12/27/16 21:59 11/28/16 22:22 1,000 MG Eszopiclone (Lunesta Tab) 2 mg HS PO 11/27/16 22:00 11/27/16 22:01 DC 11/27/16 23:36 2 MG Suvorexant (Belsomra Tab) 10 mg HSZ PO 11/28/16 22:00 11/28/16 23:00 DC 11/28/16 23:59 10 MG
--- NOTE | 2016-11-29 11:49 | Psychiatric Progress Notes ---
Progress Note Date of Service Nov 29, 2016. 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 She seems to be somatically preoccupied. As example, she acknowledges that she used to take extra doses of Seroquel in the past after feeling jittery following smoking a cigarette. More recently she has been having trouble with tardive dyskinesia involving oral motor movements. Her outpatient provider would like to try her on a retrial of Depakote secondary to a period of relative symptom stability on that in the past however we will need to watch for recurrence of hyperammonemia. She is complaining of abrupt exacerbation of anxiety symptoms and decline in sleep and past few days. 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 Chief Complaint "I felt strange this morning. ". Subjective Patient was seen & assessed interval progress reviewed with Treatment Team. The patient had her first dose of Belsomra last night. Staff report that she got 4+ hours of sleep, but she says that she feels strange this AM. She reports feeling dizzy when she stands up, but says she has had that for a long time and associates it with her anxiety. Her anxiety is constantly high, with episodic elevations and she still has suicidal thoughts "that come and go" but denies plan or intent. She had a meeting with her this AM that went "exactly as I thought it would". She says that her doesn't plan on changing anything that he is doing. She describes that he does his thing "and I stay home". She says that she is used to this and has no expectations of him. Staff report that she has been attending groups with good participation. Review of Systems Constitutional: + fatigue ENT: No hearing loss, No unusual epistaxis, No nasal symptoms, No sore throat, No tinnitus, No dental problems, No trouble swallowing, No problem reported Respiratory: No cough, No sputum, No wheezing, No shortness of breath, No dyspnea on exertion, No dyspnea at rest, No hemoptysis, No problem reported Cardiovascular: No chest pain, No orthopnea, No PND, No edema, No claudication , No palpitations, No problem reported Abdomen: No pain, No nausea, No vomiting, No diarrhea, No constipation, No GI bleeding, No problem reported Musculoskeletal: No joint pain, No muscle pain, No swelling, No calf pain, No problem reported Neurologic: No memory loss, No paralysis, No weakness, No numbness/tingling, No vertigo, No balance problems, No problem reported Psychiatric: + depression symptoms, + anxiety, + insomnia Integumentary: No rash, No itch, No new/changing skin lesions, No color change , No bleeding, No problem reported Sleep Information Total Hours of Sleep: 4.25 Meal Information Percent of Breakfast Consumed: 100 Percent of Lunch Consumed: 100 Percent of Dinner Consumed: 100 Mental Status Exam During interview pt is: alert and oriented, cooperative Appearance: appropriately dressed, appropriately groomed Eye contact is: good Motor behavior is: psychomotor retardation Speech: normal in rate, rhythm & volume Affect: blunted, anxious Mood is: depressed (with intermittant DI), anxious Thought process: goal directed Thought content: preoccupation (somatic) Suicidal thought are: present, Plan: denied, Intent: denied Homicidal thoughts are: denied Hallucinations: denies auditory, denies visual Cognition: memory grossly intact, language grossly intact Intelligence estimated to be: average Insight: limited Judgement: limited Medication Trials (1) past psych meds 1. Gabapentic 2. Silenor- up all night sweating 3. Elavil 4. Remeron- felt it didn't work 5. Trintellix 6. Xanax 7. Lexapro 8. Viibryd- increased anxiety 9. Depakote- seemed to help, elevated ammonia, hypokalemia 10. Celexa- increased anxiety 11. Valium 12. Mellaril 13. Cymbalta- GI distress 14. Klonopin 15. Philo 16. Thioridizine 17. Wellbutrin SR 18. Tegretol- cogintive and word finding problems 19. Paxil- allergy 20. Cogentin 21. Thorazine 22. Ativan 23. Effexor XR- increased anxiety 24. Lunesta 25. Ambien and Ambien CR 26. Deplin- GI distress 27. Bentyl 28. Luvox- increased anxiety and insomnia 29. Abilify- akathisia 30. Melatonin- ineffective 31. Trazodone- palpitations, tachy 32. Lamicta- unclear outcome 33. Clomipramine- confused 34. Phentermine- increased anxiety 35. Zoloft- nausea, increased anxiety 36. Lyrice- didn't work 37. Risperdal- didn't work 38. Imipramine 39. Prozac- increased anxiety 40. Buspar- didn't work 41. Latuda- rash Last Edited By: Annetta Herrera on Nov 29, 2016 11:47 Impression Moderate results with 1st dose of Belsomra, getting over 4 hours. The half life is 12 hours and so she feels mildly hung over this AM. Will encourage nursing to get at 9 or 10, continue current dose. Anxiety remains high. She is hoping to have better sleep that she is getting. Her mood remains low with intermittant SI. Will get orthostatics today in view of compliants of dizziness. If no problems could consider increasing Inderal. FAmily meeting with held this AM Plan (1) Anxiety 11/25 - Patient is describing what sounds possibly like tardive akathisia in addition to her long-standing chronic anxiety. GI complains also are long- standing. - Will pursue plan of Depakote retrial at 250mg bid and titrating as indicated and tolerated. We'll need to watch ammonia secondary to history of ammonemia and also K+ which declined on med in the past - Will provide Zofran when necessary for nausea - Will trial clonidine 0.1 mg by mouth now x1 and then qhs for anxiety and suspected akathisia. Common risks and benefits were discussed and patient verbalized understanding - Could also consider a beta jake trial or anticholinergic medication to target the suspected akathisia - Psychoeducation provided regarding amplification of anxiety as an effect of hyper awareness and paucity of helpful distractions. Will encourage her to engage more actively in cognitive behavioral strategies for self de-escalation. - It should be noted that the patient seems to also some illogical beliefs about her medications (such as perceiving that Seroquel XR has a "complete opposite effect" of the regular release Seroquel), has a tendency to abandon medications quickly, and also has a history of abusing perception medications, namely Seroquel - We'll attempt to secure her medications at home before discharge from hospital secondary to history of overdose 11/26 - Unfortunately no benefit perceived on clonidine after 2 doses. We'll discontinue in favor of propranolol trial at 10 mg by mouth 3 times a day to start. Again reviewed common risks and benefits and she will watch for positional dizziness in particular. - As the clonidine showed no benefit, will attempt to consolidate the Depakote to bedtime and we'll give her a 750 mg dose tonight. - Unfortunately there is a paucity of favorable sleep aids for this patient. I suggested we try the new agent, Belsomra, favored for its novel mechanism. Unfortunately this is nonformulary and I did fill out a request for nonformulary medication for the pharmacy to pursue a 10 mg daily at bedtime dose but this will not likely be available to her until Sunday as she has no family member that can pick it up from the outside pharmacy. As such, will write for a single dose of lunesta to 2 mg tonight as a trial while awaiting the other agent.. 11/27 - Increase Depakote ER to 100 mg HS - Level in 5 days with ammonia - Exploring affordability of Belsomra and Lunesta 11/29 -Encourage acitivity, and alternate coping strategies when anxious (2) Depression 11/25 - Patient will be admitted on a voluntary status to the behavioral health unit. She will be encouraged to participate in unit programming as appropriate. She will be maintained on every 15 minute safety checks on the locked unit for her safety. - Coordination of care with current outpatient providers - Patient has responded poorly to antidepressant pharmacotherapy in the past. We'll attempt to elevate mood by mitigating anxiety acutely 11/26 - Patient was strongly encouraged to remain active out of room, attend all groups, and to shower today 11/28 - Will trial Belsomra 10 mg. HS tonight 11/29 - Continue Belsomra 10 mg. HS - Continue Depakote 1000 mg. HS with level on Sunday with ammonia (3) Tardive dyskinesia 11/25 - educated again re risks associated with neuroleptic (and to lesser degree antidepressant) exposure and risk for TD worsening and permanency. will attempt to avoid further exposure to antipsychotic medications here as able. This document was created using voice recognition software. Please direct any questions to the undersigned. Discharge / Aftercare Planning Primary Care Physician: Name: Loan Rudd PA-C Psychiatrist: Name: Michael Castellano Stick Roller: Name: None Visit Code E&M Code: 86013 Inventory Assets Strengths: Patient is help seeking and able to communicate Needs: Consistency with her medications, provision for safety, medication adjustment Risk Factors Assessment : Yes /single/: No Mental Health Diagnoses: Yes Substance use disorders: Yes Previous attempt: Yes Previous psychiatric stay: Yes Hopelessness: Yes Protective Factors Assessment Faith beliefs: No : Yes Responsible for young children: No Employed: No Stable relationships: Yes Supportive family: Yes Good rapport with provider: Yes Data Vital Signs Last 24 Hrs: Date Time Temp Pulse Resp B/P (MAP) Pulse Ox O2 Delivery O2 Flow Rate FiO2 11/29/16 07:02 36.6 73 16 109/74 11/28/16 22:32 77 18 142/86 11/28/16 14:32 75 18 139/86 Meds Administered Last 24 Hrs: Meds Administered (Past 24Hrs) Medications (Trade) Dose Ordered Sig/Gary Route Start Time Stop Time Status Last Admin Dose Admin Divalproex Sodium (Depakote Extended Rel Tab) 1,000 mg HS PO 11/27/16 22:00 12/27/16 21:59 11/28/16 22:22 1,000 MG Eszopiclone (Lunesta Tab) 2 mg HS PO 11/27/16 22:00 11/27/16 22:01 DC 11/27/16 23:36 2 MG Suvorexant (Belsomra Tab) 10 mg HSZ PO 11/28/16 22:00 11/28/16 23:00 DC 11/28/16 23:59 10 MG Lab Results Last 24 Hrs: 11/24/16 19:14 Red Blood Count 4.80, Mean Corpuscular Volume 86.3, Mean Corpuscular Hemoglobin 28.8, Mean Corpuscular Hemoglobin Concent 33.3, Mean Platelet Volume 9.1, Neutrophils (%) (Auto) 65.4, Lymphocytes (%) (Auto) 25.8, Monocytes (%) (Auto) 7.5, Eosinophils (%) (Auto) 0.7, Basophils (%) (Auto) 0.3, Neutrophils # (Auto) 7.55, Lymphocytes # (Auto) 2.97, Monocytes # (Auto) 0.86, Eosinophils # (Auto) 0.08, Basophils # (Auto) 0.03 11/24/16 19:14 Test 11/24/16 00:00 11/24/16 19:14 11/24/16 19:25 Urine Opiates Screen NEG (NEG) Urine Methadone, Qualitative NEG (NEG) Urine Barbiturates NEG (NEG) Urine Phencyclidine (PCP) Level NEG (NEG) Ur Amphetamine/Methamphetamine NEG (NEG) MDMA (Ecstasy) Screen NEG (NEG) Urine Benzodiazepines Screen NEG (NEG) Urine Cocaine Metabolite NEG (NEG) Urine Marijuana (THC) NEG (NEG) White Blood Count 11.52 K/uL (4.8-10.8) Red Blood Count 4.80 M/uL (4.2-5.4) Hemoglobin 13.8 g/dL (12.0-16.0) Hematocrit 41.4 % (37-47) Mean Corpuscular Volume 86.3 fL (80-100) Mean Corpuscular Hemoglobin 28.8 pg (25-34) Mean Corpuscular Hemoglobin Concent 33.3 g/dl (32-36) Platelet Count 269 K/uL (130-400) Mean Platelet Volume 9.1 fL (7.4-10.4) Neutrophils (%) (Auto) 65.4 % Lymphocytes (%) (Auto) 25.8 % Monocytes (%) (Auto) 7.5 % Eosinophils (%) (Auto) 0.7 % Basophils (%) (Auto) 0.3 % Neutrophils # (Auto) 7.55 K/uL (1.4-6.5) Lymphocytes # (Auto) 2.97 K/uL (1.2-3.4) Monocytes # (Auto) 0.86 K/uL (0.11-0.59) Eosinophils # (Auto) 0.08 K/uL (0-0.5) Basophils # (Auto) 0.03 K/uL (0-0.2) RDW Standard Deviation 44.6 fL (36.4-46.3) RDW Coefficient of Variation 14.4 % (11.5-14.5) Immature Granulocyte % (Auto) 0.3 % Immature Granulocyte # (Auto) 0.03 K/uL (0.00-0.02) Anion Gap 8.0 mmol/L (3-11) Est Creatinine Clear Calc Drug Dose 90.3 ml/min Estimated GFR () 81.1 Estimated GFR (Non- 70.0 BUN/Creatinine Ratio 14.5 (10-20) Calcium Level 9.3 mg/dl (8.5-10.1) Total Bilirubin 0.4 mg/dl (0.2-1) Direct Bilirubin 0.1 mg/dl (0-0.2) Aspartate Amino Transf (AST/SGOT) 20 U/L (15-37) Alanine Aminotransferase (ALT/SGPT) 29 U/L (12-78) Alkaline Phosphatase 142 U/L (45-117) Total Protein 7.7 gm/dl (6.4-8.2) Albumin 3.8 gm/dl (3.4-5.0) Lipase 117 U/L (73-393) Salicylates Level < 1.7 mg/dl (2.8-20) Acetaminophen Level < 2 ug/ml (10-30) Ethyl Alcohol mg/dL < 3.0 mg/dl (0-3) Bedside Troponin I < 0.030 ng/ml (0-0.045)
--- NOTE | 2016-11-29 13:17 | Psych Management Progress Note ---
Psychiatry Miscellaneous Date of Service: Nov 29, 2016. I personally saw the patient and reviewed the treatment plan as outlined in progress note from today. She is in agreement with the plan.
[2016-11-29 13:55] VITALS: BP_SYST 119; BP_SYST 120; BP_DIAS 78; BP_DIAS 80
[2016-11-29] MEDS: DIVALPROEX 500 MG EXTENDED RELEASE TAB PO SCH (21:10)
[2016-11-29 21:15] VITALS: BP 139/72; PULSE 72
[2016-11-29] MEDS ORDERED: SUVOREXANT 10 MG PO SCH (22:00)
[2016-11-30 07:09] VITALS: BP_SYST 116; BP_SYST 142; BP_DIAS 73; BP_DIAS 77; PULSE 73; PULSE 86; TEMP 36.5
[2016-11-30] MEDS: PROPRANOLOL HCL 10 MG TAB PO SCH ×3 (09:06→21:45)
--- NOTE | 2016-11-30 12:33 | Medical Student: BHU Only ---
Psychiatric Progress Note Date of Service: Nov 30, 2016. CC: "I didn't sleep a wink and anxiety is kristian high" Subjective: Ramona Escobar is a 61 yo female with a long history of progressive anxiety and insomnia [facility] following >48 hours without sleep and severe anxiety. Her anxiety has waxed and waned since her admission to the [facility] but is still having persistent somatic symptoms that seem to center in her abdomen. This feeling of something "crawling in her stomach and intestines" is the primary cause of her not being able to sleep, because she becomes fixated on it as she tries to go to bed. She has been going to bed between 10 and 11 consistently up until this hospitalization, but for the past two months was waking around 2 am following 1-3 hours of sleep. Her insomnia first started 10 years ago but is the worst now it has ever been. She also notes that things pop into her head that she needs to do, which triggers anxiety, furthering her insomnia. She does get anxiety about the sensation in her stomach. She reports that upon starting Belsomra two nights ago, she slept four hours two nights ago, with a feeling of being hungover from the medication yesterday morning. She took the same 10mg dose last night around midnight but did not sleep at all. She also did not experience the fogginess like yesterday. Her decrease in sleep has also increased her anxiety to be "kristian high" today. She also reports a poor outcome of her meeting with her yesterday, as he continues to provide absolutely zero support. As her condition has deteriorated , he has further distanced himself from her. ROS: Positive for fatigue, anxiety 10/10, insomnia, tingling in her fingers, crawling sensation in abdomen. Negative for headache, chest pain, shortness of breath, diarrhea, constipation, leg pain or cramping, depression, suicidal ideations, homicidal ideations. Objective: MSE: Appearance is that of a well groomed and dressed female who appears older than her stated age. She appears fatigued and deflated. The patient is friendly and cooperative with the interview. Eye contact is good. Motor behavior is normal. Speech: normal. Mood: down but not depressed. Affect: Normal Thought process: Goal directed Thought content: Fixated on fatigue and somatic symptoms that provoke anxiety. Also feels her problem is all hers to deal with due to lack of support from her . Perception: reality based, no hallucinations Cognition: Intelligence appears to be normal, Insight and judgement are estimated to be good. ASSESSMENT and PLAN: Ramona Escobar is a 61 yo female with progressive anxiety and insomnia on [facility] day 6. She continues to have trouble sleeping and persistent anxiety. Individual assessment and plan are as follows: 1. Anxiety: Continues to be severe,10/10 today, related to somatic symptoms and lack of sleep. Anxiety seems to be cause of insomnia as well as somatic stomach "crawling" sensation. Will continue to avoid antipsychotics due to concern for tardive dyskinesia. Will continue to treat with Depakote 1000mg qhs and consider other antianxiety medications. Will need need CBC w/ diff tomorrow and ammonia level due to hyperammonemia in the past. 2. Insomnia: Continues to be severe. Belsomra trailed for last two nights, with initial partial success of four hours, and no success last night. Will continue to trial tonight while exploring other options. Will also explore possibility of Vistaril to help with feeling of needing to move constantly due to feeling in abdomen, although it is listed as an allergy. Encouraged again daily physical activity and set daily schedule. Discussed diurnal cues and circadian rhythm. 3: Tardive diskinesa: Noticeable in group today. Will continue to avoid antipsychotics. 4. HTN: Will continue on propranolol 10mg tid 5. Disposition: Continued admission due to inability to sleep and control anxiety. D/C will be to home with f/u with PCP and Dr. Jung. Her next appointment with Dr. Jung is next week and she now sees her every two weeks.
--- NOTE | 2016-11-30 13:35 | Psychiatric Progress Notes ---
Progress Note Date of Service Nov 30, 2016. 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 She seems to be somatically preoccupied. As example, she acknowledges that she used to take extra doses of Seroquel in the past after feeling jittery following smoking a cigarette. More recently she has been having trouble with tardive dyskinesia involving oral motor movements. Her outpatient provider would like to try her on a retrial of Depakote secondary to a period of relative symptom stability on that in the past however we will need to watch for recurrence of hyperammonemia. She is complaining of abrupt exacerbation of anxiety symptoms and decline in sleep and past few days. 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 Chief Complaint "I didn't get any sleep last night. ". Subjective Patient was seen & assessed interval progress reviewed with Treatment Team. The patient is unhappy feeling she did not sleep at all. Nursing staff observed her to sleep off and on for 3 hours. She is frustrated, asking again for Risperdal saying that she doesn't care if it increase her TD. she says her mood is "not good", and she continues to have SI. her anxiety is high. She can acknowledge that her sleeplessness worsens her anxiety which leads to SI, then immediately follows that with "When can I go Home?". At night when she goes not bed she says that her stomach churns keeping her awake. She had tried protonic, TUMS, in the past without change. Nursing reports that she has been attending most groups although today would not get out of bed for community meeting. She has had no contact with her since their phone meeting yesterday. Review of Systems Constitutional: + fatigue ENT: No hearing loss, No unusual epistaxis, No nasal symptoms, No sore throat, No tinnitus, No dental problems, No trouble swallowing, No problem reported Respiratory: No cough, No sputum, No wheezing, No shortness of breath, No dyspnea on exertion, No dyspnea at rest, No hemoptysis, No problem reported Cardiovascular: No chest pain, No orthopnea, No PND, No edema, No claudication , No palpitations, No problem reported Abdomen: + problem reported (stomach churning with anxiety) Musculoskeletal: No joint pain, No muscle pain, No swelling, No calf pain, No problem reported Neurologic: No memory loss, No paralysis, No weakness, No numbness/tingling, No vertigo, No balance problems, No problem reported Psychiatric: + depression symptoms (with SI), + anxiety, + insomnia Integumentary: No rash, No itch, No new/changing skin lesions, No color change , No bleeding, No problem reported Sleep Information Total Hours of Sleep: 3.00 Meal Information Percent of Breakfast Consumed: 0 Percent of Lunch Consumed: 100 Percent of Dinner Consumed: 100 Mental Status Exam During interview pt is: alert and oriented, cooperative Appearance: appropriately dressed, appropriately groomed Eye contact is: good Motor behavior is: psychomotor retardation Speech: normal in rate, rhythm & volume Affect: blunted, anxious Mood is: depressed (with intermittant DI), anxious Thought process: goal directed Thought content: preoccupation (somatic) Suicidal thought are: present, Plan: denied, Intent: denied Homicidal thoughts are: denied Hallucinations: denies auditory, denies visual Cognition: memory grossly intact, language grossly intact Intelligence estimated to be: average Insight: limited Judgement: limited Medication Trials (1) past psych meds 1. Gabapentic 2. Silenor- up all night sweating 3. Elavil 4. Remeron- felt it didn't work 5. Trintellix 6. Xanax 7. Lexapro 8. Viibryd- increased anxiety 9. Depakote- seemed to help, elevated ammonia, hypokalemia 10. Celexa- increased anxiety 11. Valium 12. Mellaril 13. Cymbalta- GI distress 14. Klonopin 15. Prewitt 16. Thioridizine 17. Wellbutrin SR 18. Tegretol- cogintive and word finding problems 19. Paxil- allergy 20. Cogentin 21. Thorazine 22. Ativan 23. Effexor XR- increased anxiety 24. Lunesta 25. Ambien and Ambien CR 26. Deplin- GI distress 27. Bentyl 28. Luvox- increased anxiety and insomnia 29. Abilify- akathisia 30. Melatonin- ineffective 31. Trazodone- palpitations, tachy 32. Lamicta- unclear outcome 33. Clomipramine- confused 34. Phentermine- increased anxiety 35. Zoloft- nausea, increased anxiety 36. Lyrice- didn't work 37. Risperdal- didn't work 38. Imipramine 39. Prozac- increased anxiety 40. Buspar- didn't work 41. Latuda- rash Last Edited By: Annetta Herrera on Nov 29, 2016 11:47 Impression Poor sleep last night. Will try incresing Belsomra to 15 mg. HS. She is not trying to work toward physical endeavors that might help her sleep. In re- reading Dr. Castellano's OP notes, in order for the patient to remain in treatment with her, the patient is being asked to only get psychoactive meds from Dr. Castellano, she is also to be engaging in behavioral aspects of treatment including establishing a plan for exercise, a plan for eating ie only eating at the table , and engaging in therapy. I will ask the staff to establish a set time every day for the patient to exercise, and to remind/encourage not to eat but at meals and at the table. She continues to ask for antipsychotics which will only worsen her TD. I have suggested the idea on Neurofeedback as well. Plan (1) Anxiety 11/25 - Patient is describing what sounds possibly like tardive akathisia in addition to her long-standing chronic anxiety. GI complains also are long- standing. - Will pursue plan of Depakote retrial at 250mg bid and titrating as indicated and tolerated. We'll need to watch ammonia secondary to history of ammonemia and also K+ which declined on med in the past - Will provide Zofran when necessary for nausea - Will trial clonidine 0.1 mg by mouth now x1 and then qhs for anxiety and suspected akathisia. Common risks and benefits were discussed and patient verbalized understanding - Could also consider a beta jake trial or anticholinergic medication to target the suspected akathisia - Psychoeducation provided regarding amplification of anxiety as an effect of hyper awareness and paucity of helpful distractions. Will encourage her to engage more actively in cognitive behavioral strategies for self de-escalation. - It should be noted that the patient seems to also some illogical beliefs about her medications (such as perceiving that Seroquel XR has a "complete opposite effect" of the regular release Seroquel), has a tendency to abandon medications quickly, and also has a history of abusing perception medications, namely Seroquel - We'll attempt to secure her medications at home before discharge from hospital secondary to history of overdose 11/26 - Unfortunately no benefit perceived on clonidine after 2 doses. We'll discontinue in favor of propranolol trial at 10 mg by mouth 3 times a day to start. Again reviewed common risks and benefits and she will watch for positional dizziness in particular. - As the clonidine showed no benefit, will attempt to consolidate the Depakote to bedtime and we'll give her a 750 mg dose tonight. - Unfortunately there is a paucity of favorable sleep aids for this patient. I suggested we try the new agent, Belsomra, favored for its novel mechanism. Unfortunately this is nonformulary and I did fill out a request for nonformulary medication for the pharmacy to pursue a 10 mg daily at bedtime dose but this will not likely be available to her until Sunday as she has no family member that can pick it up from the outside pharmacy. As such, will write for a single dose of lunesta to 2 mg tonight as a trial while awaiting the other agent.. 11/27 - Increase Depakote ER to 100 mg HS - Level in 5 days with ammonia - Exploring affordability of Belsomra and Lunesta 11/29 -Encourage acitivity, and alternate coping strategies when anxious 11/30 - Establish a designated exercise time daily and assist the patient to participate - Review mindfulness (2) Depression 11/25 - Patient will be admitted on a voluntary status to the behavioral health unit. She will be encouraged to participate in unit programming as appropriate. She will be maintained on every 15 minute safety checks on the locked unit for her safety. - Coordination of care with current outpatient providers - Patient has responded poorly to antidepressant pharmacotherapy in the past. We'll attempt to elevate mood by mitigating anxiety acutely 11/26 - Patient was strongly encouraged to remain active out of room, attend all groups, and to shower today 11/28 - Will trial Belsomra 10 mg. HS tonight 11/29 - Continue Belsomra 10 mg. HS - Continue Depakote 1000 mg. HS with level on Sunday with ammonia 11/30 - Increase Belsomra to 15 mg. HS (3) Tardive dyskinesia 11/25 - educated again re risks associated with neuroleptic (and to lesser degree antidepressant) exposure and risk for TD worsening and permanency. will attempt to avoid further exposure to antipsychotic medications here as able. This document was created using voice recognition software. Please direct any questions to the undersigned. Discharge / Aftercare Planning Primary Care Physician: Name: Loan Rudd PA-C Appointment Notes: As needed Psychiatrist: Name: Michael Castellano Date of Appointment: Dec 07, 2016 Time of Appointment: 10:40 Appointment Notes: and 12/21 @12:40 Therapist: Name: Yee Lopez LCSW Date of Appointment: Dec 14, 2016 Time of Appointment: 10am Urologist: Name: None Visit Code E&M Code: 44876 Inventory Assets Strengths: Patient is help seeking and able to communicate Needs: Consistency with her medications, provision for safety, medication adjustment Risk Factors Assessment : Yes /single/: No Mental Health Diagnoses: Yes Substance use disorders: Yes Previous attempt: Yes Previous psychiatric stay: Yes Hopelessness: Yes Protective Factors Assessment Synagogue beliefs: No : Yes Responsible for young children: No Employed: No Stable relationships: Yes Supportive family: Yes Good rapport with provider: Yes Data Vital Signs Last 24 Hrs: Date Time Temp Pulse Resp B/P (MAP) Pulse Ox O2 Delivery O2 Flow Rate FiO2 11/30/16 07:09 36.5 73 18 116/73 86 142/77 11/29/16 21:15 72 139/72 11/29/16 13:55 119/80 120/78 Meds Administered Last 24 Hrs: Meds Administered (Past 24Hrs) Medications (Trade) Dose Ordered Sig/[place] Route Start Time Stop Time Status Last Admin Dose Admin Suvorexant (Belsomra Tab) 10 mg HSZ PO 11/29/16 22:00 12/29/16 21:59 11/30/16 00:07 10 MG Suvorexant (Belsomra Tab) 10 mg HSZ PO 11/28/16 22:00 11/28/16 23:00 DC 11/28/16 23:59 10 MG Lab Results Last 24 Hrs: 11/24/16 19:14 Red Blood Count 4.80, Mean Corpuscular Volume 86.3, Mean Corpuscular Hemoglobin 28.8, Mean Corpuscular Hemoglobin Concent 33.3, Mean Platelet Volume 9.1, Neutrophils (%) (Auto) 65.4, Lymphocytes (%) (Auto) 25.8, Monocytes (%) (Auto) 7.5, Eosinophils (%) (Auto) 0.7, Basophils (%) (Auto) 0.3, Neutrophils # (Auto) 7.55, Lymphocytes # (Auto) 2.97, Monocytes # (Auto) 0.86, Eosinophils # (Auto) 0.08, Basophils # (Auto) 0.03 11/24/16 19:14 Test 11/24/16 00:00 11/24/16 19:14 11/24/16 19:25 Urine Opiates Screen NEG (NEG) Urine Methadone, Qualitative NEG (NEG) Urine Barbiturates NEG (NEG) Urine Phencyclidine (PCP) Level NEG (NEG) Ur Amphetamine/Methamphetamine NEG (NEG) MDMA (Ecstasy) Screen NEG (NEG) Urine Benzodiazepines Screen NEG (NEG) Urine Cocaine Metabolite NEG (NEG) Urine Marijuana (THC) NEG (NEG) White Blood Count 11.52 K/uL (4.8-10.8) Red Blood Count 4.80 M/uL (4.2-5.4) Hemoglobin 13.8 g/dL (12.0-16.0) Hematocrit 41.4 % (37-47) Mean Corpuscular Volume 86.3 fL (80-100) Mean Corpuscular Hemoglobin 28.8 pg (25-34) Mean Corpuscular Hemoglobin Concent 33.3 g/dl (32-36) Platelet Count 269 K/uL (130-400) Mean Platelet Volume 9.1 fL (7.4-10.4) Neutrophils (%) (Auto) 65.4 % Lymphocytes (%) (Auto) 25.8 % Monocytes (%) (Auto) 7.5 % Eosinophils (%) (Auto) 0.7 % Basophils (%) (Auto) 0.3 % Neutrophils # (Auto) 7.55 K/uL (1.4-6.5) Lymphocytes # (Auto) 2.97 K/uL (1.2-3.4) Monocytes # (Auto) 0.86 K/uL (0.11-0.59) Eosinophils # (Auto) 0.08 K/uL (0-0.5) Basophils # (Auto) 0.03 K/uL (0-0.2) RDW Standard Deviation 44.6 fL (36.4-46.3) RDW Coefficient of Variation 14.4 % (11.5-14.5) Immature Granulocyte % (Auto) 0.3 % Immature Granulocyte # (Auto) 0.03 K/uL (0.00-0.02) Anion Gap 8.0 mmol/L (3-11) Est Creatinine Clear Calc Drug Dose 90.3 ml/min Estimated GFR () 81.1 Estimated GFR (Non- 70.0 BUN/Creatinine Ratio 14.5 (10-20) Calcium Level 9.3 mg/dl (8.5-10.1) Total Bilirubin 0.4 mg/dl (0.2-1) Direct Bilirubin 0.1 mg/dl (0-0.2) Aspartate Amino Transf (AST/SGOT) 20 U/L (15-37) Alanine Aminotransferase (ALT/SGPT) 29 U/L (12-78) Alkaline Phosphatase 142 U/L (45-117) Total Protein 7.7 gm/dl (6.4-8.2) Albumin 3.8 gm/dl (3.4-5.0) Lipase 117 U/L (73-393) Salicylates Level < 1.7 mg/dl (2.8-20) Acetaminophen Level < 2 ug/ml (10-30) Ethyl Alcohol mg/dL < 3.0 mg/dl (0-3) Bedside Troponin I < 0.030 ng/ml (0-0.045)
[2016-11-30] MEDS ORDERED: hydrOXYzine HCL 25 MG TAB PO PRN (13:45)
[2016-11-30 14:41] VITALS: BP 118/84; PULSE 75
[2016-11-30 20:31] VITALS: BP 122/67; PULSE 50
[2016-11-30] MEDS: DIVALPROEX 500 MG EXTENDED RELEASE TAB PO SCH (21:44)
[2016-11-30] MEDS: SUVOREXANT 10 MG PO SCH (23:48)
[2016-12-01 06:57] VITALS: BP_SYST 104; BP_SYST 111; BP_DIAS 66; BP_DIAS 70; PULSE 76; PULSE 84; TEMP 36.6
[2016-12-01] MEDS: PROPRANOLOL HCL 10 MG TAB PO SCH ×3 (08:16→21:47)
--- NOTE | 2016-12-01 11:30 | Medical Student: BHU Only ---
Psychiatric Progress Note Date of Service: Dec 01, 2016 CC: "I got some sleep last night" Subjective: Ramona Escobar is a 61 yo female with a long history of progressive anxiety and insomnia [facility] ago following >48 hours without sleep and severe anxiety. Her anxiety has waxed and waned since her admission to the [facility] but is still having persistent somatic symptoms that seem to center in her abdomen. This feeling of something "crawling in her stomach and intestines" is the primary cause of her not being able to sleep, because she becomes fixated on it as she tries to go to bed. She has been going to bed between 10 and 11 consistently up until this hospitalization, but for the past two months was waking around 2 am following 1-3 hours of sleep. Her insomnia first started 10 years ago but is the worst now it has ever been. She also notes that things pop into her head that she needs to do, which triggers anxiety , furthering her insomnia. She is frustrated that as her condition has worsened , her has distanced himself from the situation and provides no support at all for her. She is optimistic today that she was able to sleep for 5 hours last night. She reports that upon starting Belsomra three nights ago, she slept four hours the first night, none two nights ago, and 5 hours last night at an increased dose of 15mg. Her increased anxiety is linked to poor sleep, and she notes she feels less anxious today but is "almost afraid to say those words out loud". She admits fleeting thoughts of hopelessness and suicide yesterday but nothing she would act on. She denies those thoughts today. ROS: Positive for fatigue, anxiety 6/10, improved sleep, crawling sensation in abdomen. Negative for headache, chest pain, shortness of breath, diarrhea, constipation, leg pain or cramping, depression, suicidal ideations, homicidal ideations. Objective: MSE: Appearance is that of a well groomed and dressed female who appears older than her stated age. She showered this morning. She appears more energetic this morning. The patient is friendly and cooperative with the interview. Eye contact is good. Motor behavior is normal. Speech: normal. Mood: optimistic Affect: Normal Thought process: Goal directed Thought content: Fixated on fatigue and somatic symptoms that provoke anxiety. Also feels her problem is all hers to deal with due to lack of support from her . Is already more relaxed following sleeping 5 hours. Perception: reality based, no hallucinations Cognition: Intelligence appears to be normal, Insight and judgement are estimated to be good. Lab Results: Test 11/24/16 00:00 11/24/16 19:14 11/24/16 19:25 12/01/16 08:54 Urine Opiates Screen NEG Urine Methadone, Qualitative NEG Urine Barbiturates NEG Urine Phencyclidine (PCP) Level NEG Ur Amphetamine/Methamphetamine NEG MDMA (Ecstasy) Screen NEG Urine Benzodiazepines Screen NEG Urine Cocaine Metabolite NEG Urine Marijuana (THC) NEG White Blood Count 11.52 Red Blood Count 4.80 Hemoglobin 13.8 Hematocrit 41.4 Mean Corpuscular Volume 86.3 Mean Corpuscular Hemoglobin 28.8 Mean Corpuscular Hemoglobin Concent 33.3 Platelet Count 269 Mean Platelet Volume 9.1 Neutrophils (%) (Auto) 65.4 Lymphocytes (%) (Auto) 25.8 Monocytes (%) (Auto) 7.5 Eosinophils (%) (Auto) 0.7 Basophils (%) (Auto) 0.3 Neutrophils # (Auto) 7.55 Lymphocytes # (Auto) 2.97 Monocytes # (Auto) 0.86 Eosinophils # (Auto) 0.08 Basophils # (Auto) 0.03 RDW Standard Deviation 44.6 RDW Coefficient of Variation 14.4 Immature Granulocyte % (Auto) 0.3 Immature Granulocyte # (Auto) 0.03 Sodium Level 139 Potassium Level 3.7 Chloride Level 107 Carbon Dioxide Level 23 Anion Gap 8.0 Blood Urea Nitrogen 13 Creatinine 0.89 Est Creatinine Clear Calc Drug Dose 90.3 Estimated GFR () 81.1 Estimated GFR (Non- 70.0 BUN/Creatinine Ratio 14.5 Random Glucose 120 Calcium Level 9.3 Total Bilirubin 0.4 Direct Bilirubin 0.1 Aspartate Amino Transferase (AST) 20 Alanine Aminotransferase (ALT) 29 Alkaline Phosphatase 142 Total Protein 7.7 Albumin 3.8 Lipase 117 Salicylates Level < 1.7 Acetaminophen Level < 2 Ethyl Alcohol mg/dL < 3.0 POC Troponin I < 0.030 Ammonia 27.0 Valproic Acid Level 55 ASSESSMENT and PLAN: Ramona Escobar is a 61 yo female with progressive anxiety and insomnia on [facility] day 7. She continues to have trouble sleeping and persistent anxiety, but those symptoms improved this morning following 5 hours of sleep. Individual assessment and plan are as follows: 1. Anxiety: Continues to be present but improved at,07/22 today, related to somatic abdominal symptoms and lack of sleep. Anxiety seems to be cause of insomnia as well as somatic stomach "crawling" sensation. Will continue to avoid antipsychotics due to concern for tardive dyskinesia. Will continue to treat with Depakote 1000mg qhs and consider other antianxiety medications. CBC w / diff wnl today and ammonia level normal. Depakote low normal at 55. 2. Insomnia: Continues to be pervasive but improved with 15mg Belsomra. Will continue. Encouraged again daily physical activity each day following community meeting- 20 minutes of waling- and set daily schedule including meals at table and shower each morning. Discussed diurnal cues and circadian rhythm. 3: Tardive diskinesa: Noticeable in group or when she is not engaged in conversation. Will continue to avoid antipsychotics. 4. HTN: Will continue on propranolol 10mg tid, hold if pulse <60. 5. Disposition: Continued admission due to inability to sleep and control anxiety. D/C will be to home with f/u with PCP and Dr. Jung. Her next appointment with Dr. Jung is next week and she now sees her every two weeks. If she sleeps well again tonight, possible discharge tomorrow.
--- NOTE | 2016-12-01 13:25 | Psychiatric Progress Notes ---
Progress Note Date of Service Dec 01, 2016. 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 She seems to be somatically preoccupied. As example, she acknowledges that she used to take extra doses of Seroquel in the past after feeling jittery following smoking a cigarette. More recently she has been having trouble with tardive dyskinesia involving oral motor movements. Her outpatient provider would like to try her on a retrial of Depakote secondary to a period of relative symptom stability on that in the past however we will need to watch for recurrence of hyperammonemia. She is complaining of abrupt exacerbation of anxiety symptoms and decline in sleep and past few days. 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 Chief Complaint "I feel better. ". Subjective Patient was seen & assessed interval progress reviewed with Treatment Team. The patient got 5 hrs of sleep last night and today says "I feel better". She can't specifically say how, but says "generally" that she feels better. Anxiety remains high, saying she always wakes with anxiety. She is thinking about her BP relative to her meds and is worrying about how she will know when its too low at home, since she always has some degree of dizziness. She says that she did do a little bit of walking today, but not much. She has been trying to restrict her eating to meal times and at the table. She denies SI, but says that she wants to make sure that her sleep is consistently better, because when she isn't sleeping, it makes her mood and anxiety worse. Review of Systems Constitutional: No fever, No chills, No sweats, No weight loss, No weakness, No fatigue, No problem reported ENT: No hearing loss, No unusual epistaxis, No nasal symptoms, No sore throat, No tinnitus, No dental problems, No trouble swallowing, No problem reported Respiratory: No cough, No sputum, No wheezing, No shortness of breath, No dyspnea on exertion, No dyspnea at rest, No hemoptysis, No problem reported Cardiovascular: No chest pain, No orthopnea, No PND, No edema, No claudication , No palpitations, No problem reported Abdomen: No pain, No nausea, No vomiting, No diarrhea, No constipation, No GI bleeding, No problem reported Musculoskeletal: No joint pain, No muscle pain, No swelling, No calf pain, No problem reported Neurologic: No memory loss, No paralysis, No weakness, No numbness/tingling, No vertigo, No balance problems, No problem reported Psychiatric: + anxiety Sleep Information Total Hours of Sleep: 5.00 Meal Information Percent of Breakfast Consumed: 100 Percent of Lunch Consumed: 100 Percent of Dinner Consumed: 100 Mental Status Exam During interview pt is: alert and oriented, cooperative Appearance: appropriately dressed, appropriately groomed Eye contact is: good Motor behavior is: psychomotor retardation Speech: normal in rate, rhythm & volume Affect: blunted, anxious Mood is: depressed (with intermittant SI), anxious Thought process: goal directed Thought content: preoccupation (somatic) Suicidal thought are: present, Plan: denied, Intent: denied Homicidal thoughts are: denied Hallucinations: denies auditory, denies visual Cognition: memory grossly intact, language grossly intact Intelligence estimated to be: average Insight: limited Judgement: limited Medication Trials (1) past psych meds 1. Gabapentic 2. Silenor- up all night sweating 3. Elavil 4. Remeron- felt it didn't work 5. Trintellix 6. Xanax 7. Lexapro 8. Viibryd- increased anxiety 9. Depakote- seemed to help, elevated ammonia, hypokalemia 10. Celexa- increased anxiety 11. Valium 12. Mellaril 13. Cymbalta- GI distress 14. Klonopin 15. [place] 16. Thioridizine 17. Wellbutrin SR 18. Tegretol- cogintive and word finding problems 19. Paxil- allergy 20. Cogentin 21. Thorazine 22. Ativan 23. Effexor XR- increased anxiety 24. Lunesta 25. Ambien and Ambien CR 26. Deplin- GI distress 27. Bentyl 28. Luvox- increased anxiety and insomnia 29. Abilify- akathisia 30. Melatonin- ineffective 31. Trazodone- palpitations, tachy 32. Lamicta- unclear outcome 33. Clomipramine- confused 34. Phentermine- increased anxiety 35. Zoloft- nausea, increased anxiety 36. Lyrice- didn't work 37. Risperdal- didn't work 38. Imipramine 39. Prozac- increased anxiety 40. Buspar- didn't work 41. Latuda- rash Last Edited By: Annetta Herrera on Nov 29, 2016 11:47 Impression Sleep improved with Belsomra 15 mg. having gotten 5 hours last night. Would like to see her string a few nights together with good sleep and no SI before considering discharge. Will continue current meds. Plan (1) Anxiety 11/25 - Patient is describing what sounds possibly like tardive akathisia in addition to her long-standing chronic anxiety. GI complains also are long- standing. - Will pursue plan of Depakote retrial at 250mg bid and titrating as indicated and tolerated. We'll need to watch ammonia secondary to history of ammonemia and also K+ which declined on med in the past - Will provide Zofran when necessary for nausea - Will trial clonidine 0.1 mg by mouth now x1 and then qhs for anxiety and suspected akathisia. Common risks and benefits were discussed and patient verbalized understanding - Could also consider a beta jake trial or anticholinergic medication to target the suspected akathisia - Psychoeducation provided regarding amplification of anxiety as an effect of hyper awareness and paucity of helpful distractions. Will encourage her to engage more actively in cognitive behavioral strategies for self de-escalation. - It should be noted that the patient seems to also some illogical beliefs about her medications (such as perceiving that Seroquel XR has a "complete opposite effect" of the regular release Seroquel), has a tendency to abandon medications quickly, and also has a history of abusing perception medications, namely Seroquel - We'll attempt to secure her medications at home before discharge from hospital secondary to history of overdose 11/26 - Unfortunately no benefit perceived on clonidine after 2 doses. We'll discontinue in favor of propranolol trial at 10 mg by mouth 3 times a day to start. Again reviewed common risks and benefits and she will watch for positional dizziness in particular. - As the clonidine showed no benefit, will attempt to consolidate the Depakote to bedtime and we'll give her a 750 mg dose tonight. - Unfortunately there is a paucity of favorable sleep aids for this patient. I suggested we try the new agent, Belsomra, favored for its novel mechanism. Unfortunately this is nonformulary and I did fill out a request for nonformulary medication for the pharmacy to pursue a 10 mg daily at bedtime dose but this will not likely be available to her until Sunday as she has no family member that can pick it up from the outside pharmacy. As such, will write for a single dose of lunesta to 2 mg tonight as a trial while awaiting the other agent.. 11/27 - Increase Depakote ER to 100 mg HS - Level in 5 days with ammonia - Exploring affordability of Belsomra and Lunesta 11/29 -Encourage acitivity, and alternate coping strategies when anxious 11/30 - Establish a designated exercise time daily and assist the patient to participate - Review mindfulness (2) Depression 11/25 - Patient will be admitted on a voluntary status to the behavioral health unit. She will be encouraged to participate in unit programming as appropriate. She will be maintained on every 15 minute safety checks on the locked unit for her safety. - Coordination of care with current outpatient providers - Patient has responded poorly to antidepressant pharmacotherapy in the past. We'll attempt to elevate mood by mitigating anxiety acutely 11/26 - Patient was strongly encouraged to remain active out of room, attend all groups, and to shower today 11/28 - Will trial Belsomra 10 mg. HS tonight 11/29 - Continue Belsomra 10 mg. HS - Continue Depakote 1000 mg. HS with level on Sunday with ammonia 11/30 - Increase Belsomra to 15 mg. HS - Depakote level 55 . Will increase to 1250 mg. (3) Tardive dyskinesia 11/25 - educated again re risks associated with neuroleptic (and to lesser degree antidepressant) exposure and risk for TD worsening and permanency. will attempt to avoid further exposure to antipsychotic medications here as able. This document was created using voice recognition software. Please direct any questions to the undersigned. Discharge / Aftercare Planning Primary Care Physician: Name: Loan Rudd PA-C Appointment Notes: As needed Psychiatrist: Name: Michael Castellano Date of Appointment: Dec 07, 2016 Time of Appointment: 10:40 Appointment Notes: and 12/21 @12:40 Therapist: Name: Yee Lopez RIGHT OF [address] [facility]ER Date of Appointment: Dec 14, 2016 Time of Appointment: 10am Health Sciences Department Chair: Name: None Visit Code E&M Code: 40129 Inventory Assets Strengths: Patient is help seeking and able to communicate Needs: Consistency with her medications, provision for safety, medication adjustment Risk Factors Assessment : Yes /single/: No Mental Health Diagnoses: Yes Substance use disorders: Yes Previous attempt: Yes Previous psychiatric stay: Yes Hopelessness: Yes Protective Factors Assessment Christian beliefs: No : Yes Responsible for young children: No Employed: No Stable relationships: Yes Supportive family: Yes Good rapport with provider: Yes Data Vital Signs Last 24 Hrs: Date Time Temp Pulse Resp B/P (MAP) Pulse Ox O2 Delivery O2 Flow Rate FiO2 12/01/16 06:57 36.6 76 18 104/70 84 111/66 11/30/16 20:31 50 122/67 11/30/16 14:41 75 14 118/84 Meds Administered Last 24 Hrs: Meds Administered (Past 24Hrs) Medications (Trade) Dose Ordered Sig/Agry Route Start Time Stop Time Status Last Admin Dose Admin Suvorexant (Belsomra Tab) 10 mg HSZ PO 11/29/16 22:00 11/30/16 13:38 DC 11/30/16 00:07 10 MG Suvorexant (Belsomra Tab) 15 mg HS PO 11/30/16 22:00 12/30/16 21:59 11/30/16 23:48 15 MG Lab Results Last 24 Hrs: Last 24 Hours Test 12/01/16 08:54 Ammonia 27.0 umol/L Valproic Acid (Depakene) Level 55 mcg/ml
[2016-12-01 14:43] VITALS: BP 138/95; PULSE 75
[2016-12-01 21:46] VITALS: BP 115/79; PULSE 71
[2016-12-01] MEDS: DIVALPROEX 250 MG EXTENDED REL TAB PO SCH (21:47)
[2016-12-01] MEDS: SUVOREXANT 10 MG PO SCH (23:44)
[2016-12-02 07:01] VITALS: BP_SYST 119; BP_SYST 145; BP_DIAS 75; BP_DIAS 76; PULSE 80; PULSE 95; TEMP 36.6
[2016-12-02] MEDS: PROPRANOLOL HCL 10 MG TAB PO SCH ×3 (08:41→22:31)
[2016-12-02] MEDS ORDERED: CHLORPROMAZINE HCL 25 MG TAB PO PRN (10:45)
[2016-12-02] MEDS: CHLORPROMAZINE HCL 25 MG TAB PO SCH ×2 (13:08→17:32)
[2016-12-02 14:47] VITALS: PULSE 72
--- NOTE | 2016-12-02 15:36 | Psychiatric Progress Notes ---
Progress Note Date of Service Dec 02, 2016. 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 She seems to be somatically preoccupied. As example, she acknowledges that she used to take extra doses of Seroquel in the past after feeling jittery following smoking a cigarette. More recently she has been having trouble with tardive dyskinesia involving oral motor movements. Her outpatient provider would like to try her on a retrial of Depakote secondary to a period of relative symptom stability on that in the past however we will need to watch for recurrence of hyperammonemia. She is complaining of abrupt exacerbation of anxiety symptoms and decline in sleep and past few days. 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 Chief Complaint "I still can't sleep". Subjective Patient was seen & assessed interval progress reviewed with nursing. Patient slept only 1.5 hours last pm. Now refusing to continue Belsomra trial as states it gives her nightmares. She states that she's had suicidal thoughts again this am, doesn't feel "fit" to drive herself home. Requesting retrial of thorazine. Reviewed past med trials with patient and risks of dyskinetic movements which she attributes to Seroquel. Reviewed increased risk with typicals. At this point "in life" patient is just focussed on being able to sleep to better manage her anxiety during the day. Review of Systems Psych: denies symptoms other than stated above Constitutional: fatigue Cardiovascular: denied GI: denied Neurologic: denied other than above Remainder of 10 body systems also reviewed and denied other than noted above. Sleep Information Total Hours of Sleep: 1.50 Meal Information Percent of Breakfast Consumed: 100 Percent of Lunch Consumed: 50 Percent of Dinner Consumed: 100 Mental Status Exam During interview pt is: alert and oriented, cooperative Appearance: appropriately dressed, appropriately groomed Eye contact is: good Motor behavior is: psychomotor retardation Speech: normal in rate, rhythm & volume Affect: blunted, anxious Mood is: depressed (with intermittant SI), anxious Thought process: goal directed Thought content: preoccupation (somatic) Suicidal thought are: present, Plan: denied, Intent: denied Homicidal thoughts are: denied Hallucinations: denies auditory, denies visual Cognition: memory grossly intact, language grossly intact Intelligence estimated to be: average Insight: limited Judgement: limited Medication Trials (1) past psych meds Impression Sleep improved with Belsomra 15 mg. having gotten 5 hours last night. Would like to see her string a few nights together with good sleep and no SI before considering discharge. Will continue current meds. Plan (1) Anxiety 11/25 - Patient is describing what sounds possibly like tardive akathisia in addition to her long-standing chronic anxiety. GI complains also are long- standing. - Will pursue plan of Depakote retrial at 250mg bid and titrating as indicated and tolerated. We'll need to watch ammonia secondary to history of ammonemia and also K+ which declined on med in the past - Will provide Zofran when necessary for nausea - Will trial clonidine 0.1 mg by mouth now x1 and then qhs for anxiety and suspected akathisia. Common risks and benefits were discussed and patient verbalized understanding - Could also consider a beta jake trial or anticholinergic medication to target the suspected akathisia - Psychoeducation provided regarding amplification of anxiety as an effect of hyper awareness and paucity of helpful distractions. Will encourage her to engage more actively in cognitive behavioral strategies for self de-escalation. - It should be noted that the patient seems to also some illogical beliefs about her medications (such as perceiving that Seroquel XR has a "complete opposite effect" of the regular release Seroquel), has a tendency to abandon medications quickly, and also has a history of abusing perception medications, namely Seroquel - We'll attempt to secure her medications at home before discharge from hospital secondary to history of overdose 11/26 - Unfortunately no benefit perceived on clonidine after 2 doses. We'll discontinue in favor of propranolol trial at 10 mg by mouth 3 times a day to start. Again reviewed common risks and benefits and she will watch for positional dizziness in particular. - As the clonidine showed no benefit, will attempt to consolidate the Depakote to bedtime and we'll give her a 750 mg dose tonight. - Unfortunately there is a paucity of favorable sleep aids for this patient. I suggested we try the new agent, Belsomra, favored for its novel mechanism. Unfortunately this is nonformulary and I did fill out a request for nonformulary medication for the pharmacy to pursue a 10 mg daily at bedtime dose but this will not likely be available to her until Sunday as she has no family member that can pick it up from the outside pharmacy. As such, will write for a single dose of lunesta to 2 mg tonight as a trial while awaiting the other agent.. 11/27 - Increase Depakote ER to 100 mg HS - Level in 5 days with ammonia - Exploring affordability of Belsomra and Lunesta 11/29 -Encourage acitivity, and alternate coping strategies when anxious 11/30 - Establish a designated exercise time daily and assist the patient to participate - Review mindfulness 12/02--retrial of thorazine 25 mg po BID prn (2) Depression 11/25 - Patient will be admitted on a voluntary status to the behavioral health unit. She will be encouraged to participate in unit programming as appropriate. She will be maintained on every 15 minute safety checks on the locked unit for her safety. - Coordination of care with current outpatient providers - Patient has responded poorly to antidepressant pharmacotherapy in the past. We'll attempt to elevate mood by mitigating anxiety acutely 11/26 - Patient was strongly encouraged to remain active out of room, attend all groups, and to shower today 11/28 - Will trial Belsomra 10 mg. HS tonight 11/29 - Continue Belsomra 10 mg. HS - Continue Depakote 1000 mg. HS with level on Sunday with ammonia 11/30 - Increase Belsomra to 15 mg. HS - Depakote level 55 . Will increase to 1250 mg. 12/02 --retrial of thorazine 50 mg po qhs, may repeat; patient refusing Belsomra and it will be discontinued (3) Tardive dyskinesia 11/25 - educated again re risks associated with neuroleptic (and to lesser degree antidepressant) exposure and risk for TD worsening and permanency. will attempt to avoid further exposure to antipsychotic medications here as able. 12/02 --monitor movements overnight on retrial of thorazine Discharge / Aftercare Planning Primary Care Physician: Name: Loan Rudd PA-C Appointment Notes: As needed Psychiatrist: Name: Michael Castellano Date of Appointment: Dec 07, 2016 Time of Appointment: 10:40am Appointment Notes: and 12/21 @12:40 Therapist: Name: Yee Lopez ROSSY Date of Appointment: Dec 14, 2016 Time of Appointment: 10am Pharmaceutical Process Engineer: Name: None Visit Code E&M Code: 95373 Inventory Assets Strengths: Patient is help seeking and able to communicate Needs: Consistency with her medications, provision for safety, medication adjustment Risk Factors Assessment : Yes /single/: No Mental Health Diagnoses: Yes Substance use disorders: Yes Previous attempt: Yes Previous psychiatric stay: Yes Hopelessness: Yes Protective Factors Assessment Mosque beliefs: No : Yes Responsible for young children: No Employed: No Stable relationships: Yes Supportive family: Yes Good rapport with provider: Yes Data Vital Signs Last 24 Hrs: Date Time Temp Pulse Resp B/P (MAP) Pulse Ox O2 Delivery O2 Flow Rate FiO2 12/02/16 14:47 72 12/02/16 07:01 36.6 80 18 119/76 95 145/75 12/01/16 21:46 71 18 115/79 Meds Administered Last 24 Hrs: Meds Administered (Past 24Hrs) Medications (Trade) Dose Ordered Sig/[place] Route Start Time Stop Time Status Last Admin Dose Admin Suvorexant (Belsomra Tab) 15 mg HS PO 11/30/16 22:00 12/02/16 10:41 DC 12/01/16 23:44 15 MG Divalproex Sodium (Depakote Extended Rel Tab) 1,250 mg HS PO 12/01/16 22:00 12/31/16 21:59 12/01/16 21:47 1,250 MG Chlorpromazine HCl (Thorazine Tab) 25 mg BID17 PO 12/02/16 10:45 01/01/17 10:44 12/02/16 13:08 25 MG
[2016-12-02] MEDS ORDERED: CHLORPROMAZINE HCL 25 MG TAB PO SCH (22:00)
[2016-12-02 22:29] VITALS: BP 128/81; PULSE 80
[2016-12-02] MEDS: DIVALPROEX 250 MG EXTENDED REL TAB PO SCH (22:32)
[2016-12-03 08:07] VITALS: BP_SYST 106; BP_SYST 120; BP_DIAS 74; BP_DIAS 86; PULSE 93; TEMP 36.4
[2016-12-03] MEDS: PROPRANOLOL HCL 10 MG TAB PO SCH ×2 (08:42→14:09)
[2016-12-03] MEDS: CHLORPROMAZINE HCL 25 MG TAB PO SCH (08:43)
[2016-12-03] MEDS ORDERED: THR25 PO (09:13)
[2016-12-03] MEDS ORDERED: CHLO1TAB15 PO (09:13)
[2016-12-03] MEDS ORDERED: DIVA250T PO (09:13)
[2016-12-03] MEDS ORDERED: DPKSR/500 PO (09:13)
[2016-12-03] MEDS ORDERED: PROP10TA7 PO (09:13)
--- NOTE | 2016-12-03 09:21 | Discharge Instructions ---
Discharge Information Report Includes Report will include the: Discharge Instructions & Summary Admission Admission Date / Time: Nov 24, 2016 at 21:12 Reason for Admission: Major Depression Recurrent Discharge Discharge Diagnosis / Problem: same Condition at Discharge: Fair Discharge Goals Goal(s): Improve function, Improve disease control Activity Recommendations Activity Limitations: resume your previous activity get up slowly from a seated position, drink water to remain hydrated and/or use Biotene, use your walker given fall risk with sedating medications . Instructions / Follow-Up Instructions / Follow-Up . SPECIAL CARE INSTRUCTIONS: 1. Follow through with your scheduled aftercare appointments. If unable to keep an appointment, please call to reschedule. 2. Take your medication only as prescribed. Medication should not be changed or stopped without the approval of your doctor. In the event of worsening symptoms or concerns about side effects, contact your doctor immediately. 3. Utilize new healthy coping skills, anger management skills, and stress management skills learned during your hospitalization. Journal feelings and process them with a support person. Identify stressors or situations that may result in relapse, deterioration or inappropriate behaviors and develop a plan to deal with those issues. 4. If your coping skills are ineffective and you are in crisis, contact your outpatient providers for direction. If unable to reach your providers, please call the CAN HELP LINE AT or go to the closest Emergency Room. 5. Avoid alcohol and un-prescribed drugs. 6. You have been provided with the Mental Health Advance Directives Pamphlet for your review. AFTERCARE APPOINTMENTS: * Please call your insurance company prior to your scheduled appointment to confirm your aftercare providers are covered. Take your insurance information to your appointments. . Discharge / Aftercare Planning Primary Care Physician: Name: Loan Rudd PA-C Appointment Notes: As needed Psychiatrist: Name: Michael Castellano Date of Appointment: Dec 07, 2016 Time of Appointment: 10:40am Appointment Notes: and 12/21 @12:40 Therapist: Name Of Therapist: Yee Lopez LCSW Date of Appointment: Dec 14, 2016 Time of Appointment: 10am Tromper: Name: None . Follow-Up Care Plan for Follow-Up Care: keep your follow up appointments as only a 10 supply of medication was given you will need blood work for Depakote level monitoring at the discretion of Dr. Castellano Current Hospital Diet Patient's current hospital diet: Regular Diet Discharge Diet Recommended Diet: Regular Diet Procedures Procedures Performed: Yes List Procedure(s) Performed: CXR, EKG Pending Studies Pending Studies at Discharge: No Medical Emergencies . Who to Call and When: Medical Emergencies: For questions or emergencies related to your hospital stay, please contact the Inpatient Behavioral Health Unit at [phone]. A pickler helper is on-call 04/09 for the Behavioral Health Unit for emergencies At any time you feel your situation is an emergency, you may also call 911 immediately. . Non-Emergent Contact Non-Emergency issues call your: Psychiatrist, Therapist Call Non-Emergent contact if: you have any medication questions Advance Directives Existing Advance Directive: No Do You Have an Existing Mental: No Existing Living Will: No Existing Power of Rn Ortho: No Advance Directives Info Given: To Pt/S.O. Advance Directives Reason: Declines as Mental Health Visit. Discharge Summary Admission HPI Per the Admitting provider: This patient has a very long history of anxiety and depression and is followed with multiple psychiatric providers over the years, most recently seeing Dr. Castellano at [facility]. She has a history of overutilizing her medications, namely Seroquel. She has been treated on a multitude of psychotropic medications over the years and does have a history of multiple suicide attempts in the past. Previous diagnoses include recurrent depression, generalized anxiety disorder, possible history of bipolar disorder, cluster B traits, more recent diagnosis of tardive dyskinesia. She has a history of numerous psychiatric hospitalizations. According to her most recent outpatient follow- up note dated 11/23/2016 the patient was complaining of increased anxiety. She had visited multiple providers and received prescriptions for Vistaril, gabapentin, Silenor. Dr. Castellano indicated her intention to be the sole provider of the patient's psychotropics to reduce access, particular given history of overdose attempts and prescription medication abuse. She recently failed a Neurontin trial complaining of nausea. She complained of getting no more than 1 -3 hours of sleep per night and was feeling desperate but denied intention for self-harm at that time and decline consideration for hospitalization. She is recommended to start a retrial of Depakote as she had previously experienced a period of relative symptom stability between 2009 and 2012 on the medication which was later discontinued while medically hospitalized with mental status changes and found to have ammonia elevation. That was given in combination with Seroquel and Klonopin. She was offered ondansetron for nausea and was recommended to restart the Remeron which she declined. She was also encouraged to follow-up with psych rehabilitation referral. She presented to the ER at [facility] on 11/24/2016 complaining of constant anxiety 2 days significantly elevated above baseline. She stated that she had no reason to be anxious but cannot deal with feeling that way. She was having thoughts of hurting herself and noted that she had multiple suicide attempts in the past but nothing recent. She stated that she did not want to take the Depakote because she did not want additional side effects and specified unsteadiness and blurry vision. She continued to complain of nausea vomiting and shortness of breath. Her recent medical workup for shortness of breath was noted and had been seen one week ago with CT negative for pulmonary embolism. In the ER chest x-ray showed mild cardiac enlargement without cardiopulmonary abnormality labs were checked which showed a white count of 11.5 to, CMP unremarkable apart from glucose of 120, urine toxicology screen was negative, EKG showed normal sinus rhythm without acute changes, cardiac enzymes not elevated and she is medically clear for behavioral health admission. On interview this morning she reports similar symptoms with long-standing anxiety recently exacerbated without clear trigger. She describes difficulty sitting still to the point that she feels that she has to get up and move will go crazy if she does not. She believes that this has been experienced in the past one more acutely anxious however in the past few days she believes is more intense than usual. She complains of continued GI hypermotility and some variable nausea. She complains of frequent waking throughout the night and will get up and walk around to feel more comfortable. Sleep is been very poor over the past week. She reports she took an antibiotic (unknown agent) but did not take prednisone that was prescribed for recent bronchitis. Regarding suicidal ideation reported in the ER she states "I just can't deal with this." She continues to acknowledge thoughts of being better off but denies a specific plan for self-harm presently and comments "I've tried that before and it didn't go too well. I just know I don't feel good about this at all." She remains concerned about the potential for side effects on the Depakote. She repeatedly asks me what we are going to do to treat her for her insomnia. She identifies the combination of Seroquel and Depakote and Klonopin by name as recollected helpful combination the past. She expresses awareness that her doctors have voiced concern about making her tardive dyskinesia worse on antipsychotics. "Personally I think it would be worth it." She denies symptoms of psychosis, hypomania, milan. 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 GI complains also are long- standing. - Will pursue plan of Depakote retrial at 250mg bid and titrating as indicated and tolerated. We'll need to watch ammonia secondary to history of ammonemia and also K+ which declined on med in the past - Will provide Zofran when necessary for nausea - Will trial clonidine 0.1 mg by mouth now x1 and then qhs for anxiety and suspected akathisia. Common risks and benefits were discussed and patient verbalized understanding - Could also consider a beta jake trial or anticholinergic medication to target the suspected akathisia - Psychoeducation provided regarding amplification of anxiety as an effect of hyper awareness and paucity of helpful distractions. Will encourage her to engage more actively in cognitive behavioral strategies for self de-escalation. - It should be noted that the patient seems to also some illogical beliefs about her medications (such as perceiving that Seroquel XR has a "complete opposite effect" of the regular release Seroquel), has a tendency to abandon medications quickly, and also has a history of abusing perception medications, namely Seroquel - We'll attempt to secure her medications at home before discharge from hospital secondary to history of overdose 11/26 - Unfortunately no benefit perceived on clonidine after 2 doses. We'll discontinue in favor of propranolol trial at 10 mg by mouth 3 times a day to start. Again reviewed common risks and benefits and she will watch for positional dizziness in particular. - As the clonidine showed no benefit, will attempt to consolidate the Depakote to bedtime and we'll give her a 750 mg dose tonight. - Unfortunately there is a paucity of favorable sleep aids for this patient. I suggested we try the new agent, Belsomra, favored for its novel mechanism. Unfortunately this is nonformulary and I did fill out a request for nonformulary medication for the pharmacy to pursue a 10 mg daily at bedtime dose but this will not likely be available to her until Sunday as she has no family member that can pick it up from the outside pharmacy. As such, will write for a single dose of lunesta to 2 mg tonight as a trial while awaiting the other agent.. 11/27 - Increase Depakote ER to 100 mg HS - Level in 5 days with ammonia - Exploring affordability of Belsomra and Lunesta 11/29 -Encourage acitivity, and alternate coping strategies when anxious 11/30 - Establish a designated exercise time daily and assist the patient to participate - Review mindfulness 12/02--retrial of thorazine 25 mg po BID prn (2) Depression 11/25 - Patient will be admitted on a voluntary status to the behavioral health unit. She will be encouraged to participate in unit programming as appropriate. She will be maintained on every 15 minute safety checks on the locked unit for her safety. - Coordination of care with current outpatient providers - Patient has responded poorly to antidepressant pharmacotherapy in the past. We'll attempt to elevate mood by mitigating anxiety acutely 11/26 - Patient was strongly encouraged to remain active out of room, attend all groups, and to shower today 11/28 - Will trial Belsomra 10 mg. HS tonight 11/29 - Continue Belsomra 10 mg. HS - Continue Depakote 1000 mg. HS with level on Sunday with ammonia 11/30 - Increase Belsomra to 15 mg. HS - Depakote level 55 . Will increase to 1250 mg. 12/02 --retrial of thorazine 50 mg po qhs, may repeat; patient refusing Belsomra and it will be discontinued (3) Tardive dyskinesia 11/25 - educated again re risks associated with neuroleptic (and to lesser degree antidepressant) exposure and risk for TD worsening and permanency. will attempt to avoid further exposure to antipsychotic medications here as able. 12/02 --monitor movements overnight on retrial of thorazine Risk Factors Assessment : Yes /single/: No Mental Health Diagnoses: Yes Substance use disorders: Yes Previous attempt: Yes Previous psychiatric stay: Yes Hopelessness: Yes Protective Factors Assessment Restorationist beliefs: No : Yes Responsible for young children: No Employed: No Stable relationships: Yes Supportive family: Yes Good rapport with provider: Yes Day of Discharge Assessment Ramona slept over 6 hours last night. Her anxiety is improved and she is free of suicidal thoughts. She relates that thoughts yesterday were in the context of feeling tired and they were passive, ie no intent or plan. She was able to verbalize her safety plan and agrees to take medications only as prescribed. On MSE exam today she is alert, cooperative, normal speech, minimal tremor or tongue movements (actually look less frequent than yesterday). She voices awareness of risks of TD related to antipsychotic medication and continues to feel benefits to her at this time outweigh the risks. She did not tolerate Belsomra due to nightmares. Her thoughts remain organized and there is no evidence of SI/HI/hernandez or delusions. Her insight and judgement are somewhat improved in that she is less somatic and slightly less med focussed. She is aware of her psychiatrists' recommendation re: activity level. She agreed to contact her daughter for assistance in getting home as she agrees she should not drive when sleep deprived. Laboratory Test 11/24/16 00:00 11/24/16 19:14 11/24/16 19:25 12/01/16 08:54 Urine Opiates Screen NEG Urine Methadone, Qualitative NEG Urine Barbiturates NEG Urine Phencyclidine (PCP) Level NEG Ur Amphetamine/Methamphetamine NEG MDMA (Ecstasy) Screen NEG Urine Benzodiazepines Screen NEG Urine Cocaine Metabolite NEG Urine Marijuana (THC) NEG White Blood Count 11.52 Red Blood Count 4.80 Hemoglobin 13.8 Hematocrit 41.4 Mean Corpuscular Volume 86.3 Mean Corpuscular Hemoglobin 28.8 Mean Corpuscular Hemoglobin Concent 33.3 Platelet Count 269 Mean Platelet Volume 9.1 Neutrophils (%) (Auto) 65.4 Lymphocytes (%) (Auto) 25.8 Monocytes (%) (Auto) 7.5 Eosinophils (%) (Auto) 0.7 Basophils (%) (Auto) 0.3 Neutrophils # (Auto) 7.55 Lymphocytes # (Auto) 2.97 Monocytes # (Auto) 0.86 Eosinophils # (Auto) 0.08 Basophils # (Auto) 0.03 RDW Standard Deviation 44.6 RDW Coefficient of Variation 14.4 Immature Granulocyte % (Auto) 0.3 Immature Granulocyte # (Auto) 0.03 Sodium Level 139 Potassium Level 3.7 Chloride Level 107 Carbon Dioxide Level 23 Anion Gap 8.0 Blood Urea Nitrogen 13 Creatinine 0.89 Est Creatinine Clear Calc Drug Dose 90.3 Estimated GFR () 81.1 Estimated GFR (Non- 70.0 BUN/Creatinine Ratio 14.5 Random Glucose 120 Calcium Level 9.3 Total Bilirubin 0.4 Direct Bilirubin 0.1 Aspartate Amino Transferase (AST) 20 Alanine Aminotransferase (ALT) 29 Alkaline Phosphatase 142 Total Protein 7.7 Albumin 3.8 Lipase 117 Salicylates Level < 1.7 Acetaminophen Level < 2 Ethyl Alcohol mg/dL < 3.0 POC Troponin I < 0.030 Ammonia 27.0 Valproic Acid Level 55 Total Time Total Time Spent (min): Greater than 30 minutes Total Time Included: examination of the patient, medication reconciliation Tobacco Cessation at Discharge Smoking Status: Never Smoker FDA approved Prescription: non-smoker
[2016-12-03 14:09] VITALS: PULSE 80
== END 2016-12-03 14:26 | disposition home or self-care (01) | DRG 880 ==
LOC: C.EDB 18:25 → C.MHU 21:12
PROVIDERS: ADMIT Student in an Organized Health Care Education/Training Program; ATTEND Student in an Organized Health Care Education/Training Program
DX: F41.9 Anxiety disorder, unspecified (principal); R45.851 Suicidal ideations; F33.9 Major depressive disorder, recurrent, unspecified; K58.9 Irritable bowel syndrome, unspecified; F60.9 Personality disorder, unspecified; E78.5 Hyperlipidemia, unspecified; G24.01 Drug induced subacute dyskinesia; Z90.710 Acquired absence of both cervix and uterus

== ENCOUNTER → 2017-04-18 | Day surgery (SDC) | payer OTHER ==
[2017-04-12 15:36] VITALS: Ht 160 cm; Wt 135.0 kg
[~2017-04-18] VITALS: Ht 160 cm; Wt 135.0 kg
[~2017-04-18] MED LIST changes: +ATV/1 PO; -GABA1CAP4 PO; +LIDOCAINE HCL 2% 2 ML VIAL (20MG/ML) ONE; +MELO-84 PO; +PROPOFOL IV EMULSION 10 MG/ML 20 ML VIAL IV ONE; +QUET200T2 PO; +SODIUM CHLORIDE 0.9% 500ML 500 ML IV ONE; -ZTHM250 PO
--- NOTE | 2017-04-18 10:16 | Endo History and Physical ---
History & Physical Date of Service: Apr 18, 2017. Chief Complaint: History of colon polyps Referring Physician: Dr. Abbe Banda III History of Present Illness H/o colon polyps Past Medical History Anxiety, Depression Past Surgical History Hx Cardiac Surgery: No Hx Internal Defibrillator: No Hx Pacemaker: No Hx Abdominal Surgery: Yes (APPY, NIDIA, GRANT, TUBAL LIGATION) Hx of Implantable Prosthesis: No Hx Post-Op Nausea and Vomiting: No Hx Cancer Surgery: No Hx Thoracic Surgery: No Hx Orthopedic: No Hx Urinary Tract Surgery: No Family History Colon CA Social History Smoking Status: Former Smoker Hx Substance Use: No Hx Alcohol Use: No Allergies Coded Allergies: Hydroxyzine (Verified Allergy, Mild, increased anxiety, 04/12/17) Cyclobenzaprine (Verified Allergy, Unknown, RASH, 04/12/17) INFO GMG Diphenhydramine (Verified Allergy, Unknown, nervousness, 04/12/17) "It makes me bounce of cohen." Naproxen (Verified Allergy, Unknown, WELTS/HIVE BUT CAN TAKE IBUPROFEN & ASPIRIN W/O PROBLEM, 04/12/17) Paroxetine (Verified Allergy, Unknown, HALLUCINATION, 04/12/17) Penicillins (Verified Allergy, Unknown, DOES NOT REMEMBER RXN WAS A CHILD , 04/12/17) Amitriptyline (Verified Adverse Reaction, Severe, "MADE PT MORE ANXIOUS", 04/18/17) Langdon Blue FCF (Verified Adverse Reaction, Severe, "COULD NOT SLEEP", 04/18/17) Buspirone (Verified Adverse Reaction, Severe, MADE PT MORE ANXIOUS, 04/18/17 ) Doxepin (Verified Adverse Reaction, Severe, "COULD NOT SLEEP", 04/18/17) Suvorexant (Verified Adverse Reaction, Intermediate, Nightmares, 04/12/17) Trazodone (Verified Adverse Reaction, Unknown, PALPITATIONS, 04/12/17) Current Medications Reported Home Medications Medications Dose Route/Sig Max Daily Dose Days Date Category Mobic (Meloxicam) 15 Mg Tab 15 Mg PO DAILY 04/12/17 Reported Ativan (Lorazepam) 1 Mg Tab 1 Mg PO Q6H PRN 04/12/17 Reported Seroquel Xr (Quetiapine Fumarate) 200 Mg Tabcr 200 Mg PO HS 04/12/17 Reported Vital Signs Weight (Kilograms): 135 Height (Feet): 5 Height (Inches): 3 Date Time Temp Pulse Resp B/P (MAP) Pulse Ox O2 Delivery O2 Flow Rate FiO2 04/18/17 09:35 36.8 86 20 141/79 (99) 96 Room Air Physical Exam General Appearance: WD/WN Respiratory/Chest: Auscultation: breath sounds normal Cardiovascular: Heart Auscultation: RRR Assessment and Plan H/o colon polyps - cscopy
--- NOTE | 2017-04-18 11:07 | GI REPORT ---
Procedure Date: 04/18/2017 10:21 AM Procedure: Colonoscopy Indications: High risk colon cancer surveillance: Personal history of colonic polyps Medicines: See the Anesthesia note for documentation of the administered medications Complications: No immediate complications. Estimated Blood Loss: Estimated blood loss: none. Procedure: Pre-Anesthesia Assessment: - ASA Grade Assessment: III - A patient with severe systemic disease. After I obtained informed consent, the scope was passed under direct vision. Throughout the procedure, the patient's blood pressure, pulse, and oxygen saturations were monitored continuously. The Scope was introduced through the anus and advanced to the terminal ileum. The colonoscopy was performed without difficulty. The patient tolerated the procedure well. The quality of the bowel preparation was good. Findings: The perianal and digital rectal examinations were normal. Multiple small and large-mouthed diverticula were found in the sigmoid colon. There was a large non bleeding AVM in the ascending colon. The exam was otherwise without abnormality. Impression: - Diverticulosis in the sigmoid colon. - AVM. Recommendation: - Discharge patient to home. Repeat exam in 5 years. Bereket Avila M.D. Bereket Avila MD 04/18/2017 11:06:46 AM This report has been signed electronically. Note Initiated On: 04/18/2017 10:21 AM I attest to the content of the Intraoperative Record and orders documented therein, exceptions below
--- NOTE | 2017-04-18 11:09 | Anesthesiology Progress Note ---
Anesthesia Post Op Note Date & Time Apr 18, 2017 at 11:09 Vital Signs Pain Intensity: 0 Vital Signs Past 12 Hours Date Time Temp Pulse Resp B/P (MAP) Pulse Ox O2 Delivery O2 Flow Rate FiO2 04/18/17 10:53 36.7 91 16 117/80 (92) 91 Room Air 04/18/17 09:35 36.8 86 20 141/79 (99) 96 Room Air Notes Mental Status: alert / awake / arousable, participated in evaluation Pt Amnestic to Procedure: Yes Nausea / Vomiting: adequately controlled Pain: adequately controlled Airway Patency, RR, SpO2: stable & adequate BP & HR: stable & adequate Hydration State: stable & adequate Anesthetic Complications: no major complications apparent
[2017-04-18 11:23] VITALS: BP 129/87; PULSE 83; O2SAT 97
--- NOTE | 2017-04-18 11:32 | Discharge Instructions ---
Endoscopy Patient Instructions Date / Procedure(s) Performed Apr 18, 2017. Colonoscopy Allergy Information Coded Allergies: Naproxen (Verified Allergy, Intermediate, WELTS/HIVE BUT CAN TAKE IBUPROFEN & ASPIRIN W/O PROBLEM, 04/18/17) Cyclobenzaprine (Verified Allergy, Mild, RASH, 04/18/17) INFO GMG Penicillins (Verified Allergy, Unknown, DOES NOT REMEMBER RXN WAS A CHILD , 04/18/17) Amitriptyline (Verified Adverse Reaction, Intermediate, "MADE PT MORE ANXIOUS", 04/18/17) Sewaren Blue FCF (Verified Adverse Reaction, Intermediate, "COULD NOT SLEEP", 04/18/17) Buspirone (Verified Adverse Reaction, Intermediate, MADE PT MORE ANXIOUS, 04/18/17) Doxepin (Verified Adverse Reaction, Intermediate, "COULD NOT SLEEP", ) Suvorexant (Verified Adverse Reaction, Intermediate, Nightmares, 04/18/17) Hydroxyzine (Verified Adverse Reaction, Mild, increased anxiety, 04/18/17) Diphenhydramine (Verified Adverse Reaction, Unknown, nervousness, 04/18/17) "It makes me bounce of cohen." Paroxetine (Verified Adverse Reaction, Unknown, HALLUCINATION, 04/18/17) Trazodone (Verified Adverse Reaction, Unknown, PALPITATIONS, 04/18/17) Discharge Date / Findings Apr 18, 2017. Diverticulosis Provider Instructions Activity Restrictions - No exercising or heavy lifting for 24 hours. - Do not drink alcohol the day of the procedure. - Do not drive a car or operate machinery until the day after the procedure. - Do not make any important decisions or sign important papers in 24 hours after the procedure. Following Day: - Return to full activity which may include returning to work/school. Diet Start your diet with liquids and light foods (jello, soup, juice, toast). Then eat your usual diet if not nauseated. Treatment For Common After Affects For mild abdominal pain, bloating, or excessive gas: - Rest - Eat lightly - Lie on right side Follow-Up Information Follow-up with Dr. Abbe Banda III as scheduled Anesthesia Information What You Should Know You have had a procedure that required some medicine to reduce anxiety and discomfort. This treatment is called moderate sedation. After receiving the treatment, you may be sleepy, but you will be able to breathe on your own. The effects of the treatment may last for several hours. Follow these instructions along with Activity/Diet recommendations noted above: * Do NOT do anything where dizziness or clumsiness would be dangerous. * Rest quietly at home today, then you can be up and about tomorrow. * Have a responsible person stay with you the rest of today. * You may have had an I.V. today. If so, you may take the dressing off later today. Recommendations Call your doctor if: * Trouble breathing * Continuous vomiting for more than 24 hours * Temperature above 101 degrees * Severe abdominal pain or bloating * Pain not relieved by pain medicine ordered * There is increased drainage or redness from any incision * A large amount of rectal bleeding greater than 2-3 tablespoons. (If you had a polyp/s removed or have hemorrhoids, a small amount of blood - from the rectum is to be expected.) * You have any unanswered questions or concerns. IN THE EVENT OF A SERIOUS EMERGENCY, GO TO THE NEAREST EMERGENCY ROOM Your discharge instructions were prepared by provider Bereket Boothe. Patient Instructions Signature Page Patient (or Guardian) Signature/Date: I have read and understand the instructions given to me by my caregivers. Caregiver/RN/Doctor Signature/Date: The above-named patient and/or guardian has received patient instructions on this date. + Original Patient Signature Page (only) stays with chart. Please make copy for patient.
== END | disposition home or self-care (01) ==
LOC: C.GI 08:55
PROVIDERS: ATTEND Internal Medicine Gastroenterology
DX: Z12.11 Encounter for screening for malignant neoplasm of colon (principal); Q27.33 Arteriovenous malformation of digestive system vessel; K57.30 Diverticulosis of large intestine without perforation or abscess without bleeding; Z86.010 Personal history of colon polyps; G47.33 Obstructive sleep apnea (adult) (pediatric); E66.9 Obesity, unspecified; F32.9 Major depressive disorder, single episode, unspecified; Z90.49 Acquired absence of other specified parts of digestive tract; Z90.710 Acquired absence of both cervix and uterus; Z80.0 Family history of malignant neoplasm of digestive organs

== ENCOUNTER → 2017-05-03 | Outpatient (CLI) | payer OTHER ==
[~2017-05-03] MED LIST changes: -LIDOCAINE HCL 2% 2 ML VIAL (20MG/ML) ONE; -PROPOFOL IV EMULSION 10 MG/ML 20 ML VIAL IV ONE; -SODIUM CHLORIDE 0.9% 500ML 500 ML IV ONE
--- NOTE | 2017-05-04 05:26 | PAP/PSG TECHNICIAN REPORT ---
[facility] [place] Polysomnogram Report Study name: None Report date: 05/04/2017 Study date: 05/03/2017 Referring Physician: Dr. Gypsy Rodríguez M.D. Name: RYAN GEE Interpreting Physician: Abbe Hurtado M.D. Date of : 1955 [place]: Agnieszka Castro [facility]. Sex: Female Age: 61 StudyType: PSG Weight: 311 lbs Height: 61 years, Height 5' 3" BMI: 55.09 Medications: Lorazepam 1 mg, Quetiapine 200 mg, Patient History 61 yr. old female here for a modified split night sleep study with [id number]. Patient had a sleep study in 2011 and had mild MARIA LUZ but was never treated. ESS 04/07 Parameters Monitored NPSG: E1-M2, E2-M1, Fp1-M2, Fp2-M1, F3-M2, F4-M2, F4-M1, C3-M2, C4-M2, C4-M1, O1-M2, O2-M2, O2-M1, T3-M2, T4-M1, P3-M2, P4-M1, CHIN1, CHIN2, HR, EKG, Legs, PFLOW, SNOR, FLOW, CFLOW, Tidal Volume, THOR, ABDO, SpO2, PLTH, CPRESS, ETCO2 Wave, ETCO2, pH Sleep Architecture Sleep Stages Time at Lights Off 10:24:45 PM STAGES Time (min.) TST (%) Time at Lights On 5:14:15 AM Wake 251.5 -- Total Recording Time (TRT) 413.00 min. N1 18.0 11 Total Sleep Period (TSP) 180.0 min. N2 140.0 89 Total Sleep Time (TST) 158.0min. N3 0.0 0 Awake Time 255.0 min. REM 0.0 0 Wake after Sleep Onset 186.5 min. Sleep Efficiency (SE) 39 % Sleep Onset Latency (DEVAN) 65.0 min. Number of Stage 1 Shifts None Awakenings 9 Stage Changes 33 Number of REM periods N/A REM 0.0 0 REM Latency NONE min. NREM 158.0 100 Body Position Analysis Supine Right Left Side Prone Vertical Total Sleep Time (min.) 140.8 31.0 30.1 61.08 0.0 55.6 Total Sleep Time (%) 61% 20% 19% 39 0% N/A% Total Sleep Time REM (min.) 0.0 0.0 0.0 None 0.0 0.0 Total Sleep Time NREM (min.) 96.9 31.0 30.1 None 0.0 0.0 Intermittent Wake (min.) 43.8 141.7 9.9 None 0.0 55.6 Total Sleep Period (%) 59% None None None None None Arousals Myoclonus (PLM) * Events Count Index Events Count Index Spontaneous 3 1 Events Awake (PLMW) 198 47.2 Respiratory 1 0.4 Events Asleep w/ Arousal (PLMA) 23 8.7 PLM 23 9 Events Asleep w/o Arousal (PLMS) 6 2.3 Snoring 14 5 Total Asleep 29 11.0 Total 41 16 Total 227 33 Respiratory Analysis * CA OA MA CH H RERA Total Count 0 0 0 0 4 0 4 Index 0.0 0.0 0.0 0 1.5 0 1.5 Mean Duration 0.0 0.0 0.0 0.00 17.4 0.0 17.4 Longest Duration 0.0 0.0 0.0 0.00 0.0 0.0 20.0 Respiratory Event Summary Total Supine ~Supine Right Left Prone REM NREM Apneas Count 0 0 0 0 0 N/A N/A 0 Index 0.0 0 0 0.0 0.0 N/A N/A 0 Hypopneas (4% Desat) Count 4 2 2 2 0 N/A N/A 4 Index 1.5 1.2 2 3.9 0.0 N/A N/A 1.5 Apneas & All Hypopneas Count 4 2 2 2 0 N/A N/A 4 Index 1.5 1 2 4 0 N/A N/A 1.5 Respiratory Events (Electronics Lead+All Hyp+RERA) Count 4 2 2 2 0 N/A N/A 4 Index 1.5 1 2 3.9 0.0 N/A N/A 1.5 Respiratory Related Arousal Count 1 2 1 1 0 N/A N/A 1 Index 0.4 0 1 2 0 N/A N/A 0 Snoring Analysis Supine Right Left Prone REM NREM Total Snore duration 11.5 min Snores count 278 80 318 N/A N/A 676 676 Snore mean duration 1.0 Sec Snores index 172 155 634 N/A N/A 256.7 256.7 TST with snoring (%) 7.3% SpO2 Analysis Total REM NREM Awake <50% 0.0 min. 0.0 min. 0.0 min. 0.0 min. 51 - 60% 0.0 min. 0.0 min. 0.0 min. 0.0 min. 61 - 70% 0.0 min. 0.0 min. 0.0 min. 0.0 min. 71 - 80% 0.2 min. 0.0 min. 0.0 min. 0.2 min. 81 - 90% 66.5 min. 0.0 min. 58.6 min. 7.9 min. 91 - 100% 316.6 min. 0.0 min. 92.3 min. 224.4 min. Average 92 0 91 93 Minimum SpO2 80 N/A 87 80 Desaturation Event Index 2.5 0.0 1.9 2.9 # Desat. Events below 89% 4 N/A 1 3 Time(%) with Saturation below 89% 2.7 0.0 2.1 0.6 Time(min.) with Saturation below 89% 10.2 0.0 8.0 2.2 Heart Rate Analysis End Tidal CO2 Analysis Min (bpm) Max (bpm) Average (bpm) TSP (mins) % of TSP Awake 41 225 87 Above 55 mmHg 0.0 0.0 NREM 76 127 86 50-55 mmHg 0.0 0.0 REM N/A N/A N/A 45-50 mmHg 0.0 0.0 Overall 76 127 86 40-45 mmHg 0.0 0.0 35-40 mmHg 0.3 0.2 30-35 mmHg 108.9 68.9 Average ETCO2 0.0 Supplemental O2 Values Minimum O2 level: None Value Start Time End Time [place] Comments Mrs. Gee slept in the right, left, and supine positions. No cardiac arrhythmia. PLMs noted. No bruxism noted. Snoring was noted and scored as a 2 on a scale of 0 through 5. (0=no snoring, 5=snoring loud enough to be heard through a closed door or down the hernandez way) Mrs. Gee awoke to use the restroom once during the night. Mrs. Gee stated, that was a normal night. The final report will be interpreted and signed by a sleep physician. The completed physician report will then be placed in the patient medical record. Therapy (cm H2O) 0 TIB (min.) 409.5 TST (min.) 158.0 Sleep Onset (min.) 65.0 REM Onset From Sleep (min.) NONE Sleep Efficiency % 39 Wakefulness (%) 61 Wakefulness (min.) 255.0 NREM 1 (%) 11 NREM 1 (min.) 18.0 NREM 2 (%) 89 NREM 2 (min.) 140.0 NREM 3 (%) 0 NREM 3 (min.) 0.0 REM (%) 0 REM (min.) 0.0 # Arousals 41 Arousal Index 16 # Snore 676 Snore Index 256.7 AHI 1.5 AHI Supine 1 AHI Non-Supine 2 NREM AHI 1.5 REM AHI N/A RDI 1.5 # Obstructive Apnea 0 # Central Apnea 0 # Mixed Apnea 0 # Hypopneas 4 RERAs 0 Total Respiratory Events 5 Time Below SpO2 89% (min.) 8.0 Mean NREM SpO2 (%) 91 Mean REM SpO2 (%) N/A Mean Sleep SpO2 (%) 91 Min NREM SpO2 (%) 87 Min REM SpO2 (%) N/A Position Supine (min.) 140.8 Position Non-supine (min.) 61.1 LM Index Sleep 11.0 LM Index NREM 11.0 LM Index REM N/A Mean Heart Rate (bpm) 86 Min Heart Rate (bpm) 76
--- NOTE | 2017-05-04 12:51 | POLYSOMNOGRAPH REPORT ---
CLINICAL DATA: A 61-year-old female with a BMI of 55, referred by Dr. Rodríguez for a possible split-night study. She had a sleep study in 2012, which showed mild MARIA LUZ but was never treated. SLEEP ARCHITECTURE: Total sleep period was 180 minutes. Total sleep time was 158 minutes, all non-REM sleep. Sleep latency was delayed at 65 minutes. REM was not achieved. Sleep efficiency was severely reduced at 39%. Wake after sleep onset was 186.5 minutes. Sleep consisted of stage N1 11% and stage N2 89%. AROUSAL DATA: 41 arousals were recorded for an index of 16 per hour. PERIODIC LIMB MOVEMENT DATA: 29 limb movements during sleep were noted for an index of 11 per hour with arousal index of 8.7 per hour. RESPIRATORY DATA: There was no evidence of clinically significant sleep apnea seen. The AHI was 1.5. There were 4 hypopneic episodes with the mean duration of 17.4 seconds. OXIMETRY DATA: Transient hypoxemia was seen. Oxygen pasha was 87%. Mean saturation was 92%. EKG: Heart rates ranged from 76-127 beats per minute. No arrhythmias were noted. 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 Snoring was mild, rated 2 on a scale of 1 through 5. The patient had significant delayed sleep onset, some intermittent sleep and then was awake for several hours at the end of the study. IMPRESSION: No evidence of clinically significant sleep apnea/hypopnea, nocturnal hypoxemia or abnormal limb movements during sleep to explain this patient's symptoms. This was a limited sleep study in that the patient only slept for 158 minutes and did not reach REM sleep. RECOMMENDATIONS: The patient may benefit from an attempt at a home sleep study or a repeat sleep study with a sleep aid. Clinical correlation is needed. [facility]PITALAless[facility]
== END | disposition home or self-care (01) ==
LOC: C.NEUR 20:00
PROVIDERS: ATTEND Internal Medicine
DX: G47.33 Obstructive sleep apnea (adult) (pediatric) (principal)

== ENCOUNTER 2017-05-23 16:13 | Emergency (ER) | payer OTHER ==
[~2017-05-23] VITALS: Ht 160 cm; Wt 140.0 kg
[2017-05-23 16:16] VITALS: TEMP 36.6; Ht 160 cm; Wt 140.0 kg
[2017-05-23] MEDS ORDERED: ONDANSETRON INJ 2 MG/ML 2 ML VIAL IV STA (16:25)
[2017-05-23] MEDS ORDERED: MoRPHine SULFATE 4 MG/ML 1 ML CARP\\VIAL IV STA (16:25)
[2017-05-23] MEDS ORDERED: OPTIRAY 320 IV PRN (16:30)
[2017-05-23] MEDS ORDERED: OXYC-57 PO (17:02)
[2017-05-23 17:11] LABS: BASO % 0.3 %; BASO ABS # 0.03 K/uL (0-0.2); EOS % 1.8 %; EOS ABS # 0.16 K/uL (0-0.5); HEMATOCRIT 39.7 % (37-47); HEMOGLOBIN 13.3 g/dL (12.0-16.0); IG# 0.03 K/uL (0.00-0.02); LYMPH ABS # 2.87 K/uL (1.2-3.4); MEAN CELL VOLUME 89.2 fL (80-100); MEAN CORPUSCULAR HEMOGLOBIN 29.9 pg (25-34); MEAN CORPUSCULAR HGB CONC 33.5 g/dl (32-36); MEAN PLATELET VOLUME 9.2 fL (7.4-10.4); MONO % 6.2 %; MONO ABS # 0.56 K/uL (0.11-0.59); NEUT % 59.4 %; NEUT ABS # 5.32 K/uL (1.4-6.5); PLATELET COUNT 236 K/uL (130-400); RED CELL DISTRIBUTION WIDTH CV 14.8 % (11.5-14.5); RED CELL DISTRIBUTION WIDTH SD 47.6 fL (36.4-46.3); WHITE BLOOD COUNT 8.97 K/uL (4.8-10.8)
[2017-05-23 17:27] LABS: ALBUMIN 3.6 gm/dl (3.4-5.0); ALT/SGPT 29 U/L (12-78); AST/SGOT 14 U/L (15-37); BLOOD UREA NITROGEN 17 mg/dl (7-18); CARBON DIOXIDE 27 mmol/L (21-32); CREATININE 0.79 mg/dl (0.60-1.20); GLUCOSE 113 mg/dl (70-99); LIPASE 97 U/L (73-393); POTASSIUM 4.4 mmol/L (3.5-5.1); SODIUM 139 mmol/L (136-145)
[2017-05-23 17:30] LABS: ALKALINE PHOSPHATASE 142 U/L (45-117); TOTAL PROTEIN 7.6 gm/dl (6.4-8.2)
[2017-05-23] MEDS ORDERED: MoRPHine SULFATE 2 MG/ML CARP IV STA (18:52)
--- NOTE | 2017-05-23 20:33 | DIAGNOSTIC IMAGING REPORT ---
CT OF THE ABDOMEN AND PELVIS WITH CONTRAST CLINICAL HISTORY: Left lower quadrant abdominal pain. Evaluate for acute diverticulitis. COMPARISON STUDY: CT of the abdomen and pelvis June 22, 2016. TECHNIQUE: Following IV administration of 94 mL of Optiray-320, axial images of the abdomen and pelvis were obtained from the lung bases to the proximal femurs. Images were reviewed in the axial, sagittal, and coronal planes. IV contrast was administered without complication. A dose lowering technique was utilized adhering to the principles of ALARA. Oral contrast was administered. CT DOSE: 1617.46 mGy.cm FINDINGS: A 1.7 cm left adrenal nodule is unchanged since prior exams. This is benign. There is fatty infiltration of the liver. No biliary ductal dilatation is noted status post cholecystectomy. There is no peripancreatic infiltration. The spleen, right adrenal gland kidneys are unremarkable. There is no hydronephrosis. No pneumatosis, free air or portal venous gas is present. There is no lymphadenopathy. Note is made of colonic diverticulosis without evidence for acute diverticulitis. There is a large right ventral hernia which contains multiple loops of small bowel and a portion of the transverse colon. This is unchanged. There is no resultant bowel obstruction. No suspicious osseous lesions are present. IMPRESSION: 1. No acute process within the abdomen or pelvis. 2. Colonic diverticulosis without evidence for acute diverticulitis. 3. No change in a large complex bowel and fat-containing ventral hernia. No bowel obstruction. 4. Fatty liver. 5. Moderate amount of stool within the colon. Electronically signed by: Philipp Vasques M.D. 05/23/2017 8:31 PM Dictated Date/Time: 05/23/2017 8:25 PM
[2017-05-23] MEDS ORDERED: PANTOprazole SOD 40 MG TAB PO STA (20:43)
[2017-05-23 21:06] VITALS: BP 132/77; PULSE 85; O2SAT 94
--- NOTE | 2017-05-23 23:13 | EMERGENCY ROOM VISIT NOTE ---
History Report prepared by Lorne: Felicity Singleton Under the Supervision of: Dr. Ki Crisostomo M.D. First contact with patient: 16:17 Chief Complaint: ABDOMINAL PAIN Stated Complaint: ABDOMINAL PAIN History of Present Illness The patient is a 61 year old female who presents to the Emergency Room with complaints of intermittent abdominal pain starting 3 weeks ago. The pain is in her upper abdomen and around her belly button. She has had the pain every day and it worsens at night. The pain has become more constant today. She describes the pain as achy and burning. The pain also feels like pins and needles at times. It worsens with eating any kind of food. She has not yet seen a doctor for this pain. She has some SOB when the pain intensifies, but no SOB otherwise. She has had chills and sweating but no recorded fever. She denies any black or bloody stools, diarrhea, vomiting, chest pain, or urinary symptoms. She denies any history of ulcers. She denies any alcohol use. She had knee surgery last week. She took 2 Percocet this morning. Source of History: patient Onset: 3 weeks ago Position: abdomen (upper) Quality: ache, burning Timing: intermittent Modifying Factors (Worsening): eating Associated Symptoms: + chills, + diaphoresis, + SOB, No fevers, No chest pain, No vomiting, No melena, No hematochezia, No diarrhea, No urinary symptoms Review of Systems See HPI for pertinent positives & negatives. A total of 10 systems reviewed and were otherwise negative. Past Medical & Surgical Medical Problems: (1) Anxiety (2) Bipolar disorder (3) Depression (4) DVT (deep venous thrombosis) (5) Dyslipidemia (6) IBS (irritable bowel syndrome) (7) past psych meds (8) Personality disorder (9) Suicidal ideation (10) Tardive dyskinesia (11) Umbilical hernia Surgical Problems: (1) H/O umbilical hernia repair (2) History of appendectomy (3) History of hysterectomy Family History Anxiety disorder MOTHER Asthma Cardiac disorder FATHER FH: obesity MOTHER Stroke FATHER Social History Smoking Status: Never Smoker Alcohol Use: none Marital Status: Housing Status: lives with family Current/Historical Medications Scheduled Quetiapine Fumarate Xr (Seroquel Xr), 200 MG PO HS Scheduled PRN Lorazepam (Ativan), 1 MG PO Q6H PRN for Anxiety Oxycodone/Acetaminophen 5MG/325MG (Percocet 5MG/325MG), 1 TAB PO TID PRN for Pain Allergies Coded Allergies: Naproxen (Verified Allergy, Intermediate, WELTS/HIVE BUT CAN TAKE IBUPROFEN & ASPIRIN W/O PROBLEM, 04/18/17) Cyclobenzaprine (Verified Allergy, Mild, RASH, 04/18/17) INFO [facility] Penicillins (Verified Allergy, Unknown, DOES NOT REMEMBER RXN WAS A CHILD , 04/18/17) Amitriptyline (Verified Adverse Reaction, Intermediate, "MADE PT MORE ANXIOUS", 04/18/17) [place] [facility] (Verified Adverse Reaction, Intermediate, "COULD NOT SLEEP", 04/18/17) Buspirone (Verified Adverse Reaction, Intermediate, MADE PT MORE ANXIOUS, 04/18/17) Doxepin (Verified Adverse Reaction, Intermediate, "COULD NOT SLEEP", ) Suvorexant (Verified Adverse Reaction, Intermediate, Nightmares, 04/18/17) Hydroxyzine (Verified Adverse Reaction, Mild, increased anxiety, 04/18/17) Diphenhydramine (Verified Adverse Reaction, Unknown, nervousness, 04/18/17) "It makes me bounce of cohen." Paroxetine (Verified Adverse Reaction, Unknown, HALLUCINATION, 04/18/17) Trazodone (Verified Adverse Reaction, Unknown, PALPITATIONS, 04/18/17) Physical Exam Vital Signs Date Time Temp Pulse Resp B/P (MAP) Pulse Ox O2 Delivery O2 Flow Rate FiO2 05/23/17 21:06 85 20 132/77 94 05/23/17 20:34 83 20 108/78 94 Room Air 05/23/17 19:00 84 20 115/83 95 Room Air 05/23/17 18:09 79 20 124/67 96 Room Air 05/23/17 17:10 79 20 134/79 96 Room Air 05/23/17 16:16 36.6 76 20 123/72 94 Room Air Physical Exam Constitutional: Vital signs reviewed. Eyes: Pupils are equal round reactive to light. Conjunctiva are noninjected. ENT: Pharynx is clear without erythema or exudate. Mucous membranes are moist. Neck supple without meningeal signs. Respiratory: Clear to auscultation bilaterally. Breath sounds are equal bilaterally. Cardiovascular: Regular rate and rhythm. No rubs or gallops. GI: Soft, nondistended. LLQ tenderness. No guarding. Bowel sounds are present. Musculoskeletal: No CVA tenderness. Incisions to the right knee clean dry and intact without discharge or erythema. Integumentary: No cyanosis. Neurological: The patient is awake and alert. No focal deficits. Psychiatric: Normal affect. Medical Decision & Procedures ER Provider Diagnostic Interpretation: Radiology results as stated below per my review and the radiologist's interpretation: CT OF THE ABDOMEN AND PELVIS WITH CONTRAST CLINICAL HISTORY: Left lower quadrant abdominal pain. Evaluate for acute diverticulitis. COMPARISON STUDY: CT of the abdomen and pelvis June 22, 2016. TECHNIQUE: Following IV administration of 94 mL of Optiray-320, axial images of the abdomen and pelvis were obtained from the lung bases to the proximal femurs. Images were reviewed in the axial, sagittal, and coronal planes. IV contrast was administered without complication. A dose lowering technique was utilized adhering to the principles of ALARA. Oral contrast was administered. CT DOSE: 1617.46 mGy.cm FINDINGS: A 1.7 cm left adrenal nodule is unchanged since prior exams. This is benign. There is fatty infiltration of the liver. No biliary ductal dilatation is noted status post cholecystectomy. There is no peripancreatic infiltration. The spleen, right adrenal gland kidneys are unremarkable. There is no hydronephrosis. No pneumatosis, free air or portal venous gas is present. There is no lymphadenopathy. Note is made of colonic diverticulosis without evidence for acute diverticulitis. There is a large right ventral hernia which contains multiple loops of small bowel and a portion of the transverse colon. This is unchanged. There is no resultant bowel obstruction. No suspicious osseous lesions are present. IMPRESSION: 1. No acute process within the abdomen or pelvis. 2. Colonic diverticulosis without evidence for acute diverticulitis. 3. No change in a large complex bowel and fat-containing ventral hernia. No bowel obstruction. 4. Fatty liver. 5. Moderate amount of stool within the colon. Electronically signed by: Philipp Vasques M.D. 05/23/2017 8:31 PM Dictated Date/Time: 05/23/2017 8:25 PM Laboratory Results 05/23/17 17:00 Red Blood Count 4.45, Mean Corpuscular Volume 89.2, Mean Corpuscular Hemoglobin 29.9, Mean Corpuscular Hemoglobin Concent 33.5, Mean Platelet Volume 9.2, Neutrophils (%) (Auto) 59.4, Lymphocytes (%) (Auto) 32.0, Monocytes (%) (Auto) 6.2, Eosinophils (%) (Auto) 1.8, Basophils (%) (Auto) 0.3, Neutrophils # (Auto) 5.32, Lymphocytes # (Auto) 2.87, Monocytes # (Auto) 0.56, Eosinophils # (Auto) 0.16, Basophils # (Auto) 0.03 05/23/17 17:00 Test 05/23/17 17:00 05/23/17 17:15 White Blood Count 8.97 K/uL (4.8-10.8) Red Blood Count 4.45 M/uL (4.2-5.4) Hemoglobin 13.3 g/dL (12.0-16.0) Hematocrit 39.7 % (37-47) Mean Corpuscular Volume 89.2 fL (80-100) Mean Corpuscular Hemoglobin 29.9 pg (25-34) Mean Corpuscular Hemoglobin Concent 33.5 g/dl (32-36) Platelet Count 236 K/uL (130-400) Mean Platelet Volume 9.2 fL (7.4-10.4) Neutrophils (%) (Auto) 59.4 % Lymphocytes (%) (Auto) 32.0 % Monocytes (%) (Auto) 6.2 % Eosinophils (%) (Auto) 1.8 % Basophils (%) (Auto) 0.3 % Neutrophils # (Auto) 5.32 K/uL (1.4-6.5) Lymphocytes # (Auto) 2.87 K/uL (1.2-3.4) Monocytes # (Auto) 0.56 K/uL (0.11-0.59) Eosinophils # (Auto) 0.16 K/uL (0-0.5) Basophils # (Auto) 0.03 K/uL (0-0.2) RDW Standard Deviation 47.6 fL (36.4-46.3) RDW Coefficient of Variation 14.8 % (11.5-14.5) Immature Granulocyte % (Auto) 0.3 % Immature Granulocyte # (Auto) 0.03 K/uL (0.00-0.02) Anion Gap 5.0 mmol/L (3-11) Est Creatinine Clear Calc Drug Dose 103.2 ml/min Estimated GFR () 93.6 Estimated GFR (Non- 80.8 BUN/Creatinine Ratio 21.5 (10-20) Calcium Level 9.0 mg/dl (8.5-10.1) Total Bilirubin 0.3 mg/dl (0.2-1) Direct Bilirubin < 0.1 mg/dl (0-0.2) Aspartate Amino Transf (AST/SGOT) 14 U/L (15-37) Alanine Aminotransferase (ALT/SGPT) 29 U/L (12-78) Alkaline Phosphatase 142 U/L (45-117) Total Protein 7.6 gm/dl (6.4-8.2) Albumin 3.6 gm/dl (3.4-5.0) Lipase 97 U/L (73-393) Urine Color YELLOW Urine Appearance CLEAR (CLEAR) Urine pH 5.0 (4.5-7.5) Urine Specific [place] 1.016 (1.000-1.030) Urine Protein NEG (NEG) Urine Glucose (UA) NEG (NEG) Urine Ketones NEG (NEG) Urine Occult Blood NEG (NEG) Urine Nitrite NEG (NEG) Urine Bilirubin NEG (NEG) Urine Urobilinogen NEG (NEG) Urine Leukocyte Esterase MODERATE (NEG) Urine WBC (Auto) 5-10 /hpf (0-5) Urine RBC (Auto) 0-4 /hpf (0-4) Urine Hyaline Casts (Auto) 1-5 /lpf (0-5) Urine Epithelial Cells (Auto) 10-20 /lpf (0-5) Urine Bacteria (Auto) NEG (NEG) Laboratory results as reviewed by me. Medications Administered Medications (Trade) Dose Ordered Sig/Gary Route Start Time Stop Time Status Last Admin Dose Admin Morphine Sulfate (MoRPHine SULFATE INJ) 4 mg ONE STAT IV 05/23/17 16:25 05/23/17 16:26 DC 05/23/17 17:09 4 MG Ondansetron HCl (Zofran Inj) 4 mg NOW STAT IV 05/23/17 16:25 05/23/17 16:26 DC 05/23/17 17:08 4 MG Morphine Sulfate (MoRPHine SULFATE INJ) 2 mg NOW STAT IV 05/23/17 18:52 05/23/17 18:53 DC 05/23/17 19:01 2 MG Pantoprazole Sodium (Protonix Tab) 40 mg NOW STAT PO 05/23/17 20:43 05/23/17 20:44 DC 05/23/17 21:00 40 MG ECG Per My Interpretation Indication: abdominal pain Rate (beats per minute): 73 Rhythm: normal sinus Findings: other (no ST elevation, no PVC) ED Course 1618: The patient was evaluated in room B2. A complete history and physical exam was performed. 1624: Zofran Inj 4 mg IV, Morphine Sulfate 4 mg IV. 1849: I reevaluated the patient. She is still having pain. I discussed the test results with her. 1851: Morphine Sulfate 2 mg IV. 2041: I reevaluated the patient. She is feeling better. I discussed the test results with her. I recommended follow up with GI. She will try a PPI trial. She verbalized agreement of the treatment plan. She was discharged home. 2042: Protonix Tab 40 mg PO. Medical Decision This is a 61-year-old female presents with abdominal pain. Differential diagnosis includes diverticulitis, abscess, perforation, pancreatitis, peptic ulcer disease, colitis. I did perform a limited focused review of portions of the patient's old chart on the electronic medical record. The patient had a colonoscopy April 18 for cancer surveillance which showed diverticulosis and a large nonbleeding AVM in the ascending colon. I did evaluate the patient as noted above. The patient is presenting with upper abdominal pain. She is, however, tender in the left lower quadrant. IV access was established. I did treat the patient with IV morphine and Zofran. I did order and personally review the patient's 12-lead EKG as described above. There is no evidence of acute ischemia. I did order and review the patient's blood work as noted in the electronic medical record. Her white blood cell count is not elevated. Her LFTs and lipase are unremarkable. Urinalysis does not show significant signs of infection. She denies urinary symptoms. A urine culture was sent. I did order a CT of the abdomen and pelvis. I did review the images myself as well as the radiology report as described above. There is no evidence of acute process on CT scanning. She does have a moderate amount of stool throughout her colon. She also has a ventral hernia without signs of obstruction. No diverticulitis was noted. I did reevaluate the patient. She is feeling better. I did discuss the test results with the patient. At this time the cause of her symptoms is unclear. I did recommend close follow-up with her doctor. I did put her on a trial of Protonix and gave her prescription for Protonix. She was given return instructions as outlined below and discharged in good condition. Medication Reconcilliation Current Medication List: was personally reviewed by me Blood Pressure Screening Patient's blood pressure: Normal blood pressure Blood pressure disposition: Did not require urgent referral Impression Primary Impression: Upper abdominal pain Additional Impression: Ventral hernia Scribe Attestation The scribe's documentation has been prepared under my direct and personally reviewed by me in its entirety. I confirm that the note above accurately reflects all work, treatment, procedures, and medical decision making performed by me. Departure Information Dispostion Home / Self-Care Referrals Loan Rudd PA-C (PCP) Forms Call Back Authorization, HOME CARE DOCUMENTATION FORM, IMPORTANT VISIT INFORMATION Patient Instructions ED Abdominal Pain Unkn Cause, My [facility] Additional Instructions You have been examined and treated today on an emergency basis only. This is not a substitute for, or an effort to provide, complete comprehensive medical care. It is impossible to recognize and treat all injuries or illnesses in a single emergency department visit. It is therefore important that you follow up closely with your physician and soccer ball assembler. Call as soon as possible for an appointment. Return for worsening symptoms or if you develop fever, vomiting, black or tarry stools, rectal bleeding, chest pain, shortness of breath or any other concerning symptoms. Problem Qualifiers Additional Impression: Ventral hernia Obstruction and gangrene presence: without obstruction or gangrene Qualified Codes: K43.9 - Ventral hernia without obstruction or gangrene
[2017-05-23] MEDS ORDERED: PRT/20 PO (23:14)
== END 2017-05-23 21:07 | disposition home or self-care (01) ==
LOC: C.EDB 16:14
DX: R10.10 Upper abdominal pain, unspecified (principal); K43.9 Ventral hernia without obstruction or gangrene; F41.9 Anxiety disorder, unspecified; F31.9 Bipolar disorder, unspecified; F32.9 Major depressive disorder, single episode, unspecified; E78.5 Hyperlipidemia, unspecified; K58.9 Irritable bowel syndrome, unspecified; Z82.5 Family history of asthma and other chronic lower respiratory diseases; Z82.3 Family history of stroke; Z88.8 Allergy status to other drugs, medicaments and biological substances; Z88.0 Allergy status to penicillin; Z88.5 Allergy status to narcotic agent; K59.00 Constipation, unspecified

== ENCOUNTER → 2017-09-07 | Outpatient (CLI) | payer OTHER ==
[~2017-09-07] MED LIST changes: +ALPR-411 PO; +ALPR0.25 PO; -ATV/1 PO; +LNS3 PO; -MELO-84 PO; +MULT-506 PO; +ONDA-170 PO; +OPTIRAY 320 IV PRN; -QUET200T2 PO; +VENL25TA2 PO
--- NOTE | 2017-09-07 15:53 | DIAGNOSTIC IMAGING REPORT ---
CT ABD/PELVIS IV AND ORAL CONT CLINICAL HISTORY: Unexplained nausea EPIGASTRIC ABDOMINAL PAIN COMPARISON STUDY: 05/23/2017 TECHNIQUE: Following the IV administration of 91 mL of Optiray-320, CT scan of the abdomen and pelvis was performed from the lung bases to the proximal femurs. Images are reviewed in the axial, sagittal, and coronal planes. IV contrast was administered without complication. A dose lowering technique was utilized adhering to the principles of ALARA. CT DOSE: 1480.06 mGy.cm FINDINGS: Lower chest: The heart is normal in size and configuration, without pericardial effusion. The lung bases and pleural spaces are clear. Liver: There is mild hepatic steatosis. No focal masses are visualized. There is no ductal dilatation. Gallbladder: Surgically absent Spleen: Normal in size and attenuation. Pancreas: Unremarkable. Adrenal glands: There is a stable 2 cm left adrenal nodule likely representing an adenoma Kidneys: There is symmetric renal cortical enhancement. The kidneys are normal in size without hydronephrosis. Bowel: There are no transition zones indicate bowel obstruction. There is colonic diverticulosis. There are no acute peridiverticular inflammatory changes. There is a large complex ventral hernia containing both small bowel and colon. There are no current obstructive changes. Peritoneum: There is no intraperitoneal free air or abdominal ascites. Vasculature: The abdominal aorta is normal in course and caliber. Adenopathy: None. Pelvic viscera: The uterus is surgically absent. Skeletal structures: There is a T12 hemangioma. IMPRESSION: 1. No acute findings. 2. Colonic diverticulosis. No evidence of acute diverticulitis 3. Large complex ventral hernia containing large and small bowel loops. No current obstructive findings 4. No evidence of bowel obstruction. No evidence of free air Electronically signed by: Michele Kraus M.D. 09/07/2017 3:51 PM Dictated Date/Time: 09/07/2017 3:47 PM
== END | disposition home or self-care (01) ==
LOC: C.CTS 13:11
PROVIDERS: ATTEND Internal Medicine
DX: R11.0 Nausea (principal); R10.13 Epigastric pain; K57.90 Diverticulosis of intestine, part unspecified, without perforation or abscess without bleeding; K43.9 Ventral hernia without obstruction or gangrene

== ENCOUNTER → 2017-09-18 | Day surgery (SDC) | payer OTHER ==
[2017-09-14 15:25] VITALS: Ht 160 cm; Wt 130.0 kg
[~2017-09-18] VITALS: Ht 160 cm; Wt 130.0 kg
[~2017-09-18] MED LIST changes: +LIDOCAINE HCL 2% 2 ML VIAL (20MG/ML) ONE; +MIDAZOLAM HCL 1 MG/ML 2ML VIAL ONE; +ONDANSETRON INJ 2 MG/ML 2 ML VIAL ONE; -OPTIRAY 320 IV PRN; +PROPOFOL IV EMULSION 10 MG/ML 20 ML VIAL ONE; +SODIUM CHLORIDE 0.9% 500ML 500 ML IV ONE; +ZOLP10TA PO
[2017-09-18 08:19] VITALS: TEMP 36.1
--- NOTE | 2017-09-18 08:24 | Endo History and Physical ---
History & Physical Date of Service: Sep 18, 2017. Chief Complaint: Abdominal pain Referring Physician: Abbe Banda History of Present Illness 61 yo presenting for EGD for epigastric abdominal pain-prior Duodenal ulcer 2016. Past Medical History Anxiety, Depression Past Surgical History Hx Cardiac Surgery: No Hx Internal Defibrillator: No Hx Pacemaker: No Hx Abdominal Surgery: Yes (APPY, NIDIA, GRANT, TUBAL LIGATION) Hx of Implantable Prosthesis: No Hx Post-Op Nausea and Vomiting: No Hx Cancer Surgery: No Hx Thoracic Surgery: No Hx Orthopedic: No Hx Urinary Tract Surgery: No Family History Colon CA Social History Smoking Status: Former Smoker Hx Substance Use: No Hx Alcohol Use: No Allergies Coded Allergies: Naproxen (Verified Allergy, Intermediate, WELTS/HIVE BUT CAN TAKE IBUPROFEN & ASPIRIN W/O PROBLEM, 09/18/17) Cyclobenzaprine (Verified Allergy, Mild, RASH, 09/18/17) INFO [facility] Penicillins (Verified Allergy, Unknown, DOES NOT REMEMBER RXN WAS A CHILD , 09/18/17) Amitriptyline (Verified Adverse Reaction, Intermediate, "MADE PT MORE ANXIOUS", 09/18/17) [place] [facility]CF (Verified Adverse Reaction, Intermediate, "COULD NOT SLEEP", 09/18/17) Buspirone (Verified Adverse Reaction, Intermediate, MADE PT MORE ANXIOUS, 09/18/17) Doxepin (Verified Adverse Reaction, Intermediate, "COULD NOT SLEEP", ) Suvorexant (Verified Adverse Reaction, Intermediate, Nightmares, 09/18/17) Hydroxyzine (Verified Adverse Reaction, Mild, increased anxiety, 09/18/17) Diphenhydramine (Verified Adverse Reaction, Unknown, nervousness, 09/18/17) "It makes me bounce of cohen." Paroxetine (Verified Adverse Reaction, Unknown, HALLUCINATION, 09/18/17) Trazodone (Verified Adverse Reaction, Unknown, PALPITATIONS, 09/18/17) Current Medications Reported Home Medications Medications Dose Route/Sig Max Daily Dose Days Date Category Ambien (Zolpidem Tartrate) 10 Mg Tab 1 Tab PO HS PRN 30 09/18/17 Reported Zofran (Ondansetron HCl) 8 Mg Tab 8 Mg PO PRN 09/14/17 Reported Xanax (Alprazolam) 0.5 Mg Tab 1 Mg PO HS 09/14/17 Reported Multivitamin (Multivitamins) Tab 1 Tab PO DAILY 08/04/17 Reported Xanax (Alprazolam) 0.25 Mg Tab 0.25 Mg PO AM&AFTERNOON 08/04/17 Reported Effexor (Venlafaxine Hcl) 25 Mg Tab 25 Mg PO TID 08/04/17 Reported Vital Signs Weight (Kilograms): 130 Height (Feet): 5 Height (Inches): 3 Date Time Temp Pulse Resp B/P (MAP) Pulse Ox O2 Delivery O2 Flow Rate FiO2 09/18/17 08:19 36.1 72 24 149/90 (109) 97 Room Air Physical Exam General Appearance: WD/WN, + obese Respiratory/Chest: Respiratory effort: no dyspnea Auscultation: breath sounds normal, CTA except as noted, no wheezing Cardiovascular: Apical Impulse: not displaced Heart Auscultation: RRR, normal S1 Abdomen: Inspection & Palpation: soft, non-distended Assessment and Plan 61 yo presenting for EGD for epigastric abdominal pain
--- NOTE | 2017-09-18 08:51 | GI REPORT ---
Patient Name: Ramona Escobar Procedure Date: 09/18/2017 8:28 AM Date of : 1955 Admit Type: Outpatient Age: 61 Gender: Female Attending MD: Milad Pantoja MD Procedure: Upper GI endoscopy Providers: Milad Pantoja MD Referring MD: Abbe Banda Indications: Epigastric abdominal pain Medicines: Monitored Anesthesia Care Complications: No immediate complications. Estimated blood loss: None. Estimated Blood Loss: Estimated blood loss: none. Procedure: Pre-Anesthesia Assessment: - Pre-Anesthesia Assessment: - Prior to the procedure, a History and Physical was performed, and patient medications, allergies and sensitivities were reviewed. The patient's tolerance of previous anesthesia was reviewed. Please see [facility] for complete details. - The risks and benefits of the procedure and the sedation options and risks were discussed with the patient. All questions were answered and informed consent was obtained. - Patient identification and proposed procedure were verified prior to the procedure by the physician and the nurse. The procedure was verified in the pre-procedure area in the procedure room. After obtaining informed consent, the endoscope was passed carefully and meticuously under direct vision and only advanced when the lumen was clearly identified, C02 insuflation was utilized throughout the entirity of the procedure. Throughout the procedure, the patient's blood pressure, pulse, and oxygen saturations were monitored continuously. After obtaining informed consent, the endoscope was passed under direct vision. Throughout the procedure, the patient's blood pressure, pulse, and oxygen saturations were monitored continuously. The scope was introduced through the mouth, and advanced to the second part of duodenum. The upper GI endoscopy was accomplished without difficulty. The patient tolerated the procedure well. Findings: The examined esophagus was normal. The entire examined stomach was normal. Biopsies were taken with a cold forceps for Helicobacter pylori testing. The examined duodenum was normal. Impression: - Normal esophagus. - Normal stomach. Biopsied. - Normal examined duodenum. Recommendation: - Discharge patient to home (with escort). - Await pathology results. - Use Prilosec (omeprazole) 20 mg PO daily. Milad Pantoja MD 09/18/2017 8:51:28 AM This report has been signed electronically. Note Initiated On: 09/18/2017 8:28 AM Number of Addenda: 0 I attest to the content of the Intraoperative Record and orders documented therein, exceptions below {[id number]}
--- NOTE | 2017-09-18 08:53 | Discharge Instructions ---
Endoscopy Patient Instructions Date / Procedure(s) Performed Sep 18, 2017. EGD Allergy Information Coded Allergies: Naproxen (Verified Allergy, Intermediate, WELTS/HIVE BUT CAN TAKE IBUPROFEN & ASPIRIN W/O PROBLEM, 09/18/17) Cyclobenzaprine (Verified Allergy, Mild, RASH, 09/18/17) INFO [facility] Penicillins (Verified Allergy, Unknown, DOES NOT REMEMBER RXN WAS A CHILD , 09/18/17) Amitriptyline (Verified Adverse Reaction, Intermediate, "MADE PT MORE ANXIOUS", 09/18/17) [place] [facility]CF (Verified Adverse Reaction, Intermediate, "COULD NOT SLEEP", 09/18/17) Buspirone (Verified Adverse Reaction, Intermediate, MADE PT MORE ANXIOUS, 09/18/17) Doxepin (Verified Adverse Reaction, Intermediate, "COULD NOT SLEEP", ) Suvorexant (Verified Adverse Reaction, Intermediate, Nightmares, 09/18/17) Hydroxyzine (Verified Adverse Reaction, Mild, increased anxiety, 09/18/17) Diphenhydramine (Verified Adverse Reaction, Unknown, nervousness, 09/18/17) "It makes me bounce of cohen." Paroxetine (Verified Adverse Reaction, Unknown, HALLUCINATION, 09/18/17) Trazodone (Verified Adverse Reaction, Unknown, PALPITATIONS, 09/18/17) Discharge Date / Findings Sep 18, 2017. Normal examination Biopsies were taken Will re-start acid suppression once daily Provider Instructions Activity Restrictions - No exercising or heavy lifting for 24 hours. - Do not drink alcohol the day of the procedure. - Do not drive a car or operate machinery until the day after the procedure. - Do not make any important decisions or sign important papers in 24 hours after the procedure. Following Day: - Return to full activity which may include returning to work/school. Diet Start your diet with liquids and light foods (jello, soup, juice, toast). Then eat your usual diet if not nauseated. Treatment For Common After Affects For mild abdominal pain, bloating, or excessive gas: - Rest - Eat lightly - Lie on right side Follow-Up Information Follow-up with Abbe Banda as scheduled Anesthesia Information What You Should Know You have had a procedure that required some medicine to reduce anxiety and discomfort. This treatment is called moderate sedation. After receiving the treatment, you may be sleepy, but you will be able to breathe on your own. The effects of the treatment may last for several hours. Follow these instructions along with Activity/Diet recommendations noted above: * Do NOT do anything where dizziness or clumsiness would be dangerous. * Rest quietly at home today, then you can be up and about tomorrow. * Have a responsible person stay with you the rest of today. * You may have had an I.V. today. If so, you may take the dressing off later today. Recommendations Call your doctor if: * Trouble breathing * Continuous vomiting for more than 24 hours * Temperature above 101 degrees * Severe abdominal pain or bloating * Pain not relieved by pain medicine ordered * There is increased drainage or redness from any incision * A large amount of rectal bleeding greater than 2-3 tablespoons. (If you had a polyp/s removed or have hemorrhoids, a small amount of blood - from the rectum is to be expected.) * You have any unanswered questions or concerns. IN THE EVENT OF A SERIOUS EMERGENCY, GO TO THE NEAREST EMERGENCY ROOM Your discharge instructions were prepared by provider Milad Pantoja. Patient Instructions Signature Page Patient (or Guardian) Signature/Date: I have read and understand the instructions given to me by my caregivers. Caregiver/RN/Doctor Signature/Date: The above-named patient and/or guardian has received patient instructions on this date. + Original Patient Signature Page (only) stays with chart. Please make copy for patient.
[2017-09-18 09:21] VITALS: BP 143/83; PULSE 66; O2SAT 95
--- NOTE | 2017-09-18 09:30 | Anesthesiology Progress Note ---
Anesthesia Post Op Note Date & Time Sep 18, 2017 at 09:30 Vital Signs Pain Intensity: 0 Vital Signs Past 12 Hours Date Time Temp Pulse Resp B/P (MAP) Pulse Ox O2 Delivery O2 Flow Rate FiO2 09/18/17 09:21 66 18 143/83 (103) 95 Room Air 09/18/17 09:06 66 18 143/71 (95) 95 Room Air 09/18/17 08:51 70 16 109/48 (68) 95 Room Air 09/18/17 08:19 36.1 72 24 149/90 (109) 97 Room Air Notes Mental Status: alert / awake / arousable, participated in evaluation Pt Amnestic to Procedure: Yes Nausea / Vomiting: adequately controlled Pain: adequately controlled Airway Patency, RR, SpO2: stable & adequate BP & HR: stable & adequate Hydration State: stable & adequate Anesthetic Complications: no major complications apparent
== END | disposition home or self-care (01) ==
LOC: C.GI 07:34
PROVIDERS: ATTEND Student in an Organized Health Care Education/Training Program
DX: K29.50 Unspecified chronic gastritis without bleeding (principal); E66.9 Obesity, unspecified; G47.33 Obstructive sleep apnea (adult) (pediatric); F41.9 Anxiety disorder, unspecified; F32.9 Major depressive disorder, single episode, unspecified; Z87.891 Personal history of nicotine dependence; Z88.0 Allergy status to penicillin; Z88.1 Allergy status to other antibiotic agents; Z79.899 Other long term (current) drug therapy; Z68.43 Body mass index [BMI] 50.0-59.9, adult; Z80.0 Family history of malignant neoplasm of digestive organs

== ENCOUNTER 2021-09-13 08:21 | Observation (INO) ==
[2021-09-13] MEDS ORDERED: MoRPHine SULFATE 4 MG/ML 1 ML CARP\\VIAL IV STA ×2 (08:44→11:56)
[2021-09-13] MEDS ORDERED: SODIUM CHLORIDE 0.9% 1000ML 1,000 ML IV STA (08:44)
[2021-09-13] MEDS ORDERED: ONDANSETRON INJ 2 MG/ML 2 ML VIAL IV STA (08:44)
[2021-09-13 09:16] LABS: Basophils # (auto) 0.05 K/uL (0-0.2); Basophils % (auto) 0.5 %; Eosinophils # (auto) 0.12 K/uL (0-0.50); Eosinophils % (auto) 1.3 %; Hemoglobin 13.7 g/dl (12.0-16.0); Immature Granulocytes # (auto) 0.05 K/uL (0.00-0.02); Immature Granulocytes % (auto) 0.5 %; Lymphocytes # (auto) 2.09 K/uL (1.2-3.4); Lymphocytes % (auto) 22.6 %; Mean Corpuscular Hemoglobin 29.9 pg (25.0-34.0); Mean Corpuscular Hgb Conc 32.6 g/dL (32.0-36.0); Mean Corpuscular Volume 91.7 fL (80.0-100.0); Mean Platelet Volume 9.2 fL (9.4-12.3); Monocytes # (auto) 0.53 K/uL (0.24-0.82); Monocytes % (auto) 5.7 %; Neutrophils % (auto) 69.4 %; Platelet Count 240 K/uL (130-400); RDW Coefficient of Variation 13.9 % (11.5-14.5); RDW Standard Deviation 46.7 fL (36.4-46.3); Red Blood Count 4.58 M/uL (3.93-5.22); White Blood Count 9.24 K/ul (4.8-10.8)
--- NOTE | 2021-09-13 09:16 | Emergency Department Note ---
History of Present Illness General Chief complaint: Abdominal Pain Stated complaint: ABD PAIN, DIZZY, NUSEA Time Seen by Provider: 09/13/21 08:31 History of Present Illness Maximum Pain Intensity: 7 Pleasant 65-year-old female who presents to the emergency department with complaint of overall abdominal pain, dizziness and nausea. Patient reports that her pain started last in the epigastric region, and has started to radiate down into the lower abdomen and flanks. She has also noticed some mild discomfort in the lower chest as well. She denies any keisha chest tightness, d iaphoresis or weakness. She has had nausea. Patient has had a prior history of stomach issues. She has followed with Dr. Avlia for colonoscopies, and admits that she is due for another procedure. Patient has a brother with history of colon cancer. The patient currently rates her discomfort a 7 out of 10. She reports that her abdomen feels distended. It is noted that the patient is status postcholecystectomy, appendectomy and umbilical herniorrhaphy. Home Medications Medication Instructions Recorded Confirmed Type alprazolam 1 mg tablet 1 mg PO TID 09/13/21 09/13/21 History quetiapine 100 mg tablet 100 mg PO BID 09/13/21 09/13/21 History quetiapine 300 mg tablet 300 mg PO HS 09/13/21 09/13/21 History zolpidem 10 mg tablet 10 mg PO HS 09/13/21 09/13/21 History Allergies Allergy/AdvReac Type Severity Reaction Status Date / Time naproxen Allergy Intermediate WELTS/HIVE Verified 04/04/21 18:14 BUT CAN TAKE IBUPROFEN & ASPIRIN W/O PROBLEM cyclobenzaprine Allergy Mild RASH Verified 04/04/21 18:14 Penicillins Allergy Unknown DOES NOT Verified 04/04/21 18:14 REMEMBER RXN WAS A CHILD amitriptyline AdvReac Intermediate "MADE PT Verified 04/04/21 18:14 MORE ANXIOUS" buspirone AdvReac Intermediate MADE PT Verified 04/04/21 18:14 MORE ANXIOUS diphenhydramine AdvReac Intermediate nervousness Verified 03/29/21 21:20 doxepin AdvReac Intermediate "COULD NOT Verified 03/29/21 21:20 SLEEP" hydroxyzine AdvReac Intermediate increased Verified 03/29/21 21:20 anxiety paroxetine AdvReac Intermediate HALLUCINATI Verified 03/29/21 21:20 ON suvorexant AdvReac Intermediate Nightmares Verified 03/29/21 21:20 trazodone AdvReac Intermediate PALPITATION Verified 03/29/21 21:20 S STERIODS AdvReac Severe AWAKE FOR Uncoded 03/29/21 21:20 3 DAYS, VERY IRRITABLE [place] [facility] AdvReac Intermediate "COULD NOT Uncoded 03/29/21 21:20 SLEEP" Past Med/Surg History Medical History (Updated 09/13/21 @ 15:24 by Jhonatan Abraham) Anxiety Bipolar disorder Depression DVT (deep venous thrombosis) "declined anticoagulation" Dyslipidemia IBS (irritable bowel syndrome) Personality disorder Suicidal ideation Tardive dyskinesia Umbilical hernia Upper abdominal pain Ventral hernia Surgical History H/O umbilical hernia repair History of appendectomy History of hysterectomy Family History Mother Cancer Colon cancer Father Stroke Coronary heart disease Social History Smoking Status: Never smoker Preferred Language: Cymraes Feels Safe at Home: Yes Review of Systems 10 system review was performed and was negative except for pertinent positives and negatives as indicated in history of present illness Physical Exam Vital Signs Vital Signs - 24 hr 09/13/21 08:23 09/13/21 09:21 09/13/21 10:19 Temperature 36.4 C L Temperature Source Oral Pulse Rate 89 Pulse Rate [Apical] 85 88 Respiratory Rate 18 18 18 Respiratory Effort / Characteristics Non-Labored Spontaneous Non-Labored Spontaneous Respiratory Depth Normal Normal Blood Pressure 133/75 Blood Pressure [Right Arm] 156/92 H 114/74 Blood Pressure Mean 94 Blood Pressure Mean [Right Arm] 113 87 Blood Pressure Position Sitting Blood Pressure Position [Right Arm] Lying Lying Pulse Oximetry 95 93 95 Oxygen Delivery Method Room Air Room Air Room Air Sepsis Recent Fever Within 48 Hours No Sepsis New/Unexplained Change in Mental Status No Sepsis Action Taken by Nursing No Action Required 09/13/21 11:12 09/13/21 11:45 09/13/21 13:13 Temperature Temperature Source Pulse Rate Pulse Rate [Apical] 81 80 79 Respiratory Rate 18 18 18 Respiratory Effort / Characteristics Non-Labored Spontaneous Non-Labored Spontaneous Non-Labored Spontaneous Respiratory Depth Normal Normal Normal Blood Pressure Blood Pressure [Right Arm] 151/99 H 159/84 H 137/94 Blood Pressure Mean Blood Pressure Mean [Right Arm] 116 109 108 Blood Pressure Position Blood Pressure Position [Right Arm] Lying Lying Lying Pulse Oximetry 93 93 95 Oxygen Delivery Method Room Air Room Air Room Air Sepsis Recent Fever Within 48 Hours Sepsis New/Unexplained Change in Mental Status Sepsis Action Taken by Nursing CONSTITUTIONAL: Healthy and well nourished. Alert and oriented X 3. Appears in moderate discomfort. HEENT: No scleral icterus or conjunctival injection/pallor. NECK: Full active range of motion without discomfort. LYMPHATICS: No cervical chain adenopathy. RESPIRATORY: Clear to auscultation bilaterally with no wheezing, crackles, rhonchi or stridor. CARDIOVASCULAR: Regular rate and rhythm with no murmurs, rubs or gallops. GASTROINTESTINAL: Bowel sounds present in all quadrants. Abdomen is protuberant but soft to palpation. No rigidity, guarding or rebound. The patient has generalized upper abdominal tenderness to palpation. Negative CVA tenderness. MUSCULOSKELETAL: Full range of motion of all joints without discomfort. INTEGUMENTARY: No rash or other significant dermatologic conditions noted. HEMATOLOGIC: No ecchymosis or petechiae. PSYCHIATRIC: Positive affect. NEUROLOGIC: No focal neurologic deficits noted. Course Course Patient history and physical exam were performed. Nurses notes were reviewed. Vital signs were reviewed, showing an elevated blood pressure. The patient is otherwise afebrile. IV access was established, and labs were drawn. The patient was hydrated with a liter normal saline, and administered IV morphine and Zofran for pain. An ECG was performed and was normal. 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 Review of labs shows a normal white count with no left shift. She does have 5% bandemia. CMP shows a mildly elevated random glucose which appears to be baseline for the patient. She also has an elevated alkaline phosphatase which also appears to be baseline. LFTs and lipase were normal. Urinalysis was not suggestive of infection. CT with IV contrast of the abdomen and pelvis does not show any acute intra-abdominal findings. Interestingly enough, the radiologist makes mention of presence of pulmonary emboli. Upon further questioning, the patient reports that she has had some mild swelling of her left lower extremity, otherwise denies any other risk factors for blood clots. Findings were discussed with Dr. West, ED attending physician, who does not feel that further CT angiography is warranted, and has recommended referral to the hospitalist team as to whether they would want to proceed. I did order bilateral venous ultrasounds of the lower extremities which was also negative. The patient was administered additional IV morphine for pain. Findings were discussed with the [facility] hospitalist service. They have recommended that I administer subcutaneous Lovenox, and they will further admit for treatment. Please see their dictation for further treatment and final disposition. Administered Medications Discontinued Medications Enoxaparin Sodium (Enoxaparin 150 Mg/Ml Syr) 141 mg SQ NOW STA Stop: 09/13/21 13:02 Last Admin: 09/13/21 13:25 Dose: 141 mg Documented By: GUERA Sodium Chloride (Nss 1000ml) 1,000 mls @ 999 mls/hr IV .Q1H1M STA Stop: 09/13/21 09:44 Last Infusion: 09/13/21 10:03 Dose: 0 mls/hr Documented By: Admin: 09/13/21 09:00 Dose: 999 mls/hr Documented By: GUERA Ioversol (Optiray 320 125ml) 120 ml IV ONCE ONE Stop: 09/13/21 10:29 Last Admin: 09/13/21 10:14 Dose: 120 ml Documented By: SYMONE Morphine Sulfate (Morphine Sulfate 4 Mg/Ml 1 Ml Carp\\Vial) 4 mg IV NOW STA Stop: 09/13/21 08:45 Last Admin: 09/13/21 09:00 Dose: 4 mg Documented By: GUERA Morphine Sulfate (Morphine Sulfate 4 Mg/Ml 1 Ml Carp\\Vial) 4 mg IV NOW STA Stop: 09/13/21 11:57 Last Admin: 09/13/21 12:14 Dose: 4 mg Documented By: GUERA Ondansetron HCl (Ondansetron Inj 2 Mg/Ml 2 Ml Vial) 4 mg IV NOW STA Stop: 09/13/21 08:45 Last Admin: 09/13/21 09:00 Dose: 4 mg Documented By: GUERA Medical Decision Making Medical Records Attestation: I reviewed the patient's medical records. Home Medications Current Medication List: was personally reviewed by me Laboratory Data Attestation: I reviewed the patient's lab results. Result diagrams: 09/13/21 09:06 08/02/22 09:06 Lab Results 09/13/21 09/13/21 09/13/21 Range/Units 09:06 09:06 10:29 WBC 9.24 (4.8-10.8) K/ul RBC 4.58 (3.93-5.22) M/uL Hgb 13.7 (12.0-16.0) g/dl Hct 42.0 (34.1-44.9) % MCV 91.7 (80.0-100.0) fL MCH 29.9 (25.0-34.0) pg MCHC 32.6 (32.0-36.0) g/dL RDW Std Deviation 46.7 H (36.4-46.3) fL RDW Coeff of Elizabeth 13.9 (11.5-14.5) % Plt Count 240 (130-400) K/uL MPV 9.2 L (9.4-12.3) fL Immature Gran % (Auto) 0.5 % Neut % (Auto) 69.4 % Lymph % (Auto) 22.6 % [place] % (Auto) 5.7 % Eos % (Auto) 1.3 % Baso % (Auto) 0.5 % Neut # (Auto) 6.40 (1.4-6.5) K/uL Lymph # (Auto) 2.09 (1.2-3.4) K/uL [place] # (Auto) 0.53 (0.24-0.82) K/uL Eos # (Auto) 0.12 (0-0.50) K/uL Baso # (Auto) 0.05 (0-0.2) K/uL Immature Gran # (Auto) 0.05 H (0.00-0.02) K/uL Sodium 141 (136-145) mmol/L Potassium 3.8 (3.5-5.1) mmol/L Chloride 109 H (98-107) mmol/L Carbon Dioxide 21 (21-32) mmol/L Anion Gap 11 (3-11) BUN 15 (6-23) mg/dl Creatinine 0.83 (0.6-1.2) mg/dl Est Cr Clr Drug Dosing 92.0 ml/min Est GFR ( Amer) 85.8 ml/min Est GFR (Non-Af Amer) 74.0 ml/min BUN/Creatinine Ratio 18.1 (10-20) Glucose 105 H (70-99(Fasting)) mg/dl Calcium 9.3 (8.5-10.1) mg/dl Total Bilirubin 0.4 (0.2-1.0) mg/dl AST 14 (13-39) U/L ALT 15 (7-52) U/L Alkaline Phosphatase 111 H (34-104) U/L Troponin I High Sens 4.1 (0-14) pg/ml Total Protein 7.4 (6.0-8.3) gm/dl Albumin 4.2 (3.4-5.0) gm/dl Globulin 3.2 (2.5-4.0) gm/dl Albumin/Globulin Ratio 1.3 (0.9-2) Lipase 18 (11-82) U/L Urine Color Yellow Urine Appearance Clear (Clear) Urine pH 6.5 (4.5-7.5) Ur Specific [place] [address] 1.016 (1.000-1.030) Urine Protein Negative (Negative) Urine Glucose (UA) Negative (Negative) Urine Ketones Negative (Negative) Urine Blood Negative (Negative) Urine Nitrite Negative (Negative) Urine Bilirubin Negative (Negative) Urine Urobilinogen Negative (Negative) Ur Leukocyte Esterase 2+ H (Negative) Urine WBC (Auto) 10-30 H (0-5) /hpf Urine RBC (Auto) 0-4 (0-4) /hpf U Hyaline Cast (Auto) 1-5 (0-5) /lpf U Epithel Cells (Auto) 20-30 H (0-5) /lpf Urine Bacteria (Auto) Negative (Negative) SARS-CoV-2, RNA, NAAT (NEGATIVE) 09/13/21 Range/Units 12:16 WBC (4.8-10.8) K/ul RBC (3.93-5.22) M/uL Hgb (12.0-16.0) g/dl Hct (34.1-44.9) % MCV (80.0-100.0) fL MCH (25.0-34.0) pg MCHC (32.0-36.0) g/dL RDW Std Deviation (36.4-46.3) fL RDW Coeff of Elizabeth (11.5-14.5) % Plt Count (130-400) K/uL MPV (9.4-12.3) fL Immature Gran % (Auto) % Neut % (Auto) % Lymph % (Auto) % [place] % (Auto) % Eos % (Auto) % Baso % (Auto) % Neut # (Auto) (1.4-6.5) K/uL Lymph # (Auto) (1.2-3.4) K/uL [place] # (Auto) (0.24-0.82) K/uL Eos # (Auto) (0-0.50) K/uL Baso # (Auto) (0-0.2) K/uL Immature Gran # (Auto) (0.00-0.02) K/uL Sodium (136-145) mmol/L Potassium (3.5-5.1) mmol/L Chloride (98-107) mmol/L Carbon Dioxide (21-32) mmol/L Anion Gap (3-11) BUN (6-23) mg/dl Creatinine (0.6-1.2) mg/dl Est Cr Clr Drug Dosing ml/min Est GFR ( Amer) ml/min Est GFR (Non-Af Amer) ml/min BUN/Creatinine Ratio (10-20) Glucose (70-99(Fasting)) mg/dl Calcium (8.5-10.1) mg/dl Total Bilirubin (0.2-1.0) mg/dl AST (13-39) U/L ALT (7-52) U/L Alkaline Phosphatase (34-104) U/L Troponin I High Sens (0-14) pg/ml Total Protein (6.0-8.3) gm/dl Albumin (3.4-5.0) gm/dl Globulin (2.5-4.0) gm/dl Albumin/Globulin Ratio (0.9-2) Lipase (11-82) U/L Urine Color Urine Appearance (Clear) Urine pH (4.5-7.5) Ur Specific [address] (1.000-1.030) Urine Protein (Negative) Urine Glucose (UA) (Negative) Urine Ketones (Negative) Urine Blood (Negative) Urine Nitrite (Negative) Urine Bilirubin (Negative) Urine Urobilinogen (Negative) Ur Leukocyte Esterase (Negative) Urine WBC (Auto) (0-5) /hpf Urine RBC (Auto) (0-4) /hpf U Hyaline Cast (Auto) (0-5) /lpf U Epithel Cells (Auto) (0-5) /lpf Urine Bacteria (Auto) (Negative) SARS-CoV-2, RNA, NAAT NEGATIVE (NEGATIVE) Imaging Data Attestation: I personally reviewed and interpreted this imaging study as follows: My Impression: My interpretation of reportable chest x-ray shows cardiomegaly without evidence for failure, pneumothorax or lung consolidations. My interpretation of a CT with IV contrast of the abdomen and pelvis does not show any acute intra-abdominal or pelvic findings. Interestingly enough, the patient does have pulmonary embolus as discussed in the following radiologist report. Radiologist's Impression: Abdomen/Pelvis CT 09/13/21 08:[address] WITH IV CONTRAST CT DOSE: 1737.97 mGy.cm HISTORY: Acute generalized abdominal pain with dizziness and nausea Abd/back pain TECHNIQUE: Multiaxial CT images of the abdomen and pelvis were performed following the IV administration of 120 cc of Optiray, A dose lowering technique was utilized adhering to the principles of ALARA. COMPARISON STUDY: 09/07/2017 FINDINGS: Coronary artery calcifications. Segmental and subsegmental pulmonary emboli are noted within the lung bases with additional emboli noted within the right lung base lobar branches. Bibasilar groundglass densities suggest atelectasis. Unremarkable pancreas. Indeterminate hypodense 1.9 cm left adrenal gland is stable and likely represents a benign adenoma. The right adrenal gland is within normal limits. Cholecystectomy. Unremarkable liver. 4 mm nonobstructing calculus of the interpolar right kidney. Symmetric enhancement of the kidneys without ureteral calculi or hydronephrosis. Unremarkable urinary bladder. Hysterectomy. Atherosclerosis of the aorta without aneurysm. There is no lymphadenopathy. Unremarkable IVC. No bowel obstruction or bowel wall thickening. Colonic diverticulosis without acute diverticulitis. Appendectomy. No ascites or mesenteric inflammation. Unremarkable soft tissues. Degenerative changes of the spine, pelvis and hips. 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 IMPRESSION: 1. Likely acute pulmonary embolus within the lobar, segmental and subsegmental branches of the lung bases. 2. No acute intra-abdominal or intrapelvic abnormality. 3. No bowel obstruction or bowel wall thickening. 4. Colonic diverticulosis. 5. Additional findings as above. ACT 112: Negative or not required by law. The above report was generated using voice recognition software. It may contain grammatical, syntax or spelling errors. Electronically signed by: Tyrel Quach M.D. 09/13/2021 11:07 AM Chest X-Ray 09/13/21 08:45 XR chest 1V portable CLINICAL HISTORY: Upper abdominal pain. COMPARISON STUDY: Chest radiograph April 04, 2021. FINDINGS: Electronic device projects of the left heart. Note is made of cardiomegaly. No evidence for overt pulmonary edema. No consolidation to suggest pneumonia. No pneumothorax or pleural effusion is present. IMPRESSION: No acute cardiopulmonary findings. Cardiomegaly. ACT 112: Negative or not required by law. Electronically signed by: Philipp Vasques M.D. 09/13/2021 9:17 AM Venous Doppler Study 09/13/21 12:57 BILATERAL LOWER EXTREMITY VENOUS DOPPLER HISTORY: Acute pain and swelling of the lower leg PE COMPARISON STUDY: 08/04/2017 FINDINGS: There is normal compressibility, flow, and augmentation within the bilateral lower extremity deep venous systems. IMPRESSION: No DVT within the right or left lower extremity. ACT 112: Negative or not required by law. Electronically signed by: Tyrel Quach M.D. 09/13/2021 2:47 PM ECG Data Attestation: I personally reviewed and interpreted this ECG as follows: Indication: + abdominal pain and + nausea Rhythm: + normal sinus ECG Intervals/blocks: + Normal QRS, + Normal QT and + Normal NV ECG [place]: + Normal ECG ST segments: + Normal ST segments Comparison ECG Date: from (04/04/2021) Change: no significant change Blood Pressure Blood Pressure Findings: Elevated blood pressure Blood Pressure Disposition: further management by hospitalist SAMUEL Keys Cardiac monitoring: An order was placed for continuous cardiac monitoring. The monitor shows a rate of 87 bpm with a normal sinus rhythm. 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 Patient presents to the emergency department for evaluation of abdominal symptoms. Work-up today does not show any acute intra-abdominal findings, including pancreatitis, hepatitis, bowel obstruction, diverticulitis or evidence of perforation. The patient is status postcholecystectomy and appendectomy. Interestingly enough, the patient was found to have pulmonary emboli, seen on CT scans of the abdomen and pelvis. Venous ultrasound of bilateral lower extremities was negative for DVT. The patient was treated with subcutaneous Lovenox as recommended by the hospitalist team. Further treatment and final disposition will be determined by the hospitalist service. Impression & Plan Pulmonary emboli, Abdominal pain, acute Discharge Plan Visit Data Chief Complaint: Abdominal Pain Stated Complaint: ABD PAIN, DIZZY, NUSEA ED Provider: Prateek West ED Midlevel Provider: Jhonatan Abraham Discharge Problem: Pulmonary emboli, Abdominal pain, acute
--- NOTE | 2021-09-13 09:44 | XRay Report ---
XR chest 1V portable CLINICAL HISTORY: Upper abdominal pain. COMPARISON STUDY: Chest radiograph April 04, 2021. FINDINGS: Electronic device projects of the left heart. Note is made of cardiomegaly. No evidence for overt pulmonary edema. No consolidation to suggest pneumonia. No pneumothorax or pleural effusion is present. IMPRESSION: No acute cardiopulmonary findings. Cardiomegaly. ACT 112: Negative or not required by law. Electronically signed by: Philipp Vasques M.D. 09/13/2021 9:17 AM
[2021-09-13 09:54] LABS: Troponin I High Sensitivity 4.1 pg/ml (0-14)
[2021-09-13 09:56] LABS: Albumin Globulin Ratio 1.3 (0.9-2); Albumin Level 4.2 gm/dl (3.4-5.0); BUN Creatinine Ratio 18.1 (10-20); Bilirubin,Total 0.4 mg/dl (0.2-1.0); Calcium 9.3 mg/dl (8.5-10.1); Est GFR (African American) 85.8 ml/min; Globulin 3.2 gm/dl (2.5-4.0); Potassium 3.8 mmol/L (3.5-5.1); Total Protein 7.4 gm/dl (6.0-8.3)
[2021-09-13] MEDS ORDERED: OPTIRAY 320 125ml IV ONE (10:28)
[2021-09-13 10:58] LABS: Appearance Urine Clear (Clear); Bacteria Urine Automated Negative (Negative); Bilirubin Urine Negative (Negative); Blood Urine Negative (Negative); Color Urine Yellow; Epithelial Cell Urine Auto 20-30 /lpf (0-5); Glucose Urine UA Negative (Negative); Ketones Urine Negative (Negative); Leukocyte Esterase Urine 2+ (Negative); Nitrite Urine Negative (Negative); Protein Urine Negative (Negative); RBC Urine Automated 0-4 /hpf (0-4); Specific Gravity Urine 1.016 (1.000-1.030); Urobilinogen Urine Negative (Negative); pH Urine 6.5 (4.5-7.5)
--- NOTE | 2021-09-13 11:09 | CT Scan Report ---
ABDOMEN AND PELVIS CT WITH IV CONTRAST CT DOSE: 1737.97 mGy.cm HISTORY: Acute generalized abdominal pain with dizziness and nausea Abd/back pain TECHNIQUE: Multiaxial CT images of the abdomen and pelvis were performed following the IV administrat ion of 120 cc of Optiray, A dose lowering technique was utilized adhering to the principles of ALARA . COMPARISON STUDY: 09/07/2017 FINDINGS: Coronary artery calcifications. Segmental and subsegmental pulmonary emboli are noted within the lung bases with additional emboli noted within the right lung base lobar branches. Bibasilar groundglass densities suggest atelectasis. Unremarkable pancreas. Indeterminate hypodense 1.9 cm left adrenal gla nd is stable and likely represents a benign adenoma. The right adrenal gland is within normal limits. Cholecystectomy. Unremarkable liver. 4 mm nonobstructing calculus of the interpolar right kidney. Symmetric enhancement of the kidneys wit hout ureteral calculi or hydronephrosis. Unremarkable urinary bladder. Hysterectomy. Atherosclerosis of the aorta without aneurysm. There is no lymphadenopathy. Unremarkable IVC. No bowel obstruction or bowel wall thickening. Colonic diverticulosis without acute diverticulitis. A ppendectomy. No ascites or mesenteric inflammation. Unremarkable soft tissues. Degenerative changes o f the spine, pelvis and hips. 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 IMPRESSION: 1. Likely acute pulmonary embolus within the lobar, segmental and subsegmental branches of the lung b ases. 2. No acute intra-abdominal or intrapelvic abnormality. 3. No bowel obstruction or bowel wall thickening. 4. Colonic diverticulosis. 5. Additional findings as above. ACT 112: Negative or not required by law. The above report was generated using voice recognition software. It may contain grammatical, syntax o r spelling errors. Electronically signed by: Tyrel Quach M.D. 09/13/2021 11:07 AM
--- NOTE | 2021-09-13 11:54 | Electrocardiogram Report ---
Test Reason : Blood Pressure : / mmHG Vent. Rate : 087 BPM Atrial Rate : 087 BPM P-R Int : 176 ms QRS Dur : 088 ms QT Int : 382 ms P-R-T Axes : 041 024 028 degrees QTc Int : 459 ms Normal sinus rhythm Normal ECG When compared with ECG of 04-APR-2021 14:20, No significant change was found Confirmed by Abdullahi Salgado ([id number]) on 09/13/2021 11:53:31 AM Referred By: REFERRED SELF Confirmed By:Santiago Salgado
[2021-09-13] MEDS ORDERED: ENOXAPARIN INJ 120 MG/0.8 ML SYR SQ ONE (12:57)
[2021-09-13] MEDS ORDERED: ENOXAPARIN 150 MG/ML SYR SQ STA (13:01)
--- NOTE | 2021-09-13 14:06 | History & Physical Report ---
Date of Service September 13, 2021 Assessment & Plan (1) Acute pulmonary embolism: (2) Nonspecific abdominal pain: Plan Patient is 65-year-old female with past medical history of morbid obesity, irritable bowel syndrome, depression, MARIA LUZ not on CPAP presented to the ED after abdominal pain for last 5 days and Shortness of Breath for 2 weeks. 1) Acute Pulmonary Embolism Risk factors include morbid obesity and immobility. Physical examination significant for asymmetrical leg swelling on right side. CT abdomen/pelvis shows acute PE within the lower, segmental and subsegmental branches of the lung bases. Plan; -Lovenox 1 mg/kg every 12 hours. Likely DOAC (Eliquis or Xarelto) as outpatient on discharge. -Bilateral venous duplex to look for LE DVT as possible source -Obtain patient's troponin and BNP to evaluate for right heart strain. Will consider echo if troponin/BNP are elevated. -Age-appropriate cancer screening as outpatient. Follow-up with PCP. 2) Nonspecific Abdominal pain Generalized abdominal pain with no nausea/vomiting, urinary symptoms Lipase/18 CT abdomen pelvis with contrast -no acute abdominal finding No urinary symptoms Plan; -Pain control with Tylenol. Bentyl. Will trial Protonix for possible dyspepsia. Chronic condition" Anxiety- continue home alprazolam BPAD- continue Seroquel. Qtc- 459. Dietheart healthy DVT prophylaxisLovenox full dose CODE STATUSfull code DispoHome after resolution of acute issues. History of Present Illness Chief Complaint: Abdominal pain for 5 days Shortness of breath for 2 weeks Primary Care Provider: Loan Rudd PA-C Patient is 65-year-old female with past medical history of morbid obesity, irritable bowel syndrome, depression, MARIA LUZ not on CPAP presented to the ED after abdominal pain for last 5 days. She describes the abdominal pain is diffuse, r adiating sometimes to right lower quadrant, left lower quadrant or to the back. The pain is intermittent; no aggravating or relieving factor. She denies any associated nausea, vomiting, burning micturition, increased frequency or change in her bowel habits. She reports having similar pain in last 2 years intermittently and had evaluations before. Patient denies fever, chills, weakness/numbness of body parts or chest pain. Patient has also noticed that she has been getting more short of breath in the past 2 weeks. The shortness of breath is evident on mild exertion. She reports that she is on the chair most of the time watching TV. She denies any recent travel or surgery. Her last colonoscopy was in 04/2017; found to have diverticulosis. She was found to have adenomatous polyp in 2017 in colonoscopy. Her last EGD was in ; found to have mild to moderate inflammation. She is a former smoker; quit date in 2009. She does not drink alcohol or use any illicit drugs.She denies any history of DVT in the past. Allergies Allergy/AdvReac Type Severity Reaction Status Date / Time naproxen Allergy Intermediate WELTS/HIVE Verified 04/04/21 18:14 BUT CAN TAKE IBUPROFEN & ASPIRIN W/O PROBLEM cyclobenzaprine Allergy Mild RASH Verified 04/04/21 18:14 Penicillins Allergy Unknown DOES NOT Verified 04/04/21 18:14 REMEMBER RXN WAS A CHILD amitriptyline AdvReac Intermediate "MADE PT Verified 04/04/21 18:14 MORE ANXIOUS" buspirone AdvReac Intermediate MADE PT Verified 04/04/21 18:14 MORE ANXIOUS diphenhydramine AdvReac Intermediate nervousness Verified 03/29/21 21:20 doxepin AdvReac Intermediate "COULD NOT Verified 03/29/21 21:20 SLEEP" hydroxyzine AdvReac Intermediate increased Verified 03/29/21 21:20 anxiety paroxetine AdvReac Intermediate HALLUCINATI Verified 03/29/21 21:20 ON suvorexant AdvReac Intermediate Nightmares Verified 03/29/21 21:20 trazodone AdvReac Intermediate PALPITATION Verified 03/29/21 21:20 S STERIODS AdvReac Severe AWAKE FOR Uncoded 03/29/21 21:20 3 DAYS, VERY IRRITABLE [place] [facility] AdvReac Intermediate "COULD NOT Uncoded 03/29/21 21:20 SLEEP" Home Medications Medication Instructions Recorded Confirmed Type alprazolam 1 mg tablet 1 mg PO TID 09/13/21 09/13/21 History quetiapine 100 mg tablet 100 mg PO BID 09/13/21 09/13/21 History quetiapine 300 mg tablet 300 mg PO HS 09/13/21 09/13/21 History zolpidem 10 mg tablet 10 mg PO HS 09/13/21 09/13/21 History Past Med/Surg History Medical History (Updated 09/13/21 @ 15:24 by Jhonatan Abraham) Anxiety Bipolar disorder Depression DVT (deep venous thrombosis) "declined anticoagulation" Dyslipidemia IBS (irritable bowel syndrome) Personality disorder Suicidal ideation Tardive dyskinesia Umbilical hernia Upper abdominal pain Ventral hernia Surgical History H/O umbilical hernia repair History of appendectomy History of hysterectomy Family History Mother Cancer Colon cancer Father Stroke Coronary heart disease Social History Smoking Status: Never smoker Preferred Language: Armenian Feels Safe at Home: Yes Review of Systems Review of Systems: All systems reviewed & are unremarkable except as noted in HPI & below Physical Exam Physical Exam: Constitutional: Obese, sitting up, AOx3 Head: Normocephalic, Atraumatic Eyes: PERRL, conjunctivae normal, anicteric sclerae ENMT: external ear and nose normal, oropharynx normal Neck: trachea midline, no thyromegaly normal visual inspection Respiratory: normal respiratory effort, lungs clear to auscultation, no wheeze, rales, rhonchi. Normal insp/exp effort, no accessory muscle use Cardiovascular: RRR, no murmur, no edema Vessels: no JVD or carotid bruit Chest: normal inspection of chest Abdomen: Soft, nontender, bowel sound present Musculoskeletal: no cyanosis or clubbing, extremities motor strength 5/5. Asymmetrical leg swelling (right > left) Skin: no rashes, warm and dry normal turgor Neurologic: PERRL, EOMI, accommodation nl, no face palsy, no dysarthria CN's II- XI intact bilaterally and moves all extremities Psychiatric: A+Ox3, euthymic affect Lymphatic: no cervical or axillary lymphadenopathy : deferred Results & Data Results & Data ([facility]) Vital Signs (Past 12 Hours) Vital Signs Temp Pulse Pulse Resp BP BP Pulse Ox 09/13/21 13:13 79 18 137/94 95 09/13/21 11:45 80 18 159/84 H 93 09/13/21 11:12 81 18 151/99 H 93 09/13/21 10:19 88 18 114/74 95 09/13/21 09:21 85 18 156/92 H 93 09/13/21 08:23 36.4 C L 89 18 133/75 95 O2 Del Method 09/13/21 13:13 Room Air 09/13/21 11:45 Room Air 09/13/21 11:12 Room Air 09/13/21 10:19 Room Air 09/13/21 09:21 Room Air 09/13/21 08:23 Room Air Diagnostic Findings Abdomen/Pelvis CT 09/13/21 08:[address] WITH IV CONTRAST CT DOSE: 1737.97 mGy.cm HISTORY: Acute generalized abdominal pain with dizziness and nausea Abd/back pain TECHNIQUE: Multiaxial CT images of the abdomen and pelvis were performed following the IV administration of 120 cc of Optiray, A dose lowering technique was utilized adhering to the principles of ALARA. COMPARISON STUDY: 09/07/2017 FINDINGS: Coronary artery calcifications. Segmental and subsegmental pulmonary emboli are noted within the lung bases with additional emboli noted within the right lung base lobar branches. Bibasilar groundglass densities suggest atelectasis. Unremarkable pancreas. Indeterminate hypodense 1.9 cm left adrenal gland is stable and likely represents a benign adenoma. The right adrenal gland is within normal limits. Cholecystectomy. Unremarkable liver. 4 mm nonobstructing calculus of the interpolar right kidney. Symmetric enhancement of the kidneys without ureteral calculi or hydronephrosis. Unremarkable urinary bladder. Hysterectomy. Atherosclerosis of the aorta without aneurysm. There is no lymphadenopathy. Unremarkable IVC. No bowel obstruction or bowel wall thickening. Colonic diverticulosis without acute diverticulitis. Appendectomy. No ascites or mesenteric inflammation. Unremarkable soft tissues. Degenerative changes of the spine, pelvis and hips. 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 IMPRESSION: 1. Likely acute pulmonary embolus within the lobar, segmental and subsegmental branches of the lung bases. 2. No acute intra-abdominal or intrapelvic abnormality. 3. No bowel obstruction or bowel wall thickening. 4. Colonic diverticulosis. 5. Additional findings as above. ACT 112: Negative or not required by law. The above report was generated using voice recognition software. It may contain grammatical, syntax or spelling errors. Electronically signed by: Tyrel Quach M.D. 09/13/2021 11:07 AM Chest X-Ray 09/13/21 08:45 XR chest 1V portable CLINICAL HISTORY: Upper abdominal pain. COMPARISON STUDY: Chest radiograph April 04, 2021. FINDINGS: Electronic device projects of the left heart. Note is made of cardiomegaly. No evidence for overt pulmonary edema. No consolidation to suggest pneumonia. No pneumothorax or pleural effusion is present. IMPRESSION: No acute cardiopulmonary findings. Cardiomegaly. ACT 112: Negative or not required by law. Electronically signed by: Philipp Vasques M.D. 09/13/2021 9:17 AM ECG Additional Comments: NSR; rate- 87 bpm. Qtc- 87 bpm COVID-19 Results Results COVID-19 Adm Lab Results: RBC 4.58 M/uL (3.93-5.22) 09/13/21 WBC 9.24 K/ul (4.8-10.8) 09/13/21 Hgb 13.7 g/dl (12.0-16.0) 09/13/21 Hct 42.0 % (34.1-44.9) 09/13/21 Plt Count 240 K/uL (130-400) 09/13/21 Neutrophils (%) (Auto) 69.4 % 09/13/21 Lymphocytes (%) (Auto) 22.6 % 09/13/21 Monocytes # (Auto) 0.53 K/uL (0.24-0.82) 09/13/21 Eosinophils # (Auto) 0.12 K/uL (0-0.50) 09/13/21 Immature Granulocyte % (Auto) 0.5 % 09/13/21 Neutrophils # (Auto) 6.40 K/uL (1.4-6.5) 09/13/21 Lymphocytes # (Auto) 2.09 K/uL (1.2-3.4) 09/13/21 Monocytes # (Auto) 0.53 K/uL (0.24-0.82) 09/13/21 Eosinophils # (Auto) 0.12 K/uL (0-0.50) 09/13/21 Basophils # (Auto) 0.05 K/uL (0-0.2) 09/13/21 Immature Granulocyte # (Auto) 0.05 K/uL (0.00-0.02) H 09/13 Na 141 mmol/L (136-145) 09/13/21 K 3.8 mmol/L (3.5-5.1) 09/13/21 Cl 109 mmol/L (98-107) H 09/13/21 CO2 21 mmol/L (21-32) 09/13/21 Anion Gap 11 (3-11) 09/13/21 BUN 15 mg/dl (6-23) 09/13/21 Creatinine 0.83 mg/dl (0.6-1.2) 09/13/21 BUN/Creatinine Ratio 18.1 (10-20) 09/13/21 Glucose Level 105 mg/dl (70-99(Fasting)) H 09/13/21 Ca 9.3 mg/dl (8.5-10.1) 09/13/21 Total Bilirubin 0.4 mg/dl (0.2-1.0) 09/13/21 AST/SGOT 14 U/L (13-39) 09/13/21 ALT/SGPT 15 U/L (7-52) 09/13/21 Alkaline Phosphatase 111 U/L (34-104) H 09/13/21 Total Protein 7.4 gm/dl (6.0-8.3) 09/13/21 Albumin 4.2 gm/dl (3.4-5.0) 09/13/21 Globulin 3.2 gm/dl (2.5-4.0) 09/13/21 Albumin/Globulin Ratio 1.3 (0.9-2) 09/13/21 SARS-CoV-2, RNA, NAAT NEGATIVE (NEGATIVE) 09/13/21 Chest X-Ray 09/13/21 CT Results: normal Code Status & VTE Plan VTE Prophylaxis Plan VTE Prophylaxis will be ordered: Yes
--- NOTE | 2021-09-13 14:49 | Ultrasound Report ---
BILATERAL LOWER EXTREMITY VENOUS DOPPLER HISTORY: Acute pain and swelling of the lower leg PE COMPARISON STUDY: 08/04/2017 FINDINGS: There is normal compressibility, flow, and augmentation within the bilateral lower extremit y deep venous systems. IMPRESSION: No DVT within the right or left lower extremity. ACT 112: Negative or not required by law. Electronically signed by: Tyrel Quach M.D. 09/13/2021 2:47 PM
[2021-09-13] MEDS ORDERED: POLYETHYLENE (MIRALAX) 17 GM PACK PO PRN (16:42)
[2021-09-13] MEDS: ALPRAZolam 0.5 MG TABLET PO SCH (20:47)
[2021-09-13] MEDS: QUEtiapine FUMARATE 300 MG TABLET PO SCH (20:47)
[2021-09-13] MEDS: DICYCLOMINE HCL 10 MG CAP PO SCH (20:48)
[2021-09-13] MEDS: ACETAMINOPHEN 325 MG TAB PO PRN (20:50)
[2021-09-13] MEDS: ZOLPIDEM TARTRATE 10 MG TAB PO SCH (23:59)
[2021-09-14] MEDS: DICYCLOMINE HCL 10 MG CAP PO SCH ×3 (06:18→20:17)
[2021-09-14] MEDS: ALPRAZolam 0.5 MG TABLET PO SCH ×3 (07:52→20:20)
[2021-09-14] MEDS: QUEtiapine FUMARATE 100 MG TABLET PO SCH ×2 (07:52→15:12)
[2021-09-14] MEDS: PANTOprazole 40 MG TAB PO SCH (07:52)
--- NOTE | 2021-09-14 08:59 | Hospitalist Progress Note ---
Date of Service September 14, 2021 Assessment & Plan (1) Acute pulmonary embolism: (2) Nonspecific abdominal pain: Plan Patient is 65-year-old female with past medical history of morbid obesity, irritable bowel syndrome, depression, MARIA LUZ not on CPAP presented to the ED after abdominal pain for last 5 days and Shortness of Breath for 2 weeks. 1) Acute Pulmonary Embolism Risk factors include morbid obesity and immobility. Physical examination significant for asymmetrical leg swelling on right side. CT abdomen/pelvis shows acute PE within the lower, segmental and subsegmental branches of the lung bases. -Bilateral venous duplex - negat. for DVT -trop - negat. BNP wnl -Patient is comfortable, breathing on RA Plan; -Lovenox 1 mg/kg every 12 hours. Plan to start warfarin tmrw -Age-appropriate cancer screening as outpatient. Follow-up with PCP. 2) Nonspecific Abdominal pain Generalized abdominal pain with no nausea/vomiting, urinary symptoms Lipase 18 CT abdomen pelvis with contrast -no acute abdominal finding No urinary symptoms Plan; -Pain control with Tylenol. Bentyl. Will trial Protonix for possible dyspepsia. May need to follow up w/ GI as outpt Chronic condition Anxiety- continue home alprazolam BPAD- continue Seroquel. Qtc- 459. Dietheart healthy DVT prophylaxisLovenox full dose CODE STATUSfull code Dispo Likely DC home tmrw Admission and Anticipated Discharge Date Admission Date: September 13, 2021 Subjective Patient seen in follow-up of abdominal pain, found to have acute PE Currently laying in bed, no acute distress Denies any chest pain, shortness of breath, dizziness, lightheadedness Denies any fevers or chills She is asking about discharge Review of Systems Review of Systems: All systems reviewed & are unremarkable except as noted in Subjective Physical Exam Physical Exam: Constitutional: morbidly Obese F, sitting up, AOx3 Head: Normocephalic, Atraumatic Eyes: PERRL, EOMI, conjunctivae normal, anicteric sclerae ENMT: external ear and nose normal, oropharynx normal Neck: thick Respiratory: normal respiratory effort, lungs clear to auscultation, no wheeze, rales, rhonchi. Cardiovascular: RRR, no murmur, no edema Chest: normal inspection of chest Abdomen:Soft, nontender, bowel sound present, obese Musculoskeletal: extremities motor strength 5/5. Skin: no rashes, warm and dry normal turgor Neurologic: PERRL, EOMI, no face palsy, no dysarthria, moves all extremities Psychiatric: A+Ox3, euthymic affect Results & Data Results & Data ([facility]) Vital Signs (Past 12 Hours) Vital Signs Temp Pulse Resp BP Pulse Ox O2 Del Method 09/14/21 07:14 36.3 C L 81 18 145/78 H 95 Room Air 09/14/21 03:40 36.6 C 73 14 115/72 90 Room Air 09/13/21 22:58 36.6 C 80 20 120/83 95 Room Air Laboratory Results 09/13/21 09/13/21 09/13/21 Range/Units 15:21 15:21 12:16 WBC (4.8-10.8) K/ul RBC (3.93-5.22) M/uL Hgb (12.0-16.0) g/dl Hct (34.1-44.9) % MCV (80.0-100.0) fL MCH (25.0-34.0) pg MCHC (32.0-36.0) g/dL RDW Std Deviation (36.4-46.3) fL RDW Coeff of Elizabeth (11.5-14.5) % Plt Count (130-400) K/uL MPV (9.4-12.3) fL Immature Gran % (Auto) % Neut % (Auto) % Lymph % (Auto) % [place] % (Auto) % Eos % (Auto) % Baso % (Auto) % Neut # (Auto) (1.4-6.5) K/uL Lymph # (Auto) (1.2-3.4) K/uL [place] # (Auto) (0.24-0.82) K/uL Eos # (Auto) (0-0.50) K/uL Baso # (Auto) (0-0.2) K/uL Immature Gran # (Auto) (0.00-0.02) K/uL Sodium (136-145) mmol/L Potassium (3.5-5.1) mmol/L Chloride (98-107) mmol/L Carbon Dioxide (21-32) mmol/L Anion Gap (3-11) BUN (6-23) mg/dl Creatinine (0.6-1.2) mg/dl Est Cr Clr Drug Dosing ml/min Est GFR ( Amer) ml/min Est GFR (Non-Af Amer) ml/min BUN/Creatinine Ratio (10-20) Glucose (70-99(Fasting)) mg/dl Calcium (8.5-10.1) mg/dl Total Bilirubin (0.2-1.0) mg/dl AST (13-39) U/L ALT (7-52) U/L Alkaline Phosphatase (34-104) U/L Troponin I High Sens 3.8 (0-14) pg/ml B-Natriuretic Peptide 14 (0-100) pg/ml Total Protein (6.0-8.3) gm/dl Albumin (3.4-5.0) gm/dl Globulin (2.5-4.0) gm/dl Albumin/Globulin Ratio (0.9-2) Lipase (11-82) U/L Urine Color Urine Appearance (Clear) Urine pH (4.5-7.5) Ur Specific [place] (1.000-1.030) Urine Protein (Negative) Urine Glucose (UA) (Negative) Urine Ketones (Negative) Urine Blood (Negative) Urine Nitrite (Negative) Urine Bilirubin (Negative) Urine Urobilinogen (Negative) Ur Leukocyte Esterase (Negative) Urine WBC (Auto) (0-5) /hpf Urine RBC (Auto) (0-4) /hpf U Hyaline Cast (Auto) (0-5) /lpf U Epithel Cells (Auto) (0-5) /lpf Urine Bacteria (Auto) (Negative) SARS-CoV-2, RNA, NAAT NEGATIVE (NEGATIVE) 09/13/21 09/13/21 09/13/21 Range/Units 10:29 09:06 09:06 WBC 9.24 (4.8-10.8) K/ul RBC 4.58 (3.93-5.22) M/uL Hgb 13.7 (12.0-16.0) g/dl Hct 42.0 (34.1-44.9) % MCV 91.7 (80.0-100.0) fL MCH 29.9 (25.0-34.0) pg MCHC 32.6 (32.0-36.0) g/dL RDW Std Deviation 46.7 H (36.4-46.3) fL RDW Coeff of Elizabeth 13.9 (11.5-14.5) % Plt Count 240 (130-400) K/uL MPV 9.2 L (9.4-12.3) fL Immature Gran % (Auto) 0.5 % Neut % (Auto) 69.4 % Lymph % (Auto) 22.6 % [place] % (Auto) 5.7 % Eos % (Auto) 1.3 % Baso % (Auto) 0.5 % Neut # (Auto) 6.40 (1.4-6.5) K/uL Lymph # (Auto) 2.09 (1.2-3.4) K/uL [place] # (Auto) 0.53 (0.24-0.82) K/uL Eos # (Auto) 0.12 (0-0.50) K/uL Baso # (Auto) 0.05 (0-0.2) K/uL Immature Gran # (Auto) 0.05 H (0.00-0.02) K/uL Sodium 141 (136-145) mmol/L Potassium 3.8 (3.5-5.1) mmol/L Chloride 109 H (98-107) mmol/L Carbon Dioxide 21 (21-32) mmol/L Anion Gap 11 (3-11) BUN 15 (6-23) mg/dl Creatinine 0.83 (0.6-1.2) mg/dl Est Cr Clr Drug Dosing 92.0 ml/min Est GFR ( Amer) 85.8 ml/min Est GFR (Non-Af Amer) 74.0 ml/min BUN/Creatinine Ratio 18.1 (10-20) Glucose 105 H (70-99(Fasting)) mg/dl Calcium 9.3 (8.5-10.1) mg/dl Total Bilirubin 0.4 (0.2-1.0) mg/dl AST 14 (13-39) U/L ALT 15 (7-52) U/L Alkaline Phosphatase 111 H (34-104) U/L Troponin I High Sens 4.1 (0-14) pg/ml B-Natriuretic Peptide (0-100) pg/ml Total Protein 7.4 (6.0-8.3) gm/dl Albumin 4.2 (3.4-5.0) gm/dl Globulin 3.2 (2.5-4.0) gm/dl Albumin/Globulin Ratio 1.3 (0.9-2) Lipase 18 (11-82) U/L Urine Color Yellow Urine Appearance Clear (Clear) Urine pH 6.5 (4.5-7.5) Ur Specific [place] 1.016 (1.000-1.030) Urine Protein Negative (Negative) Urine Glucose (UA) Negative (Negative) Urine Ketones Negative (Negative) Urine Blood Negative (Negative) Urine Nitrite Negative (Negative) Urine Bilirubin Negative (Negative) Urine Urobilinogen Negative (Negative) Ur Leukocyte Esterase 2+ H (Negative) Urine WBC (Auto) 10-30 H (0-5) /hpf Urine RBC (Auto) 0-4 (0-4) /hpf U Hyaline Cast (Auto) 1-5 (0-5) /lpf U Epithel Cells (Auto) 20-30 H (0-5) /lpf Urine Bacteria (Auto) Negative (Negative) SARS-CoV-2, RNA, NAAT (NEGATIVE) Medications Administered Current Inpatient Medications Acetaminophen (Acetaminophen 325 Mg Tab) 650 mg PO Q4H PRN PRN Reason: Pain or Fever Stop: 10/13/21 16:41 Last Admin: 09/13/21 20:50 Dose: 650 mg Alprazolam (Alprazolam 0.5 Mg Tablet) 1 mg PO TID MARIAELENA Stop: 10/13/21 20:59 Last Admin: 09/14/21 07:52 Dose: 1 mg Dicyclomine HCl (Dicyclomine Hcl 10 Mg Cap) 10 mg PO Q8 MARIAELENA Stop: 10/13/21 21:59 Last Admin: 09/14/21 06:18 Dose: 10 mg Enoxaparin Sodium (Enoxaparin 150 Mg/Ml Syr) 141 mg SQ Q12H MARIAELENA Stop: 10/14/21 00:59 Last Admin: 09/14/21 00:00 Dose: 141 mg Pantoprazole Sodium (Pantoprazole 40 Mg Tab) 40 mg PO DAILY MARIAELENA Stop: 10/14/21 08:59 Last Admin: 09/14/21 07:52 Dose: 40 mg Polyethylene Glycol (Polyethylene (Miralax) 17 Gm Pack) 17 gm PO DAILY PRN PRN Reason: Constipation Stop: 09/01/22 16:41 Quetiapine Fumarate (Quetiapine Fumarate 300 Mg Tablet) 300 mg PO MARIAELENA Stop: 10/13/21 20:59 Last Admin: 09/13/21 20:47 Dose: 300 mg Quetiapine Fumarate (Quetiapine Fumarate 100 Mg Tablet) 100 mg PO TODAY@0900,1500 [facility] Stop: 10/14/21 08:59 Last Admin: 09/14/21 07:52 Dose: 100 mg Zolpidem Tartrate (Zolpidem Tartrate 10 Mg Tab) 10 mg PO MARIAELENA Stop: 10/13/21 20:59 Last Admin: 09/13/21 23:59 Dose: 10 mg
[2021-09-14 10:14] LABS: Hematocrit (blood only) 43.3 % (34.1-44.9); Hemoglobin 13.6 g/dl (12.0-16.0); Mean Corpuscular Hgb Conc 31.4 g/dL (32.0-36.0); Mean Corpuscular Volume 95.4 fL (80.0-100.0); Platelet Count 207 K/uL (130-400); RDW Standard Deviation 48.8 fL (36.4-46.3); Red Blood Count 4.54 M/uL (3.93-5.22); White Blood Count 6.47 K/ul (4.8-10.8)
[2021-09-14 12:28] LABS: BUN Creatinine Ratio 18.2 (10-20); Calcium 9.3 mg/dl (8.5-10.1); Creatinine Clr Calc Pharmacy 115.1 ml/min; Est GFR (African American) 107.4 ml/min; Est GFR (Non-African American) 92.7 ml/min; Magnesium 2.1 mg/dl (1.7-2.4); Phosphorus 3.4 mg/dl (2.5-4.9); Potassium 4.1 mmol/L (3.5-5.1)
[2021-09-14] MEDS: ENOXAPARIN 150 MG/ML SYR SQ SCH ×3 (13:58→23:59)
[2021-09-14] MEDS: QUEtiapine FUMARATE 300 MG TABLET PO SCH (20:17)
[2021-09-14] MEDS: ACETAMINOPHEN 325 MG TAB PO PRN (23:58)
[2021-09-14] MEDS: ZOLPIDEM TARTRATE 10 MG TAB PO SCH (23:58)
[2021-09-15] MEDS ORDERED: LORazepam 0.25 MG in SYRINGE 0.125 ML IV STA (01:48)
[2021-09-15] MEDS: DICYCLOMINE HCL 10 MG CAP PO SCH (06:11)
[2021-09-15 07:30] LABS: BUN Creatinine Ratio 19.7 (10-20); Calcium 9.1 mg/dl (8.5-10.1); Est GFR (African American) 110.3 ml/min; Est GFR (Non-African American) 95.1 ml/min; Phosphorus 3.3 mg/dl (2.5-4.9); Potassium 3.5 mmol/L (3.5-5.1)
[2021-09-15] MEDS ORDERED: POTASSIUM CHLORIDE PWD 20 MEQ PACK PO ONE (08:03)
[2021-09-15 08:09] LABS: Hematocrit (blood only) 40.8 % (34.1-44.9); Hemoglobin 13.5 g/dl (12.0-16.0); Mean Corpuscular Hemoglobin 30.1 pg (25.0-34.0); Mean Corpuscular Hgb Conc 33.1 g/dL (32.0-36.0); Mean Corpuscular Volume 91.1 fL (80.0-100.0); Mean Platelet Volume 9.8 fL (9.4-12.3); Platelet Count 233 K/uL (130-400); RDW Coefficient of Variation 13.9 % (11.5-14.5); Red Blood Count 4.48 M/uL (3.93-5.22); White Blood Count 7.63 K/ul (4.8-10.8)
[2021-09-15] MEDS: ALPRAZolam 0.5 MG TABLET PO SCH (08:40)
[2021-09-15] MEDS: QUEtiapine FUMARATE 100 MG TABLET PO SCH (08:40)
[2021-09-15] MEDS: PANTOprazole 40 MG TAB PO SCH ×2 (08:40→08:42)
--- NOTE | 2021-09-15 10:54 | Hospitalist Progress Note ---
Date of Service September 15, 2021 Assessment & Plan (1) Acute pulmonary embolism: (2) Nonspecific abdominal pain: Plan Patient is 65-year-old female with past medical history of morbid obesity, irritable bowel syndrome, depression, MARIA LUZ not on CPAP presented to the ED after abdominal pain for last 5 days and Shortness of Breath for 2 weeks. 1) Acute Pulmonary Embolism Risk factors include morbid obesity and immobility. Physical examination significant for asymmetrical leg swelling on right side. CT abdomen/pelvis shows acute PE within the lower, segmental and subsegmental branches of the lung bases. -Bilateral venous duplex - negat. for DVT -trop - negat. BNP wnl -Patient is comfortable, breathing on RA Plan; Lovenox 1 mg/kg every 12 hours. DC to use for next 5 days. Start warfarin 5mg daily today Age-appropriate cancer screening as outpatient. Follow-up with PCP. Anticoagulation clinic follow-up 2) Nonspecific Abdominal pain Generalized abdominal pain with no nausea/vomiting, urinary symptoms Lipase 18 CT abdomen pelvis with contrast -no acute abdominal finding No urinary symptoms Plan; Pain control with Tylenol. Bentyl. Will trial Protonix for possible dyspepsia. May need to follow up w/ GI as outpt Chronic condition Anxiety- continue home alprazolam BPAD- continue Seroquel. Qtc- 459. Dietheart healthy DVT prophylaxisLovenox full dose CODE STATUSfull code Dispo Likely DC home today Admission and Anticipated Discharge Date Admission Date: September 13, 2021 Subjective Patient seen in follow-up of abdominal pain, found to have acute PE Currently laying in bed, no acute distress Denies any chest pain, shortness of breath, dizziness, lightheadedness Denies any fevers or chills She is asking about discharge Review of Systems Review of Systems: All systems reviewed & are unremarkable except as noted in Subjective Physical Exam Physical Exam: Constitutional: morbidly Obese F, sitting up, AOx3 Head: Normocephalic, Atraumatic Eyes: PERRL, EOMI, conjunctivae normal, anicteric sclerae ENMT: external ear and nose normal, oropharynx normal Neck: thick Respiratory: normal respiratory effort, lungs clear to auscultation, no wheeze, rales, rhonchi. Cardiovascular: RRR, no murmur, no edema Chest: normal inspection of chest Abdomen:Soft, nontender, bowel sound present, obese Musculoskeletal: extremities motor strength 5/5. Skin: no rashes, warm and dry normal turgor Neurologic: PERRL, EOMI, no face palsy, no dysarthria, moves all extremities Psychiatric: A+Ox3, euthymic affect Results & Data Results & Data ([facility]) Vital Signs (Past 12 Hours) Vital Signs Temp Pulse Pulse Resp BP Pulse Ox O2 Del Method 09/15/21 05:56 76 09/15/21 07:21 36.4 C L 18 131/88 95 Room Air 09/15/21 04:30 36.4 C L 78 18 155/84 H 92 Room Air 09/14/21 23:57 36.5 C 77 18 131/76 93 Room Air Laboratory Results 09/15/21 09/15/21 09/15/21 Range/Units 06:06 06:06 06:06 WBC 7.63 (4.8-10.8) K/ul RBC 4.48 (3.93-5.22) M/uL Hgb 13.5 (12.0-16.0) g/dl Hct 40.8 (34.1-44.9) % MCV 91.1 (80.0-100.0) fL MCH 30.1 (25.0-34.0) pg MCHC 33.1 (32.0-36.0) g/dL RDW Std Deviation 46.0 (36.4-46.3) fL RDW Coeff of Elizabeth 13.9 (11.5-14.5) % Plt Count 233 (130-400) K/uL MPV 9.8 (9.4-12.3) fL PT 11.0 (9.0-12.0) Seconds INR 1.0 (0.9-1.1) Sodium 140 (136-145) mmol/L Potassium 3.5 (3.5-5.1) mmol/L Chloride 106 (98-107) mmol/L Carbon Dioxide 25 (21-32) mmol/L Anion Gap 9 (3-11) BUN 12 (6-23) mg/dl Creatinine 0.61 (0.6-1.2) mg/dl Est Cr Clr Drug Dosing 123.0 ml/min Est GFR ( Amer) 110.3 ml/min Est GFR (Non-Af Amer) 95.1 ml/min BUN/Creatinine Ratio 19.7 (10-20) Glucose 109 H (70-99(Fasting)) mg/dl Calcium 9.1 (8.5-10.1) mg/dl Phosphorus 3.3 (2.5-4.9) mg/dl Magnesium 2.0 (1.7-2.4) mg/dl 09/14/21 Range/Units 11:35 WBC (4.8-10.8) K/ul RBC (3.93-5.22) M/uL Hgb (12.0-16.0) g/dl Hct (34.1-44.9) % MCV (80.0-100.0) fL MCH (25.0-34.0) pg MCHC (32.0-36.0) g/dL RDW Std Deviation (36.4-46.3) fL RDW Coeff of Elizabeth (11.5-14.5) % Plt Count (130-400) K/uL MPV (9.4-12.3) fL PT (9.0-12.0) Seconds INR (0.9-1.1) Sodium 140 (136-145) mmol/L Potassium 4.1 (3.5-5.1) mmol/L Chloride 107 (98-107) mmol/L Carbon Dioxide 23 (21-32) mmol/L Anion Gap 10 (3-11) BUN 12 (6-23) mg/dl Creatinine 0.66 (0.6-1.2) mg/dl Est Cr Clr Drug Dosing 115.1 ml/min Est GFR ( Amer) 107.4 ml/min Est GFR (Non-Af Amer) 92.7 ml/min BUN/Creatinine Ratio 18.2 (10-20) Glucose 108 H (70-99(Fasting)) mg/dl Calcium 9.3 (8.5-10.1) mg/dl Phosphorus 3.4 (2.5-4.9) mg/dl Magnesium 2.1 (1.7-2.4) mg/dl Medications Administered Current Inpatient Medications Acetaminophen (Acetaminophen 325 Mg Tab) 650 mg PO Q4H PRN PRN Reason: Pain or Fever Stop: 10/13/21 16:41 Last Admin: 09/14/21 23:58 Dose: 650 mg Alprazolam (Alprazolam 0.5 Mg Tablet) 1 mg PO TID MARIAELENA Stop: 10/13/21 20:59 Last Admin: 09/15/21 08:40 Dose: 1 mg Dicyclomine HCl (Dicyclomine Hcl 10 Mg Cap) 10 mg PO Q8 MARIAELENA Stop: 10/13/21 21:59 Last Admin: 09/15/21 06:11 Dose: 10 mg Enoxaparin Sodium (Enoxaparin 150 Mg/Ml Syr) 141 mg SQ Q12H MARIAELENA Stop: 10/14/21 00:59 Last Admin: 09/14/21 23:59 Dose: 141 mg Pantoprazole Sodium (Pantoprazole 40 Mg Tab) 40 mg PO DAILY MARIAELENA Stop: 10/14/21 08:59 Last Admin: 09/15/21 08:42 Dose: Not Given Polyethylene Glycol (Polyethylene (Miralax) 17 Gm Pack) 17 gm PO DAILY PRN PRN Reason: Constipation Stop: 10/13/21 16:41 Quetiapine Fumarate (Quetiapine Fumarate 300 Mg Tablet) [address] [facility] Stop: 10/13/21 20:59 Last Admin: 09/14/21 20:17 Dose: 300 mg Quetiapine Fumarate (Quetiapine Fumarate 100 Mg Tablet) 100 mg PO TODAY@0900,1500 [facility] Stop: 10/14/21 08:59 Last Admin: 09/15/21 08:40 Dose: 100 mg Zolpidem Tartrate (Zolpidem Tartrate 10 Mg Tab) 10 mg PO HS [facility] Stop: 10/13/21 20:59 Last Admin: 09/14/21 23:58 Dose: 10 mg
[2021-09-15] MEDS ORDERED: WARFARIN SOD 5 MG TAB PO ONE (11:14)
--- NOTE | 2021-09-15 11:33 | Discharge Summary ---
Date of Service September 15, 2021 Admission HPI Per Admitting Provider Patient is 65-year-old female with past medical history of morbid obesity, irritable bowel syndrome, depression, MARIA LUZ not on CPAP presented to the ED after abdominal pain for last 5 days. She describes the abdominal pain is diffuse, radiating sometimes to right lower quadrant, left lower quadrant or to the back. The pain is intermittent; no aggravating or relieving factor. She denies any associated nausea, vomiting, burning micturition, increased frequency or change in her bowel habits. She reports having similar pain in last 2 years intermittently and had evaluations before. Patient denies fever, chills, we akness/numbness of body parts or chest pain. Patient has also noticed that she has been getting more short of breath in the past 2 weeks. The shortness of breath is evident on mild exertion. She reports that she is on the chair most of the time watching TV. She denies any recent travel or surgery. Her last colonoscopy was in 04/2017; found to have diverticulosis. She was found to have adenomatous polyp in 2016 in colonoscopy. Her last EGD was in ; found to have mild to moderate inflammation. She is a former smoker; quit date in 2009. She does not drink alcohol or use any illicit drugs.She denies any history of DVT in the past. Admission Exam Per Admitting Provider Constitutional: Obese, sitting up, AOx3 Head: Normocephalic, Atraumatic Eyes: PERRL, conjunctivae normal, anicteric sclerae ENMT: external ear and nose normal, oropharynx normal Neck: trachea midline, no thyromegaly normal visual inspection Respiratory: normal respiratory effort, lungs clear to auscultation, no wheeze, rales, rhonchi. Normal insp/exp effort, no accessory muscle use Cardiovascular: RRR, no murmur, no edema Vessels: no JVD or carotid bruit Chest: normal inspection of chest Abdomen:Soft, nontender, bowel sound present Musculoskeletal: no cyanosis or clubbing, extremities motor strength 5/5. Asymmetrical leg swelling (right > left) Skin: no rashes, warm and dry normal turgor Neurologic: PERRL, EOMI, accommodation nl, no face palsy, no dysarthria CN's II- XI intact bilaterally and moves all extremities Psychiatric: A+Ox3, euthymic affect Lymphatic: no cervical or axillary lymphadenopathy : deferred Principal Diagnosis Acute pulmonary embolism Discharge Exam Constitutional: morbidly Obese F, sitting up, AOx3 Head: Normocephalic, Atraumatic Eyes: PERRL, EOMI, conjunctivae normal, anicteric sclerae ENMT: external ear and nose normal, oropharynx normal Neck: thick Respiratory: normal respiratory effort, lungs clear to auscultation, no wheeze, rales, rhonchi. Cardiovascular: RRR, no murmur, no edema Chest: normal inspection of chest Abdomen:Soft, nontender, bowel sound present, obese Musculoskeletal: extremities motor strength 5/5. Skin: no rashes, warm and dry normal turgor Neurologic: PERRL, EOMI, no face palsy, no dysarthria, moves all extremities Psychiatric: A+Ox3, euthymic affect Discharge Data Allergies Allergy/AdvReac Type Severity Reaction Status Date / Time naproxen Allergy Intermediate WELTS/HIVE Verified 04/04/21 18:14 BUT CAN TAKE IBUPROFEN & ASPIRIN W/O PROBLEM cyclobenzaprine Allergy Mild RASH Verified 04/04/21 18:14 Penicillins Allergy Unknown DOES NOT Verified 04/04/21 18:14 REMEMBER RXN WAS A CHILD amitriptyline AdvReac Intermediate "MADE PT Verified 04/04/21 18:14 MORE ANXIOUS" buspirone AdvReac Intermediate MADE PT Verified 04/04/21 18:14 MORE ANXIOUS diphenhydramine AdvReac Intermediate nervousness Verified 03/29/21 21:20 doxepin AdvReac Intermediate "COULD NOT Verified 03/29/21 21:20 SLEEP" hydroxyzine AdvReac Intermediate increased Verified 03/29/21 21:20 anxiety paroxetine AdvReac Intermediate HALLUCINATI Verified 03/29/21 21:20 ON suvorexant AdvReac Intermediate Nightmares Verified 03/29/21 21:20 trazodone AdvReac Intermediate PALPITATION Verified 03/29/21 21:20 S STERIODS AdvReac Severe AWAKE FOR Uncoded 03/29/21 21:20 3 DAYS, VERY IRRITABLE [place] [facility] AdvReac Intermediate "COULD NOT Uncoded 03/29/21 21:20 SLEEP" Consultations 09/13/21 11:54 ED Decision to Admit Stat Ordered Studies 09/13/21 08:44 CT abd pelvis IV con only Stat FINDINGS: Coronary artery calcifications. Segmental and subsegmental pulmonary emboli are noted within the lung bases with additional emboli noted within the right lung base lobar branches. Bibasilar groundglass densities suggest atelectasis. Unremarkable pancreas. Indeterminate hypodense 1.9 cm left adrenal gland is stable and likely represents a benign adenoma. The right adrenal gland is within normal limits. Cholecystectomy. Unremarkable liver. 4 mm nonobstructing calculus of the interpolar right kidney. Symmetric enhancement of the kidneys without ureteral calculi or hydronephrosis. Unremarkable urinary bladder. Hysterectomy. Atherosclerosis of the aorta without aneurysm. There is no lymphadenopathy. Unremarkable IVC. No bowel obstruction or bowel wall thickening. Colonic diverticulosis without acute diverticulitis. Appendectomy. No ascites or mesenteric inflammation. Unre markable soft tissues. Degenerative changes of the spine, pelvis and hips. 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 IMPRESSION: 1. Likely acute pulmonary embolus within the lobar, segmental and subsegmental branches of the lung bases. 2. No acute intra-abdominal or intrapelvic abnormality. 3. No bowel obstruction or bowel wall thickening. 4. Colonic diverticulosis. 5. Additional findings as above. 09/13/21 12:57 US venous doppler LE BI Stat FINDINGS: There is normal compressibility, flow, and augmentation within the bilateral lower extremity deep venous systems. IMPRESSION: No DVT within the right or left lower extremity. Hospital Course (1) Acute pulmonary embolism: (2) Nonspecific abdominal pain: Plan Patient is 65-year-old female with past medical history of morbid obesity, irritable bowel syndrome, depression, MARIA LUZ not on CPAP presented to the ED after abdominal pain for last 5 days and Shortness of Breath for 2 weeks. 1) Acute Pulmonary Embolism Risk factors include morbid obesity and immobility. Physical examination significant for asymmetrical leg swelling on right side. CT abdomen/pelvis shows acute PE within the lower, segmental and subsegmental branches of the lung bases. -Bilateral venous duplex - negat. for DVT -trop - negat. BNP wnl -Patient is comfortable, breathing on RA Plan; Lovenox 1 mg/kg every 12 hours. DC to use for next 5 days. Start warfarin 5mg daily today Age-appropriate cancer screening as outpatient. Follow-up with PCP. Anticoagulation clinic follow-up 2) Nonspecific Abdominal pain Generalized abdominal pain with no nausea/vomiting, urinary symptoms Lipase 18 CT abdomen pelvis with contrast -no acute abdominal finding No urinary symptoms Plan; Pain control with Tylenol. Bentyl. Will trial Protonix for possible dyspepsia. May need to follow up w/ GI as outpt Chronic condition Anxiety- continue home alprazolam BPAD- continue Seroquel. Qtc- 459. Dietheart healthy DVT prophylaxisLovenox full dose CODE STATUSfull code Dispo Plan to DC home today Total Time Total Time Spent Total Time Spent (In Minutes): 40 Discharge Plan Discharge Items Patient Disposition: Home - Self-Care Reason For Visit: ACUTE PE Discharge Diagnosis: Acute pulmonary embolism Activity: Per Instructions section Non-emergency contact: Primary Care Provider Call non-emergency contact if: you have any medication questions and your symptoms worsen Follow-up/Referrals: [facility] [Other] (The [facility] ([facility] will call you to discuss your lovenox and coumadin dosing and lab testing.) Loan Rudd PA-C [Primary Care Provider] - (Date & Time 09/19/2021 11:00 AM Provider Abbe Banda III, MD Department [facility] ) Diet: Heart Healthy Addtl Attending Provider Instructions: Follow up with your primary care doctor, the appointment was scheduled for you for September 19. You will also need to follow-up with anticoagulation clinic. You will be contacted by the clinic. In the meantime, take Coumadin 5 mg daily. Use Lovenox injections as prescribed, 141 mg twice a day for next 5 days. You will be further instructed, about the dose of Coumadin. Pending Studies at Discharge: No Stand-Alone Forms: My [facility], Smoking Cessation Medications and DC Order Prescriptions: New enoxaparin [Lovenox] 150 mg/mL Syringe 141 mg subcut Q12H 5 Days Qty: 9.4 0RF dicyclomine 10 mg Capsule 10 mg PO Q8 PRN (Reason: abd. discomfort) 2 Days Qty: 6 0RF pantoprazole 40 mg Tablet,Delayed Release (Dr/Ec) 40 mg PO DAILY Qty: 30 0RF warfarin 5 mg Tablet 5 mg PO DAILY Qty: 30 0RF Continued alprazolam 1 mg tablet 1 mg PO TID quetiapine 300 mg tablet 300 mg PO HS quetiapine 100 mg tablet 100 mg PO BID Rx Instructions: Morning and Afternoon zolpidem 10 mg tablet 10 mg PO HS Discharge Orders: Discharge Order (Routine); Ordered 09/15/21 Ordered By: Naveen Nichols Admission Data Admit Date/Time: 09/13/21 13:52 Attending Provider: Naveen Nichols Admit Provider: James Gaines Primary Care Provider: Loan Rudd Other Providers: James Gaines
[2021-09-15] MEDS: ENOXAPARIN 150 MG/ML SYR SQ SCH (12:10)
[2021-09-16] MEDS ORDERED: WARFARIN SOD 5 MG TAB PO SCH (16:00)
== END 2021-09-15 13:35 | disposition home or self-care (01) | DRG 176 ==
LOC: ED 08:21 → 2S 13:52 → SUATTDRO 13:52 → INTOOBSV 13:52 → 2S 15:50